=== PATIENT | male | born 1930 | race African-American/Black ===

== ENCOUNTER 2016-11-20 10:32 | Inpatient (IN) | payer MEDICARE ==
--- NOTE | 2016-11-20 11:10 | ED ---
General Adult HPI - General Chief complaint: Weakness Stated complaint: Unable to ambulate Time Seen by Provider: 11/20/16 11:00 Source: patient, EMS, RN notes reviewed Mode of arrival: EMS Limitations: physical limitation - History of Present Illness Initial comments: Patient is a pleasant 86-year-old male presenting to the emergency department complaining of general weakness. Onset was this morning. Patient felt fine when he went to bed. Patient denies any isolated area of weakness. Patient denies any confusion. Patient states he was too weak to get out of bed and did slide towards the ground. Patient denies any injury. No headache. No pain. - Related Data Home Medications Medication Instructions Recorded Confirmed No Known Home Medications [No 11/20/16 11/20/16 Known Home Medications] Allergies Allergy/AdvReac Type Severity Reaction Status Date / Time No Known Allergies Allergy Verified 11/20/16 10:33 Review of Systems ROS Statement: Those systems with pertinent positive or pertinent negative responses have been documented in the HPI. ROS Other: All systems not noted in ROS Statement are negative. Constitutional: Denies: fever Eyes: Denies: eye pain ENT: Denies: ear pain Respiratory: Denies: cough Cardiovascular: Denies: chest pain Endocrine: Denies: fatigue Gastrointestinal: Denies: abdominal pain Genitourinary: Denies: dysuria Musculoskeletal: Denies: back pain Skin: Denies: rash Neurological: Reports: weakness. Denies: headache, confusion Past Medical History Past Medical History: Asthma History of Any Multi-Drug Resistant Organisms: None Reported Past Surgical History: No Surgical Hx Reported Past Psychological History: No Psychological Hx Reported Smoking Status: Former smoker Past Alcohol Use History: None Reported Past Drug Use History: None Reported General Exam Limitations: physical limitation General appearance: alert, in no apparent distress Head exam: Present: atraumatic Eye exam: Present: normal appearance, PERRL ENT exam: Present: normal oropharynx Neck exam: Present: normal inspection Respiratory exam: Present: normal lung sounds bilaterally Cardiovascular Exam: Present: regular rate, normal rhythm GI/Abdominal exam: Present: soft. Absent: tenderness Extremities exam: Present: normal inspection Neurological exam: Present: alert, oriented X3, CN II-XII intact. Absent: motor sensory deficit Expanded Patient oriented to: Present: person, place, time Speech: Present: fluid speech Cranial nerves: EOM's Intact: Normal, Facial Sensation: Normal Sensory exam: Upper Extremity Light Touch: Normal, Lower Extremity Light Touch: Normal Motor strength exam: RUE: 5, LUE: 5, RLE: 5, LLE: 5 Eye Response: (4) open spontaneously Motor Response: (6) obeys commands Verbal Response: (5) oriented Psychiatric exam: Present: normal affect, normal mood Skin exam: Present: normal color Course Vital Signs 11/20/16 11/20/16 11/20/16 10:33 12:19 13:00 Temperature 96.9 F L Pulse Rate 95 74 80 Respiratory 18 18 20 Rate Blood Pressure 182/84 177/81 180/85 O2 Sat by Pulse 97 97 98 Oximetry EKG Findings - EKG Comments: EKG Findings:: Normal sinus rhythm 86. IA 184. QRS 74. QT 408. QTC 488. Normal axis. Septal Q waves. Nonspecific T waves. Medical Decision Making - Medical Decision Making Patient reevaluated and resting comfortably in bed. Blood sugar has improved to 60. Patient remains alert and appropriate. Patient updated on results and plan. Case was discussed in detail with Dr. Garcia, who will admit for Dr. Briones. Patient will be provided fluids for renal failure and acidosis. D5 added for hypoglycemia. - Lab Data Result diagrams: 11/20/16 11:57 11/20/16 11:57 Lab Results 11/20/16 11/20/16 11/20/16 Range/Units 11:57 11:57 11:57 WBC 7.3 (3.8-10.6) k/uL RBC 4.53 (4.30-5.90) m/uL Hgb 13.7 (13.0-17.5) gm/dL Hct 43.3 (39.0-53.0) % MCV 95.6 (80.0-100.0) fL MCH 30.4 (25.0-35.0) pg MCHC 31.8 (31.0-37.0) g/dL RDW 15.6 H (11.5-15.5) % Plt Count 135 L (150-450) k/uL Neutrophils % 87 % Lymphocytes % 7 % Monocytes % 4 % Eosinophils % 1 % Basophils % 0 % Neutrophils # 6.3 (1.3-7.7) k/uL Lymphocytes # 0.5 L (1.0-4.8) k/uL Monocytes # 0.3 (0-1.0) k/uL Eosinophils # 0.1 (0-0.7) k/uL Basophils # 0.0 (0-0.2) k/uL Hypochromasia Slight Sodium 141 (137-145) mmol/L Potassium 5.9 H (3.5-5.1) mmol/L Chloride 111 H (98-107) mmol/L Carbon Dioxide 13 L (22-30) mmol/L Anion Gap 17 mmol/L BUN 40 H (9-20) mg/dL Creatinine 2.20 H (0.66-1.25) mg/dL Est GFR (MDRD) Af Amer 35 (>60 ml/min/1.73 sqM) Est GFR (MDRD) Non-Af 29 (>60 ml/min/1.73 sqM) Glucose 22 L* (74-99) mg/dL POC Glucose (mg/dL) (75-99) mg/dL POC Glu Agronomy Advisor ID Calcium 9.1 (8.4-10.2) mg/dL Phosphorus 3.8 (2.5-4.5) mg/dL Magnesium 2.4 H (1.6-2.3) mg/dL Total Bilirubin 1.4 H (0.2-1.3) mg/dL AST 26 (17-59) U/L ALT 18 L (21-72) U/L Alkaline Phosphatase 37 L (38-126) U/L Total Creatine Kinase 533 H (55-170) U/L CK-MB (CK-2) 6.6 H* (0.0-2.4) ng/mL CK-MB (CK-2) Rel Index 1.2 Troponin I 0.034 (0.000-0.034) ng/mL Total Protein 6.1 L (6.3-8.2) g/dL Albumin 3.5 (3.5-5.0) g/dL TSH 1.550 (0.465-4.680) mIU/L Free T4 1.28 (0.78-2.19) ng/dL Free T3 pg/mL 1.9 L (2.8-5.3) pg/ml 11/20/16 Range/Units 13:16 WBC (3.8-10.6) k/uL RBC (4.30-5.90) m/uL Hgb (13.0-17.5) gm/dL Hct (39.0-53.0) % MCV (80.0-100.0) fL MCH (25.0-35.0) pg MCHC (31.0-37.0) g/dL RDW (11.5-15.5) % Plt Count (150-450) k/uL Neutrophils % % Lymphocytes % % Monocytes % % Eosinophils % % Basophils % % Neutrophils # (1.3-7.7) k/uL Lymphocytes # (1.0-4.8) k/uL Monocytes # (0-1.0) k/uL Eosinophils # (0-0.7) k/uL Basophils # (0-0.2) k/uL Hypochromasia Sodium (137-145) mmol/L Potassium (3.5-5.1) mmol/L Chloride (98-107) mmol/L Carbon Dioxide (22-30) mmol/L Anion Gap mmol/L BUN (9-20) mg/dL Creatinine (0.66-1.25) mg/dL Est GFR (MDRD) Af Amer (>60 ml/min/1.73 sqM) Est GFR (MDRD) Non-Af (>60 ml/min/1.73 sqM) Glucose (74-99) mg/dL POC Glucose (mg/dL) 20 L (75-99) mg/dL POC Glu Agronomy Advisor ID Bowling, Sheri Calcium (8.4-10.2) mg/dL Phosphorus (2.5-4.5) mg/dL Magnesium (1.6-2.3) mg/dL Total Bilirubin (0.2-1.3) mg/dL AST (17-59) U/L ALT (21-72) U/L Alkaline Phosphatase (38-126) U/L Total Creatine Kinase (55-170) U/L CK-MB (CK-2) (0.0-2.4) ng/mL CK-MB (CK-2) Rel Index Troponin I (0.000-0.034) ng/mL Total Protein (6.3-8.2) g/dL Albumin (3.5-5.0) g/dL TSH (0.465-4.680) mIU/L Free T4 (0.78-2.19) ng/dL Free T3 pg/mL (2.8-5.3) pg/ml - Radiology Data Radiology results: report reviewed (Computed tomography scan of the brain shows no acute process.), image reviewed (Chest x-ray shows no acute process.) Disposition Clinical Impression: Acute renal failure, Hypoglycemia Disposition: ADMITTED IP TO THIS [facility] Referrals: Jose Ramon Thorne DO [Primary Care Provider] - 1-2 days Decision Time: 14:19
[2016-11-20 12:13] LABS: Basophils % (A) 0 %; CH 30.4; Eosinophils # (A) 0.1 k/uL (0-0.7); Eosinophils % (A) 1 %; HCT 43.3 % (39.0-53.0); HDW 3.01; HGB 13.7 gm/dL (13.0-17.5); Hypochromasia Slight; Luc # (Auto) 0.08; Luc % (Auto) 1; Lymphocytes # (A) 0.5 k/uL (1.0-4.8); Lymphocytes % (A) 7 %; MCH 30.4 pg (25.0-35.0); MCHC 31.8 g/dL (31.0-37.0); MCV 95.6 fL (80.0-100.0); Mean Platelet Volume 8.4; Monocytes # (A) 0.3 k/uL (0-1.0); Monocytes % (A) 4 %; Neutrophils # (A) 6.3 k/uL (1.3-7.7); Neutrophils % (A) 87 %; RBC 4.53 m/uL (4.30-5.90); RDW 15.6 % (11.5-15.5); WBC 7.3 k/uL (3.8-10.6); WBC (Perox) 8.15
[2016-11-20 12:32] LABS: Calcium 9.1 mg/dL (8.4-10.2); Total Bilirubin 1.4 mg/dL (0.2-1.3)
[2016-11-20 13:01] LABS: Creatine Kinase MB 6.6 ng/mL (0.0-2.4); Troponin I 0.034 ng/mL (0.000-0.034)
[2016-11-20 13:04] LABS: Magnesium 2.4 mg/dL (1.6-2.3); Phosphorous 3.8 mg/dL (2.5-4.5); Potassium 5.9 mmol/L (3.5-5.1)
[2016-11-20 13:05] LABS: Total Protein 6.1 g/dL (6.3-8.2)
--- NOTE | 2016-11-20 13:13 | CT ---
EXAMINATION TYPE: CT brain wo con DATE OF EXAM: 11/20/2016 COMPARISON: NONE HISTORY: weakness and fall CT DLP: 1017.9 mGycm Automated exposure control for dose reduction was used. FINDINGS: Cortical atrophy is present. White matter demyelination changes are likely age-related. Cerebral vasc ular calcifications are present. There is no hemorrhage or hydrocephalus. Mild inflammatory change pr esent in the maxillary sinus, ethmoid air cells. Mastoids are well aerated. IMPRESSION: NO ACUTE ABNORMALITY. NO HEMORRHAGE OR HYDROCEPHALUS.
--- NOTE | 2016-11-20 13:14 | XR ---
EXAMINATION TYPE: XR chest 2V DATE OF EXAM: 11/20/2016 COMPARISON: Prior chest x-ray 07/05/2010 HISTORY: Weakness, fall TECHNIQUE: Frontal and lateral views of the chest are obtained. FINDINGS: There is no focal air space opacity, pleural effusion, or pneumothorax seen. The cardiac silhouette size is within normal limits. There are overlying cardiac leads. The osseous structures are intact. IMPRESSION: No acute cardiopulmonary process.
[2016-11-20 13:22] LABS: Glucose,Whole Blood 20 mg/dL (75-99)
[2016-11-20] MEDS ORDERED: DEXTROSE 50%-WATER 50 ML SYRINGE IVP STA ×3 (13:29→17:33)
[2016-11-20] MEDS ORDERED: SODIUM CHLORIDE 0.9% 500 ML IV STA (13:30)
[2016-11-20] MEDS ORDERED: SODIUM CHLORIDE 0.9% 1,000 ML IV STA (13:30)
[2016-11-20] MEDS ORDERED: DEXTROSE 5%-0.45% NACL 1,000 ML IV ONE (14:18)
[2016-11-20 14:19] LABS: Glucose,Whole Blood 60 mg/dL (75-99)
[2016-11-20] MEDS ORDERED: NALOXONE 0.4 MG/ML 1 ML VIAL IV PRN (14:20)
[2016-11-20 14:51] LABS: Glucose,Whole Blood 53 mg/dL (75-99)
[2016-11-20] MEDS ORDERED: GLUCAGON 1 MG/ML VIAL IVP STA (14:51)
[2016-11-20 15:42] LABS: Glucose,Whole Blood 50 mg/dL (75-99)
[2016-11-20 16:22] LABS: Glucose,Whole Blood 90 mg/dL (75-99)
[2016-11-20 17:05] LABS: Glucose,Whole Blood 74 mg/dL (75-99)
[2016-11-20] MEDS ORDERED: ALBUTEROL NEBULIZED 2.5 MG/3 ML INHALATION PRN (17:30)
[2016-11-20] MEDS ORDERED: SODIUM POLYSTYRENE SULFONATE 15 GM/60 ML BOTTLE PO STA (17:33)
[2016-11-20] MEDS: ONDANSETRON 4 MG/2 ML VIAL IVP PRN (17:44)
[2016-11-20] MEDS ORDERED: CALCIUM GLUCONATE 1,000 MG in SODIUM CHLORIDE 0.9% 100 ML IVPB ONE (18:00)
[2016-11-20 20:43] LABS: Glucose,Whole Blood 54 mg/dL (75-99)
[2016-11-20] MEDS ORDERED: DEXTROSE 10 % IN WATER 250 ML IV STA (20:43)
[2016-11-20] MEDS: ALBUTEROL NEBULIZED 2.5 MG/3 ML INHALATION SCH (20:51)
[2016-11-20 21:19] LABS: Glucose,Whole Blood 135 mg/dL (75-99)
[2016-11-20 22:05] LABS: Calcium 8.9 mg/dL (8.4-10.2); Potassium 4.4 mmol/L (3.5-5.1); Total Bilirubin 1.3 mg/dL (0.2-1.3); Total Protein 5.5 g/dL (6.3-8.2)
[2016-11-21 00:12] LABS: Glucose,Whole Blood 107 mg/dL (75-99)
[2016-11-21 00:42] LABS: Appearance,Urine Clear (Clear); Bilirubin,Urine Negative (Negative); Glucose,Urine (UA) Trace (Negative); Ketones,Urine 1+ (Negative); Leukocyte Esterase,Urine Negative (Negative); Nitrite,Urine Negative (Negative); Protein,Urine Negative (Negative); Specific Gravity,Urine 1.012 (1.001-1.035); UA Billing (MACRO vs. MICRO) CHEM
[2016-11-21 03:01] LABS: Glucose,Whole Blood 84 mg/dL (75-99)
[2016-11-21 06:05] LABS: Glucose,Whole Blood 80 mg/dL (75-99)
[2016-11-21 07:34] LABS: Glucose,Whole Blood 82 mg/dL (75-99)
[2016-11-21 07:57] LABS: Basophils % (A) 0 %; CH 30.5; CHCM 32.9; Eosinophils # (A) 0.1 k/uL (0-0.7); Eosinophils % (A) 2 %; HCT 38.7 % (39.0-53.0); HDW 3.01; HGB 13.1 gm/dL (13.0-17.5); Luc # (Auto) 0.08; Luc % (Auto) 2; Lymphocytes # (A) 0.6 k/uL (1.0-4.8); Lymphocytes % (A) 11 %; MCH 31.5 pg (25.0-35.0); MCHC 33.8 g/dL (31.0-37.0); MCV 93.1 fL (80.0-100.0); Mean Platelet Volume 9.3; Monocytes # (A) 0.2 k/uL (0-1.0); Monocytes % (A) 5 %; Neutrophils # (A) 4.1 k/uL (1.3-7.7); Neutrophils % (A) 81 %; RBC 4.15 m/uL (4.30-5.90); RDW 15.1 % (11.5-15.5); WBC 5.1 k/uL (3.8-10.6); WBC (Perox) 5.34
[2016-11-21 08:07] LABS: Manual Review Performed
[2016-11-21 08:15] LABS: Calcium 8.4 mg/dL (8.4-10.2); Total Bilirubin 1.4 mg/dL (0.2-1.3)
[2016-11-21 08:20] LABS: Potassium 4.8 mmol/L (3.5-5.1)
[2016-11-21 08:21] LABS: Total Protein 5.1 g/dL (6.3-8.2)
[2016-11-21] MEDS: ALBUTEROL NEBULIZED 2.5 MG/3 ML INHALATION SCH ×4 (08:29→20:44)
--- NOTE | 2016-11-21 10:18 | HP ---
DATE OF ADMISSION: 11/20/16 CHIEF COMPLAINT: Generalized weakness and renal failure. HISTORY OF PRESENT ILLNESS: This 86-year-old gentleman with past medical history of multiple medical problems including history of asthma, history of nicotine dependence, being followed by Dr. Thorne in the outpatient setting complaining of tiredness and weakness. The po intake appears to be poor at this time. The patient is dizzy. Generalized weakness. The patient came to [facility] and admitted. The patient having multiple abnormalities including hypoglycemia as well as hyperkalemia and renal failure also. There is no history of fever, rigors or chills. No history of headache, loss of consciousness or seizures. Past medical history of asthma. History of nicotine dependence. Medications prior to admission are: None. ALLERGIES: None. FAMILY HISTORY: History of heart disease and strokes in the family. SOCIAL HISTORY: Previous history of smoking. No history of current smoking or alcohol intake. REVIEW OF SYSTEMS: HEENT: No diminished vision. No diminished hearing. Cardiovascular system: No angina or palpitations. Respiratory: No cough, hemoptysis. GI: No nausea or vomiting. : No dysuria. Nervous system: No numbness. Generalized weakness. Allergy/Immunology: No asthma or hayfever. Musculoskeletal: As mentioned earlier. Hematology/oncology: No history of anemia. Endocrine. No history of diabetes or hypothyroidism. Constitutional: As mentioned earlier. Dermatology: Negative. Rheumatology: Negative. Psychiatry: As mentioned earlier. PHYSICAL EXAMINATION: The patient is alert and oriented times three. Pulse 76. Blood pressure 162/84. Respiratory rate 18, temperature 97.4 degrees. Pulse ox 94% on 2 L. HEENT: Conjunctivae normal. Oral mucosa dry. NECK: No JVD. No carotid bruit. No lymph node enlargement. Cardiovascular: S1, S2 muffled. Respiratory: Breath sounds diminished at the bases. A few scattered rhonchi and crackles. Abdomen is soft. No mass palpable. Legs : No edema. No swelling. Nervous system: No focal deficits. Lymphatics : No lymph nodes palpable in the neck, axillae or groin. SKIN: Hyperpigmentation present. LABS: WBC 7.7, hemoglobin 13.6. Sodium 140. Potassium 5.9. Creatinine 2.20. ASSESSMENT: 1. Acute renal failure, secondary to dehydration, prerenal factors. 2. Hypoglycemia. 3. Hyperkalemia from acute renal failure. 4. Increased creatinine kinase. 5. History of asthma. 6. Nonspecific ST-T changes. 7. FULL CODE. RECOMMENDATIONS AND DISCUSSION: In this 86 -year-old gentleman who presented with multiple complex medical issues, we will monitor the patient closely, continue the current medications, continue symptomatic treatment. We will initiate IV hydration. Otherwise, continue to monitor. Monitor creatinine closely. Recommend UA with micro. CT scan of the brain did not show any acute abnormality. Chest x-ray showed no acute cardiopulmonary illness and EKG is also done showed some nonspecific ST-T changes. We will continue to monitor. Guarded prognosis. Further recommendations o follow. Closely follow with Dr. Thorne in the outpatient setting. I would also obtain a 2D echo with Doppler to complete the workup. PAT
[2016-11-21 10:19] LABS: Glucose,Whole Blood 95 mg/dL (75-99)
--- NOTE | 2016-11-21 10:46 | CONS ---
REASON FOR CONSULT: Renal failure and acidosis. HISTORY OF PRESENT ILLNESS: The patient is an 86 -year-old male who was admitted to the hospital with complaints of weakness. He stated that he had not been feeling well for about one week and was not able to walk and get around. He denied any diarrhea, nausea or vomiting. The patients blood pressure was not noted to be low at the time of admission. He states the has currently been voiding. He had not been eating much prior to admission. Serum creatinine was 2.2 mgDL on initial admission. It is at 1.9 now. CO2 13. It is currently at 14. Again, the patient denied any diarrhea prior to admission. Previous creatinine is not available for comparison. However, the patient denied any prior history of kidney diseases. PAST MEDICAL HISTORY: Asthma. Home medications: None. ALLERGIES: None. SOCIAL HISTORY: The patient is an ex-smoker. No history of drug abuse or alcohol abuse. REVIEW OF SYSTEMS: As per HPI. Other systems negative. On examination, the patient is comfortable. Awake. He is not in any acute distress. Blood pressure is 118/58. Heart rate is 73 per minute. He is afebrile. Examination of the heart, S1, S2. Examination of the lungs, bilateral breath sounds are heard. Abdomen is soft, nontender. Examination of the lower extremities shows no evidence of edema. GROUP SUPERVISOR YARD : Grossly intact. The patient is moving all four extremities. Labs reveal sodium 139, potassium 4.8. Chloride 115. CO2 14. BUN 33, serum creatinine 1.92. Hemoglobin 13.1 gmDL. ASSESSMENT: 1. Acute kidney injury appears to be prerenal. We will resume IV hydration. 2. Non-anion gap metabolic acidosis secondary to renal failure. We will start with oral sodium bicarb and continue with IV fluids in the form of half normal saline. If the acidosis does not improve, the patient will need to be started on IV sodium bicarb/sodium acetate. 3. History of asthma. PLAN: Start IV fluids. Start oral sodium bicarb. Repeat labs in the a.m. Thank you for this consultation. We will continue to follow the patient with you during his hospitalization. PAT
[2016-11-21] MEDS: SODIUM BICARBONATE TAB 650 MG TAB PO SCH ×3 (10:57→20:39)
[2016-11-21] MEDS: SODIUM CHLORIDE 0.45% 1,000 ML IV SCH ×2 (10:57→20:43)
[2016-11-21 12:12] LABS: Glucose,Whole Blood 93 mg/dL (75-99)
[2016-11-21 17:04] LABS: Glucose,Whole Blood 90 mg/dL (75-99)
--- NOTE | 2016-11-21 20:17 | PN ---
DATE OF SERVICE: 11/21/16 This 86-year-old gentleman who was admitted with dehydration and prerenal factors and pneumonia, is being closely monitored. After IV Fluids, the patient is feeling much better. The creatinine is improved to 1.92. PHYSICAL EXAMINATION: The patient is alert and oriented times three. Pulse 76. Blood pressure 149/70. Respiratory rate 14. Temperature 98.2 degrees. Pulse ox 98% on 2 L. HEENT: Conjunctivae normal. NECK: No JVD. CARDIOVASCULAR: S1, S2 muffled. RESPIRATORY: Breath sounds diminished at the bases. A few scattered rhonchi and crackles. ABDOMEN: Soft, nontender. LEGS: No edema. No swelling. NERVOUS SYSTEM: No focal deficits. LABS: Creatinine 1.92. Other labs are noted. ASSESSMENT: 1. Acute renal failure, secondary to dehydration, prerenal factors and acute tubular necrosis. 2. Hypoglycemia. 3. Hyperkalemia from acute renal failure. 4. Increased creatinine kinase. 5. History of asthma. 6. History of nonspecific ST-T changes. 7. FULL CODE. RECOMMENDATIONS AND DISCUSSION: Continue current medications, continue with symptomatic treatment. Continue with IV fluids. Increase ambulation. Prognosis guarded because of multiple complex medical issues. Further recommendations to follow. MTDD
[2016-11-21 21:32] LABS: Glucose,Whole Blood 98 mg/dL (75-99)
[2016-11-22 02:24] LABS: Glucose,Whole Blood 82 mg/dL (75-99)
[2016-11-22 06:12] LABS: Glucose,Whole Blood 75 mg/dL (75-99)
[2016-11-22 07:07] LABS: Glucose,Whole Blood 63 mg/dL (75-99)
[2016-11-22 07:35] LABS: Glucose,Whole Blood 81 mg/dL (75-99)
[2016-11-22] MEDS: SODIUM BICARBONATE TAB 650 MG TAB PO SCH ×3 (07:53→20:35)
[2016-11-22] MEDS: SODIUM CHLORIDE 0.45% 1,000 ML IV SCH ×3 (07:56→20:36)
[2016-11-22] MEDS: ALBUTEROL NEBULIZED 2.5 MG/3 ML INHALATION SCH ×4 (08:03→19:18)
[2016-11-22] MEDS: ONDANSETRON 4 MG/2 ML VIAL IVP PRN (08:23)
--- NOTE | 2016-11-22 09:58 | P.PN ---
Subjective Patient is seen in follow-up for acute kidney injury. Unclear as to what his baseline renal function is. Creatinine was 2.2 on admission and was down to 1.9 as of yesterday. Patient is also noted to be acidotic with bicarb level of 14 as of yesterday. Denies chest pain or shortness of breath. He's been having vomiting this morning. Denies any diarrhea. Denies chest pain or shortness of breath. Admits to good urine output. Vital signs are stable. General: The patient appeared well nourished and normally developed. HEENT: Head exam is unremarkable. Neck is without jugular venous distension. LUNGS: Lungs are clear to auscultation and percussion. Breath sounds decreased. HEART: Rate and Rhythm are regular. First and second heart sounds normal. No murmurs, rubs or gallops. ABDOMEN: Abdominal exam reveals normal bowel sounds. Non-tender and non- distended. No evidence of peritonitis. EXTREMITITES: No clubbing, cyanosis, or edema. Objective - Vital Signs Vital signs: Vital Signs Temp 98.1 F 11/22/16 07:00 Pulse 73 11/22/16 07:00 Resp 22 11/22/16 07:00 BP 123/56 11/22/16 07:00 Pulse Ox 100 11/22/16 07:00 Intake & Output 11/21/16 11/22/16 11/22/16 18:59 06:59 18:59 Intake Total 200 Output Total 300 200 Balance -300 0 Intake: Oral 200 Output: Urine 300 200 Other: Voiding Method Urinal # Voids 0 # Bowel Movements 0 # Emeses 0 - Labs CBC & Chem 7: 11/21/16 07:40 11/21/16 07:40 Labs: Abnormal Lab Results - Last 24 Hours (Table) 11/22/16 Range/Units 07:05 POC Glucose (mg/dL) 63 L (75-99) mg/dL Assessment and Plan Plan: Assessment: #1. Nonoliguric acute kidney injury mostly prerenal. Gradually improving with IV hydration. Unclear as to what is presented function is. Urinalysis was noted to be benign. #2. Metabolic acidosis secondary to acute kidney injury. #3. Hyperkalemia secondary to acute kidney injury and metabolic acidosis on admission. Resolved. Plan: Continue half-normal saline at 100 mL an hour. Maintain oral sodium bicarbonate supplementation. Avoid nephrotoxic agents and hypotensive episodes. Check labs today.
--- NOTE | 2016-11-22 10:49 | ECHOF ---
Referral Reason:chf MEASUREMENTS -------- HEIGHT: 175.3 cm WEIGHT: 72.6 kg BP: 115/59 RVIDd: 2.5 cm (< 3.3) IVSd: 1.6 cm (0.6 - 1.1) LVIDd: 3.5 cm (3.9 - 5.3) LVPWd: 1.4 cm (0.6 - 1.1) IVSs: 1.9 cm LVIDs: 2.4 cm LVPWs: 1.8 cm LA Diam: 2.9 cm (2.7 - 3.8) LAESV Index (A-L): 27.27 ml/m Ao Diam: 3.8 cm (2.0 - 3.7) AV Cusp: 2.1 cm (1.5 - 2.6) MV EXCURSION: 16.659 mm (> 18.000) MV EF SLOPE: 21 mm/s (70 - 150) EPSS: 0.9 cm MV E [place]: 0.57 m/s MV DecT: 296 ms MV A [place]: 0.74 m/s MV E/A Ratio: 0.78 RAP: 5.00 mmHg RVSP: 43.88 mmHg FINDINGS -------- Sinus rhythm. This was a technically difficult study with suboptimal views. The left ventricular size is normal. There is moderate concentric left ventricular hypertrophy. Overall left ventricular systolic function is normal with, an EF between 60 - 65 %. The right ventricle is normal in size. Normal LA size by volume 22+/-6 ml/m2. The right atrium is normal in size. 1.5mg of Definity was utilized for enhancement of images The aortic valve is trileaflet and appears structurally normal. The mitral valve is normal. Mild tricuspid regurgitation present. There is mild pulmonary hypertension. The right ventricular systolic pressure, as measured by Doppler, is 43.88mmHg. There is no pulmonic regurgitation present. The aortic root is dilated measuring 3.8cm. Normal inferior vena cava with normal inspiratory collapse consistent with estimated right atrial pressure of 5 mmHg. There is no pericardial effusion. CONCLUSIONS -------- 1. Sinus rhythm. 2. The aortic valve is trileaflet and appears structurally normal. 3. The mitral valve is normal. 4. Mild tricuspid regurgitation present. 5. There is mild pulmonary hypertension. 6. The right ventricular systolic pressure, as measured by Doppler, is 43.88mmHg. 7. There is no pulmonic regurgitation present. 8. The aortic root is dilated measuring 3.8cm. 9. Normal inferior vena cava with normal inspiratory collapse consistent with estimated right atrial pressure of 5 mmHg. 10. There is no pericardial effusion. 11. This was a technically difficult study with suboptimal views. 12. The left ventricular size is normal. 13. There is moderate concentric left ventricular hypertrophy. 14. Overall left ventricular systolic function is normal with, an EF between 60 - 65 %. 15. The right ventricle is normal in size. 16. Normal LA size by volume 22+/-6 ml/m2. 17. The right atrium is normal in size. 18. 1.5mg of Definity was utilized for enhancement of images MARBLE CUTTER: Amelia Sorensen RDCS
[2016-11-22 11:15] LABS: Calcium 8.1 mg/dL (8.4-10.2); Potassium 3.7 mmol/L (3.5-5.1)
[2016-11-22 11:50] LABS: Glucose,Whole Blood 59 mg/dL (75-99)
[2016-11-22 12:10] LABS: Glucose,Whole Blood 80 mg/dL (75-99)
--- NOTE | 2016-11-22 13:21 | XR ---
EXAMINATION TYPE: XR chest 1V portable DATE OF EXAM: 11/22/2016 COMPARISON: Prior chest x-ray 11/20/2016 HISTORY: Cough TECHNIQUE: frontal view of the chest is obtained on 2 images. FINDINGS: There is no pleural effusion or pneumothorax seen. The cardiac silhouette size is stable accounting for differences in technique and rotation. Minimal patchy basilar density noted. There a re overlying cardiac leads. The osseous structures are intact. IMPRESSION: There may be some basilar atelectasis. Follow-up as indicated.
[2016-11-22] MEDS: ESOMEPRAZOLE 20 MG in SODIUM CHLORIDE 0.9% 50 ML IVPB SCH (13:34)
--- NOTE | 2016-11-22 15:17 | P.PN ---
Subjective Date of service 11/22/2016. Personal being dictated for Dr. Garcia. Interval history: This is an 86-year-old gentleman admitted with dehydration, acute renal failure, hypoglycemia multiple other medical issues. Maintained on IV fluid hydration with continue to improving creatinine 1.69. Complains of nausea, vomiting and cough with clear sputum. Acidotic. Denies chest pain, palpitations or increasing shortness of breath. Objective - Vital Signs Vital signs: Vital Signs Temp 98.1 F 11/22/16 07:00 Pulse 76 11/22/16 11:56 Resp 22 11/22/16 07:00 BP 123/56 11/22/16 07:00 Pulse Ox 100 11/22/16 07:00 Intake & Output 11/21/16 11/22/16 11/22/16 18:59 06:59 18:59 Intake Total 200 Output Total 300 200 150 Balance -300 0 -150 Weight 72.575 kg Intake: Oral 200 Output: Urine 300 200 150 Other: Voiding Method Urinal # Voids 0 # Bowel Movements 0 1 # Emeses 0 - Exam PHYSICAL EXAM: VITAL SIGNS: As above GENERAL: [Sitting up in bed, no acute distress] HEENT: [Pupils equal conjunctiva normal.] NECK: [Supple, no JVD] RESPIRATORY EFFORT:[ Normal] LUNGS: [Bilateral bases diminished] CARDIOVASCULAR[ regular S1 and S2, no murmurs rubs or gallops, no edema] GI: [Abdomen soft, nontender, positive bowel sounds.] PSYCH: [Alert and oriented -3, mood and affect normal.] NEURO: No focal deficits. - Labs CBC & Chem 7: 11/21/16 07:40 11/22/16 10:08 Labs: Abnormal Lab Results - Last 24 Hours (Table) 11/22/16 11/22/16 11/22/16 Range/Units 07:05 10:08 11:49 Chloride 113 H (98-107) mmol/L Carbon Dioxide 20 L (22-30) mmol/L BUN 24 H (9-20) mg/dL Creatinine 1.69 H (0.66-1.25) mg/dL POC Glucose (mg/dL) 63 L 59 L (75-99) mg/dL Calcium 8.1 L (8.4-10.2) mg/dL Assessment and Plan Plan: 1. Acute renal failure secondary to dehydration, prerenal factors and acute tubular necrosis. 2. [ Hypoglycemia]. 3. [ Hyperkalemia secondary to acute renal failure, resolved]. 4. [ Increased creatinine kinase]. Plan: Continue on current medication regime , sodium bicarb, monitoring and symptomatic treatment. Maintain IV fluid hydration. PPI added to med regime. Chest x-ray pending.Follow closely with nephrology. Discharge planning in progress for tomorrow. The impression and plan of care has been dictated as directed. : I performed a H&P examination of this patient and discussed the same with the dictator. I agree with the dictator's note. Any additional findings/opinions/ etc. will be noted.
[2016-11-22 17:14] LABS: Glucose,Whole Blood 86 mg/dL (75-99)
[2016-11-22 20:49] LABS: Glucose,Whole Blood 85 mg/dL (75-99)
[2016-11-23 02:25] LABS: Glucose,Whole Blood 76 mg/dL (75-99)
[2016-11-23 07:05] LABS: Glucose,Whole Blood 62 mg/dL (75-99)
[2016-11-23 07:24] LABS: Glucose,Whole Blood 63 mg/dL (75-99)
[2016-11-23] MEDS: ALBUTEROL NEBULIZED 2.5 MG/3 ML INHALATION SCH ×4 (07:35→20:23)
[2016-11-23 07:40] LABS: Glucose,Whole Blood 64 mg/dL (75-99)
[2016-11-23] MEDS ORDERED: DEXTROSE 10 % IN WATER 250 ML IV STA (07:41)
[2016-11-23] MEDS: SODIUM CHLORIDE 0.45% 1,000 ML IV SCH ×2 (08:28→21:10)
[2016-11-23] MEDS: ONDANSETRON 4 MG/2 ML VIAL IVP PRN (08:28)
[2016-11-23 08:29] LABS: Glucose,Whole Blood 73 mg/dL (75-99)
[2016-11-23 08:44] LABS: Potassium 3.4 mmol/L (3.5-5.1)
[2016-11-23] MEDS: SODIUM BICARBONATE TAB 650 MG TAB PO SCH ×3 (08:46→21:06)
[2016-11-23] MEDS ORDERED: POTASSIUM CHLORIDE ER 20 MEQ TAB.ER PO STA (08:59)
[2016-11-23] MEDS ORDERED: Potassium Replacement Protocol 1 EACH MISC MISCELLANE PRN (09:48)
--- NOTE | 2016-11-23 10:10 | PN ---
Patient is seen for follow up for acute kidney injury and metabolic acidosis. Currently he is maintained on IV fluids. Liver function has improved. Metabolic acidosis also improved. Patient is maintained on p.o. sodium bicarb. His creatinine is down to 1.5 from 2.2 on initial admission. Patient has been voiding in a urinal. On examination, he is currently comfortable, awake not in any acute distress. Blood pressure is 148/68, heart rate is 76 per minute. He is afebrile. Examination of the heart: S1, S2. Examination of lungs: Bilateral breath sounds are heard. Abdomen is soft, nontender. Examination of lower extremities shows no significant edema. CIVIL ENGINEERING TEACHER exam is grossly intact. Labs show sodium of 139, potassium 3.4, chloride 111, BUN 20, serum creatinine 1.56. Calcium 8.0. ASSESSMENT: 1. Acute kidney injury, prerenal currently improving. I will check an ultrasound of the kidneys as I do not see one on this admission or on previous admission. 2. Metabolic acidosis, currently improved. Patient is maintained on oral sodium bicarb. 3. Rule out chronic kidney disease. We do not have previous labs available for comparison. 4. Hypokalemia, will replace. 5. Hypoglycemia, currently resolved. PLAN: Continue IV fluids, check ultrasound of the kidneys. Repeat labs in the a.m. MTDD
[2016-11-23] MEDS: ESOMEPRAZOLE 20 MG in SODIUM CHLORIDE 0.9% 50 ML IVPB SCH (10:11)
[2016-11-23 11:54] LABS: Glucose,Whole Blood 70 mg/dL (75-99)
--- NOTE | 2016-11-23 15:09 | US ---
EXAMINATION TYPE: US kidneys/renal and bladder DATE OF EXAM: 11/23/2016 COMPARISON: NONE CLINICAL HISTORY: renal failure. EXAM MEASUREMENTS: Right Kidney: 8.3 x 3.3 x 4.1 cm Left Kidney: 8.1 x 5.2 x 3.9 cm Right Kidney: Cystic are seen mid/lower pole measuring 1.4 x 1.1 x 1.2 cm. Left Kidney: No hydronephrosis or masses seen Bladder: wnl Bilateral Jets seen: Yes IMPRESSION: 1. Mid to inferior pole right renal cyst
--- NOTE | 2016-11-23 15:56 | P.PN ---
Subjective Personal being dictated for Dr. Garcia. Interval history: This is an 86-year-old gentleman admitted with dehydration, acute renal failure, hypoglycemia multiple other medical issues. Maintained on IV fluid hydration with continue to improving creatinine 1.69. Complains of nausea, vomiting and cough with clear sputum. Acidotic. Denies chest pain, palpitations or increasing shortness of breath. 11/23/2016 maintained on gentle IV fluid hydration. persistent, ongoing nausea , vomiting, hypoglycemia. Currently receiving dextrose 10%. Unable to tolerate diet. Renal ultrasound reportedly mild inferior pole right renal cyst. Renal function mildly improving. Chest x-ray reporting bibasilar atelectasis. Echo reporting EF 60-65%. Denies chest pain, palpitations or increasing shortness of breath. Objective - Vital Signs Vital signs: Vital Signs Temp 98 F 11/23/16 07:00 Pulse 79 11/23/16 11:57 Resp 18 11/23/16 07:00 BP 148/68 11/23/16 07:00 Pulse Ox 97 11/23/16 07:00 Intake & Output 11/22/16 11/23/16 11/23/16 18:59 06:59 18:59 Intake Total 600 Output Total 250 700 100 Balance -250 -700 500 Weight 72.575 kg Intake: Intake, IV Titration 600 Amount Dextrose 10 % in Water 250 250 ml @ 999 mls/hr IV ONCE [facility] Rx#:[id number] Esomeprazole 20 mg In 50 Sodium Chloride 0.9% 50 ml @ 100 mls/hr IVPB DAILY [facility] Rx#:[id number] Sodium Chloride 0.45% 1, 300 000 ml @ 100 mls/hr IV . Q10H [facility] Rx#:[id number] Output: Urine 250 700 Emesis 100 Other: Voiding Method Urinal # Voids 0 2 # Bowel Movements 1 0 1 - Exam PHYSICAL EXAM: VITAL SIGNS: As above GENERAL: [Sitting up in bed, cachectic appearing, HEENT: [Pupils equal conjunctiva normal.] NECK: [Supple, no JVD] RESPIRATORY EFFORT:[ Normal] LUNGS: [Bilateral bases diminished] CARDIOVASCULAR[ regular S1 and S2, no murmurs rubs or gallops, no edema] GI: [Abdomen soft, nontender, positive bowel sounds.] PSYCH: [Alert and oriented -3, mood and affect normal.] NEURO: No focal deficits. - Labs CBC & Chem 7: 07/30/17 07:40 11/23/16 08:05 Labs: Abnormal Lab Results - Last 24 Hours (Table) 11/23/16 11/23/16 11/23/16 Range/Units 06:52 07:16 07:37 Potassium (3.5-5.1) mmol/L Chloride (98-107) mmol/L Carbon Dioxide (22-30) mmol/L Creatinine (0.66-1.25) mg/dL POC Glucose (mg/dL) 62 L 63 L 64 L (75-99) mg/dL Calcium (8.4-10.2) mg/dL 11/23/16 11/23/16 11/23/16 Range/Units 08:05 08:27 11:51 Potassium 3.4 L (3.5-5.1) mmol/L Chloride 111 H (98-107) mmol/L Carbon Dioxide 20 L (22-30) mmol/L Creatinine 1.56 H (0.66-1.25) mg/dL POC Glucose (mg/dL) 73 L 70 L (75-99) mg/dL Calcium 8.0 L (8.4-10.2) mg/dL Assessment and Plan Plan: 1. Acute renal failure secondary to dehydration, prerenal factors and acute tubular necrosis. 2. [ Hypoglycemia]. 3. Nausea vomiting, reported weight loss, workup in progress. 4. [ Increased creatinine kinase]. Plan: Continue on current medication regime , sodium bicarb, monitoring and symptomatic treatment. Ongoing nausea, vomiting, hypoglycemia with history of recent weight loss. GI consulted for EGD. PT OT. CT of chest abdomen and pelvis ordered. Fasting glucose, serum insulin level, C-peptide, ESR and CRP ordered Maintain IV fluid hydration. Potassium replacement as per protocol ordered .Prognosis guarded given multiple complex medical issues. Further recommendations to follow. The impression and plan of care has been dictated as directed. : I performed a H&P examination of this patient and discussed the same with the dictator. I agree with the dictator's note. Any additional findings/opinions/ etc. will be noted.
--- NOTE | 2016-11-23 15:57 | CT ---
EXAMINATION TYPE: CT ChestAbdPelvis wo con DATE OF EXAM: 11/23/2016 COMPARISON: NONE HISTORY: cough, nausea, vomiting, weight loss CT DLP: 651.3 mGycm. Automated Exposure Control for Dose Reduction was Utilized. TECHNIQUE: CT scan of the thorax, abdomen and pelvis is performed without oral or IV contrast. FINDINGS: LUNGS: Moderate underlying emphysematous change is present. There are small sized right greater than left pleural effusions. Some associated dependent atelectatic change in both bases is seen. Some reti cular interstitial changes favor mild interstitial edema bilaterally. There is 5 mm nodule right lowe r lobe on axial image 48 confirmed on coronal image 62. MEDIASTINUM: There are no greater than 1 cm hilar or mediastinal lymph nodes. No cardiomegaly is se en. Main pulmonary artery is enlarged at 4.0 cm on axial image 35, adjacent ascending aorta measures 3.[address] findings suggesting underlying pulmonary artery hypertension. There is small pericardial effusion anteriorly and inferiorly noted. Coronary artery calcification is present which is noted marker for coronary artery disease. There is dilated esophagus with air-fluid level and debr is along proximal to mid and distal segments. Some high dense material distal esophagus and dependent stomach could reflect contrast or material from recent food ingestion. OTHER: No additional significant abnormality is seen. LIVER/GB: Cholecystectomy clips are seen. Liver is overall small in size. PANCREAS: There is abrupt cut off of pancreas mid body on axial image 72, suspect proximal resection, clinical correlation advised. SPLEEN: No significant abnormality is seen. ADRENALS: There is slight nodular thickening of left adrenal gland favoring benign hyperplasia. KIDNEYS: There is some cortical thinning in both kidneys, presumed product of chronic medical renal d isease. There is 1.2 cm low dense lesion centrally right kidney on coronal image 61 too small to furt her characterize but favor simple cyst. Bladder is prominent or distended extending into the lower ab domen with local mass effect. BOWEL: No no suspicious small or large bowel dilatation is seen. Surgical changes from right-sided p artial colectomy are present. There is fecal prominence in the rectum. GENITAL ORGANS: Prostate gland is upper limits of normal in size, correlation for BPH is advised. A f ew scattered pelvic phleboliths are seen. LYMPH NODES: No greater than 1cm abdominal or pelvic lymph nodes are appreciated. OSSEOUS STRUCTURES: Osseous structures are demineralized. Spine is straightened on sagittal images. T here is moderate to advanced joint space loss in both hips with mild acetabular spurring. OTHER: Jpcuc-hz-dulssuxu sized fat-containing bilateral inguinal hernias are felt present. There is mild to moderate calcified atherosclerotic change of aorta extending into pelvic branch vess els. There is mild subcutaneous edema or soft tissue anasarca level of pelvis. IMPRESSION: 1. No bowel obstruction is seen. There is moderate to severe rectal fecal stasis noted. Evidence of partial proximal colectomy noted. 2. Moderate emphysematous change. Mild fluid overload state may be desired clinically with pelvic mil d soft tissue anasarca and small right greater than left pleural effusions noted. 3. Abnormal dilated esophagus along its entire course, suspect achalasia. Need to further investigate by esophagram or direct visualization should be based on clinical correlation.
[2016-11-23 16:59] LABS: C Reactive Protein 16.7 mg/L (<10.0)
[2016-11-23 17:18] LABS: Glucose,Whole Blood 70 mg/dL (75-99)
[2016-11-23 20:50] LABS: Glucose,Whole Blood 87 mg/dL (75-99)
[2016-11-23] MEDS ORDERED: 0.9% NACL WITH KCL 20 MEQ/L 1,000 ML IV SCH (22:00)
[2016-11-24 02:28] LABS: Glucose,Whole Blood 83 mg/dL (75-99)
[2016-11-24] MEDS: ALBUTEROL NEBULIZED 2.5 MG/3 ML INHALATION SCH ×5 (07:27→19:56)
[2016-11-24 07:31] LABS: Glucose,Whole Blood 79 mg/dL (75-99)
[2016-11-24] MEDS: ESOMEPRAZOLE 20 MG in SODIUM CHLORIDE 0.9% 50 ML IVPB SCH (08:50)
[2016-11-24] MEDS: SODIUM BICARBONATE TAB 650 MG TAB PO SCH ×3 (08:50→21:14)
--- NOTE | 2016-11-24 09:55 | P.CONS ---
History of Present Illness - Reason for Consult Consult date: 11/24/16 Achalasia dysphagia Requesting physician: Wendi Garcia - History of Present Illness 86-year-old gentleman presents with weakness for at least a week with nausea vomiting unable to maintain oral nutrition, 40 pound weight loss over the last year, electrolyte disturbances and renal failure. Patient requested for dysphagia. Patient has been experiencing progressive difficulty swallowing with unexpected large volume emesis of undigested food for more than 3 months. He's loss 40 pounds unintentionally over the last year. Denies abdominal pain, hematemesis hematochezia melena. No history of peptic ulcer disease or EGD. CT chest abdomen and pelvis reported dilated esophagus with air-fluid level and debris along the proximal to mid and distal segments. Some high density material distal esophagus and dependent stomach could reflect contrast or material from recent food ingestion. Patient had a meat loaf emesis yesterday. He is able to tolerate liquids but more difficulty with solids. Admission hemoglobin 13.7. Platelet 135. White count 7.3. BUN 40. Creatinine 2.2. Potassium 5.9. Sodium 141. Creatinine improving currently 1.5. Potassium 3.4. Past Medical History Past Medical History: Asthma Additional Past Medical History / Comment(s): no medical hx History of Any Multi-Drug Resistant Organisms: None Reported Past Surgical History: No Surgical Hx Reported Past Psychological History: No Psychological Hx Reported Smoking Status: Former smoker Past Alcohol Use History: None Reported Past Drug Use History: None Reported Medications and Allergies Allergies Allergy/AdvReac Type Severity Reaction Status Date / Time No Known Allergies Allergy Verified 11/20/16 10:33 Physical Exam Vitals: Vital Signs Temp Pulse Pulse Resp BP BP Pulse Ox 11/24/16 07:37 80 11/24/16 07:27 80 11/24/16 07:00 97.1 F L 83 16 156/84 97 11/23/16 23:00 98.5 F 87 16 144/73 96 11/23/16 20:35 79 11/23/16 20:25 78 11/23/16 16:22 83 93 L 11/23/16 15:00 98.6 F 82 16 151/71 94 L 11/23/16 11:57 79 11/23/16 11:47 80 Intake and Output 11/23/16 11/24/16 11/24/16 22:59 06:59 14:59 Output Total 600 Balance -600 Output: Urine 500 Emesis 100 Other: Voiding Method Urinal # Voids 1 1 # Bowel Movements 1 1 # Emeses 1 Weight 72.575 kg General appearance: The patient is alert, oriented, in no acute distress. HET: Head is normocephalic and atraumatic. Pupils are equal and reactive. Oropharynx is clear without lesions. Neck: Supple without lymphadenopathy. Trachea midline. Heart: S1 S2. Regular rate and rhythm. Lungs: No crackles or wheezes are heard. Abdomen: Soft, nontender, nondistended with bowel sounds. No peritoneal signs. No palpable organomegaly or masses. Extremities: Normal skin color and turgor. No cyanosis, rash, ulceration, clubbing, or edema. Radial and pedal pulses are 2/4 bilaterally. Neurological: No focal deficits. Strength and sensation are grossly intact. Results CBC & Chem 7: 11/21/16 07:40 11/24/16 11:37 Labs: Abnormal Lab Results - Last 24 Hours (Table) 11/23/16 11/23/16 11/23/16 Range/Units 11:51 16:22 17:16 POC Glucose (mg/dL) 70 L 70 L (75-99) mg/dL Insulin Level (3.0-25.0) mIU/mL C-Reactive Protein 16.7 H (<10.0) mg/L 11/23/16 Range/Units 17:28 POC Glucose (mg/dL) (75-99) mg/dL Insulin Level 2.8 L (3.0-25.0) mIU/mL C-Reactive Protein (<10.0) mg/L CT scan - abdomen: report reviewed (Dr. Guadalupe) CT scan - chest: report reviewed (Dr. Guadalupe) CT scan - pelvis: report reviewed (Dr. Guadalupe) Assessment and Plan (1) Dysphagia Narrative/Plan: Unintentional weight loss more than 40 pounds over last year with progressive dysphagia solids liquids intermittent emesis without bleeding unable to maintain nutritional needs. CT imaging reports dilated esophagus with food debris possible achalasia however underlying malignancy cannot be entirely excluded. Status: Acute Plan: 1. Continue with a liquid diet; no solid substances. Protein shakes acceptable. Will give another 24 hours for this liquid diet to help push any debris that could be residual within the distal esophagus before proceeding with EGD evaluation. EGD tentatively plan for Tuesday. Continue with GI prophylaxis. Will obtain CEA marker. Prealbumin to evaluate for protein calorie malnutrition. Will follow closely with you. The block piler has discussed the risks, benefits and alternative therapies for the above-mentioned procedure and for both sedation/analgesia as well as necessary blood product administration, if indicated, as they pertain to this patient. The patient has indicated understanding and acceptance of the risks and procedures discussed. Thank you for this kind referral and the opportunity to participate in the care of your patient. This consultation was discussed with Dr. Guadalupe. The impression and plan of care have been directed as dictated.
[2016-11-24 11:34] LABS: Glucose,Whole Blood 67 mg/dL (75-99)
[2016-11-24 12:03] LABS: Calcium 8.2 mg/dL (8.4-10.2); Potassium 4.5 mmol/L (3.5-5.1)
[2016-11-24 12:10] LABS: Glucose,Whole Blood 70 mg/dL (75-99)
[2016-11-24] MEDS ORDERED: DEXTROSE 5%-0.9% NACL 1,000 ML with POTASSIUM CHLORIDE 20 MEQ IV SCH ×2 (15:30)
[2016-11-24] MEDS: D5-0.9% NACL WITH KCL 20 MEQ/L 1,000 ML IV SCH (15:54)
[2016-11-24 17:15] LABS: Glucose,Whole Blood 104 mg/dL (75-99)
[2016-11-24 21:13] LABS: Glucose,Whole Blood 84 mg/dL (75-99)
[2016-11-25 02:04] LABS: Glucose,Whole Blood 91 mg/dL (75-99)
[2016-11-25 07:32] LABS: Glucose,Whole Blood 70 mg/dL (75-99)
--- NOTE | 2016-11-25 07:55 | PN ---
DATE OF SERVICE: 11/24/2016 This 86-year-old gentleman who was admitted with multiple medical problems including hypoglycemia and generalized weakness and renal failure, has been closely monitored. No chest pain, no palpitations. No fever. PAST MEDICAL HISTORY: Reviewed. REVIEW OF SYSTEMS: CARDIOVASCULAR: No angina. RESPIRATORY: As mentioned. GI: As mentioned. : No dysuria. NERVOUS SYSTEM: No numbness or weakness. Current medications are reviewed and include: 1. Ventolin. 2. Esomeprazole. 3. Zofran. 4. P.r.n. medications. On examination, is alert and oriented x3. Pulse is 90, blood pressure 155/83, respirations 18, temperature 97.4, pulse ox 100% on 2-L. HEENT: Conjunctivae normal. NECK: No jugular venous distention. CARDIOVASCULAR: S1, S2. RESPIRATORY: Breath sounds diminished at the bases. A few scattered rhonchi and crackles. ABDOMEN: Soft, nontender. No mass palpable. LEGS: No edema, no swelling. NERVOUS SYSTEM: Higher function as mentioned. Moves all four limbs. No focal deficits. LYMPHATICS: No lymphadenopathy in the neck, axillae or groin. SKIN: No rash, ulcer or bleeding. LABS: WBC 5, hemoglobin 13.1, sodium 140, potassium 4.5. Creatinine 1.65. ASSESSMENT: 1. Acute renal failure secondary to dehydration, prerenal factors and acute tubular necrosis. 2. Hypoglycemia. 3. Nausea, vomiting, report of weight loss. 4. Possible achalasia. 5. Increased creatine kinase. RECOMMENDATIONS AND DISCUSSION: I recommend to continue the current medications, continue symptomatic treatment. The CT scan of the abdomen and pelvis showed . We will also consulted Gastroenterology. EGD is being planned on Tuesday. The overall prognosis is guarded because of multiple complex medical issues. We will continue to monitor. Possibly ECF rehab is also being planned. Guarded prognosis. MTDD
[2016-11-25] MEDS: ALBUTEROL NEBULIZED 2.5 MG/3 ML INHALATION SCH ×4 (08:11→20:54)
[2016-11-25] MEDS: SODIUM BICARBONATE TAB 650 MG TAB PO SCH ×3 (08:15→21:04)
[2016-11-25] MEDS: ESOMEPRAZOLE 20 MG in SODIUM CHLORIDE 0.9% 50 ML IVPB SCH (08:16)
--- NOTE | 2016-11-25 09:15 | P.PN ---
Subjective Principal diagnosis: Dysphagia nausea vomiting weight loss 86-year-old gentleman reevaluated today in regards to dysphagia and nausea vomiting weight loss. CT imaging suggestive of achalasia. No emesis 24 hours. Tolerating liquid diet. EGD scheduled for tomorrow. CEA 2.4. Prealbumin 7. Objective - Vital Signs Vital signs: Vital Signs Temp 99.8 F H 11/25/16 07:00 Pulse 72 11/25/16 08:25 Resp 18 11/25/16 07:00 BP 170/83 11/25/16 07:00 Pulse Ox 99 11/25/16 07:00 Intake & Output 11/24/16 11/25/16 11/25/16 18:59 06:59 18:59 Intake Total 150 600 Output Total 500 Balance -350 600 Weight 72.575 kg Intake: IV 100 0.9% NaCl with KCl 20 Meq 100 /l 1,000 ml @ 50 mls/hr IV .Q20H [facility] Rx#: [id number] Intake, IV Titration 50 600 Amount D5-0.9% NaCl with KCl 20 600 Meq/l 1,000 ml @ 50 mls/ hr IV .Q20H [facility] Rx#: [id number] Esomeprazole 20 mg In 50 Sodium Chloride 0.9% 50 ml @ 100 mls/hr IVPB DAILY [facility] Rx#:[id number] Output: Urine 500 Other: Voiding Method Toilet Toilet Urinal Urinal # Voids 1 1 # Bowel Movements 1 - Exam General appearance: The patient is alert, oriented, in no acute distress. HET: Head is normocephalic and atraumatic. Pupils are equal and reactive. Oropharynx is clear without lesions. Neck: Supple without lymphadenopathy. Trachea midline. Heart: S1 S2. Regular rate and rhythm. Lungs: No crackles or wheezes are heard. Abdomen: Soft, nontender, nondistended with bowel sounds. No peritoneal signs. No palpable organomegaly or masses. Extremities: Normal skin color and turgor. No cyanosis, rash, ulceration, clubbing, or edema. Radial and pedal pulses are 2/4 bilaterally. Neurological: No focal deficits. Strength and sensation are grossly intact. - Labs CBC & Chem 7: 11/21/16 07:40 11/24/16 11:37 Labs: Abnormal Lab Results - Last 24 Hours (Table) 11/24/16 11/24/16 11/24/16 Range/Units 11:32 11:37 11:37 Chloride 114 H (98-107) mmol/L Carbon Dioxide 18 L (22-30) mmol/L Creatinine 1.65 H (0.66-1.25) mg/dL Glucose 68 L (74-99) mg/dL POC Glucose (mg/dL) 67 L (75-99) mg/dL Calcium 8.2 L (8.4-10.2) mg/dL Prealbumin 7 L (18-36) mg/dL 11/24/16 11/24/16 11/25/16 Range/Units 11:46 17:13 07:00 Chloride (98-107) mmol/L Carbon Dioxide (22-30) mmol/L Creatinine (0.66-1.25) mg/dL Glucose (74-99) mg/dL POC Glucose (mg/dL) 70 L 104 H 70 L (75-99) mg/dL Calcium (8.4-10.2) mg/dL Prealbumin (18-36) mg/dL Assessment and Plan (1) Dysphagia Narrative/Plan: Unintentional weight loss more than 40 pounds over last year with progressive dysphagia solids liquids intermittent emesis without bleeding unable to maintain nutritional needs. CT imaging reports dilated esophagus with food debris possible achalasia however underlying malignancy cannot be entirely excluded. Status: Acute (2) Protein-calorie malnutrition, moderate Narrative/Plan: prealbumin 7. Weight loss 40 pounds. Serum albumin 2.7. Status: Acute Plan: 1. Clear liquid diet for dinner nothing by mouth after midnight. 2. EGD tomorrow. 3. GI prophylaxis. Assessment and plan of care discussed with Dr. Guadalupe.
--- NOTE | 2016-11-25 11:01 | XR ---
EXAMINATION TYPE: XR chest 1V portable DATE OF EXAM: 11/25/2016 COMPARISON: 11/22/2016 INDICATION: Short of breath TECHNIQUE: Single frontal view of the chest is obtained. FINDINGS: The heart size is normal. The pulmonary vasculature is normal. Small right pleural effusion is present. Some adjacent infiltrate may be some atelectasis. Early pneu monia is not excluded. Follow-up can be performed. IMPRESSION: 1. Small right pleural effusion with adjacent infiltrate. Correlate for pneumonia and atelectasis.
--- NOTE | 2016-11-25 11:24 | PN ---
The patient is seen for follow-up for acute kidney injury. His renal function had improved with creatinine going down from around 2.2 to 1.65. IV fluids are now at 50 mL an hour. The patient denies any further vomiting. He was also hyperkalemic at the time of admission that has improved. He had severe metabolic acidosis which has improved as well. He is voiding in a urinal. There was no evidence of obstructive uropathy on an abdominal CT. On examination, blood pressure is 170/83. Heart rate 72 per minute. The patient is afebrile. Examination of the heart, S1, S2. Examination of the lungs bilateral breath sounds are heard. Abdomen is soft, nontender. Examination of the lower extremities shows no significant edema. CAN DOFFER exam is grossly intact. Labs show sodium 140. Potassium 4.5 from yesterday. Serum creatinine 1.65. ASSESSMENT: 1. Acute kidney injury, prerenal currently improved. However, renal function remains somewhat impaired. The patient likely has underlying chronic kidney disease. We do not have previous labs available for comparison. Continue the IV fluids for now. Continue to increase oral intake. The patient will need outpatient follow-up for possible underlying chronic kidney disease. 2. Metabolic acidosis, continue to maintain on oral sodium bicarb and improved. 3. Hyperkalemia, associated with acute kidney injury and metabolic acidosis, now improved. 4. Dysphagia, nausea and vomiting and weight loss with CT showing suggesting of achalasia. The patient is being followed by gastroenterology. There are plans for endoscopy which will be done tomorrow. PLAN: Continue IV fluids. Repeat labs in the a.m. Continue to avoid nephrotoxic agents. MTDD
[2016-11-25] MEDS: D5-0.9% NACL WITH KCL 20 MEQ/L 1,000 ML IV SCH (11:40)
[2016-11-25 12:06] LABS: Glucose,Whole Blood 65 mg/dL (75-99)
[2016-11-25 12:16] LABS: Glucose,Whole Blood 84 mg/dL (75-99)
[2016-11-25 17:30] LABS: Glucose,Whole Blood 82 mg/dL (75-99)
[2016-11-25 20:47] LABS: Glucose,Whole Blood 95 mg/dL (75-99)
[2016-11-25] MEDS: TAMSULOSIN 0.4 MG CAP.ER.24H PO SCH (21:05)
[2016-11-25] MEDS ORDERED: LIDOCAINE 1% 20 ML VIAL (10MG/ML) FOR IV START INTRADERMA PRN (21:59)
[2016-11-26 02:26] LABS: Glucose,Whole Blood 85 mg/dL (75-99)
[2016-11-26 07:14] LABS: Glucose,Whole Blood 67 mg/dL (75-99)
[2016-11-26] MEDS: ALBUTEROL NEBULIZED 2.5 MG/3 ML INHALATION SCH ×4 (07:54→21:28)
[2016-11-26] MEDS: SODIUM BICARBONATE TAB 650 MG TAB PO SCH ×3 (08:00→21:56)
[2016-11-26] MEDS: D5-0.9% NACL WITH KCL 20 MEQ/L 1,000 ML IV SCH (08:00)
[2016-11-26] MEDS: ESOMEPRAZOLE 20 MG in SODIUM CHLORIDE 0.9% 50 ML IVPB SCH (08:00)
[2016-11-26 08:05] LABS: Glucose,Whole Blood 97 mg/dL (75-99)
[2016-11-26] MEDS ORDERED: TAMSULOSIN 0.4 MG CAP.ER.24H PO STA (09:00)
--- NOTE | 2016-11-26 09:12 | PN ---
DATE OF SERVICE: 11/25/2016 This 86-year-old gentleman who was admitted with acute renal failure secondary to dehydration also had hypoglycemia. The patient also had nausea and vomiting and reported weight loss also. The p.o. intake appears to be poor and the patient also is scheduled for EGD tomorrow. Achalasia needs to be ruled out. PAST MEDICAL HISTORY: Reviewed. PHYSICAL EXAMINATION: Alert and oriented x3. Pulse 92, blood pressure 170/82, respirations 17, temperature 99.6, pulse ox 100% on 2 L. HEENT: Conjunctivae normal. NECK; No jugular venous distention. CARDIOVASCULAR: S1 and S2 muffled. RESPIRATORY: Breath sounds diminished at the bases. No rhonchi. No crackles. Abdomen is soft, nontender. No mass palpable. LEGS: No edema, no swelling. NERVOUS SYSTEM: No focal deficits. Labs are at this time shows glucose 70. ASSESSMENT: 1. Acute renal failure secondary to dehydration, prerenal factors and acute tubular necrosis. 2. Hypoglycemia. 3. Nausea and vomiting, report of weight loss. 4. Dysphagia for evaluation with possible achalasia. 5. Increased creatine kinase. RECOMMENDATIONS AND DISCUSSION: Recommend to continue current medications. Continue symptomatic treatment. EGD by Dr. Guadalupe. Guarded prognosis. Further recommendations to follow. MTDD
[2016-11-26 10:37] LABS: Potassium 5.3 mmol/L (3.5-5.1)
[2016-11-26] MEDS ORDERED: IV FLUID CONTINUATION 1,000 ML IV ONE (10:47)
[2016-11-26] MEDS ORDERED: PROPOFOL 10 MG/ML 20 ML VIAL IV ONE (10:49)
[2016-11-26] MEDS ORDERED: LIDOCAINE 1% INJ 10MG/ML (20 ML MDV) ONE (10:49)
--- NOTE | 2016-11-26 11:03 | P.PCN ---
Date of Procedure: 11/26/16 Preoperative Diagnosis: Postoperative Diagnosis: Procedure(s) Performed: BRIEF HISTORY: Patient is a 86-year-old, pleasant, -[place] male, scheduled for an upper endoscopy as a part of evaluation of progressive dysphagia to solids and liquids for the last 4 months duration. Last approximate 40 pounds. Recent CAT scan of the chest showed dilated esophagus with food debris. PROCEDURE PERFORMED: Esophagogastroduodenoscopy with biopsy. PREOPERATIVE DIAGNOSIS: Progressive dysphagia to solids of 4 months duration and weight loss of 40 pounds. IV sedation per anesthesia. PROCEDURE: After informed consent was obtained, the patient was brought into the endoscopy unit. IV sedation was administered by Anesthesia under continuous monitoring. Initially the Olympus GIF-140 video endoscope was inserted into the mouth. Esophagus intubated without any difficulty. It was gradually advanced into the distal esophagus and there was a ulcerated distal esophageal mass with esophageal stricture identified. The scope could not be advanced and hence the scope was removed and a pediatric upper endoscopy was introduced into the mouth and esophagus reintubated without any difficulty and with gentle pressure the scope was advanced into the stomach and duodenum and carefully examined. The bulb and the second part of the duodenum appeared normal. The scope at this time was withdrawn to the stomach, adequately insufflated with air, and upon careful examination, mucosa of the antrum, and mild diffuse gastritis. The body , cardia and the fundus appeared normal. The scope was then withdrawn into the esophagus. The GE junction was located at 45 cm from the incisors. It appeared regular. There was a distal esophageal ulcerated mass extending from 40-43 cm from the incisors with a distal esophageal stricture and multiple biopsies were done from this area. The rest of the esophagus appeared dilated with some retained fluid. Patient tolerated the procedure well. IMPRESSION: 1. 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 2. Mild antral gastritis. RECOMMENDATIONS: The findings of this examination were discussed with the patient . He'll be continued on a liquid diet. We'll obtain oncology consultation. Will await biopsy results. Implants: Indications for Procedure: Operative Findings: Description of Procedure:
[2016-11-26 12:27] LABS: Glucose,Whole Blood 73 mg/dL (75-99)
--- NOTE | 2016-11-26 13:17 | PN ---
The patient is seen for follow-up for acute kidney injury. His renal function has improved somewhat since admission with creatinine down from 2.2 to 1.6 and 1.7. Lately the patient has had issues with urine retention. He did have straight catheterization done last night. This morning he has not voided yet. The patient is maintained on IV fluids. He was admitted to the hospital with severe weakness, metabolic acidosis. His blood pressure had been on the lower side too. The patient has not been eating or drinking much as an outpatient and he has had significant weight loss. He is scheduled for an endoscopy today. On examination, blood pressure is 134/73. Heart rate is 72 per minute. The patient is afebrile. Examination of the heart, S1, S2. Examination of the lungs bilateral breath sounds are heard. Decreased breath sounds at the bases. Abdomen is soft, nontender. Examination of the lower extremities shows no evidence of edema. [employer] exam is grossly intact. Labs shows sodium 142, potassium 5.3, chloride 120. BUN 21, serum creatinine 1.78. ASSESSMENT: 1. Acute kidney injury, mainly prerenal on initial admission and improved with IV hydration. There may be underlying urine retention, post void scan will be done again. We do not have previous labs available for comparison. 2. Weight loss and decreased oral intake. Status post EGD this morning which showed evidence of a mass in the esophagus, biopsies have been taken. 3. Severe metabolic acidosis on admission. Currently improved. The patient is maintained on oral sodium bicarb. He has no underlying diarrhea. Acidosis was mainly secondary to renal failure. PLAN: Continue to check bladder scan for possible placement of Salinas catheter. Continue with IV fluids. Change IV fluids to D5 0.45 and discontinue potassium and IV fluids. Await pathology results on the mass in the esophagus. [facility]
[2016-11-26] MEDS: LACTATED RINGERS 1,000 ML IV SCH ×2 (13:26→21:56)
[2016-11-26] MEDS: DEXTROSE 5%-0.45% NACL 1,000 ML IV SCH (14:01)
[2016-11-26 17:40] LABS: Glucose,Whole Blood 68 mg/dL (75-99)
[2016-11-26 17:40] LABS: Glucose,Whole Blood 63 mg/dL (75-99)
[2016-11-26 17:45] LABS: Glucose,Whole Blood 84 mg/dL (75-99)
--- NOTE | 2016-11-26 17:45 | P.CONS ---
History of Present Illness - Reason for Consult Consult date: 11/26/16 esophageal mass Requesting physician: Tracey Guadalupe - Chief Complaint dysphagia - History of Present Illness Mr. Hui is a very pleasant 86-year-old -British male who states that overall unremarkable past medical history and feeling in his normal state of health up until about 2 years ago. This is about the time patient noticed his weight started to decline, his weight loss progressed rather rapidly over the last few months, patient states he weighed around 250 pounds 2 years ago. He had progressive difficulty swallowing, anything he swallows does not stay down very long and he regurgitates it, he is not complaining of significant pain. Denies fevers, sores in the mouth, sweats, lymph node swellings, shortness of breath or cough, abdominal pain, indigestion, acute changes in bowel or bladder habits. Patient is independent, he quit drinking and smoking over 60 years ago. Review of Systems All systems: negative Constitutional: Reports as per HPI Past Medical History Past Medical History: Asthma Additional Past Medical History / Comment(s): no medical hx History of Any Multi-Drug Resistant Organisms: None Reported Past Surgical History: No Surgical Hx Reported Past Psychological History: No Psychological Hx Reported Smoking Status: Former smoker Past Alcohol Use History: None Reported Past Drug Use History: None Reported Medications and Allergies Allergies Allergy/AdvReac Type Severity Reaction Status Date / Time No Known Allergies Allergy Verified 11/20/16 10:33 Physical Exam Vitals: Vital Signs Temp Pulse Pulse Resp BP BP Pulse Ox 11/26/16 15:37 84 11/26/16 15:29 84 97 11/26/16 15:00 98.4 F 91 16 129/69 100 11/26/16 12:29 84 11/26/16 12:14 88 11/26/16 08:05 76 11/26/16 07:54 72 11/26/16 07:00 98.0 F 79 16 134/73 100 11/25/16 23:00 98.3 F 81 14 114/55 100 11/25/16 21:05 76 11/25/16 20:54 76 Intake and Output 11/26/16 11/26/16 11/26/16 06:59 14:59 22:59 Intake Total 100 Output Total 350 Balance -250 Intake: IV 100 Output: Urine 350 Straight 350 Other: Voiding Method Urinal Incontinent # Voids 0 Weight 72.575 kg Patient Weight 11/27/16 06:59 Weight 72.575 kg - Constitutional General appearance: average body habitus, cooperative, no acute distress - EENT Eyes: anicteric sclerae, normal appearance ENT: normal oropharynx - Neck Neck: no lymphadenopathy - Respiratory Respiratory: bilateral: diminished - Cardiovascular Heart sounds: normal: S1, S2 leg Peripheral Edema: bilateral: None - Gastrointestinal General gastrointestinal: no absent bowel sounds, no decreased bowel sounds, no distended, no hepatomegaly, no hyperactive bowel sounds, normal bowel sounds, no organomegaly, no rigid, no scaphoid, soft, no splenomegaly, no tenderness, no umbilical hernia, no ventral hernia - Integumentary Integumentary: normal - Neurologic Neurologic: CNII-XII intact - Musculoskeletal Musculoskeletal: generalized weakness, strength equal bilaterally - Psychiatric Psychiatric: A&O x's 3, appropriate affect, intact judgment & insight Results CBC & Chem 7: 11/21/16 07:40 11/26/16 09:29 Labs: Abnormal Lab Results - Last 24 Hours (Table) 11/26/16 11/26/16 11/26/16 Range/Units 07:12 09:29 12:22 Potassium 5.3 H (3.5-5.1) mmol/L Chloride 120 H* (98-107) mmol/L Carbon Dioxide 18 L (22-30) mmol/L BUN 21 H (9-20) mg/dL Creatinine 1.78 H (0.66-1.25) mg/dL POC Glucose (mg/dL) 67 L 73 L (75-99) mg/dL Calcium 8.0 L (8.4-10.2) mg/dL Chest x-ray: report reviewed CT scan - abdomen: report reviewed CT scan - chest: report reviewed CT Scan - head: report reviewed CT scan - pelvis: report reviewed Assessment and Plan (1) Esophageal mass Narrative/Plan: GD with biopsy, pathology pending. Operative note reviewed. All of the imaging reports of been reviewed. Currently there is nothing to suggest metastatic disease but, patient will require a PET scan for malignancy staging in the outpatient setting, this will be scheduled for next Tuesday, appt time will be communicated when available. It was discussed with pt if malignancy is found and his disease is limited stage patient could possibly be a candidate for surgery. If locally advanced disease patient could be a candidate for chemoradiation and then possible surgery or if malignancy is found to be metastatic intention of treatment would be palliation of symptoms and cancer control with chemotherapy, immunotherapy or targeted agents as appropriate. The patient verbalized understanding. Status: Acute (2) Dysphagia Narrative/Plan: Dr. Marie did discuss with the patient he is concerned about malnutrition. In order for patient to be a candidate to receive any type of treatment for malignancy his nutritional status will need to be optimized. Case was discussed with Dr. Guadalupe. It is felt that the patient is a candidate for esophageal stenting. This will be planned and patient will be evaluated to see if this improves his ability to tolerate oral intake. We will await Dr. Guadalupe's evaluation and recommendations. Status: Acute
[2016-11-26 21:00] LABS: Glucose,Whole Blood 71 mg/dL (75-99)
[2016-11-26] MEDS: TAMSULOSIN 0.4 MG CAP.ER.24H PO SCH (21:56)
[2016-11-27 02:15] LABS: Glucose,Whole Blood 78 mg/dL (75-99)
[2016-11-27] MEDS: D5-0.9% NACL WITH KCL 20 MEQ/L 1,000 ML IV SCH (06:17)
[2016-11-27 07:21] LABS: Glucose,Whole Blood 80 mg/dL (75-99)
[2016-11-27 07:21] LABS: Glucose,Whole Blood 60 mg/dL (75-99)
[2016-11-27] MEDS: ALBUTEROL NEBULIZED 2.5 MG/3 ML INHALATION SCH ×4 (07:28→20:05)
[2016-11-27 08:03] LABS: Basophils % (A) 1 %; CH 29.8; CHCM 29.6; Eosinophils # (A) 0.1 k/uL (0-0.7); Eosinophils % (A) 2 %; HCT 37.9 % (39.0-53.0); HDW 2.79; HGB 11.6 gm/dL (13.0-17.5); Hypochromasia Marked; Luc # (Auto) 0.07; Luc % (Auto) 2; Lymphocytes # (A) 0.4 k/uL (1.0-4.8); Lymphocytes % (A) 12 %; MCH 30.9 pg (25.0-35.0); MCHC 30.6 g/dL (31.0-37.0); Macrocytosis Slight; Mean Platelet Volume 7.7; Monocytes # (A) 0.3 k/uL (0-1.0); Monocytes % (A) 9 %; Neutrophils # (A) 2.7 k/uL (1.3-7.7); Neutrophils % (A) 75 %; RBC 3.75 m/uL (4.30-5.90); RDW 14.7 % (11.5-15.5); WBC 3.6 k/uL (3.8-10.6); WBC (Perox) 3.74
[2016-11-27] MEDS: SODIUM BICARBONATE TAB 650 MG TAB PO SCH ×3 (08:05→21:39)
[2016-11-27] MEDS: DEXTROSE 5%-0.45% NACL 1,000 ML IV SCH (08:10)
[2016-11-27] MEDS: ESOMEPRAZOLE 20 MG in SODIUM CHLORIDE 0.9% 50 ML IVPB SCH (08:27)
[2016-11-27 08:31] LABS: Calcium 8.1 mg/dL (8.4-10.2); Potassium 4.8 mmol/L (3.5-5.1)
[2016-11-27 08:58] LABS: Manual Review Performed
[2016-11-27 11:36] LABS: Glucose,Whole Blood 63 mg/dL (75-99)
[2016-11-27 12:02] LABS: Glucose,Whole Blood 76 mg/dL (75-99)
--- NOTE | 2016-11-27 12:07 | PN ---
DATE OF SERVICE: 11/26/2016 This is an 86-year-old gentleman who was admitted with significant difficulty with dehydration, renal failure, was noted to have difficulty in swallowing and EGD done by Dr. 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 The patient is being closely monitored. On exam, alert and oriented x3. Pulse is 91, blood pressure 129/69, respiration 16, temperature is 98.4, pulse ox 100% on 2 L. HEENT: Conjunctivae normal. NECK: No jugular venous distension, RESPIRATORY: Breath sounds diminished at the bases. A few scattered rhonchi, no crackles. ABDOMEN: Soft, nontender. LEGS: No edema, no swelling. NERVOUS SYSTEM: Higher functions as mentioned, moves all 4 limbs, no focal deficits. LYMPHATICS: No lymph node enlargement in the neck, axillae or groin. SKIN: No ulceration, rash, bleeding. LABS: WBC not elevated. Sodium 142, potassium 5.3, chloride is 20. ASSESSMENT: 1. Acute renal failure secondary to dehydration with prerenal factors and as well as acute tubular necrosis. 2. 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 3. Hypoglycemia. 4. Nausea, vomiting and weight loss. 5. Increased creatinine kinas. RECOMMENDATION: In this 86-year-old gentleman who presented with multiple complex medical issues, will monitor the patient closely. Continue with the current medication and symptomatic treatment. Repeat labs. Otherwise, I would also recommend closely follow with Nephrology and Gastroenterology. Dr. Marie has been consulted. Guarded prognosis because of multiple complex medical issues. Further recommendations to follow. Repeat labs will be ordered. The patient has had with multiple keratosis on the back. See orders for further details. MTDD
--- NOTE | 2016-11-27 12:18 | P.PN ---
Subjective Principal diagnosis: This is an 86-year-old male seen in consultation because of acute kidney injury from possibly for fluid depletion because of decreased intake. He was found to have esophageal mass and has been biopsied and is deemed to have cancer. He also had fair amount of acidosis from acute kidney injury which is slowly resolving. He continues to have dysphagia and is unable to eat or drink much. He throws it up. He is on IV fluids currently at 50 mL of normal saline. He denies any fever chills chest pain cough or shortness of breath no dizziness. Urine output is thousand cc for the last 24 hours. Objective - Vital Signs Vital signs: Vital Signs Temp 97.1 F L 11/27/16 07:00 Pulse 88 11/27/16 11:26 Resp 18 11/27/16 07:00 BP 150/72 11/27/16 07:00 Pulse Ox 98 11/27/16 07:30 Intake & Output 11/26/16 11/27/16 11/27/16 18:59 06:59 18:59 Intake Total 100 Output Total 350 500 Balance -250 -500 Weight 72.575 kg Intake: IV 100 Output: Urine 350 500 Straight 350 Other: # Voids 0 0 # Bowel Movements 0 1 Examination is awake alert oriented comfortable. HEENT exam no JVP neck is supple no facial asymmetry Lungs are clear to auscultation percussion good air entry bilaterally. Heart sounds are unremarkable for any murmur rub gallop. Abdomen soft nontender no masses felt Extremity exam was no edema Neuro logically awake alert oriented No focal motor deficit - Labs CBC & Chem 7: 11/27/16 07:56 11/27/16 07:56 Labs: Abnormal Lab Results - Last 24 Hours (Table) 11/26/16 11/26/16 11/26/16 Range/Units 12:22 17:21 17:23 WBC (3.8-10.6) k/uL RBC (4.30-5.90) m/uL Hgb (13.0-17.5) gm/dL Hct (39.0-53.0) % MCV (80.0-100.0) fL MCHC (31.0-37.0) g/dL Plt Count (150-450) k/uL Lymphocytes # (1.0-4.8) k/uL Chloride (98-107) mmol/L Carbon Dioxide (22-30) mmol/L Creatinine (0.66-1.25) mg/dL POC Glucose (mg/dL) 73 L 68 L 63 L (75-99) mg/dL Calcium (8.4-10.2) mg/dL 11/26/16 11/27/16 11/27/16 Range/Units 20:52 07:01 07:56 WBC 3.6 L (3.8-10.6) k/uL RBC 3.75 L (4.30-5.90) m/uL Hgb 11.6 L (13.0-17.5) gm/dL Hct 37.9 L (39.0-53.0) % MCV 101.0 H D (80.0-100.0) fL MCHC 30.6 L (31.0-37.0) g/dL Plt Count 90 L (150-450) k/uL Lymphocytes # 0.4 L (1.0-4.8) k/uL Chloride (98-107) mmol/L Carbon Dioxide (22-30) mmol/L Creatinine (0.66-1.25) mg/dL POC Glucose (mg/dL) 71 L 60 L (75-99) mg/dL Calcium (8.4-10.2) mg/dL 11/27/16 11/27/16 Range/Units 07:56 11:33 WBC (3.8-10.6) k/uL RBC (4.30-5.90) m/uL Hgb (13.0-17.5) gm/dL Hct (39.0-53.0) % MCV (80.0-100.0) fL MCHC (31.0-37.0) g/dL Plt Count (150-450) k/uL Lymphocytes # (1.0-4.8) k/uL Chloride 117 H (98-107) mmol/L Carbon Dioxide 18 L (22-30) mmol/L Creatinine 1.60 H (0.66-1.25) mg/dL POC Glucose (mg/dL) 63 L (75-99) mg/dL Calcium 8.1 L (8.4-10.2) mg/dL Assessment and Plan Plan: Impression. 1. 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 Creatinine improved from 2.2-1.60 this morning 2. Non-gap Metabolic acidosis stable with bicarb 18 on oral bicarb etiology is acute kidney injury. 3. Anemia of chronic illness with hemoglobin of 11.6. 4. Mild hypocalcemia with, albumin is 2.7 therefore corrected calcium October normal. Recommendation. Continue IV fluids as needed if oral intake cannot be maintained, continue bicarb
[2016-11-27] MEDS: LACTATED RINGERS 1,000 ML IV SCH (12:42)
--- NOTE | 2016-11-27 16:47 | PN ---
DATE OF SERVICE: 11/27/2016 Patient is an 86-year-old -[place] male admitted to the hospital with dysphagia, progressive weight loss and had an upper endoscopy done yesterday that showed an ulcerated mass in the distal esophagus with esophageal stricture. Biopsies are still pending at the time of this dictation. He was evaluated by Dr. Marie and we are requested to proceed with an upper endoscopy with an esophageal stent placement to maintain his nutrition. In the meantime, the patient states that he has been on a liquid diet, tolerating well. He denies any abdominal pain. No nausea, vomiting or passive regurgitation. On physical examination, appears comfortable, no apparent distress. Vital signs are stable. Blood pressure is 157/70, pulse rate 86, temperature 98.1. HEENT: Unremarkable. Conjunctivae pink. Sclerae anicteric. Oral cavity, no lesions. NECK: No JVD or lymph node enlargement. CHEST: Clear to auscultation. HEART: Regular rate and rhythm. ABDOMEN: Soft. Bowel sounds positive. No organomegaly. EXTREMITIES: No pedal edema. SKIN: No rashes. NEURO: Alert and oriented x3. No focal deficits. IMPRESSION: Distal esophageal ulcerated mass with esophageal stricture status post biopsies which are still pending at the time of this dictation. RECOMMENDATIONS: 1. Continue with the clear liquid diet/soft diet. 2. Will proceed with an upper endoscopy with an esophageal stent placement early next week and the plan was discussed with the patient and he is agreeable to it. Thank you for this consultation. PAT
[2016-11-27 17:09] LABS: Glucose,Whole Blood 85 mg/dL (75-99)
[2016-11-27 21:30] LABS: Glucose,Whole Blood 73 mg/dL (75-99)
[2016-11-27] MEDS: TAMSULOSIN 0.4 MG CAP.ER.24H PO SCH (21:39)
[2016-11-27 23:43] LABS: Glucose,Whole Blood 74 mg/dL (75-99)
[2016-11-28 02:24] LABS: Glucose,Whole Blood 78 mg/dL (75-99)
[2016-11-28] MEDS: ALBUTEROL NEBULIZED 2.5 MG/3 ML INHALATION SCH ×4 (07:30→20:14)
[2016-11-28 07:35] LABS: Glucose,Whole Blood 60 mg/dL (75-99)
[2016-11-28 07:48] LABS: Glucose,Whole Blood 65 mg/dL (75-99)
[2016-11-28 07:48] LABS: Glucose,Whole Blood 82 mg/dL (75-99)
[2016-11-28] MEDS: PANTOPRAZOLE 40 MG TABLET PO SCH (08:35)
[2016-11-28] MEDS: LACTATED RINGERS 1,000 ML IV SCH (08:35)
[2016-11-28] MEDS: SODIUM BICARBONATE TAB 650 MG TAB PO SCH ×3 (08:35→20:40)
[2016-11-28 09:51] LABS: Basophils % (A) 1 %; CH 30.3; CHCM 30.9; Eosinophils # (A) 0.1 k/uL (0-0.7); Eosinophils % (A) 2 %; HCT 35.6 % (39.0-53.0); HDW 2.76; HGB 10.8 gm/dL (13.0-17.5); Hypochromasia Moderate; Luc # (Auto) 0.07; Luc % (Auto) 2; Lymphocytes # (A) 0.4 k/uL (1.0-4.8); Lymphocytes % (A) 14 %; MCHC 30.3 g/dL (31.0-37.0); MCV 98.9 fL (80.0-100.0); Mean Platelet Volume 8.4; Monocytes # (A) 0.3 k/uL (0-1.0); Monocytes % (A) 9 %; Neutrophils # (A) 2.1 k/uL (1.3-7.7); Neutrophils % (A) 71 %; WBC (Perox) 3.09
[2016-11-28 10:14] LABS: Calcium 8.2 mg/dL (8.4-10.2); Potassium 4.7 mmol/L (3.5-5.1)
--- NOTE | 2016-11-28 11:05 | P.PN ---
Subjective Principal diagnosis: This is an 86-year-old male seen in consultation because of acute kidney injury from possibly for fluid depletion because of decreased intake. He was found to have esophageal mass and has been biopsied and is deemed to have cancer. He also had fair amount of acidosis from acute kidney injury which is slowly resolving. He continues to have dysphagia, but this is improved this morning compared to yesterday and he was able to eat and drink more than the last few days. No vomiting. No diarrhea. No shortness of breath or dizziness he was able to walk. He is on IV fluids currently at 50 mL of normal saline. Objective - Vital Signs Vital signs: Vital Signs Temp 97.2 F L 11/28/16 07:00 Pulse 86 11/28/16 07:40 Resp 18 11/28/16 07:00 BP 140/67 11/28/16 07:00 Pulse Ox 92 L 11/28/16 07:00 Intake & Output 11/27/16 11/28/16 11/28/16 18:59 06:59 18:59 Intake Total 400 Output Total 400 400 400 Balance 0 -400 -400 Intake: Intake, IV Titration 400 Amount Dextrose 5%-0.45% NaCl 1, 400 000 ml @ 50 mls/hr IV . Q20H DARLEEN Rx#:[id number] Output: Urine 400 400 400 Straight 400 Other: # Voids 0 # Bowel Movements 1 Grams he is awake alert oriented HEENT exam no JVP neck is supple no facial asymmetry Lungs are clear to auscultation percussion good air entry bilaterally. Heart sounds are unremarkable no murmur rub gallop Abdomen is soft nontender no masses felt Extremity exam was no edema Neurologically awake alert oriented no focal motor deficit but generalized weakness - Labs CBC & Chem 7: 11/28/16 09:31 11/28/16 09:31 Labs: Abnormal Lab Results - Last 24 Hours (Table) 11/27/16 11/27/16 11/27/16 Range/Units 11:33 21:12 23:32 WBC (3.8-10.6) k/uL RBC (4.30-5.90) m/uL Hgb (13.0-17.5) gm/dL Hct (39.0-53.0) % MCHC (31.0-37.0) g/dL Plt Count (150-450) k/uL Lymphocytes # (1.0-4.8) k/uL Chloride (98-107) mmol/L Carbon Dioxide (22-30) mmol/L Creatinine (0.66-1.25) mg/dL POC Glucose (mg/dL) 63 L 73 L 74 L (75-99) mg/dL Calcium (8.4-10.2) mg/dL 11/28/16 11/28/16 11/28/16 Range/Units 07:24 07:45 09:31 WBC 3.0 L (3.8-10.6) k/uL RBC 3.60 L (4.30-5.90) m/uL Hgb 10.8 L (13.0-17.5) gm/dL Hct 35.6 L (39.0-53.0) % MCHC 30.3 L (31.0-37.0) g/dL Plt Count 93 L (150-450) k/uL Lymphocytes # 0.4 L (1.0-4.8) k/uL Chloride (98-107) mmol/L Carbon Dioxide (22-30) mmol/L Creatinine (0.66-1.25) mg/dL POC Glucose (mg/dL) 60 L 65 L (75-99) mg/dL Calcium (8.4-10.2) mg/dL 11/28/16 Range/Units 09:31 WBC (3.8-10.6) k/uL RBC (4.30-5.90) m/uL Hgb (13.0-17.5) gm/dL Hct (39.0-53.0) % MCHC (31.0-37.0) g/dL Plt Count (150-450) k/uL Lymphocytes # (1.0-4.8) k/uL Chloride 114 H (98-107) mmol/L Carbon Dioxide 21 L (22-30) mmol/L Creatinine 1.46 H (0.66-1.25) mg/dL POC Glucose (mg/dL) (75-99) mg/dL Calcium 8.2 L (8.4-10.2) mg/dL Assessment and Plan Plan: Impression. 1. 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 Creatinine improved from 2.2-1.60 this morning 2. Non-gap Metabolic acidosis stable with bicarb 18 on oral bicarb etiology is acute kidney injury. 3. Anemia of chronic illness with hemoglobin of 11.6. 4. Mild hypocalcemia with, albumin is 2.7 therefore corrected calcium normal. Recommendation. Continue IV fluids as needed if oral intake cannot be maintained, continue bicarb
[2016-11-28 12:13] LABS: Glucose,Whole Blood 77 mg/dL (75-99)
--- NOTE | 2016-11-28 13:43 | PN ---
DATE OF SERVICE: 11/27/2016 This 86-year-old gentleman was admitted with acute renal failure secondary to dehydration, prerenal factors also. Distal esophageal ulcerative mass also. The final biopsy report is pending at this time. Gastroenterology is following the patient and planning tentative stent procedure. On exam, pulse is 94, blood pressure 147/66, respirations 18, temperature 98.4, pulse ox 100% on 2 liters. HEENT: Conjunctivae normal. NECK: No JVD. CARDIAC: S1/S2. RESPIRATORY: Diminished breath sounds especially at the bases. A few rhonchi, no crackles. ABDOMEN: Soft, nontender. LEGS: No edema. NERVOUS SYSTEMS: No focal deficits. LABS: WBC 3.7, hemoglobin 11.6. ASSESSMENT: 1. Acute renal failure secondary to dehydration, prerenal factors as well as acute tubular necrosis. 2. 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 3. Hypoglycemia. 4. Nausea and vomiting, weight loss. 5. Increased creatinine kinase. RECOMMENDATIONS AND DISCUSSION: Recommend to continue current medication, continue to monitor, continue symptomatic treatment. Repeat labs. Guarded prognosis because of multiple complex medical issues. MTDD
[2016-11-28 16:48] LABS: Glucose,Whole Blood 87 mg/dL (75-99)
[2016-11-28] MEDS: TAMSULOSIN 0.4 MG CAP.ER.24H PO SCH (20:40)
[2016-11-28 21:07] LABS: Glucose,Whole Blood 71 mg/dL (75-99)
[2016-11-29 02:07] LABS: Glucose,Whole Blood 70 mg/dL (75-99)
[2016-11-29] MEDS: LACTATED RINGERS 1,000 ML IV SCH ×2 (04:14→23:57)
[2016-11-29 07:27] LABS: Glucose,Whole Blood 62 mg/dL (75-99)
[2016-11-29 07:27] LABS: Glucose,Whole Blood 74 mg/dL (75-99)
[2016-11-29] MEDS: PANTOPRAZOLE 40 MG TABLET PO SCH (07:40)
[2016-11-29] MEDS: SODIUM BICARBONATE TAB 650 MG TAB PO SCH ×3 (07:40→22:02)
[2016-11-29] MEDS: ALBUTEROL NEBULIZED 2.5 MG/3 ML INHALATION SCH ×4 (08:40→20:43)
[2016-11-29 08:53] LABS: Basophils % (A) 1 %; CH 29.8; CHCM 30.2; Eosinophils # (A) 0.1 k/uL (0-0.7); Eosinophils % (A) 2 %; HDW 2.72; HGB 12.1 gm/dL (13.0-17.5); Hypochromasia Marked; Luc # (Auto) 0.08; Luc % (Auto) 2; Lymphocytes # (A) 0.6 k/uL (1.0-4.8); Lymphocytes % (A) 16 %; MCH 30.6 pg (25.0-35.0); MCHC 30.9 g/dL (31.0-37.0); MCV 99.1 fL (80.0-100.0); Mean Platelet Volume 8.1; Monocytes # (A) 0.4 k/uL (0-1.0); Monocytes % (A) 9 %; Neutrophils # (A) 2.8 k/uL (1.3-7.7); Neutrophils % (A) 71 %; RBC 3.93 m/uL (4.30-5.90); RDW 14.3 % (11.5-15.5); WBC (Perox) 4.04
[2016-11-29 08:59] LABS: Anion Gap 7 mmol/L; Blood Urea Nitrogen 17 mg/dL (9-20); Calcium 8.4 mg/dL (8.4-10.2); Carbon Dioxide 19 mmol/L (22-30); Chloride 113 mmol/L (98-107); Glucose 76 mg/dL (74-99); Non-African American GFR(MDRD) 51 (>60 ml/min/1.73 sqM); Sodium 139 mmol/L (137-145)
[2016-11-29 09:06] LABS: Potassium 5.4 mmol/L (3.5-5.1)
[2016-11-29 11:54] LABS: Glucose,Whole Blood 79 mg/dL (75-99)
--- NOTE | 2016-11-29 13:20 | PN ---
DATE OF SERVICE: 11/28/2016 This 86-year-old gentleman was admitted with renal failure, also had possibility of malignancy. Dr. Guadalupe is planning stent placement. No fever, no cough. On exam, alert and oriented x3. Pulse is 86, blood pressure is 146/70, respirations 18 and temperature is 97.2. Pulse ox 90% on 2 liters. HEENT: Conjunctivae normal. Oral mucosa moist. NECK: No JVD. CARDIOVASCULAR: S1/S2. RESPIRATORY: Diminished breath sounds at the bases. A few scattered rhonchi. No crackles. ABDOMEN: Soft, nontender. LEGS: No edema. NERVOUS SYSTEM: No focal deficits. LABS: WBC 3, hemoglobin 10.8. ASSESSMENT: 1. Acute on chronic renal failure secondary to dehydration with prerenal factors as well as acute tubular necrosis. 2. Distal esophageal ulcerative mass with stricture, possible malignancy. 3. Hypoglycemia. 4. Nausea, vomiting, weight loss. 5. Increased creatinine kinase. RECOMMENDATIONS AND DISCUSSION: Recommend to continue current medication, continue to monitor, continue symptomatic treatment. Continue with IV fluids. Monitor creatinine closely. Otherwise, closely follow with gastroenterology. Possible stent placement Hematology/oncology consultation. Guarded prognosis. Further recommendations to follow. MTDD
--- NOTE | 2016-11-29 17:11 | P.PN ---
Subjective 86-year-old gentleman who comes in to the hospital with the acute kidney injury. Patient was noted to have multiple episodes of hypoglycemia. Patient was noted to have a distal esophageal mass underwent biopsy biopsy results are pending Patient's oral intake has been significantly low in the recent times In regards to hypoglycemia patient was noted to have a subnormal insulin level C -peptide was within the normal limits At this time patient states that the he is not had any exposure to sulfonylurea medications cough nonproductive in nature Objective - Vital Signs Vital signs: Vital Signs Temp 96.9 F L 11/29/16 15:00 Pulse 80 11/29/16 16:07 Resp 19 11/29/16 15:00 BP 152/71 11/29/16 15:00 Pulse Ox 95 11/29/16 15:00 Intake & Output 11/28/16 11/29/16 11/29/16 18:59 06:59 18:59 Output Total 700 600 Balance -700 -600 Weight 72.575 kg Output: Urine 700 600 Straight 400 300 Post Void Residual 0 Other: # Voids 0 0 - Exam Physical exam Gen. appearance oriented 3 in no distress Neck is supple no JVD Lungs breath sounds no rhonchi or wheezing or crackles Heart S1-S2 heard regular rate and rhythm no murmurs appreciated Abdomen is soft nontender no organomegaly bowel sounds are intact Neurologically cranial nerves II-12 grossly intact no focal motor or sensory deficits noted Skin no abnormalities appreciated - Labs CBC & Chem 7: 11/29/16 08:19 11/29/16 08:19 Labs: Abnormal Lab Results - Last 24 Hours (Table) 11/28/16 11/29/16 11/29/16 Range/Units 21:05 02:03 07:08 RBC (4.30-5.90) m/uL Hgb (13.0-17.5) gm/dL MCHC (31.0-37.0) g/dL Plt Count (150-450) k/uL Lymphocytes # (1.0-4.8) k/uL Potassium (3.5-5.1) mmol/L Chloride (98-107) mmol/L Carbon Dioxide (22-30) mmol/L Creatinine (0.66-1.25) mg/dL POC Glucose (mg/dL) 71 L 70 L 62 L (75-99) mg/dL 11/29/16 11/29/16 11/29/16 Range/Units 07:24 08:19 08:19 RBC 3.93 L (4.30-5.90) m/uL Hgb 12.1 L (13.0-17.5) gm/dL MCHC 30.9 L (31.0-37.0) g/dL Plt Count 104 L (150-450) k/uL Lymphocytes # 0.6 L (1.0-4.8) k/uL Potassium 5.4 H (3.5-5.1) mmol/L Chloride 113 H (98-107) mmol/L Carbon Dioxide 19 L (22-30) mmol/L Creatinine 1.34 H (0.66-1.25) mg/dL POC Glucose (mg/dL) 74 L (75-99) mg/dL Assessment and Plan Plan: #1 acute on chronic kidney disease due to prerenal etiology from dehydration #2 distal esophageal mass pending biopsy #3 multiple episodes of hypoglycemia #4 history of tobacco use Plan Patient is scheduled for a distal esophageal stent After that patient will be evaluated with the increased oral intake patient will likely benefit from a rehab stay in order for ADL support and glucose monitoring during the hospitalization Continue IV fluids with D5W at 50 mL per hour
[2016-11-29 17:44] LABS: Glucose,Whole Blood 96 mg/dL (75-99)
[2016-11-29 21:03] LABS: Glucose,Whole Blood 100 mg/dL (75-99)
[2016-11-29] MEDS: TAMSULOSIN 0.4 MG CAP.ER.24H PO SCH (22:02)
[2016-11-30 02:04] LABS: Glucose,Whole Blood 78 mg/dL (75-99)
[2016-11-30] MEDS: LACTATED RINGERS 1,000 ML IV SCH ×2 (07:19→21:14)
[2016-11-30] MEDS: PANTOPRAZOLE 40 MG TABLET PO SCH (07:20)
[2016-11-30] MEDS: SODIUM BICARBONATE TAB 650 MG TAB PO SCH ×3 (07:20→22:01)
[2016-11-30 07:21] LABS: Glucose,Whole Blood 67 mg/dL (75-99)
[2016-11-30] MEDS: ALBUTEROL NEBULIZED 2.5 MG/3 ML INHALATION SCH ×4 (07:21→21:04)
[2016-11-30 07:48] LABS: Glucose,Whole Blood 92 mg/dL (75-99)
[2016-11-30 08:36] LABS: Basophils % (A) 1 %; CH 29.8; CHCM 30.3; Eosinophils # (A) 0.1 k/uL (0-0.7); Eosinophils % (A) 2 %; HCT 33.9 % (39.0-53.0); HDW 2.68; HGB 10.5 gm/dL (13.0-17.5); Hypochromasia Marked; Luc # (Auto) 0.08; Luc % (Auto) 2; Lymphocytes # (A) 0.4 k/uL (1.0-4.8); Lymphocytes % (A) 11 %; MCH 30.6 pg (25.0-35.0); MCHC 30.8 g/dL (31.0-37.0); MCV 99.1 fL (80.0-100.0); Monocytes # (A) 0.3 k/uL (0-1.0); Monocytes % (A) 10 %; Neutrophils # (A) 2.6 k/uL (1.3-7.7); Neutrophils % (A) 75 %; RBC 3.42 m/uL (4.30-5.90); RDW 14.3 % (11.5-15.5); WBC 3.5 k/uL (3.8-10.6); WBC (Perox) 3.49
[2016-11-30 09:08] LABS: Anion Gap 4 mmol/L; Blood Urea Nitrogen 18 mg/dL (9-20); Carbon Dioxide 22 mmol/L (22-30); Chloride 110 mmol/L (98-107); Glucose 84 mg/dL (74-99); Non-African American GFR(MDRD) 54 (>60 ml/min/1.73 sqM); Potassium 5.1 mmol/L (3.5-5.1); Sodium 136 mmol/L (137-145)
--- NOTE | 2016-11-30 11:01 | PN ---
The patient is seen for follow up for acute kidney injury. His renal function has improved. The patient also had some urine retention, currently has an indwelling Salinas catheter. He was found to have an esophageal mass on endoscopy. The biopsies are pending. On examination today, blood pressure is 127/59, heart rate 80 per minute, he is afebrile. Examination shows patient is euvolemic with no evidence of edema in lower extremities. ABDOMEN: Soft, nontender. LABS: Sodium 136, potassium 5.1. Hemoglobin 10.5 gm/dl. ASSESSMENT: 1. Acute kidney injury, prerenal as well as an element of urine retention, currently with indwelling Salinas catheter and status post IV fluids with improved renal function. 2. Decreased oral intake and weight loss. Patient was found to have a distal esophageal mass on endoscopy. 3. Anemia. No active bleeding noted. 4. Hyperkalemia associated with acute kidney injury and urine retention, currently resolved. PLAN: The patient can be discharged from nephrology standpoint, follow up as outpatient. Continue with indwelling Salinas catheter. He will need to follow up with urology as well if we are not able to discontinue the Salinas catheter as outpatient. PAT
[2016-11-30 12:13] LABS: Glucose,Whole Blood 76 mg/dL (75-99)
--- NOTE | 2016-11-30 14:48 | P.PN ---
Subjective 86-year-old gentleman who comes in to the hospital with the acute kidney injury. Patient was noted to have multiple episodes of hypoglycemia. Patient was noted to have a distal esophageal mass underwent biopsy biopsy results are pending Patient's oral intake has been significantly low in the recent times In regards to hypoglycemia patient was noted to have a subnormal insulin level C -peptide was within the normal limits At this time patient states that the he is not had any exposure to sulfonylurea medications cough nonproductive in nature 11/30/2016 Patient continues to have isolated episodes of hypoglycemia however patient is not symptomatic No new overnight events. Objective - Vital Signs Vital signs: Vital Signs Temp 97.4 F L 11/30/16 07:00 Pulse 80 11/30/16 11:32 Resp 14 11/30/16 07:22 BP 127/59 11/30/16 07:00 Pulse Ox 97 11/30/16 07:00 Intake & Output 11/29/16 11/30/16 11/30/16 18:59 06:59 18:59 Intake Total 0 Output Total 750 Balance -750 Weight 72.575 kg 74 kg Intake: Oral 0 Output: Urine 750 Other: Voiding Method Indwelling Catheter Indwelling Catheter # Voids 0 - Exam Physical exam Gen. appearance oriented 3 in no distress Neck is supple no JVD Lungs breath sounds no rhonchi or wheezing or crackles Heart S1-S2 heard regular rate and rhythm no murmurs appreciated Abdomen is soft nontender no organomegaly bowel sounds are intact Neurologically cranial nerves II-12 grossly intact no focal motor or sensory deficits noted Skin no abnormalities appreciated - Labs CBC & Chem 7: 11/30/16 08:12 11/30/16 08:12 Labs: Abnormal Lab Results - Last 24 Hours (Table) 11/29/16 11/30/16 11/30/16 Range/Units 20:59 07:18 08:12 WBC 3.5 L (3.8-10.6) k/uL RBC 3.42 L (4.30-5.90) m/uL Hgb 10.5 L (13.0-17.5) gm/dL Hct 33.9 L (39.0-53.0) % MCHC 30.8 L (31.0-37.0) g/dL Plt Count 91 L (150-450) k/uL Lymphocytes # 0.4 L (1.0-4.8) k/uL Sodium (137-145) mmol/L Chloride (98-107) mmol/L Creatinine (0.66-1.25) mg/dL POC Glucose (mg/dL) 100 H 67 L (75-99) mg/dL Calcium (8.4-10.2) mg/dL 11/30/16 Range/Units 08:12 WBC (3.8-10.6) k/uL RBC (4.30-5.90) m/uL Hgb (13.0-17.5) gm/dL Hct (39.0-53.0) % MCHC (31.0-37.0) g/dL Plt Count (150-450) k/uL Lymphocytes # (1.0-4.8) k/uL Sodium 136 L (137-145) mmol/L Chloride 110 H (98-107) mmol/L Creatinine 1.27 H (0.66-1.25) mg/dL POC Glucose (mg/dL) (75-99) mg/dL Calcium 8.0 L (8.4-10.2) mg/dL Assessment and Plan Plan: #1 acute on chronic kidney disease due to prerenal etiology from dehydration #2 distal esophageal mass pending biopsy #3 multiple episodes of hypoglycemia #4 history of tobacco use Plan Patient is scheduled for a distal esophageal stent We'll encourage oral intake thereafter depending on the recommendations by the GI physician We'll need to obtain a serum glucoses while a [id number] glucoses done as patient does not appear to be symptomatic with low glucose levels After that patient will be evaluated with the increased oral intake patient will likely benefit from a rehab stay in order for ADL support and glucose monitoring during the hospitalization Continue IV fluids with D5W at 50 mL per hour
[2016-11-30 17:12] LABS: Glucose,Whole Blood 119 mg/dL (75-99)
[2016-11-30 20:55] LABS: Glucose,Whole Blood 92 mg/dL (75-99)
[2016-11-30] MEDS: TAMSULOSIN 0.4 MG CAP.ER.24H PO SCH (22:01)
[2016-12-01 02:11] LABS: Glucose,Whole Blood 84 mg/dL (75-99)
[2016-12-01] MEDS: LACTATED RINGERS 1,000 ML IV SCH ×2 (06:45→17:26)
[2016-12-01 07:52] LABS: Glucose,Whole Blood 82 mg/dL (75-99)
[2016-12-01] MEDS: ALBUTEROL NEBULIZED 2.5 MG/3 ML INHALATION SCH ×4 (07:56→19:55)
[2016-12-01] MEDS: SODIUM BICARBONATE TAB 650 MG TAB PO SCH ×3 (08:43→21:45)
[2016-12-01] MEDS: PANTOPRAZOLE 40 MG TABLET PO SCH (08:43)
[2016-12-01 10:08] LABS: Anion Gap 3 mmol/L; Blood Urea Nitrogen 18 mg/dL (9-20); Calcium 7.9 mg/dL (8.4-10.2); Carbon Dioxide 24 mmol/L (22-30); Chloride 108 mmol/L (98-107); Glucose 74 mg/dL (74-99); Non-African American GFR(MDRD) 54 (>60 ml/min/1.73 sqM); Potassium 5.4 mmol/L (3.5-5.1); Sodium 135 mmol/L (137-145)
[2016-12-01 10:59] LABS: Basophils % (A) 0 %; CH 30.8; CHCM 31.9; Eosinophils # (A) 0.1 k/uL (0-0.7); Eosinophils % (A) 2 %; HCT 33.8 % (39.0-53.0); HDW 2.63; HGB 10.7 gm/dL (13.0-17.5); Luc # (Auto) 0.06; Luc % (Auto) 2; Lymphocytes # (A) 0.4 k/uL (1.0-4.8); Lymphocytes % (A) 10 %; MCH 30.6 pg (25.0-35.0); MCHC 31.5 g/dL (31.0-37.0); MCV 96.8 fL (80.0-100.0); Mean Platelet Volume 9.7; Monocytes # (A) 0.3 k/uL (0-1.0); Monocytes % (A) 9 %; Neutrophils # (A) 2.9 k/uL (1.3-7.7); Neutrophils % (A) 78 %; RBC 3.49 m/uL (4.30-5.90); RDW 14.7 % (11.5-15.5); WBC 3.8 k/uL (3.8-10.6); WBC (Perox) 3.77
[2016-12-01] MEDS ORDERED: fentaNYL (PF) 50 MCG/ML 2 ML AMP ONE (11:51)
[2016-12-01] MEDS ORDERED: MIDAZOLAM 2 MG/2 ML VIAL ONE (11:51)
[2016-12-01] MEDS ORDERED: LIDOCAINE 1% INJ 10MG/ML (20 ML MDV) ONE (11:51)
[2016-12-01] MEDS ORDERED: GLYCOPYRROLATE 0.2 MG/ML 2 ML VIAL ONE (11:51)
[2016-12-01] MEDS ORDERED: KETAMINE 10 MG/ML 20 ML VIAL ONE (11:51)
[2016-12-01] MEDS ORDERED: ETOMIDATE 2 MG/ML 10 ML VIAL ONE (11:51)
[2016-12-01] MEDS ORDERED: IV FLUID CONTINUATION 1,000 ML IV ONE (12:00)
--- NOTE | 2016-12-01 12:22 | P.PCN ---
Date of Procedure: 12/01/16 Preoperative Diagnosis: Postoperative Diagnosis: Procedure(s) Performed: BRIEF HISTORY: Patient is a 86-year-old, pleasant, -[place] male, admitted to the hospital with dysphagia and weight loss. He had an upper endoscopy done last Tuesday and was noted to have distal esophageal ulcerated mass with stricture. Patient is able to eat some liquids but no solids. The biopsies revealed squamous cell carcinoma. He scheduled for an esophageal wall stent placement today. PROCEDURE PERFORMED: Esophagogastroduodenoscopy esophageal wall stent placement. 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 IV sedation per anesthesia. PROCEDURE: After informed consent was obtained, the patient was brought into the endoscopy unit. IV sedation was administered by Anesthesia under continuous monitoring. Initially the Olympus GIF-140 video endoscope was inserted into the mouth. Esophagus intubated without any difficulty. It was gradually advanced into the distal esophagus with esophageal ulcerated mass was identified. The scope was gradually advanced into the stomach and duodenum and carefully examined. The bulb and the second part of the duodenum appeared normal. The scope at this time was withdrawn to the stomach, adequately insufflated with air , and upon careful examination, mucosa of the antrum, body, cardia and the fundus appeared normal. The scope was then withdrawn into the esophagus. A guidewire was passed through the scope into the stomach. Markers were placed on the anterior abdominal wall in the proximal and distal end of the stricture. At this time the scope was removed. The esophageal Wallstent 10 cm 18 mm fully covered stent with the introducer was passed over the guidewire and advanced into the stomach. Under fluoroscopy guidance the stent was positioned just below the GE junction and was gradually deployed without any difficulty. Patient tolerated procedure well. Repeat EGD was performed and the proximal end of the stent was positioned about 3 cm above the ulcerated mass. Patient tolerated the procedure well. IMPRESSION: 1. Distal esophageal ulcerated mass with esophageal stricture status post 10 cm 18 mm fully covered esophageal Wallstent placement as described above RECOMMENDATIONS: The findings of this examination were discussed with the patient . He will be started on a clear liquid diet today and advance to soft diet tomorrow. Implants: Indications for Procedure: Operative Findings: Description of Procedure:
--- NOTE | 2016-12-01 13:15 | FL ---
Fluoroscopy HISTORY: Esophageal stricture 36 seconds fluoroscopy time supplied to the referring clinician. 1 intraoperative C-arm images docum ent the procedure. See dictated report from gastroenterology.
--- NOTE | 2016-12-01 14:07 | P.PN ---
Subjective 86-year-old gentleman who comes in to the hospital with the acute kidney injury. Patient was noted to have multiple episodes of hypoglycemia. Patient was noted to have a distal esophageal mass underwent biopsy biopsy results are pending Patient's oral intake has been significantly low in the recent times In regards to hypoglycemia patient was noted to have a subnormal insulin level C -peptide was within the normal limits At this time patient states that the he is not had any exposure to sulfonylurea medications cough nonproductive in nature 11/30/2016 Patient continues to have isolated episodes of hypoglycemia however patient is not symptomatic No new overnight events. 12/01/2016 Patient is seen after having esophageal stent placed Denies having any headache change in vision nausea vomiting diarrhea Objective - Vital Signs Vital signs: Vital Signs Temp 98 F 12/01/16 12:38 Pulse 108 H 12/01/16 13:11 Resp 24 12/01/16 13:11 BP 136/74 12/01/16 13:11 Pulse Ox 100 12/01/16 13:11 Intake & Output 11/30/16 12/01/16 12/01/16 18:59 06:59 18:59 Intake Total 600 0 150 Output Total 300 2250 450 Balance 300 -2250 -300 Intake: IV 150 Oral 600 0 Output: Urine 300 2250 450 Uretheral ([place]) 700 Other: Voiding Method Indwelling Catheter Indwelling Catheter Indwelling Catheter - Exam Physical exam Gen. appearance oriented 3 in no distress Neck is supple no JVD Lungs breath sounds no rhonchi or wheezing or crackles Heart S1-S2 heard regular rate and rhythm no murmurs appreciated Abdomen is soft nontender no organomegaly bowel sounds are intact Neurologically cranial nerves II-12 grossly intact no focal motor or sensory deficits noted Skin no abnormalities appreciated - Labs CBC & Chem 7: 12/01/16 09:19 12/01/16 09:19 Labs: Abnormal Lab Results - Last 24 Hours (Table) 11/30/16 12/01/16 12/01/16 Range/Units 17:00 09:19 09:19 RBC 3.49 L (4.30-5.90) m/uL Hgb 10.7 L (13.0-17.5) gm/dL Hct 33.8 L (39.0-53.0) % Plt Count 91 L (150-450) k/uL Lymphocytes # 0.4 L (1.0-4.8) k/uL Sodium 135 L (137-145) mmol/L Potassium 5.4 H (3.5-5.1) mmol/L Chloride 108 H (98-107) mmol/L Creatinine 1.26 H (0.66-1.25) mg/dL POC Glucose (mg/dL) 119 H (75-99) mg/dL Calcium 7.9 L (8.4-10.2) mg/dL Assessment and Plan Plan: #1 acute on chronic kidney disease due to prerenal etiology from dehydration patient is improved #2 distal esophageal mass appears to be invasive squamous cell carcinoma. Staging needs to be done after a PET scan #3 multiple episodes of hypoglycemia #4 history of tobacco use Plan We'll encourage oral intake thereafter depending on the recommendations by the GI physician We'll need to obtain a serum glucoses while a [id number] glucoses done as patient does not appear to be symptomatic with low glucose levels Patient will likely be discharged to a subacute [facility] in the next 24 hours Continue IV fluids with D5W at 50 mL per hour
[2016-12-01 14:21] LABS: Glucose,Whole Blood 72 mg/dL (75-99)
[2016-12-01 17:02] LABS: Glucose,Whole Blood 74 mg/dL (75-99)
[2016-12-01 21:14] LABS: Glucose,Whole Blood 81 mg/dL (75-99)
[2016-12-01] MEDS: TAMSULOSIN 0.4 MG CAP.ER.24H PO SCH (21:45)
--- NOTE | 2016-12-01 23:51 | PN ---
Patient is seen for followup for acute kidney injury which is mainly prerenal. Renal function has improved with IV fluids. Patient is scheduled for esophageal wall stent placement. He was found to have esophageal cancer on an endoscopy done last week. On examination, patient is comfortable. He is not in any acute distress. Blood pressure is 136/74, heart rate 108 per minute. He is afebrile. EXAMINATION OF THE HEART: S1, S2. EXAMINATION OF LUNGS: Decreased breath sounds at the bases. Abdomen is soft, non-tender. Examination of lower extremities shows no significant edema. [employer] exam is grossly intact. Labs show sodium of 135, potassium 5.4, BUN 18, serum creatinine 1.26. Hemoglobin 10.7 grams per dL. ASSESSMENT: 1. Acute kidney injury, prerenal, currently significantly improved. Serum creatinine is down to 1.2 from 2.2 on initial admission. 2. Mild hyperkalemia noted. Patient tends to run slightly on the higher side. He is not on any medications to predispose to hyperkalemia. He may be constipated. Patient is maintained on sodium bicarb, which I will continue. I will hold off on Kayexalate until labs tomorrow morning. 3. New diagnosis of esophageal mass, from which the biopsies revealed it to be squamous cell cancer, status post esophageal stent this morning by Dr. Guadalupe. 4. Urine retention, currently with indwelling [place] catheter. PLAN: Encourage increased oral intake. Follow up regarding further plans for the new diagnosis of esophageal cancer. Repeat labs in a.m. Regarding the potassium, hold off on Kayexalate for now until labs tomorrow morning. [facility]
[2016-12-02] MEDS: ONDANSETRON 4 MG/2 ML VIAL IVP PRN ×3 (00:54→23:33)
[2016-12-02 01:05] LABS: Glucose,Whole Blood 92 mg/dL (75-99)
[2016-12-02] MEDS: LACTATED RINGERS 1,000 ML IV SCH ×2 (06:08→12:45)
[2016-12-02] MEDS: ALBUTEROL NEBULIZED 2.5 MG/3 ML INHALATION SCH ×4 (07:22→20:02)
[2016-12-02 07:28] LABS: Glucose,Whole Blood 76 mg/dL (75-99)
[2016-12-02] MEDS: PANTOPRAZOLE 40 MG TABLET PO SCH (08:03)
[2016-12-02] MEDS: SODIUM BICARBONATE TAB 650 MG TAB PO SCH ×3 (08:03→20:55)
[2016-12-02 11:41] LABS: Anion Gap 6 mmol/L; Blood Urea Nitrogen 20 mg/dL (9-20); Calcium 8.4 mg/dL (8.4-10.2); Carbon Dioxide 21 mmol/L (22-30); Chloride 107 mmol/L (98-107); Glucose 89 mg/dL (74-99); Non-African American GFR(MDRD) 52 (>60 ml/min/1.73 sqM); Sodium 134 mmol/L (137-145)
[2016-12-02 12:05] LABS: Glucose,Whole Blood 84 mg/dL (75-99)
--- NOTE | 2016-12-02 13:35 | P.PN ---
Subjective Principal diagnosis: Dysphagia Pt seen today in follow up. He is still not able to tolerate adequate amounts of oral intake without regurgitating, mild odynophagia, denies other pain or change in bowel habits. Objective - Vital Signs Vital signs: Vital Signs Temp 98.2 F 12/02/16 07:00 Pulse 97 12/02/16 07:32 Resp 16 12/02/16 07:32 BP 149/73 12/02/16 07:00 Pulse Ox 92 L 12/02/16 07:22 Intake & Output 12/01/16 12/02/16 12/02/16 18:59 06:59 18:59 Intake Total 150 Output Total 900 750 Balance -750 -750 Intake: IV 150 Output: Urine 900 450 Emesis 300 Other: Voiding Method Indwelling Catheter Indwelling Catheter Indwelling Catheter # Bowel Movements 0 - Constitutional General appearance: Present: average body habitus, cooperative, no acute distress - EENT Eyes: Present: anicteric sclerae - Gastrointestinal General gastrointestinal: Present: normal bowel sounds, soft. Absent: absent bowel sounds, decreased bowel sounds, distended, hepatomegaly, hyperactive bowel sounds, organomegaly, rigid, scaphoid, splenomegaly, tenderness, umbilical hernia, ventral hernia - Musculoskeletal Musculoskeletal: Present: generalized weakness - Psychiatric Psychiatric: Present: A&O x's 3, appropriate affect, intact judgment & insight - Labs CBC & Chem 7: 12/01/16 09:19 12/02/16 10:51 Labs: Abnormal Lab Results - Last 24 Hours (Table) 12/01/16 12/01/16 12/01/16 Range/Units 09:19 09:19 14:19 RBC 3.49 L (4.30-5.90) m/uL Hgb 10.7 L (13.0-17.5) gm/dL Hct 33.8 L (39.0-53.0) % Plt Count 91 L (150-450) k/uL Lymphocytes # 0.4 L (1.0-4.8) k/uL Sodium 135 L (137-145) mmol/L Potassium 5.4 H (3.5-5.1) mmol/L Chloride 108 H (98-107) mmol/L Creatinine 1.26 H (0.66-1.25) mg/dL POC Glucose (mg/dL) 72 L (75-99) mg/dL Calcium 7.9 L (8.4-10.2) mg/dL 12/01/16 Range/Units 17:00 RBC (4.30-5.90) m/uL Hgb (13.0-17.5) gm/dL Hct (39.0-53.0) % Plt Count (150-450) k/uL Lymphocytes # (1.0-4.8) k/uL Sodium (137-145) mmol/L Potassium (3.5-5.1) mmol/L Chloride (98-107) mmol/L Creatinine (0.66-1.25) mg/dL POC Glucose (mg/dL) 74 L (75-99) mg/dL Calcium (8.4-10.2) mg/dL Assessment and Plan (1) Squamous cell carcinoma of esophagus Narrative/Plan: Discussed with pt positive pathology, squamous cell adenocarcinoma, 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 On CT pt does not appear to have metastatic disease but, staging PET scan is needed. Staging PET scan was scheduled but has been cancelled because pt is being sent to rehab. Pt will rehab and hopefully be able to improve oral intake/nutritional status. He has had a stent placed to help pt tolerate oral intake, he is being followed by GI. He is still having difficulty with regurgitation but he thinks it might be getting better, he will be monitored. I will keep in contact with [facility] and as soon as pt is planned for discharge PET will be scheduled. Pt aware of plan. From a Hem/Onc standpoint he can be discharged once cleared by IM and other consults. Status: Acute (2) Esophageal mass Status: Acute (3) Dysphagia Status: Acute
[2016-12-02] MEDS ORDERED: SODIUM POLYSTYRENE SULFONATE 30 GM/120 ML BOTTLE RECTAL STA (15:35)
[2016-12-02] MEDS ORDERED: DEXTROSE 10 % IN WATER 250 ML IV STA ×2 (15:35→17:35)
--- NOTE | 2016-12-02 15:42 | P.PN ---
Subjective Patient is seen in follow-up for acute kidney injury. Renal function is stable with creatinine 1.3 today. However his potassium is elevated at 6 this morning. Patient was noted to have an esophageal mass and had an esophageal wall stent placed on December 01. 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 Patient's been having vomiting this morning. Oral intake remains poor. Denies chest pain or shortness of breath. Vital signs are stable. General: The patient appeared well nourished and normally developed. HEENT: Head exam is unremarkable. Neck is without jugular venous distension. LUNGS: Lungs are clear to auscultation and percussion. Breath sounds decreased. HEART: Rate and Rhythm are regular. First and second heart sounds normal. No murmurs, rubs or gallops. ABDOMEN: Abdominal exam reveals normal bowel sounds. Non-tender and non- distended. No evidence of peritonitis. EXTREMITITES: No clubbing, cyanosis, or edema. Objective - Vital Signs Vital signs: Vital Signs Temp 99.3 F 12/02/16 15:00 Pulse 101 H 12/02/16 15:00 Resp 16 12/02/16 15:00 BP 153/76 12/02/16 15:00 Pulse Ox 92 L 12/02/16 15:00 Intake & Output 12/01/16 12/02/16 12/02/16 18:59 06:59 18:59 Intake Total 150 Output Total 900 750 Balance -750 -750 Weight 74 kg Intake: IV 150 Output: Urine 900 450 Emesis 300 Other: Voiding Method Indwelling Catheter Indwelling Catheter Indwelling Catheter # Bowel Movements 0 - Labs CBC & Chem 7: 12/01/16 09:19 12/02/16 10:51 Labs: Abnormal Lab Results - Last 24 Hours (Table) 12/01/16 12/02/16 Range/Units 17:00 10:51 Sodium 134 L (137-145) mmol/L Potassium 6.0 H (3.5-5.1) mmol/L Carbon Dioxide 21 L (22-30) mmol/L Creatinine 1.30 H (0.66-1.25) mg/dL POC Glucose (mg/dL) 74 L (75-99) mg/dL Assessment and Plan Plan: Assessment: #1. Nonoliguric acute kidney injury mostly prerenal. Renal function stable with creatinine at 1.3. Unclear as to what his baseline renal function is. Urinalysis is noted to be benign. #2. Hyperkalemia. It appears that the specimen is slightly hemolyzed. Patient is not severely acidotic and blood sugars are not high. He's not on any meds that will predispose to hyperkalemia. #3. 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 #4. Urinary retention status post [place] catheter placement. #5. Mild hyponatremia which is due to D5W infusion. Plan: I will give him 10 units of IV regular insulin with amp of D50. 30 g of Kayexalate once. Repeat potassium level at 8 PM today. Avoid nephrotoxic agents and hypotensive episodes. Maintain oral sodium bicarbonate as long as able to tolerate PO intake. Discontinue D5W and may be amps of D50 if needed for hypoglycemia.
[2016-12-02] MEDS ORDERED: INSULIN REGULAR 100 UNIT/ML VIAL IV ONE (16:00)
[2016-12-02] MEDS ORDERED: FUROSEMIDE 10 MG/ML 4 ML VIAL IV STA (16:38)
[2016-12-02] MEDS: DEXTROSE 10% IN WATER 500 ML in EMPTY BAG 1 BAG IV SCH (17:03)
--- NOTE | 2016-12-02 17:21 | P.PN ---
Subjective 86-year-old gentleman who comes in to the hospital with the acute kidney injury. Patient was noted to have multiple episodes of hypoglycemia. Patient was noted to have a distal esophageal mass underwent biopsy biopsy results are pending Patient's oral intake has been significantly low in the recent times In regards to hypoglycemia patient was noted to have a subnormal insulin level C -peptide was within the normal limits At this time patient states that the he is not had any exposure to sulfonylurea medications cough nonproductive in nature 11/30/2016 Patient continues to have isolated episodes of hypoglycemia however patient is not symptomatic No new overnight events. 12/01/2016 Patient is seen after having esophageal stent placed Denies having any headache change in vision nausea vomiting diarrhea 2016 Patient has not been able to swallow today has been vomiting No fevers chills abdominal pain diarrhea urinary urgency or frequency. Objective - Vital Signs Vital signs: Vital Signs Temp 99.3 F 12/02/16 15:00 Pulse 90 12/02/16 16:14 Resp 16 12/02/16 15:00 BP 153/76 12/02/16 15:00 Pulse Ox 94 L 12/02/16 16:05 Intake & Output 12/01/16 12/02/16 12/02/16 18:59 06:59 18:59 Intake Total 150 Output Total 900 750 Balance -750 -750 Weight 74 kg Intake: IV 150 Output: Urine 900 450 Emesis 300 Other: Voiding Method Indwelling Catheter Indwelling Catheter Indwelling Catheter # Bowel Movements 0 - Exam Physical exam Gen. appearance oriented 3 in no distress Neck is supple no JVD Lungs breath sounds no rhonchi or wheezing or crackles Heart S1-S2 heard regular rate and rhythm no murmurs appreciated Abdomen is soft nontender no organomegaly bowel sounds are intact Neurologically cranial nerves II-12 grossly intact no focal motor or sensory deficits noted Skin no abnormalities appreciated - Labs CBC & Chem 7: 12/01/16 09:19 12/02/16 10:51 Labs: Abnormal Lab Results - Last 24 Hours (Table) 12/02/16 Range/Units 10:51 Sodium 134 L (137-145) mmol/L Potassium 6.0 H (3.5-5.1) mmol/L Carbon Dioxide 21 L (22-30) mmol/L Creatinine 1.30 H (0.66-1.25) mg/dL Assessment and Plan Plan: #1 acute on chronic kidney disease due to prerenal etiology from dehydration patient is improved #2 distal esophageal mass appears to be invasive squamous cell carcinoma. Staging needs to be done after a PET scan #3 multiple episodes of hypoglycemia #4 history of tobacco use #5 hyperkalemia Plan hyperkalemia Change solution to D10 at 20 mL/h We'll give 1 dose of IV Lasix as patient is refusing taxine We'll defer to GI in regards to treatment of the esophageal stricture Did discuss patient may benefit from receiving a PEG J tube
[2016-12-02 17:40] LABS: Glucose,Whole Blood 33 mg/dL (75-99)
[2016-12-02 18:02] LABS: Glucose,Whole Blood 91 mg/dL (75-99)
[2016-12-02] MEDS: TAMSULOSIN 0.4 MG CAP.ER.24H PO SCH (20:55)
[2016-12-02 21:12] LABS: Calcium 8.2 mg/dL (8.4-10.2); Potassium 4.7 mmol/L (3.5-5.1); Total Bilirubin 1.1 mg/dL (0.2-1.3); Total Protein 4.6 g/dL (6.3-8.2)
[2016-12-02 21:31] LABS: Glucose,Whole Blood 80 mg/dL (75-99)
[2016-12-02 23:23] LABS: Glucose,Whole Blood 99 mg/dL (75-99)
[2016-12-03 02:16] LABS: Glucose,Whole Blood 110 mg/dL (75-99)
[2016-12-03] MEDS: ONDANSETRON 4 MG/2 ML VIAL IVP PRN (05:42)
[2016-12-03 07:16] LABS: Glucose,Whole Blood 90 mg/dL (75-99)
[2016-12-03] MEDS: ALBUTEROL NEBULIZED 2.5 MG/3 ML INHALATION SCH ×4 (07:30→20:45)
[2016-12-03] MEDS: SODIUM BICARBONATE TAB 650 MG TAB PO SCH ×3 (09:07→21:20)
[2016-12-03] MEDS: PANTOPRAZOLE 40 MG TABLET PO SCH (09:07)
[2016-12-03 11:11] LABS: Calcium 8.4 mg/dL (8.4-10.2); Potassium 4.6 mmol/L (3.5-5.1)
[2016-12-03 11:49] LABS: Glucose,Whole Blood 91 mg/dL (75-99)
[2016-12-03] MEDS: DEXTROSE 10% IN WATER 500 ML in EMPTY BAG 1 BAG IV SCH (16:25)
[2016-12-03 17:04] LABS: Glucose,Whole Blood 141 mg/dL (75-99)
[2016-12-03] MEDS: TAMSULOSIN 0.4 MG CAP.ER.24H PO SCH (20:00)
[2016-12-03 20:52] LABS: Glucose,Whole Blood 107 mg/dL (75-99)
[2016-12-04 02:14] LABS: Glucose,Whole Blood 81 mg/dL (75-99)
[2016-12-04] MEDS: SODIUM BICARBONATE TAB 650 MG TAB PO SCH ×3 (07:36→20:58)
[2016-12-04] MEDS: PANTOPRAZOLE 40 MG TABLET PO SCH (07:36)
[2016-12-04 07:38] LABS: Glucose,Whole Blood 86 mg/dL (75-99)
[2016-12-04 08:13] LABS: Basophils % (A) 0 %; CH 30.9; CHCM 31.7; Eosinophils # (A) 0.1 k/uL (0-0.7); Eosinophils % (A) 1 %; HCT 32.8 % (39.0-53.0); HDW 2.45; HGB 10.2 gm/dL (13.0-17.5); Luc # (Auto) 0.09; Luc % (Auto) 1; Lymphocytes # (A) 0.3 k/uL (1.0-4.8); Lymphocytes % (A) 5 %; MCH 30.7 pg (25.0-35.0); MCHC 31.2 g/dL (31.0-37.0); MCV 98.2 fL (80.0-100.0); Monocytes # (A) 0.4 k/uL (0-1.0); Monocytes % (A) 7 %; Neutrophils # (A) 5.2 k/uL (1.3-7.7); Neutrophils % (A) 85 %; RBC 3.34 m/uL (4.30-5.90); RDW 14.2 % (11.5-15.5); WBC 6.1 k/uL (3.8-10.6); WBC (Perox) 6.31
[2016-12-04] MEDS: ALBUTEROL NEBULIZED 2.5 MG/3 ML INHALATION SCH ×4 (08:31→22:38)
[2016-12-04 08:35] LABS: Calcium 7.9 mg/dL (8.4-10.2); Potassium 4.3 mmol/L (3.5-5.1)
--- NOTE | 2016-12-04 10:37 | P.PN ---
Subjective Patient is seen in follow-up for acute kidney injury. Renal function is gradually worsening with creatinine at 1.64 today. Patient was noted to have an esophageal mass and had an esophageal wall stent placed on December 01. 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 Patient's been having intermittent vomiting and is not much tolerating oral intake. Denies chest pain or shortness of breath. Vital signs are stable. General: The patient appeared well nourished and normally developed. HEENT: Head exam is unremarkable. Neck is without jugular venous distension. LUNGS: Lungs are clear to auscultation and percussion. Breath sounds decreased. HEART: Rate and Rhythm are regular. First and second heart sounds normal. No murmurs, rubs or gallops. ABDOMEN: Abdominal exam reveals normal bowel sounds. Non-tender and non- distended. No evidence of peritonitis. EXTREMITITES: No clubbing, cyanosis, or edema. Objective - Vital Signs Vital signs: Vital Signs Temp 99.1 F 12/04/16 07:00 Pulse 96 12/04/16 08:42 Resp 16 12/04/16 07:00 BP 124/70 12/04/16 07:00 Pulse Ox 100 12/04/16 08:32 Intake & Output 12/03/16 12/04/16 12/04/16 18:59 06:59 18:59 Intake Total 350 Output Total 1800 400 Balance -1800 -50 Weight 74 kg 70 kg Intake: Oral 350 Output: Urine 1800 400 Uretheral ([place]) 400 Other: Voiding Method Indwelling Catheter Indwelling Catheter # Voids 0 1 # Bowel Movements 1 # Emeses 1 - Labs CBC & Chem 7: 12/04/16 07:50 12/04/16 07:50 Labs: Abnormal Lab Results - Last 24 Hours (Table) 12/03/16 12/03/16 12/03/16 Range/Units 10:34 17:04 20:46 RBC (4.30-5.90) m/uL Hgb (13.0-17.5) gm/dL Hct (39.0-53.0) % Plt Count (150-450) k/uL Lymphocytes # (1.0-4.8) k/uL Sodium 132 L (137-145) mmol/L BUN 25 H (9-20) mg/dL Creatinine 1.53 H (0.66-1.25) mg/dL POC Glucose (mg/dL) 141 H 107 H (75-99) mg/dL Calcium (8.4-10.2) mg/dL 12/04/16 12/04/16 Range/Units 07:50 07:50 RBC 3.34 L (4.30-5.90) m/uL Hgb 10.2 L (13.0-17.5) gm/dL Hct 32.8 L (39.0-53.0) % Plt Count 115 L (150-450) k/uL Lymphocytes # 0.3 L (1.0-4.8) k/uL Sodium 131 L (137-145) mmol/L BUN 26 H (9-20) mg/dL Creatinine 1.64 H (0.66-1.25) mg/dL POC Glucose (mg/dL) (75-99) mg/dL Calcium 7.9 L (8.4-10.2) mg/dL Assessment and Plan Plan: Assessment: #1. Nonoliguric acute kidney injury mostly prerenal. Renal function a little worse with creatinine at 1.64. Unclear as to what his baseline renal function is. Urinalysis is noted to be benign. #2. Hyperkalemia. It appears that the specimen is slightly hemolyzed. Patient is not acidotic and blood sugars are not high. He's not on any meds that will predispose to hyperkalemia. Resolved. #3. 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 #4. Urinary retention status post [place] catheter placement. #5. Hyponatremia, appears hypovolemic. Patient's been vomiting and is not tolerating much oral intake. Plan: Start normal saline at 50 mL an hour. Check urine sodium and urine osmolality. Avoid nephrotoxic agents and hypotensive episodes. Maintain oral sodium bicarbonate as long as able to tolerate PO intake. Encouraged oral intake.
[2016-12-04] MEDS: SODIUM CHLORIDE 0.9% 1,000 ML IV SCH (11:56)
[2016-12-04 12:11] LABS: Glucose,Whole Blood 85 mg/dL (75-99)
--- NOTE | 2016-12-04 14:21 | PN ---
DATE OF SERVICE: 12/03/2016 This 86-year-old gentleman admitted with dysphagia, had esophageal malignancy. 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 The patient is unable to keep anything down and eat and because of that reason Dr. Guadalupe seen the patient and recommended a PEG tube placement. At this time multiple consultants are following the patient closely. The patient will require outpatient evaluation and follow up to further delineate the prognosis. PAST MEDICAL HISTORY: Reviewed. REVIEW OF SYSTEMS: CARDIOVASCULAR: No angina or palpitation. RESPIRATORY: As mentioned earlier. GI: As mentioned earlier. : No dysuria. NERVOUS SYSTEM: No numbness or weakness. CURRENT MEDICATIONS: Reviewed and include: 1. Ventolin q.i.d. and p.r.n. 2. Dextrose solution. 3. Xylocaine. 4. Narcan 0.2 q2 p.r.n. 5. Zofran. 6. Protonix. 7. Flomax. PHYSICAL EXAMINATION: Alert and oriented x3. Pulse of 109, blood pressure 110/ 86, respirations 16, temperature 97.8, pulse ox 90% on 3 liters. HEENT: Conjunctivae normal. Oral mucosa moist. NECK: No jugular venous distention. No thyroid enlargement, no lymph node enlargement. CARDIOVASCULAR: S1/.S2. RESPIRATIONS: Diminished breath sounds, especially at the bases. Bilateral scattered rhonchi and crackles. Expiratory wheezing also heard. ABDOMEN: Soft, nontender. No mass palpable. LEGS: No edema, no swelling. NERVOUS SYSTEM: Higher function as mentioned. Moves all four limbs. No focal weakness. LYMPHATICS. No lymph node palpable in neck or axillae. SKIN: No rash. LABS: Sodium 132. Creatinine 1.53. ASSESSMENT: 1. Acute on chronic renal failure secondary to dehydration, prerenal factors as well as tubular necrosis. 2. 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 3. Hypoglycemia. 4. Nausea, vomiting, weight loss. 5. Increased creatinine kinase. RECOMMENDATIONS AND DISCUSSION: In this 86-year-old gentleman who presented with multiple complex medical issues, we will monitor the patient closely, continue the current medication, continue symptomatic treatment, PEG placement, repeat labs. Otherwise, continue with the current medications. The overall prognosis is extremely guarded because of multiple complex medical issues. Will also get PT and OT evaluation, social media strategist to obtain possible guardianship. Otherwise, continue to monitor. Overall prognosis guarded because of multiple complex medical issues. Discussed with the patient who understands. Further recommendations to follow. MTDD
[2016-12-04 17:32] LABS: Glucose,Whole Blood 87 mg/dL (75-99)
[2016-12-04] MEDS: DEXTROSE 10% IN WATER 500 ML in EMPTY BAG 1 BAG IV SCH (18:40)
[2016-12-04 20:58] LABS: Glucose,Whole Blood 82 mg/dL (75-99)
[2016-12-04] MEDS: TAMSULOSIN 0.4 MG CAP.ER.24H PO SCH (20:58)
[2016-12-05 02:11] LABS: Glucose,Whole Blood 84 mg/dL (75-99)
[2016-12-05] MEDS: ALBUTEROL NEBULIZED 2.5 MG/3 ML INHALATION SCH ×4 (07:43→19:26)
[2016-12-05] MEDS: PANTOPRAZOLE 40 MG TABLET PO SCH (07:45)
[2016-12-05] MEDS: SODIUM BICARBONATE TAB 650 MG TAB PO SCH ×3 (07:45→21:47)
[2016-12-05 07:55] LABS: Glucose,Whole Blood 84 mg/dL (75-99)
[2016-12-05] MEDS: SODIUM CHLORIDE 0.9% 1,000 ML IV SCH ×2 (08:25→12:53)
[2016-12-05 08:46] LABS: Basophils % (A) 0 %; CH 30.4; CHCM 32.1; Eosinophils # (A) 0.1 k/uL (0-0.7); Eosinophils % (A) 2 %; HGB 10.3 gm/dL (13.0-17.5); Luc % (Auto) 1; Lymphocytes # (A) 0.4 k/uL (1.0-4.8); Lymphocytes % (A) 6 %; MCH 30.6 pg (25.0-35.0); MCHC 32.2 g/dL (31.0-37.0); MCV 95.1 fL (80.0-100.0); Mean Platelet Volume 8.1; Monocytes # (A) 0.4 k/uL (0-1.0); Monocytes % (A) 6 %; Neutrophils # (A) 5.9 k/uL (1.3-7.7); Neutrophils % (A) 85 %; RBC 3.37 m/uL (4.30-5.90); RDW 13.7 % (11.5-15.5); WBC (Perox) 7.25
[2016-12-05 09:01] LABS: Calcium 7.7 mg/dL (8.4-10.2); Potassium 4.6 mmol/L (3.5-5.1)
--- NOTE | 2016-12-05 11:43 | P.PN ---
Subjective Patient is seen in follow-up for acute kidney injury. Renal function is stable with cr at 1.62 today. Patient was noted to have an esophageal mass and had an esophageal wall stent placed on December 01. 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 Patient's been having intermittent vomiting and is not much tolerating oral intake. Denies chest pain or shortness of breath. Hemodynamically stable. Vital signs are stable. General: The patient appeared well nourished and normally developed. HEENT: Head exam is unremarkable. Neck is without jugular venous distension. LUNGS: Lungs are clear to auscultation and percussion. Breath sounds decreased. HEART: Rate and Rhythm are regular. First and second heart sounds normal. No murmurs, rubs or gallops. ABDOMEN: Abdominal exam reveals normal bowel sounds. Non-tender and non- distended. No evidence of peritonitis. EXTREMITITES: No clubbing, cyanosis, or edema. Objective - Vital Signs Vital signs: Vital Signs Temp 98.6 F 12/05/16 07:00 Pulse 96 12/05/16 11:33 Resp 20 12/05/16 07:00 BP 114/52 12/05/16 07:00 Pulse Ox 98 12/05/16 07:00 Intake & Output 12/04/16 12/05/16 12/05/16 18:59 06:59 18:59 Intake Total 250 Output Total 200 Balance 50 Weight 70.5 kg Intake: Oral 250 Output: Urine 200 Uretheral ([place]) 200 Other: Voiding Method Indwelling Catheter Indwelling Catheter Indwelling Catheter # Voids 200 0 # Bowel Movements 0 - Labs CBC & Chem 7: 12/05/16 08:26 12/05/16 08:26 Labs: Abnormal Lab Results - Last 24 Hours (Table) 12/05/16 12/05/16 Range/Units 08:26 08:26 RBC 3.37 L (4.30-5.90) m/uL Hgb 10.3 L (13.0-17.5) gm/dL Hct 32.0 L (39.0-53.0) % Plt Count 112 L (150-450) k/uL Lymphocytes # 0.4 L (1.0-4.8) k/uL Sodium 131 L (137-145) mmol/L BUN 26 H (9-20) mg/dL Creatinine 1.62 H (0.66-1.25) mg/dL Calcium 7.7 L (8.4-10.2) mg/dL Assessment and Plan Plan: Assessment: #1. Nonoliguric acute kidney injury mostly prerenal. Renal function stable today. Unclear as to what his baseline renal function is. Urinalysis is noted to be benign. #2. Hyperkalemia. It appears that the specimen is slightly hemolyzed. Patient is not acidotic and blood sugars are not high. He's not on any meds that will predispose to hyperkalemia. Resolved. #3. 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 #4. Urinary retention status post [place] catheter placement. #5. Hyponatremia, appears hypovolemic. Patient's been vomiting and is not tolerating much oral intake. Plan: Continue normal saline at 50 mL an hour. Avoid nephrotoxic agents and hypotensive episodes. Maintain oral sodium bicarbonate as long as able to tolerate PO intake. Encouraged oral intake - potential PEG tube tomorrow. Expect improvement in sodium once feeding initiated.
[2016-12-05 12:16] LABS: Glucose,Whole Blood 93 mg/dL (75-99)
--- NOTE | 2016-12-05 14:50 | P.PN ---
Progress Note - Text Patient is an 86-year-old male who was admitted to the hospital with dysphagia and weight loss. He had an upper endoscopy 11/26/2016 which revealed distal esophageal ulcerated mass with stricture. The biopsies revealed squamous cell carcinoma. He had an esophageal wall stent placed 12/01. The patient has continued to feed poorly, both solids and full fluids. We are asked to consider feeding tube placement. Will review his care. Surgical approach will be considered for the possibility that the stent might be displaced while putting a feeding tube endoscopically.
--- NOTE | 2016-12-05 17:06 | PN ---
DATE OF SERVICE: 12/04/2016 This 86-year-old gentleman was admitted with significant weight loss and acute renal failure, was found to have esophageal malignancy which is poorly differentiated squamous cell carcinoma. Gastroenterology evaluated the patient for possible PEG tube placement. Esophageal stent was also placed. The patient also had significant weight loss. Patient also a poor accordingly to the family also. PAST MEDICAL HISTORY: Reviewed. REVIEW OF SYSTEMS: CARDIOVASCULAR: No angina or palpitation. RESPIRATORY: As mentioned earlier. GI: As mentioned earlier. NERVOUS SYSTEM: No numbness or weakness. CURRENT MEDICATIONS: Reviewed and include: 1. Ventolin 2.5 q.i.d. and p.r.n. 2. Potassium protocol. 3. Narcan 0.2 IV q2 p.r.n. 4. Zofran. 5. Protonix 40 mg daily. 6. Flomax 0.4 q.h.s. PHYSICAL EXAMINATION: Alert and oriented x3. Pulse 97, blood pressure 130/61, respirations 16, temperature 99, pulse ox 97% on 3 liters. HEENT: Conjunctivae normal. NECK: No jugular venous distention. CARDIOVASCULAR: S1/.S2. RESPIRATIONS: Diminished breath sounds, especially in the bases. A few scattered rhonchi and crackles. ABDOMEN: Soft, nontender. No mass palpable. LEGS: No edema, no swelling. NERVOUS SYSTEM: Higher function as mentioned. Moves all four limbs. No focal weakness. LYMPHATICS. No lymph node palpable in neck or axillae. SKIN: No rash. LABS: At this time show WBC 6.1, hemoglobin 10.2. Sodium 131. Creatinine 1.64. ASSESSMENT: 1. Acute on chronic renal failure secondary to dehydration, prerenal factors such as tubular necrosis, acute, present on admission. 2. Esophageal malignancy with invasive squamous cell carcinoma status post biopsy and stent placement. 3. Hypoglycemia secondary to diminished p.o. intake. 4. Nausea, vomiting and weight loss. 5. Gait dysfunction. 6. Increased creatinine kinase. RECOMMENDATIONS AND DISCUSSION: This 85-year-old gentleman presented with multiple complex medical issues. Will monitor the patient closely, continue the current medication, continue symptomatic treatment. Otherwise, I had discussion with the family including the son who came from [place] and I would also recommend evaluation by social work case management for possible ECF rehab. Otherwise, gastroenterology to continue to follow for possible PEG tube placement, CAT scan as outpatient and further evaluation and treatment. Currently the patient is a full code. Prognosis guarded. Further recommendations to follow. MTDD
[2016-12-05 17:09] LABS: Glucose,Whole Blood 97 mg/dL (75-99)
[2016-12-05] MEDS: DEXTROSE 10% IN WATER 500 ML in EMPTY BAG 1 BAG IV SCH (18:17)
[2016-12-05 20:58] LABS: Glucose,Whole Blood 82 mg/dL (75-99)
[2016-12-05] MEDS: TAMSULOSIN 0.4 MG CAP.ER.24H PO SCH (21:47)
[2016-12-06 02:40] LABS: Glucose,Whole Blood 83 mg/dL (75-99)
[2016-12-06] MEDS: ALBUTEROL NEBULIZED 2.5 MG/3 ML INHALATION SCH ×4 (07:33→19:57)
[2016-12-06] MEDS: PANTOPRAZOLE 40 MG TABLET PO SCH (07:35)
[2016-12-06] MEDS: SODIUM BICARBONATE TAB 650 MG TAB PO SCH (07:35)
[2016-12-06] MEDS: SODIUM CHLORIDE 0.9% 1,000 ML IV SCH (07:36)
[2016-12-06 07:46] LABS: Glucose,Whole Blood 78 mg/dL (75-99)
[2016-12-06 08:49] LABS: Basophils % (A) 0 %; CHCM 31.5; Eosinophils # (A) 0.1 k/uL (0-0.7); Eosinophils % (A) 1 %; HCT 29.5 % (39.0-53.0); HDW 2.45; Luc # (Auto) 0.07; Luc % (Auto) 1; Lymphocytes # (A) 0.4 k/uL (1.0-4.8); Lymphocytes % (A) 7 %; MCH 30.1 pg (25.0-35.0); MCHC 30.5 g/dL (31.0-37.0); MCV 98.6 fL (80.0-100.0); Mean Platelet Volume 8.4; Monocytes # (A) 0.3 k/uL (0-1.0); Monocytes % (A) 6 %; Neutrophils # (A) 4.8 k/uL (1.3-7.7); Neutrophils % (A) 85 %; RDW 14.3 % (11.5-15.5); WBC 5.7 k/uL (3.8-10.6); WBC (Perox) 5.64
[2016-12-06 09:10] LABS: Calcium 7.4 mg/dL (8.4-10.2); Potassium 4.2 mmol/L (3.5-5.1)
[2016-12-06 09:40] LABS: Glucose,Whole Blood 87 mg/dL (75-99)
--- NOTE | 2016-12-06 10:40 | P.PN ---
Subjective Patient is seen in follow-up for acute kidney injury. Renal function is stable with cr at 1.59 today. Patient was noted to have an esophageal mass and had an esophageal wall stent placed on December 01. 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 Patient's been having intermittent vomiting and is not much tolerating oral intake. Denies chest pain or shortness of breath. Hemodynamically stable. Does admit to drinking quite a bit of water. Vital signs are stable. General: The patient appeared well nourished and normally developed. HEENT: Head exam is unremarkable. Neck is without jugular venous distension. LUNGS: Lungs are clear to auscultation and percussion. Breath sounds decreased. HEART: Rate and Rhythm are regular. First and second heart sounds normal. No murmurs, rubs or gallops. ABDOMEN: Abdominal exam reveals normal bowel sounds. Non-tender and non- distended. No evidence of peritonitis. EXTREMITITES: No clubbing, cyanosis, or edema. Objective - Vital Signs Vital signs: Vital Signs Temp 98.4 F 12/06/16 07:00 Pulse 94 12/06/16 07:45 Resp 16 12/06/16 07:00 BP 128/62 12/06/16 07:00 Pulse Ox 98 12/06/16 07:35 Intake & Output 12/05/16 12/06/16 12/06/16 18:59 06:59 18:59 Output Total 300 175 Balance -300 -175 Output: Urine 300 175 Other: Voiding Method Indwelling Catheter Indwelling Catheter Indwelling Catheter # Bowel Movements 0 - Labs CBC & Chem 7: 12/06/16 08:16 12/06/16 08:16 Labs: Abnormal Lab Results - Last 24 Hours (Table) 12/06/16 12/06/16 Range/Units 08:16 08:16 RBC 3.00 L (4.30-5.90) m/uL Hgb 9.0 L (13.0-17.5) gm/dL Hct 29.5 L (39.0-53.0) % MCHC 30.5 L (31.0-37.0) g/dL Plt Count 115 L (150-450) k/uL Lymphocytes # 0.4 L (1.0-4.8) k/uL Sodium 130 L (137-145) mmol/L BUN 25 H (9-20) mg/dL Creatinine 1.59 H (0.66-1.25) mg/dL Calcium 7.4 L (8.4-10.2) mg/dL Assessment and Plan Plan: Assessment: #1. Nonoliguric acute kidney injury mostly prerenal. Renal function stable. Unclear as to what his baseline renal function is. Urinalysis is noted to be benign. #2. Hyperkalemia. It appears that the specimen is slightly hemolyzed. Patient is not acidotic and blood sugars are not high. He's not on any meds that will predispose to hyperkalemia. Resolved. #3. 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 #4. Urinary retention status post [place] catheter placement. #5. Hyponatremia, appears hypovolemic with component of excess fluid intake in setting of low solute intake. Plan: I will change IVFs to D5-0.9% saline at 50 cc/hr. Avoid nephrotoxic agents and hypotensive episodes. D/c sodium bicarbonate. Encouraged oral intake - potential PEG tube today. Expect improvement in sodium once feeding initiated.
[2016-12-06] MEDS: DEXTROSE 5%-0.9% NACL 1,000 ML IV SCH (11:04)
[2016-12-06 11:05] LABS: Glucose,Whole Blood 88 mg/dL (75-99)
--- NOTE | 2016-12-06 12:55 | P.GSCN ---
History of Present Illness Consult date: 12/06/16 Reason for Consult: Possible J-tube insertion for tube feeds History of present illness: 86-year-old male being seen at the request of the attending for surgical eval in a gentleman who has dysphagia with weight loss. Patient did have an upper endoscopic the on November 26 as part of a workup which did show a distal esophageal ulcerated mass with stricture. The biopsy were positive for Squamous cell carcinoma patient has been seen by gastroenterology service and did have esophageal wall stent placed on December 11. Patient continues to feed poorly both with solids and full liquids. Surgical eval has been requested for a surgical approach to be considered for the possibility that the esophageal stent might be replaced all putting a feeding tube endoscopically. Surgical services evaluating the patient for the above-mentioned symptoms Review of Systems Essentially unremarkable except as mentioned in the present illness Past Medical History Past Medical History: Asthma Additional Past Medical History / Comment(s): no medical hx History of Any Multi-Drug Resistant Organisms: None Reported Past Surgical History: No Surgical Hx Reported Past Psychological History: No Psychological Hx Reported Smoking Status: Former smoker Past Alcohol Use History: None Reported Past Drug Use History: None Reported Medications and Allergies Allergies Allergy/AdvReac Type Severity Reaction Status Date / Time No Known Allergies Allergy Verified 11/20/16 10:33 Surgical - Exam Vital Signs Temp Pulse Resp BP Pulse Ox 96.9 F L 95 18 182/84 97 11/20/16 10:33 11/20/16 10:33 11/20/16 10:33 11/20/16 10:33 11/20/16 10:33 GENERAL APPEARANCE: 86-year-old thin patient is alert, oriented, in no acute distress. Pleasant cooperative VITAL SIGNS: Reviewed HEENT: Head is normocephalic and atraumatic. Pupils are equal and reactive. The nares are patent. Oropharynx is clear without lesions. NECK: Supple without lymphadenopathy. Traches midline. HEART: S1, S2. Regular rate and rhythm. No murmur noted LUNGS: No crackles or wheezes are heard. On room air with no cough no shortness of breath ABDOMEN: Soft, nontender, nondistended with good bowel sounds. No peritoneal signs. No palpable organomegaly or masses. EXTREMITIES: Normal skin color and turgor. No cyanosis, rash, ulceration, clubbing or edema. Radial pedal pulses are 2/4 bilaterally. NEUROLOGICAL: No focal deficits. Strength and sensation are grossly intact. Results - Labs 12/06/16 08:16 12/06/16 08:16 Abnormal Lab Results - Last 24 Hours (Table) 12/06/16 12/06/16 Range/Units 08:16 08:16 RBC 3.00 L (4.30-5.90) m/uL Hgb 9.0 L (13.0-17.5) gm/dL Hct 29.5 L (39.0-53.0) % MCHC 30.5 L (31.0-37.0) g/dL Plt Count 115 L (150-450) k/uL Lymphocytes # 0.4 L (1.0-4.8) k/uL Sodium 130 L (137-145) mmol/L BUN 25 H (9-20) mg/dL Creatinine 1.59 H (0.66-1.25) mg/dL Calcium 7.4 L (8.4-10.2) mg/dL Diabetes panel 12/06/16 Range/Units 08:16 Sodium 130 L (137-145) mmol/L Potassium 4.2 (3.5-5.1) mmol/L Chloride 98 (98-107) mmol/L Carbon Dioxide 29 (22-30) mmol/L BUN 25 H (9-20) mg/dL Creatinine 1.59 H (0.66-1.25) mg/dL Glucose 77 (74-99) mg/dL Calcium 7.4 L (8.4-10.2) mg/dL Calcium panel 12/06/16 Range/Units 08:16 Calcium 7.4 L (8.4-10.2) mg/dL Pituitary panel 12/06/16 Range/Units 08:16 Sodium 130 L (137-145) mmol/L Potassium 4.2 (3.5-5.1) mmol/L Chloride 98 (98-107) mmol/L Carbon Dioxide 29 (22-30) mmol/L BUN 25 H (9-20) mg/dL Creatinine 1.59 H (0.66-1.25) mg/dL Glucose 77 (74-99) mg/dL Calcium 7.4 L (8.4-10.2) mg/dL Adrenal panel 12/06/16 Range/Units 08:16 Sodium 130 L (137-145) mmol/L Potassium 4.2 (3.5-5.1) mmol/L Chloride 98 (98-107) mmol/L Carbon Dioxide 29 (22-30) mmol/L BUN 25 H (9-20) mg/dL Creatinine 1.59 H (0.66-1.25) mg/dL Glucose 77 (74-99) mg/dL Calcium 7.4 L (8.4-10.2) mg/dL Assessment and Plan Plan: Impression Present on admission dysphagia with unintentional weight loss status post EGD on November 26 showed distal esophageal ulcerated mass with stricture biopsies positive for squamous cell cancer Status post esophageal wall stent placed on December 01 Squamous cell carcinoma of the esophagus Esophageal mass Acute dysphagia acute on chronic kidney disease Multiple episodes of hypoglycemia Plan Patient is to be scheduled for a insertion of a jejunostomy tube this Tuesday for nutritional support Aspiration precautions DVT and GI prophylaxis Further surgical recommendations pending The above impression and plan of care have been discussed and directed by signing physician. Rebeca Elizalde nurse practitioner acting as scribe for signing physician.
[2016-12-06 17:04] LABS: Glucose,Whole Blood 110 mg/dL (75-99)
--- NOTE | 2016-12-06 17:23 | PN ---
DATE OF SERVICE: 12/05/2016 This is an 86-year-old gentleman who was admitted with significant weight loss and renal failure. Also, had acute on chronic renal failure. The patient also had esophageal malignancy with invasive squamous cell carcinoma. The patient had stent placement. Dr. Alvarado is following the patient closely. On exam, alert and oriented x3. Pulse is 100, blood pressure 196/90, respirations 20, temperature 97.3, pulse ox 90% on room air. HEENT: Conjunctivae normal. NECK: No JVD. CARDIOVASCULAR: Diminished breath sounds, especially in the bases. A few scattered rhonchi. ABDOMEN: Soft, nontender. LEGS: No edema. NERVOUS SYSTEM: No focal deficits. LABS: WBC 7, hemoglobin 10.3. Creatinine 1.62. ASSESSMENT: 1. Esophageal malignancy with invasive squamous cell carcinoma status post biopsy and stent placement. 2. Acute on chronic renal failure secondary to dehydration, prerenal factors, acute tubular necrosis present on admission. 3. Hypoglycemia secondary to diminished p.o. take. 4. Nausea, vomiting, weight loss. 5. Gait dysfunction. 6. Increase creatinine kinase. RECOMMENDATIONS AND DISCUSSION: Continue current medication, continue to monitor, continue symptomatic treatment. Otherwise, we will continue to monitor. Gastroenterology input appreciated. Because of multiple complex medical issues, Dr. Alvarado is recommending a J-tube insertion. Otherwise, prognosis guarded. Further recommendations to follow. Discussed with the family at length. PAT
[2016-12-06] MEDS: TAMSULOSIN 0.4 MG CAP.ER.24H PO SCH (19:43)
[2016-12-06 20:23] LABS: Glucose,Whole Blood 124 mg/dL (75-99)
[2016-12-07 01:49] LABS: Glucose,Whole Blood 97 mg/dL (75-99)
[2016-12-07] MEDS: DEXTROSE 5%-0.9% NACL 1,000 ML IV SCH (05:29)
[2016-12-07] MEDS: ALBUTEROL NEBULIZED 2.5 MG/3 ML INHALATION SCH ×4 (07:16→19:58)
[2016-12-07 07:34] LABS: Glucose,Whole Blood 105 mg/dL (75-99)
[2016-12-07] MEDS: PANTOPRAZOLE 40 MG TABLET PO SCH (07:42)
--- NOTE | 2016-12-07 08:08 | PN ---
DATE OF SERVICE: 12/06/2016 This is an 86-year-old gentleman who was admitted esophageal malignancy and significant difficulties in swallowing also. The patient is being closely monitored and the possibility of a J-tube was estimated by GI. Surgery was consulted and patient will be scheduled for surgery on Tuesday. PAST MEDICAL HISTORY: Reviewed. REVIEW OF SYSTEMS: CARDIOVASCULAR SYSTEM: No chest pain, palpitations. GI: As mentioned earlier. : No nausea, vomiting. Current medications are reviewed include Ventolin q.i.d. and p.r.n., Narcan, Zofran, Protonix, Flomax. PHYSICAL EXAM: Patient is alert and oriented x2. Pulse 102, blood pressure 142/63, respirations 18, temperature is 98.4, pulse ox 92% on 3 L. HEENT: Conjunctivae normal. NECK: No jugular venous distension. CARDIOVASCULAR SYSTEM: S1, S2, muffled. RESPIRATORY: Breath sounds diminished at the bases, a few scattered rhonchi, no crackles. ABDOMEN: Soft, nontender, no mass palpable. NERVOUS SYSTEM: No focal deficits. Labs are at this time WBC is 5.7, hemoglobin is 9, creatinine is 1.59, sodium 130. ASSESSMENT: 1. 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 2. Acute on chronic renal failure secondary to dehydration, prerenal factors, acute tubular necrosis present on admission. 3. Hypoglycemia secondary to diminished p.o. intake. 4. Nausea, vomiting, weight loss. 5. Hyponatremia. 6. Gait dysfunction. 7. Increased creatinine kinase. RECOMMENDATION: In this 86-year-old gentleman who presented with multiple complex medical issues, will monitor the patient closely. The patient is probably not a candidate for PEG tube and I would recommend a J-tube at this time. Patient also requires outpatient evaluation including PET scans; otherwise, once the J-tube is functioning, the patient is a candidate for rehab. Continue rehab and improve the nutrition status for any possible chemotherapy or any other modality of treatment in the future. Overall prognosis guarded. Detail discussed with the family the other day who apparently lives in [place]. Closely follow with the case management assistant and further recommendations to follow. [facility]
[2016-12-07 09:06] LABS: Basophils % (A) 0 %; CHCM 31.2; Eosinophils # (A) 0.1 k/uL (0-0.7); Eosinophils % (A) 1 %; HCT 29.8 % (39.0-53.0); HGB 9.3 gm/dL (13.0-17.5); Hypochromasia Slight; Luc # (Auto) 0.08; Luc % (Auto) 1; Lymphocytes # (A) 0.3 k/uL (1.0-4.8); Lymphocytes % (A) 4 %; MCH 30.1 pg (25.0-35.0); MCHC 31.1 g/dL (31.0-37.0); MCV 96.6 fL (80.0-100.0); Mean Platelet Volume 7.9; Monocytes # (A) 0.4 k/uL (0-1.0); Monocytes % (A) 6 %; Neutrophils # (A) 5.8 k/uL (1.3-7.7); Neutrophils % (A) 87 %; RBC 3.08 m/uL (4.30-5.90); RDW 13.6 % (11.5-15.5); WBC 6.6 k/uL (3.8-10.6); WBC (Perox) 6.69
[2016-12-07 09:20] LABS: Calcium 7.3 mg/dL (8.4-10.2); Potassium 4.1 mmol/L (3.5-5.1)
[2016-12-07 11:45] LABS: Glucose,Whole Blood 110 mg/dL (75-99)
[2016-12-07 17:10] LABS: Glucose,Whole Blood 130 mg/dL (75-99)
[2016-12-07 18:17] LABS: Glucose,Whole Blood 129 mg/dL (75-99)
--- NOTE | 2016-12-07 18:48 | CT ---
EXAMINATION TYPE: CT brain wo con for TPA DATE OF EXAM: 12/07/2016 COMPARISON: 11/20/2016 HISTORY: Decreased Level of consciousness. CT DLP: 1505.6 mGycm Automated exposure control for dose reduction was used. FINDINGS: There is diffuse cerebral cortical atrophy. There is no mass effect nor midline shift. There is no si gn of intracranial hemorrhage. Calvarium is intact. There is patchy hypodensity in the periventricula r white matter. IMPRESSION: CEREBRAL ATROPHY AND CHRONIC SMALL VESSEL ISCHEMIA. NO ACUTE INTRACRANIAL ABNORMALITY.
[2016-12-07] MEDS ORDERED: SODIUM CHLORIDE 0.9% 1,000 ML IV SCH (19:15)
[2016-12-07 20:39] LABS: Basophils % (A) 0 %; CH 29.4; CHCM 29.6; Eosinophils % (A) 1 %; HCT 31.7 % (39.0-53.0); HDW 2.56; HGB 9.9 gm/dL (13.0-17.5); Hypochromasia Marked; Luc % (Auto) 1; Lymphocytes # (A) 0.2 k/uL (1.0-4.8); Lymphocytes % (A) 2 %; MCH 31.1 pg (25.0-35.0); MCHC 31.1 g/dL (31.0-37.0); MCV 99.9 fL (80.0-100.0); Mean Platelet Volume 8.4; Monocytes # (A) 0.5 k/uL (0-1.0); Monocytes % (A) 6 %; Neutrophils # (A) 7.8 k/uL (1.3-7.7); Neutrophils % (A) 90 %; RBC 3.18 m/uL (4.30-5.90); RDW 13.6 % (11.5-15.5); WBC 8.6 k/uL (3.8-10.6)
[2016-12-07 21:05] LABS: Glucose,Whole Blood 160 mg/dL (75-99)
[2016-12-07] MEDS: TAMSULOSIN 0.4 MG CAP.ER.24H PO SCH (21:09)
[2016-12-08 02:12] LABS: Glucose,Whole Blood 87 mg/dL (75-99)
[2016-12-08] MEDS: DEXTROSE 5%-0.9% NACL 1,000 ML IV SCH (05:35)
[2016-12-08 06:08] LABS: Calcium 7.5 mg/dL (8.4-10.2)
[2016-12-08 06:37] LABS: Basophils # (A) 0.1 k/uL (0-0.2); Basophils % (A) 1 %; CH 30.8; CHCM 31.5; Eosinophils # (A) 0.1 k/uL (0-0.7); Eosinophils % (A) 1 %; HCT 28.8 % (39.0-53.0); HDW 2.54; Luc # (Auto) 0.09; Luc % (Auto) 2; Lymphocytes # (A) 0.3 k/uL (1.0-4.8); Lymphocytes % (A) 5 %; MCH 30.7 pg (25.0-35.0); MCHC 31.3 g/dL (31.0-37.0); MCV 98.2 fL (80.0-100.0); Mean Platelet Volume 8.2; Monocytes # (A) 0.4 k/uL (0-1.0); Monocytes % (A) 7 %; Neutrophils # (A) 4.9 k/uL (1.3-7.7); Neutrophils % (A) 84 %; RBC 2.93 m/uL (4.30-5.90); WBC 5.9 k/uL (3.8-10.6); WBC (Perox) 6.11
[2016-12-08 06:55] LABS: Glucose,Whole Blood 87 mg/dL (75-99)
[2016-12-08] MEDS: PANTOPRAZOLE 40 MG TABLET PO SCH (08:26)
[2016-12-08] MEDS: ALBUTEROL NEBULIZED 2.5 MG/3 ML INHALATION SCH ×4 (11:25→20:05)
--- NOTE | 2016-12-08 11:54 | P.PN ---
Subjective Patient is seen in follow-up for acute kidney injury. Renal function is stable with cr at 1.42 today. Patient was noted to have an esophageal mass and had an esophageal wall stent placed on December 01. 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 Patient's been having intermittent vomiting and is not much tolerating oral intake. Denies chest pain or shortness of breath. Hemodynamically stable. Does admit to drinking quite a bit of water. Scheduled for J-tube placement today. Vital signs are stable. General: The patient appeared well nourished and normally developed. HEENT: Head exam is unremarkable. Neck is without jugular venous distension. LUNGS: Lungs are clear to auscultation and percussion. Breath sounds decreased. HEART: Rate and Rhythm are regular. First and second heart sounds normal. No murmurs, rubs or gallops. ABDOMEN: Abdominal exam reveals normal bowel sounds. Non-tender and non- distended. No evidence of peritonitis. EXTREMITITES: No clubbing, cyanosis, or edema. Objective - Vital Signs Vital signs: Vital Signs Temp 97.7 F 12/08/16 07:38 Pulse 92 12/08/16 11:39 Resp 16 12/08/16 07:38 BP 142/68 12/08/16 07:38 Pulse Ox 100 12/08/16 07:38 Intake & Output 12/07/16 12/08/16 12/08/16 18:59 06:59 18:59 Intake Total 350 Output Total 200 350 Balance 150 -350 Intake: Intake, IV Titration 350 Amount Dextrose 5%-0.9% NaCl 1, 350 000 ml @ 50 mls/hr IV . Q20H [facility] Rx#:[id number] Output: Urine 200 350 Uretheral ([place]) 350 Other: Voiding Method Indwelling Catheter Indwelling Catheter Indwelling Catheter - Labs CBC & Chem 7: 12/08/16 06:19 12/08/16 05:30 Labs: Abnormal Lab Results - Last 24 Hours (Table) 12/07/16 12/07/16 12/07/16 Range/Units 17:06 18:15 20:20 RBC 3.18 L (4.30-5.90) m/uL Hgb 9.9 L (13.0-17.5) gm/dL Hct 31.7 L (39.0-53.0) % Plt Count 72 L (150-450) k/uL Neutrophils # 7.8 H (1.3-7.7) k/uL Lymphocytes # 0.2 L (1.0-4.8) k/uL Sodium (137-145) mmol/L BUN (9-20) mg/dL Creatinine (0.66-1.25) mg/dL Glucose (74-99) mg/dL POC Glucose (mg/dL) 130 H 129 H (75-99) mg/dL Calcium (8.4-10.2) mg/dL Troponin I (0.000-0.034) ng/mL 12/07/16 12/07/16 12/08/16 Range/Units 20:20 21:03 05:30 RBC (4.30-5.90) m/uL Hgb (13.0-17.5) gm/dL Hct (39.0-53.0) % Plt Count (150-450) k/uL Neutrophils # (1.3-7.7) k/uL Lymphocytes # (1.0-4.8) k/uL Sodium 135 L (137-145) mmol/L BUN 26 H (9-20) mg/dL Creatinine 1.42 H (0.66-1.25) mg/dL Glucose 130 H (74-99) mg/dL POC Glucose (mg/dL) 160 H (75-99) mg/dL Calcium 7.5 L (8.4-10.2) mg/dL Troponin I 1.020 H* (0.000-0.034) ng/mL 12/08/16 12/08/16 Range/Units 05:30 06:19 RBC 2.93 L (4.30-5.90) m/uL Hgb 9.0 L (13.0-17.5) gm/dL Hct 28.8 L (39.0-53.0) % Plt Count 118 L D (150-450) k/uL Neutrophils # (1.3-7.7) k/uL Lymphocytes # 0.3 L (1.0-4.8) k/uL Sodium (137-145) mmol/L BUN (9-20) mg/dL Creatinine (0.66-1.25) mg/dL Glucose (74-99) mg/dL POC Glucose (mg/dL) (75-99) mg/dL Calcium (8.4-10.2) mg/dL Troponin I 1.290 H* (0.000-0.034) ng/mL Assessment and Plan Plan: Assessment: #1. Nonoliguric acute kidney injury mostly prerenal. Renal function stable. Unclear as to what his baseline renal function is. Urinalysis is noted to be benign. #2. Hyperkalemia. It appears that the specimen is slightly hemolyzed. Patient is not acidotic and blood sugars are not high. He's not on any meds that will predispose to hyperkalemia. Resolved. #3. 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 #4. Urinary retention status post [place] catheter placement. #5. Hyponatremia, appears hypovolemic with component of excess fluid intake in setting of low solute intake. Improved. Plan: Continue D5-0.9% saline at 50 cc/hr. Avoid nephrotoxic agents and hypotensive episodes. D/c sodium bicarbonate. Encouraged oral intake - potential J-tube today.
[2016-12-08 12:01] LABS: % Iron Saturation 11.7 % (20-50)
[2016-12-08 12:06] LABS: Glucose,Whole Blood 86 mg/dL (75-99)
--- NOTE | 2016-12-08 12:09 | PN ---
DATE OF SERVICE: 12/07/16 This 86-year-old gentleman who was admitted with esophageal malignancy also had a syncopal episode today. No chest pain. No palpitations. No fever. CODE stroke was called but CT scan of the brain did not show any acute abnormality. Troponins are elevated. Past medical history reviewed. REVIEW OF SYSTEMS: Cardiovascular: No angina or palpitations. GI: As mentioned earlier. : No dysuria. Nervous system: diffusely weak. Current medications are reviewed and include: Ventolin q.i.d. and prn, Narcan, Zofran, Protonix, Flomax. On exam, the patient is alert and oriented times three. Pulse 115. Blood pressure 150/55. Respiratory rate 24. Temperature 97.9 degrees. Pulse ox % on 5 L. HEENT: Conjunctivae normal. Oral mucosa moist. Neck: No JVD. No carotid bruit. No lymph node enlargement. CARDIOVASCULAR: S1, S2 muffled. Respiratory: Breath sounds diminished at the bases. A few scattered rhonchi. Abdomen soft, nontender. No mass palpable. LEGS: No edema. No swelling. MEDICAL ASSISTANT FLOAT : No focal deficits. LABS: Creatinine 1.41, creatinine 1.02. ASSESSMENT: 1. 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 2. Acute on chronic renal failure secondary to dehydration, prerenal factors , acute tubular necrosis, present on admission. 3. Syncope, possibly vasovagal. 4. Troponin 1.020 of undetermined significance. 5. Hypoglycemia, secondary to diminished po intake. 6. Nausea and vomiting, weight loss. 7. Hyponatremia. 8. Gait dysfunction. 9. Increased creatinine kinase. RECOMMENDATIONS AND DISCUSSION: Recommend to continue the current medications, continue symptomatic treatment, otherwise at this time we will monitor the patient closely. Other than that, I would recommend continue current medications. Cardiology evaluation. Remote telemetry. Surgical also planning a J-tube insertion. Overall prognosis guarded. Further recommendations to follow. MTDD
[2016-12-08] MEDS: METOPROLOL TARTRATE 12.5 MG TAB PO SCH ×2 (13:56→20:34)
[2016-12-08] MEDS: NITROGLYCERIN OINT 1 INCH/GM PACKET TOPICAL SCH ×2 (13:57→20:34)
--- NOTE | 2016-12-08 14:56 | P.CRDCN ---
History of Present Illness Consult date: 12/08/16 Reason for Consult (text): Elevated troponin History of present illness: This is a 86-year-old -[place] male. 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 The patient is planned to go for insertion of a jejunostomy tube for nutritional support later today. We have been consulted for elevated troponin. He initially presented to the hospital on November 22 with dysphasia and weight loss. Subsequently underwent an endoscopy which showed the mass. The patient denies any cardiac related complaints at this time. He has no chest pain, shortness of breath, palpitations, nausea or dizziness. EKG done shows normal sinus mechanism with no T-wave abnormality. When compared with old EKG this appears consistent. Hemoglobin 9.0, platelets 118, potassium 4.0, sodium 135, P1 26 creatinine 1.42. First set of CPK and troponin were normal x 1 on November 22 troponins were subsequently repeated on December 07 and show level of 1.020, 1.290. ProBNP 11, 100. Blood pressure 142/68 with a heart rate of 92. Chest x-ray from 11/25 showed small right pleural effusion with adjacent infiltrate. Most recent echo dated November 22 indicates mild tricuspid regurgitation, mild pulmonary hypertension with a RSVP of 43.8 mmHg, mildly dilated aortic root, moderate concentric left ventricular hypertrophy, preserved left ventricular systolic function with an ejection fraction of 60-65%. Review of Systems REVIEW OF SYSTEMS: Patient denies any chest discomfort. No shortness of breath. No diaphoresis. Denies headache, dizziness, blurred vision, double vision. No dyspnea on exertion. Patient denies any stomach discomfort. No nausea, vomiting. No hematochezia. No hematemesis. Denies any black stools or blood in his stools. No syncope. No palpitations. No cough. No recent fever or chills. Complains of generalized muscle weakness. Denies numbness or tingling. Past Medical History Past Medical History: Asthma Additional Past Medical History / Comment(s): Esophageal mass positive squamous cell carcinoma - 11/2016 History of Any Multi-Drug Resistant Organisms: None Reported Past Surgical History: No Surgical Hx Reported Past Psychological History: No Psychological Hx Reported Smoking Status: Former smoker Past Alcohol Use History: None Reported Past Drug Use History: None Reported Medications and Allergies Allergies Allergy/AdvReac Type Severity Reaction Status Date / Time No Known Allergies Allergy Verified 11/20/16 10:33 Physical Exam Vitals: Vital Signs Temp Pulse Pulse Resp BP Pulse Ox 12/08/16 13:36 97.7 F 92 16 142/68 100 12/08/16 11:39 92 12/08/16 11:25 92 12/08/16 07:38 97.7 F 92 16 142/68 100 12/08/16 00:00 20 12/07/16 22:00 97.9 F 115 H 24 115/58 89 L 12/07/16 20:12 96 12/07/16 20:02 94 L 12/07/16 19:59 98 12/07/16 19:45 97.9 F 103 H 24 148/70 98 12/07/16 18:30 103 H 155/74 96 12/07/16 16:04 92 12/07/16 16:00 95 16 12/07/16 15:52 90 96 12/07/16 14:26 98.1 F 95 16 143/65 93 L Intake and Output 12/07/16 12/08/16 12/08/16 22:59 06:59 14:59 Intake Total 400 Output Total 350 Balance -350 400 Intake: Intake, IV Titration 400 Amount Sodium Chloride 0.9% 1, 400 000 ml @ 50 mls/hr IV . Q20H [facility] Rx#:[id number] Output: Urine 350 Uretheral ([place]) 350 Other: Voiding Method Indwelling Catheter Indwelling Catheter Indwelling Catheter GENERAL: This is a 86-year-old male in no apparent distress at the time of my examination. Cachectic. HEENT: Head is atraumatic, normocephalic. Pupils are equal, round. Sclerae anicteric. Conjunctivae are clear. Mucous membranes of the mouth are moist. Neck is supple. There is no jugular venous distention. No carotid bruit is heard. LUNGS: Clear to auscultation no wheezes, rales or rhonchi. No chest wall tenderness is noted on palpation or with deep breathing. Decreased air entry bilaterally. HEART: Regular rate and rhythm without murmurs, rubs or gallops. S1 and S2 heard. ABDOMEN: Soft, nontender. Bowel sounds are heard. No organomegaly noted. EXTREMITIES: 2+ peripheral pulses with no evidence of peripheral edema and no calf tenderness noted. NEUROLOGIC: Patient is awake, alert and oriented x3. Results 12/08/16 06:19 12/08/16 05:30 Cardiac Enzymes 12/07/16 12/08/16 Range/Units 20:20 05:30 Troponin I 1.020 H* 1.290 H* (0.000-0.034) ng/mL CBC 12/07/16 12/08/16 Range/Units 20:20 06:19 WBC 8.6 5.9 (3.8-10.6) k/uL RBC 3.18 L 2.93 L (4.30-5.90) m/uL Hgb 9.9 L 9.0 L (13.0-17.5) gm/dL Hct 31.7 L 28.8 L (39.0-53.0) % Plt Count 72 L 118 L D (150-450) k/uL Comprehensive Metabolic Panel 12/08/16 Range/Units 05:30 Sodium 135 L (137-145) mmol/L Potassium 4.0 (3.5-5.1) mmol/L Chloride 103 (98-107) mmol/L Carbon Dioxide 27 (22-30) mmol/L BUN 26 H (9-20) mg/dL Creatinine 1.42 H (0.66-1.25) mg/dL Glucose 130 H (74-99) mg/dL Calcium 7.5 L (8.4-10.2) mg/dL Current Medications Generic Name Dose Route Start Last Admin Trade Name Freq PRN Reason Stop Dose Admin Albuterol Sulfate 2.5 mg 11/20/16 20:00 12/08/16 11:37 Ventolin Nebulized INHALATION Not Given RT-QID [facility] Albuterol Sulfate 2.5 mg 11/20/16 17:30 Ventolin Nebulized INHALATION RT-Q2H PRN Shortness Of Breath Or Wheezing Dextrose/Sodium Chloride 1,000 mls @ 50 mls/hr 12/06/16 10:45 12/08/16 05:35 Dextrose 5%-Ns Iv Soln IV 50 mls/hr .Q20H [facility] Administration Lidocaine HCl 0.1 ml 11/25/16 21:59 .Xylocaine 1% Inj (10mg/Ml) For Iv Start INTRADERMA PER PROTOCOL PRN IV Start Metoprolol Tartrate 12.5 mg 12/08/16 12:30 12/08/16 13:56 Lopressor PO 12.5 mg BID [facility] Administration Miscellaneous Information 1 each 11/23/16 09:48 Potassium Per Protocol MISCELLANE DAILY PRN Per Protocol Protocol Naloxone HCl 0.2 mg 11/20/16 14:20 Narcan IV Q2M PRN Opioid Reversal Nitroglycerin 1 inch 12/08/16 12:30 12/08/16 13:57 Nitro-Bid Oint TOPICAL 1 inch Q6HR [facility] Administration Ondansetron HCl 4 mg 11/20/16 17:27 12/03/16 05:42 Zofran IVP 4 mg Q6HR PRN Administration Nausea And Vomiting Pantoprazole Sodium 40 mg 11/28/16 07:30 12/08/16 08:26 Protonix PO Not Given AC-BRKFST [facility] Tamsulosin HCl 0.4 mg 11/25/16 21:00 12/07/16 21:09 Flomax PO 0.4 mg HS [facility] Administration Intake and Output 12/07/16 12/08/16 12/08/16 22:59 06:59 14:59 Intake Total 400 Output Total 350 Balance -350 400 Intake: Intake, IV Titration 400 Amount Sodium Chloride 0.9% 1, 400 000 ml @ 50 mls/hr IV . Q20H [facility] Rx#:[id number] Output: Urine 350 Uretheral ([place]) 350 Other: Voiding Method Indwelling Catheter Indwelling Catheter Indwelling Catheter 12/08/16 06:19 12/08/16 05:30 - EKG Interpretation EKG: sinus rhythm, normal axis, normal QRS, normal ST/T Assessment and Plan Plan: ASSESSMENT 1. N-STEMI 2. Chronic tobacco abuse 3. Squamous cell carcinoma of esophagus PLAN With elevated troponins we cannot exclude a non-STEMI at this time. Under the circumstances we will medically manage this patient by adding nitroglycerin patch and 12.5 mg metoprolol twice a day. He remains high risk for any type of surgical intervention but in light of his circumstances he is appropriate to go forward with jejunostomy tube placement at this time. We will continue to follow closely with this patient. Further recommendations will depend on the clinical course. Thank you for this consultation. Nurse Practitioner note has been reviewed, I agree with a documented findings and plan of care. Patient was seen and examined.
[2016-12-08] MEDS ORDERED: IV FLUID CONTINUATION 1,000 ML IV ONE (15:42)
[2016-12-08] MEDS: ONDANSETRON 4 MG/2 ML VIAL IVP PRN (15:43)
[2016-12-08] MEDS ORDERED: LACTATED RINGERS 1,000 ML IV ONE ×4 (16:35→20:30)
[2016-12-08] MEDS ORDERED: fentaNYL (PF) 50 MCG/ML 2 ML AMP ONE (16:36)
[2016-12-08] MEDS ORDERED: SODIUM CHLORIDE 0.9% 50 ML with ceFAZolin 2,000 MG IV ONE ×2 (16:36)
[2016-12-08] MEDS ORDERED: ETOMIDATE 2 MG/ML 10 ML VIAL ONE (16:36)
[2016-12-08] MEDS ORDERED: PHENYLEPHRINE-0.9% NACL SYG 1 MG/10 ML SYRINGE ONE (16:36)
[2016-12-08] MEDS ORDERED: SUCCINYLCHOLINE CHLORIDE 100 MG/5 ML SYR IV ONE (16:36)
[2016-12-08] MEDS ORDERED: LIDOCAINE 1% INJ 10MG/ML (20 ML MDV) ONE (16:36)
--- NOTE | 2016-12-08 17:23 | P.OP ---
Date of Procedure: 12/08/16 Preoperative Diagnosis: Malnutrition Esophageal cancer Postoperative Diagnosis: Malnutrition Esophageal cancer Procedure(s) Performed: Placement of gastrojejunal feeding tube Implants: Anesthesia: ABEBAA Surgeon: Ron Sanchez Estimated Blood Loss (ml): 5 Pathology: none sent Condition: stable Disposition: PACU Indications for Procedure: Operative Findings: Description of Procedure: The patient's placed in the operative table in the supine position. He received general anesthesia. His abdomen was prepped and draped in usual sterile fashion. An upper lid midline incision was made and then the pericardial cavity was entered. Upon internal cavity the stomach was grasped. [place] clamps. 3-0 GI silk sutures were used as pursestring sutures and then enterotomy is made in the stomach. The gastroduodenal tube was then brought through the abdominal wall and then into the stomach. The tubing was positioned into the duodenum and then the jejunum. The pursestrings suture was secured. The gastric balloon was then insufflated with 10 mL of water. The balloon was snugged up to the gastric wall. Next using 3-0 GI silk the stomach was attached to the peritoneum in 4 quadrants. The suture sutures were secured. The abdomen was irrigated. There is no bleeding seen. The fascia was closed with looped #1 PDS suture. Skin was closed damaris. The tube bolster was secured at the 3-1/2 cm lazara. Patient top procedure well and was sent to recovery in stable condition.
[2016-12-08] MEDS ORDERED: HYDROmorphone 1 MG/ML 1 ML SYRINGE IVP PRN (17:44)
[2016-12-08] MEDS ORDERED: PHENYLEPHRINE 40 MG in SODIUM CHLORIDE 0.9% 250 ML IV SCH (18:15)
--- NOTE | 2016-12-08 18:54 | PN ---
DATE OF SERVICE: 12/08/16 This 86 -year-old gentleman who was admitted with esophageal malignancy with invasive squamous cell carcinoma also had an episode of syncope with elevated troponin of undetermined significance. Cardiology has seen the patient and the patient is slated to have an NG tube inserted today. On exam, the patient is alert and oriented times two. Pulse 86. Blood pressure 140/77. Respiratory rate 16. Temperature 98.2 degrees. Pulse ox 100 % on 6 L. HEENT: Conjunctivae normal. Neck: No JVD. CARDIOVASCULAR: S1, S2. Respiratory: Breath sounds diminished at the bases. A few scattered rhonchi and crackles. Abdomen soft, nontender. LEGS: No edema. No swelling. INCLUSION SPECIALIST: No focal deficits. LABS: At this time, shows WBC 5.1, hemoglobin 9, iron is 19. TIBC 163. ASSESSMENT: 1. Esophageal malignancy with invasive squamous cell carcinoma status post biopsy, stent placement. 2. Acute on chronic renal failure secondary to rehydration, prerenal factors, acute tubular necrosis present on admission. 3. Syncope, possibly vasovagal. 4. Troponin 1.020 undetermined etiology. 5. Hypoglycemia, secondary to diminished po intake. RECOMMENDATIONS AND DISCUSSION: Recommend to continue the current medications, continue with monitoring and symptomatic treatment. Otherwise, at this time, I recommend follow closely with cardiology. NG tube insertion once cleared by cardiology. Further recommendations to follow. MTDD
[2016-12-08] MEDS ORDERED: PROPOFOL 1,000 MG/100 ML VIAL IV ONE (18:56)
[2016-12-08 19:14] LABS: Glucose,Whole Blood 98 mg/dL (75-99)
[2016-12-08 19:49] LABS: ABG Base Excess -0.6 mmol/L; ABG HCO3 23 mmol/L (21-25); ABG PCO2 35 mmHg (35-45); ABG PH 7.44 (7.35-7.45); ABG PO2 322 mmHg (83-108); ABG TCO2 24 mmol/L (19-24)
--- NOTE | 2016-12-08 20:03 | XR ---
EXAMINATION TYPE: XR chest 1V portable DATE OF EXAM: 12/08/2016 COMPARISON: 11/25/2016 HISTORY: Tube placement TECHNIQUE: Single frontal view of the chest is obtained. FINDINGS: Endotracheal tube appears in good position. There is right jugular catheter with the tip i n the right atrium. I see no pneumothorax. Trachea is midline. There is blunting of right costophreni c angle. There is no heart failure. IMPRESSION: Endotracheal tube is in good position. There is right pleural effusion with probably no change compared to 11/25/2016.
[2016-12-08] MEDS: TAMSULOSIN 0.4 MG CAP.ER.24H PO SCH (20:34)
[2016-12-08] MEDS: LACTATED RINGERS 1,000 ML IV SCH (20:44)
[2016-12-08] MEDS: CHLORHEXIDINE GLUCONATE 15 ML CUP MUCOUS MEM SCH (21:26)
[2016-12-08] MEDS: PIPERACILLIN-TAZOBACTAM 3.375 GM in DEXTROSE/WATER 1 50ML.BAG IVPB SCH (21:26)
[2016-12-08] MEDS ORDERED: NOREPINEPHRIN 16 MG-0.9%NS PMX 16 MG/250 ML ML IV SCH (21:30)
[2016-12-08] MEDS: NOREPINEPHRIN 4 MG-0.9% NS PMX 4 MG/250 ML ML IV ONE (21:36)
[2016-12-08 21:50] LABS: Glucose,Whole Blood 84 mg/dL (75-99)
[2016-12-08 22:10] LABS: ABG PCO2 35 mmHg (35-45); ABG PH 7.45 (7.35-7.45); ABG PO2 107 mmHg (83-108)
[2016-12-08 22:11] LABS: ABG HCO3 24 mmol/L (21-25); ABG TCO2 25 mmol/L (19-24)
[2016-12-09] MEDS: PROPOFOL 1,000 MG/100 ML VIAL IV SCH ×4 (00:28→16:04)
[2016-12-09] MEDS: NOREPINEPHRIN 4 MG-0.9% NS PMX 4 MG/250 ML ML IV ONE (00:29)
[2016-12-09 02:14] LABS: Glucose,Whole Blood 87 mg/dL (75-99)
[2016-12-09] MEDS: NITROGLYCERIN OINT 1 INCH/GM PACKET TOPICAL SCH ×4 (02:22→17:09)
[2016-12-09] MEDS: DEXTROSE 5%-0.9% NACL 1,000 ML IV SCH (02:25)
[2016-12-09] MEDS ORDERED: FUROSEMIDE 10 MG/ML 4 ML VIAL IV STA ×2 (02:26→09:49)
[2016-12-09 06:00] LABS: Glucose,Whole Blood 79 mg/dL (75-99)
[2016-12-09 06:53] LABS: Basophils % (A) 0 %; CH 30.9; CHCM 31.9; Eosinophils # (A) 0.2 k/uL (0-0.7); Eosinophils % (A) 2 %; HCT 27.9 % (39.0-53.0); HDW 2.67; Luc # (Auto) 0.12; Luc % (Auto) 1; Lymphocytes # (A) 0.5 k/uL (1.0-4.8); Lymphocytes % (A) 6 %; MCH 31.3 pg (25.0-35.0); MCHC 32.1 g/dL (31.0-37.0); MCV 97.6 fL (80.0-100.0); Mean Platelet Volume 8.8; Monocytes # (A) 0.7 k/uL (0-1.0); Monocytes % (A) 7 %; Neutrophils # (A) 7.8 k/uL (1.3-7.7); Neutrophils % (A) 83 %; RBC 2.86 m/uL (4.30-5.90); RDW 14.2 % (11.5-15.5); WBC 9.3 k/uL (3.8-10.6); WBC (Perox) 9.07
[2016-12-09 07:05] LABS: Calcium 7.4 mg/dL (8.4-10.2); Magnesium 1.5 mg/dL (1.6-2.3); Phosphorous 2.4 mg/dL (2.5-4.5); Potassium 3.9 mmol/L (3.5-5.1)
[2016-12-09] MEDS ORDERED: POTASSIUM CHLORIDE 20 MEQ in WATER FOR INJECTION 1 100ML.BAG IVPB STA (07:15)
--- NOTE | 2016-12-09 07:16 | XR ---
EXAMINATION TYPE: XR chest 1V DATE OF EXAM: 12/09/2016 COMPARISON: 10/10/2016 HISTORY: 86-year-old male intubation TECHNIQUE: Single frontal view of the chest is obtained. FINDINGS: ET tube is satisfactory. Right IJ CVC tip at the cavoatrial junction. Right heart margin obscured by adjacent pleural parenchymal disease, continued moderate right and mild left pleural effusions with a djacent atelectasis and/or consolidation. The left pleural effusion has increased in the interval. Mu ltiple skinfolds project over the peripheral hemithoraces. IMPRESSION: Continued moderate right and small left pleural effusions with adjacent atelectasis and or consolidat ion, increasing effusion on the left.
[2016-12-09] MEDS: MAGNESIUM SULFATE-D5W PMX 1 GM in DEXTROSE/WATER 1 100ML.BAG IVPB SCH ×2 (07:59→09:23)
[2016-12-09] MEDS: PIPERACILLIN-TAZOBACTAM 3.375 GM in DEXTROSE/WATER 1 50ML.BAG IVPB SCH ×2 (08:09→15:16)
[2016-12-09] MEDS: METOPROLOL TARTRATE 12.5 MG TAB PO SCH ×2 (08:20→20:46)
[2016-12-09] MEDS: PANTOPRAZOLE 40 MG/10 ML VIAL IVP SCH (08:27)
[2016-12-09 08:35] LABS: ABG HCO3 24 mmol/L (21-25); ABG PCO2 32 mmHg (35-45); ABG PH 7.49 (7.35-7.45); ABG PO2 83 mmHg (83-108); ABG TCO2 25 mmol/L (19-24)
[2016-12-09 08:36] LABS: ABG Base Excess 0.9 mmol/L
[2016-12-09] MEDS: ALBUTEROL NEBULIZED 2.5 MG/3 ML INHALATION SCH ×4 (08:39→19:22)
[2016-12-09] MEDS: PANTOPRAZOLE 40 MG TABLET PO SCH (08:52)
--- NOTE | 2016-12-09 09:24 | P.PN ---
Subjective Principal diagnosis: acute non-ST This is a 86-year-old -[place] male. 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 The patient underwent an insertion of a jejunostomy tube for nutritional support later today. We have been consulted for elevated troponin. He initially presented to the hospital on November 22 with dysphasia and weight loss. Subsequently underwent an endoscopy which showed the mass. The patient denies any cardiac related complaints at this time. He has no chest pain, shortness of breath, palpitations, nausea or dizziness. The EKG done shows normal sinus mechanism with no T-wave abnormality. When compared with old EKG this appears consistent. The patient continues to be intubated and on ventilator. Hemodynamically he still requires small dose of Levophed. Objective - Vital Signs Vital signs: Vital Signs Temp 97.1 F L 12/09/16 08:00 Pulse 73 12/09/16 09:05 Resp 16 12/09/16 09:00 BP 87/44 12/09/16 09:00 Pulse Ox 96 12/09/16 09:00 Intake & Output 12/08/16 12/09/16 12/09/16 18:59 06:59 18:59 Intake Total 1999 1428.595 493.329 Output Total 305 25 212 Balance 1695 1403.595 281.329 Weight 77 kg Intake: IV 1600 410 Lactated Ringers 1,000 ml 160 @ 80 mls/hr IV .[id number] [facility] Rx#:[id number] Magnesium Sulfate-D5w Pmx 100 1 gm In Dextrose/Water 1 100ml.bag @ 100 mls/hr IVPB Q1H [facility] Rx#: [id number] Piperacillin-Tazobactam 3 50 .375 gm In Dextrose/Water 1 50ml.bag @ 12.5 mls/hr IVPB Q8HR [facility] Rx#: [id number] Potassium Chloride 20 meq 100 In Water For Injection 1 100ml.bag @ 50 mls/hr IVPB ONCE [facility] Rx#: [id number] Intake, IV Titration 400 1428.595 83.329 Amount Lactated Ringers 1,000 ml 720 80 @ 80 mls/hr IV .[id number] [facility] Rx#:[id number] Lactated Ringers 1,000 ml 500 @ 999 mls/hr IV .Q1H1M [facility] Rx#:[id number] Norepinephrin 16 mg-0.9% 3.329 Ns Pmx 16 mg In 250 ml @ Titrate IV .Q0M [facility] Rx#: [id number] Phenylephrine 40 mg In 157.467 Sodium Chloride 0.9% 250 ml @ Titrate IV .Q0M [facility] Rx#:[id number] Piperacillin-Tazobactam 3 50 .375 gm In Dextrose/Water 1 50ml.bag @ 12.5 mls/hr IVPB Q8HR [facility] Rx#: [id number] Propofol 1,000 mg In 100 1.128 ml @ Titrate IV .Q0M [facility] Rx#:[id number] Sodium Chloride 0.9% 1, 400 000 ml @ 50 mls/hr IV . Q20H [facility] Rx#:[id number] Output: Urine 300 25 212 Estimated Blood Loss 5 Other: Voiding Method Indwelling Catheter Indwelling Catheter # Bowel Movements 0 ABP, PAP, CO, CI - Last Documented Arterial Blood Pressure 102/81 - Constitutional General appearance: Present: no acute distress - Respiratory Respiratory: bilateral: rales - Cardiovascular Rhythm: regular Heart sounds: normal: S1, S2 - Labs CBC & Chem 7: 12/09/16 06:30 12/09/16 06:30 Labs: Abnormal Lab Results - Last 24 Hours (Table) 12/08/16 12/08/16 12/08/16 Range/Units 06:19 19:38 21:55 RBC (4.30-5.90) m/uL Hgb (13.0-17.5) gm/dL Hct (39.0-53.0) % Neutrophils # (1.3-7.7) k/uL Lymphocytes # (1.0-4.8) k/uL ABG pH (7.35-7.45) ABG pCO2 (35-45) mmHg ABG pO2 322 H (83-108) mmHg ABG Total CO2 25 H (19-24) mmol/L ABG O2 Saturation 100.0 H 98.0 H (94-97) % Sodium (137-145) mmol/L BUN (9-20) mg/dL Creatinine (0.66-1.25) mg/dL Calcium (8.4-10.2) mg/dL Phosphorus (2.5-4.5) mg/dL Magnesium (1.6-2.3) mg/dL Iron 19 L (49-181) ug/dL TIBC 163 L (261-462) ug/dL % Saturation 11.7 L (20-50) % Ferritin 740 H (18-464) ng/mL 12/09/16 12/09/16 12/09/16 Range/Units 06:30 06:30 07:50 RBC 2.86 L (4.30-5.90) m/uL Hgb 9.0 L (13.0-17.5) gm/dL Hct 27.9 L (39.0-53.0) % Neutrophils # 7.8 H (1.3-7.7) k/uL Lymphocytes # 0.5 L (1.0-4.8) k/uL ABG pH 7.49 H (7.35-7.45) ABG pCO2 32 L (35-45) mmHg ABG pO2 (83-108) mmHg ABG Total CO2 25 H (19-24) mmol/L ABG O2 Saturation (94-97) % Sodium 134 L (137-145) mmol/L BUN 25 H (9-20) mg/dL Creatinine 1.47 H (0.66-1.25) mg/dL Calcium 7.4 L (8.4-10.2) mg/dL Phosphorus 2.4 L (2.5-4.5) mg/dL Magnesium 1.5 L (1.6-2.3) mg/dL Iron (49-181) ug/dL TIBC (261-462) ug/dL % Saturation (20-50) % Ferritin (18-464) ng/mL Microbiology - Last 24 Hours (Table) 12/08/16 20:11 Gram Stain - Preliminary Sputum Sputum Culture - Preliminary Assessment and Plan Plan: The patient continues to be in normal sinus mechanism. Hemodynamically history of recurrent small dose of Levophed. We will continue the conservative medical approach and I am going to add aspirin to the current medical treatment and follow-up with the patient.
[2016-12-09] MEDS: SODIUM CHLORIDE 0.9% 1,000 ML IV SCH (10:00)
[2016-12-09] MEDS: LACTATED RINGERS 1,000 ML IV SCH (10:04)
[2016-12-09] MEDS: CHLORHEXIDINE GLUCONATE 15 ML CUP MUCOUS MEM SCH ×2 (10:04→20:46)
--- NOTE | 2016-12-09 11:10 | US ---
EXAMINATION TYPE: US chest DATE OF EXAM: 12/09/2016 COMPARISON: Chest x-ray same date CLINICAL HISTORY: bilat pleural effusions. Performed portable in the ICU EXAM MEASUREMENTS: Right Pleural Effusion fluid pocket: 9.6 cm Right skin to fluid thickness: 3.2 cm Left Pleural Effusion fluid pocket: 7.3 cm Left skin to fluid thickness: 2.5 cm Right side marked for possible thoracentesis outside the dept. Left side marked for possible thoracentesis outside the dept. Pulmonologists are able to review the images in the patient?s EMR. IMPRESSIONS: Bilateral pleural effusions
--- NOTE | 2016-12-09 11:30 | P.PN ---
Subjective Patient is seen in follow-up for acute kidney injury. Renal function is stable with cr at 1.47 today. Patient was noted to have an esophageal mass and had an esophageal wall stent placed on December 01. 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 Patient's been having intermittent vomiting and is not much tolerating oral intake. He went for a G-tube placement yesterday but seems able to became combative and there was a question of syncopal episode as well. He was reintubated and transferred to the intensive care unit. He was noted to be hypotensive and was requiring 8 mics of levo fed. Currently on 1 Lav[place] levo fed. His urine output has also diminished. He has received 2 doses of Lasix 40 mg IV with no significant response in urine output. Vital signs are stable. General: The patient appeared well nourished and normally developed. HEENT: Head exam is unremarkable. Neck is without jugular venous distension. LUNGS: Scattered rhonchi. Breath sounds decreased. HEART: Rate and Rhythm are regular. First and second heart sounds normal. No murmurs, rubs or gallops. ABDOMEN: Abdominal exam reveals normal bowel sounds. Non-tender and non- distended. No evidence of peritonitis. EXTREMITITES: No clubbing, cyanosis, or edema. Objective - Vital Signs Vital signs: Vital Signs Temp 97.1 F L 12/09/16 08:00 Pulse 81 12/09/16 11:00 Resp 14 12/09/16 11:00 BP 95/52 12/09/16 11:00 Pulse Ox 100 12/09/16 11:00 Intake & Output 12/08/16 12/09/16 12/09/16 18:59 06:59 18:59 Intake Total 1999 1428.595 859.026 Output Total 305 25 260 Balance 1695 1403.595 599.026 Weight 77 kg 77 kg Intake: IV 1600 660 Lactated Ringers 1,000 ml 160 @ 80 mls/hr IV .[id number] [facility] Rx#:[id number] Magnesium Sulfate-D5w Pmx 200 1 gm In Dextrose/Water 1 100ml.bag @ 100 mls/hr IVPB Q1H [facility] Rx#: [id number] Piperacillin-Tazobactam 3 50 .375 gm In Dextrose/Water 1 50ml.bag @ 12.5 mls/hr IVPB Q8HR [facility] Rx#: [id number] Potassium Chloride 20 meq 100 In Water For Injection 1 100ml.bag @ 50 mls/hr IVPB ONCE [facility] Rx#: [id number] Sodium Chloride 0.9% 1, 150 000 ml @ 75 mls/hr IV . [id number] [facility] Rx#:[id number] Intake, IV Titration 400 1428.595 199.026 Amount Lactated Ringers 1,000 ml 720 80 @ 80 mls/hr IV .[id number] [facility] Rx#:[id number] Lactated Ringers 1,000 ml 500 @ 999 mls/hr IV .Q1H1M [facility] Rx#:[id number] Norepinephrin 16 mg-0.9% 17.016 Ns Pmx 16 mg In 250 ml @ Titrate IV .Q0M [facility] Rx#: [id number] Phenylephrine 40 mg In 157.467 Sodium Chloride 0.9% 250 ml @ Titrate IV .Q0M [facility] Rx#:[id number] Piperacillin-Tazobactam 3 50 .375 gm In Dextrose/Water 1 50ml.bag @ 12.5 mls/hr IVPB Q8HR [facility] Rx#: [id number] Propofol 1,000 mg In 100 1.128 102.010 ml @ Titrate IV .Q0M [facility] Rx#:[id number] Sodium Chloride 0.9% 1, 400 000 ml @ 50 mls/hr IV . Q20H [facility] Rx#:[id number] Output: Urine 300 25 260 Estimated Blood Loss 5 Other: Voiding Method Indwelling Catheter Indwelling Catheter Indwelling Catheter # Bowel Movements 0 ABP, PAP, CO, CI - Last Documented Arterial Blood Pressure 112/35 - Labs CBC & Chem 7: 12/09/16 06:30 12/09/16 06:30 Labs: Abnormal Lab Results - Last 24 Hours (Table) 12/08/16 12/08/16 12/08/16 Range/Units 06:19 19:38 21:55 RBC (4.30-5.90) m/uL Hgb (13.0-17.5) gm/dL Hct (39.0-53.0) % Neutrophils # (1.3-7.7) k/uL Lymphocytes # (1.0-4.8) k/uL ABG pH (7.35-7.45) ABG pCO2 (35-45) mmHg ABG pO2 322 H (83-108) mmHg ABG Total CO2 25 H (19-24) mmol/L ABG O2 Saturation 100.0 H 98.0 H (94-97) % Sodium (137-145) mmol/L BUN (9-20) mg/dL Creatinine (0.66-1.25) mg/dL Calcium (8.4-10.2) mg/dL Phosphorus (2.5-4.5) mg/dL Magnesium (1.6-2.3) mg/dL Iron 19 L (49-181) ug/dL TIBC 163 L (261-462) ug/dL % Saturation 11.7 L (20-50) % Ferritin 740 H (18-464) ng/mL 12/09/16 12/09/16 12/09/16 Range/Units 06:30 06:30 07:50 RBC 2.86 L (4.30-5.90) m/uL Hgb 9.0 L (13.0-17.5) gm/dL Hct 27.9 L (39.0-53.0) % Neutrophils # 7.8 H (1.3-7.7) k/uL Lymphocytes # 0.5 L (1.0-4.8) k/uL ABG pH 7.49 H (7.35-7.45) ABG pCO2 32 L (35-45) mmHg ABG pO2 (83-108) mmHg ABG Total CO2 25 H (19-24) mmol/L ABG O2 Saturation (94-97) % Sodium 134 L (137-145) mmol/L BUN 25 H (9-20) mg/dL Creatinine 1.47 H (0.66-1.25) mg/dL Calcium 7.4 L (8.4-10.2) mg/dL Phosphorus 2.4 L (2.5-4.5) mg/dL Magnesium 1.5 L (1.6-2.3) mg/dL Iron (49-181) ug/dL TIBC (261-462) ug/dL % Saturation (20-50) % Ferritin (18-464) ng/mL Microbiology - Last 24 Hours (Table) 12/08/16 20:11 Gram Stain - Preliminary Sputum Sputum Culture - Preliminary Assessment and Plan Plan: Assessment: #1. Acute kidney injury secondary to ischemic ATN secondary to hypotension. Creatinine stable at 1.47 however urine output diminished. Unclear as to what his baseline renal function is. Urinalysis is noted to be benign. #2. Hyperkalemia. It appears that the specimen is slightly hemolyzed. Patient is not acidotic and blood sugars are not high. He's not on any meds that will predispose to hyperkalemia. Resolved. #3. 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 #4. Urinary retention status post [place] catheter placement. #5. Hyponatremia, now hypervolemic with pleural effusion noted. 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 Possible thoracentesis today. #6. Anemia. Iron deficiency noted. Plan: Continue normal saline to be run at 75 mL an hour. Continue to monitor renal function and urine output. Lasix 80 mg IV once this evening if remains oliguric. Avoid nephrotoxic agents and hypotensive episodes. Wean vasopressors. Ferrlicit 125 mg IV daily for 3 days. First dose today.
[2016-12-09 12:10] LABS: Glucose,Whole Blood 75 mg/dL (75-99)
--- NOTE | 2016-12-09 12:28 | P.CNPUL ---
History of Present Illness Consult date: 12/09/16 Requesting physician: Wendi Garcia Reason for consult: hypoxemia, other (Acute hypoxic respiratory failure requiring intubation and mechanical ventilation.) Chief complaint: Generalized weakness and weight loss History of present illness: This is an 86-year-old white male who was admitted back on 11/20/2016, patient presented initially with mostly symptoms of generalized weakness and weight loss. Since admission, the patient has been seen by many consultants, evaluation of progressive dysphagia to solids and liquids for the last 4 months plus approximately 40 pounds weight loss led to EGD with biopsy. This was done on 11/2016, and the patient was diagnosed as having squamous cell carcinoma of the esophagus. Esophageal stent was placed by Dr. 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 The esophageal stent was placed on 12/01/2016, since admission, patient continues to have poor oral intake, and was not meeting his caloric requirements. Hence it was felt that the patient will need a jejunostomy tube. On 12/08/2016 patient was taken to the or, and a gastro-jejunostomy tube was placed. Patient was extubated in the recovery room postoperatively, but he did not tolerate the extubation, became agitated, restless, and hypoxic. Patient was reintubated and transferred to the ICU. Hence I was asked to see him on consultation. I reviewed the chest x-ray and there is evidence of bilateral pleural effusions left more so than right. Before arrival to the ICU, patient was noted to be hypotensive, and I recommended fluid boluses I also recommended norepinephrine drip which was started yesterday. He is presently on 8 mics of norepinephrine, on mechanical ventilation, vent settings were all reviewed, patient is on assist control rate of 16 tidal volume of 500, FiO2 of 50% and PEEP of 5. ABG on those settings showed a pO2 of 83 pCO2 of 32 pH of 7.49. His urine output was marginal overnight, and apparently developed worsening renal profile with creatinine of 1.47 today, since the patient was given fluid boluses and seems to be developing bilateral pleural effusions, Lasix was given earlier today again. Ultrasound of the chest showed large bilateral pleural effusions, and I plan to perform a left-sided thoracentesis hoping that will expedite weaning and extubation from mechanical ventilation. During my evaluation, patient was on propofol, I recommended stopping propofol, and we'll address mental status and potentially give the patient at least a weaning trial. Review of Systems ROS unobtainable: due to endotracheal tube Past Medical History Past Medical History: Asthma Additional Past Medical History / Comment(s): Esophageal mass positive squamous cell carcinoma - 11/2016 History of Any Multi-Drug Resistant Organisms: None Reported Past Surgical History: No Surgical Hx Reported Past Psychological History: No Psychological Hx Reported Smoking Status: Former smoker Past Alcohol Use History: None Reported Past Drug Use History: None Reported Medications and Allergies Allergies Allergy/AdvReac Type Severity Reaction Status Date / Time No Known Allergies Allergy Verified 11/20/16 10:33 Physical Exam Vitals: Vital Signs Temp Pulse Pulse Pulse Resp BP BP 12/09/16 12:00 97.8 F 79 14 103/48 12/09/16 11:46 79 12/09/16 11:28 79 12/09/16 11:00 81 14 95/52 12/09/16 10:00 74 14 101/48 12/09/16 09:05 73 12/09/16 09:00 73 16 87/44 12/09/16 08:43 74 12/09/16 08:00 97.1 F L 76 14 98/49 12/09/16 07:00 73 16 102/54 12/09/16 06:50 73 16 102/54 12/09/16 06:40 73 16 87/45 12/09/16 06:30 72 16 87/45 12/09/16 06:20 71 16 87/45 12/09/16 06:10 77 16 87/45 12/09/16 06:00 77 16 87/45 12/09/16 05:50 79 16 87/45 12/09/16 05:40 76 16 101/53 12/09/16 05:30 76 16 101/53 12/09/16 05:20 74 16 101/53 12/09/16 05:10 75 16 101/53 12/09/16 05:00 75 16 101/53 12/09/16 04:50 76 16 101/53 12/09/16 04:40 77 16 102/53 12/09/16 04:30 76 16 102/53 12/09/16 04:20 72 102/53 12/09/16 04:10 76 16 102/53 12/09/16 04:00 76 16 102/53 12/09/16 03:50 77 16 102/53 12/09/16 03:40 76 16 101/55 12/09/16 03:30 77 16 101/55 12/09/16 03:20 78 16 101/55 12/09/16 03:10 76 101/55 12/09/16 03:00 77 16 101/55 12/09/16 02:50 80 16 101/55 12/09/16 02:40 79 16 110/54 12/09/16 02:30 80 16 110/54 12/09/16 02:20 78 16 110/54 12/09/16 02:10 80 16 110/54 12/09/16 02:00 80 16 110/54 12/09/16 01:50 79 110/54 12/09/16 01:40 80 16 95/50 12/09/16 01:30 80 16 95/50 12/09/16 01:20 80 16 95/50 12/09/16 01:10 79 16 95/50 12/09/16 01:00 80 16 95/50 12/09/16 00:50 79 16 95/50 12/09/16 00:40 80 96/50 12/09/16 00:30 79 96/50 12/09/16 00:20 81 96/50 12/09/16 00:10 80 96/50 12/09/16 00:00 97.2 F L 80 96/50 12/08/16 23:50 80 16 96/50 12/08/16 23:40 79 16 86/51 12/08/16 23:30 80 16 86/51 12/08/16 23:20 80 16 86/51 12/08/16 23:10 81 16 86/51 12/08/16 23:01 83 16 86/51 12/08/16 23:00 86 86/51 12/08/16 22:50 83 86/51 12/08/16 22:40 82 138/68 12/08/16 22:30 82 138/68 16 22:20 82 138/68 12/08/16 22:10 79 16 138/68 12/08/16 22:00 80 16 138/68 12/08/16 21:50 83 16 138/68 12/08/16 21:40 81 16 85/47 12/08/16 21:30 80 16 85/47 12/08/16 21:20 79 16 85/47 12/08/16 21:10 79 16 12/08/16 21:00 80 16 12/08/16 20:50 79 16 91/51 17 20:40 79 16 91/51 12/08/16 20:30 80 16 91/51 12/08/16 20:20 83 16 91/51 12/08/16 20:19 86 12/08/16 20:10 84 16 91/51 12/08/16 20:09 86 12/08/16 20:00 97.2 F L 85 16 91/51 12/08/16 19:50 82 16 91/51 12/08/16 19:40 83 91/51 12/08/16 19:30 83 91/51 12/08/16 19:20 83 91/51 12/08/16 19:10 87 91/51 12/08/16 19:00 92 91/51 12/08/16 18:59 91 12/08/16 18:45 81 20 130/74 12/08/16 18:30 86 20 72/48 12/08/16 18:15 88 20 94/64 12/08/16 18:00 87 12 91/55 12/08/16 17:45 86 14 12/08/16 17:25 75 16 12/08/16 15:30 98.9 F 89 18 12/08/16 15:00 98.2 F 86 16 12/08/16 13:36 97.7 F 92 16 BP Pulse Ox 12/09/16 12:00 98 12/09/16 11:46 12/09/16 11:28 12/09/16 11:00 100 12/09/16 10:00 97 12/09/16 09:05 12/09/16 09:00 96 12/09/16 08:43 12/09/16 08:00 12/09/16 07:00 95 12/09/16 06:50 95 12/09/16 06:40 95 12/09/16 06:30 95 12/09/16 06:20 95 12/09/16 06:10 95 12/09/16 06:00 95 12/09/16 05:50 95 12/09/16 05:40 95 12/09/16 05:30 95 17 05:20 95 12/09/16 05:10 95 12/09/16 05:00 12/09/16 04:50 12/09/16 04:40 17 04:30 12/09/16 04:20 12/09/16 04:10 95 17 04:00 95 12/09/16 03:50 95 17 03:40 95 12/09/16 03:30 95 17 03:20 95 12/09/16 03:10 12/09/16 03:00 95 12/09/16 02:50 95 12/09/16 02:40 95 12/09/16 02:30 95 12/09/16 02:20 95 12/09/16 02:10 95 12/09/16 02:00 95 12/09/16 01:50 17 01:40 95 12/09/16 01:30 95 12/09/16 01:20 95 12/09/16 01:10 95 17 01:00 95 12/09/16 00:50 95 12/09/16 00:40 12/09/16 00:30 12/09/16 00:20 12/09/16 00:10 12/09/16 00:00 95 12/08/16 23:50 95 12/08/16 23:40 95 12/08/16 23:30 95 12/08/16 23:20 95 12/08/16 23:10 94 L 12/08/16 23:01 94 L 12/08/16 23:00 12/08/16 22:50 12/08/16 22:40 12/08/16 22:30 12/08/16 22:20 17 22:10 95 12/08/16 22:00 94 L 12/08/16 21:50 95 12/08/16 21:40 93 L 12/08/16 21:30 90 L 12/08/16 21:20 91 L 12/08/16 21:10 94 L 12/08/16 21:00 95 12/08/16 20:50 96 12/08/16 20:40 95 12/08/16 20:30 97 12/08/16 20:20 99 12/08/16 20:19 12/08/16 20:10 99 12/08/16 20:09 12/08/16 20:00 98 12/08/16 19:50 67 L 12/08/16 19:40 12/08/16 19:30 12/08/16 19:20 100 12/08/16 19:10 87 L 12/08/16 19:00 12/08/16 18:59 12/08/16 18:45 100 12/08/16 18:30 12/08/16 18:15 90 L 12/08/16 18:00 88 L 12/08/16 17:45 107/59 94 L 12/08/16 17:25 85/52 93 L 12/08/16 15:30 135/71 95 12/08/16 15:00 148/70 100 12/08/16 13:36 142/68 100 Intake and Output 12/08/16 12/09/16 12/09/16 22:59 06:59 14:59 Intake Total 2222.800 805.795 859.026 Output Total 310 20 260 Balance 1912.800 785.795 599.026 Intake: IV 1600 660 Lactated Ringers 1,000 ml 160 @ 80 mls/hr IV .[id number] [facility] Rx#:[id number] Magnesium Sulfate-D5w Pmx 200 1 gm In Dextrose/Water 1 100ml.bag @ 100 mls/hr IVPB Q1H [facility] Rx#: [id number] Piperacillin-Tazobactam 3 50 .375 gm In Dextrose/Water 1 50ml.bag @ 12.5 mls/hr IVPB Q8HR [facility] Rx#: [id number] Potassium Chloride 20 meq 100 In Water For Injection 1 100ml.bag @ 50 mls/hr IVPB [facility]CE [facility] Rx#: [id number] Sodium Chloride 0.9% 1, 150 000 ml @ 75 mls/hr IV . [id number] [facility] Rx#:[id number] Intake, IV Titration 622.800 805.795 199.026 Amount Lactated Ringers 1,000 ml 80 640 80 @ 80 mls/hr IV .[id number] [facility] Rx#:[id number] Lactated Ringers 1,000 ml 500 @ 999 mls/hr IV .Q1H1M [facility] Rx#:[id number] Norepinephrin 16 mg-0.9% 17.016 Ns Pmx 16 mg In 250 ml @ Titrate IV .Q0M [facility] Rx#: [id number] Phenylephrine 40 mg In 42.800 114.667 Sodium Chloride 0.9% 250 ml @ Titrate IV .Q0M [facility] Rx#:[id number] Piperacillin-Tazobactam 3 50 .375 gm In Dextrose/Water 1 50ml.bag @ 12.5 mls/hr IVPB Q8HR [facility] Rx#: [id number] Propofol 1,000 mg In 100 1.128 102.010 ml @ Titrate IV .Q0M [facility] Rx#:[id number] Output: Urine 305 20 260 Estimated Blood Loss 5 Other: Voiding Method Indwelling Catheter Indwelling Catheter Indwelling Catheter # Bowel Movements 0 0 Weight 70.5 kg 77 kg 77 kg Patient Weight 12/10/16 06:59 Weight 77 kg ABP, PAP, CO, CI - Last 8 Hours Arterial Blood Pressure 119/34 Arterial Blood Pressure 112/35 Arterial Blood Pressure 154/42 Arterial Blood Pressure 102/81 Arterial Blood Pressure 117/42 Arterial Blood Pressure 140/43 Arterial Blood Pressure 139/42 Arterial Blood Pressure 149/45 Arterial Blood Pressure 146/45 Arterial Blood Pressure 119/41 Arterial Blood Pressure 97/33 Arterial Blood Pressure 137/40 Arterial Blood Pressure 109/34 Arterial Blood Pressure 132/39 Arterial Blood Pressure 137/39 Arterial Blood Pressure 166/44 Arterial Blood Pressure 154/43 Arterial Blood Pressure 147/41 Arterial Blood Pressure 149/41 Arterial Blood Pressure 147/41 Arterial Blood Pressure 150/43 Arterial Blood Pressure 146/42 Arterial Blood Pressure 151/43 GENERAL: This is a 86-year-old male on mechanical ventilation, sedated, on propofol, endotracheal tube and nasogastric tube seemed to be intact. HEENT: Head is atraumatic, normocephalic. Pupils are equal, round. Sclerae anicteric. Conjunctivae are clear. Mucous membranes of the mouth are moist. Neck is supple. There is no jugular venous distention. No carotid bruit is heard. LUNGS: Diminished breath some bilaterally, no crackles or rhonchi or wheezes. HEART: Regular rate and rhythm without murmurs, rubs or gallops. S1 and S2 heard. ABDOMEN: Soft, nontender. Bowel sounds are diminished No organomegaly noted. Gastro Jejunostomy tube was noted. EXTREMITIES: 2+ peripheral pulses with no evidence of peripheral edema and no calf tenderness noted. NEUROLOGIC: Cannot be assessed, patient is sedated on propofol and on mechanical ventilation. Results - Laboratory Findings CBC and BMP: 12/09/16 06:30 12/09/16 06:30 ABG ABG pH 7.49 (7.35-7.45) H 12/09/16 07:50 ABG pCO2 32 mmHg (35-45) L 12/09/16 07:50 ABG pO2 83 mmHg (83-108) 12/09/16 07:50 ABG O2 Saturation 97.0 % (94-97) 12/09/16 07:50 Abnormal lab findings: Abnormal Labs 11/20/16 11/20/16 11/20/16 11:57 11:57 11:57 WBC RBC Hgb Hct MCV MCHC RDW 15.6 H Plt Count 135 L Neutrophils # Lymphocytes # 0.5 L ABG pH ABG pCO2 ABG pO2 ABG Total CO2 ABG O2 Saturation Sodium Potassium 5.9 H Chloride 111 H Carbon Dioxide 13 L BUN 40 H Creatinine 2.20 H Glucose 22 L* POC Glucose (mg/dL) Insulin Level Calcium Phosphorus Magnesium 2.4 H Iron TIBC % Saturation Ferritin Total Bilirubin 1.4 H ALT 18 L Alkaline Phosphatase 37 L Total Creatine Kinase 533 H CK-MB (CK-2) 6.6 H* Troponin I C-Reactive Protein Total Protein 6.1 L Albumin Prealbumin Free T3 pg/mL 1.9 L Urine Glucose (UA) Urine Ketones 11/20/16 11/20/16 11/20/16 13:16 14:16 14:50 WBC RBC Hgb Hct MCV MCHC RDW Plt Count Neutrophils # Lymphocytes # ABG pH ABG pCO2 ABG pO2 ABG Total CO2 ABG O2 Saturation Sodium Potassium Chloride Carbon Dioxide BUN Creatinine Glucose POC Glucose (mg/dL) 20 L 60 L 53 L Insulin Level Calcium Phosphorus Magnesium Iron TIBC % Saturation Ferritin Total Bilirubin ALT Alkaline Phosphatase Total Creatine Kinase CK-MB (CK-2) Troponin I C-Reactive Protein Total Protein Albumin Prealbumin Free T3 pg/mL Urine Glucose (UA) Urine Ketones 11/20/16 11/20/16 11/20/16 15:40 17:01 20:29 WBC RBC Hgb Hct MCV MCHC RDW Plt Count Neutrophils # Lymphocytes # ABG pH ABG pCO2 ABG pO2 ABG Total CO2 ABG O2 Saturation Sodium Potassium Chloride Carbon Dioxide BUN Creatinine Glucose POC Glucose (mg/dL) 50 L 74 L 54 L Insulin Level Calcium Phosphorus Magnesium Iron TIBC % Saturation Ferritin Total Bilirubin ALT Alkaline Phosphatase Total Creatine Kinase CK-MB (CK-2) Troponin I C-Reactive Protein Total Protein Albumin Prealbumin Free T3 pg/mL Urine Glucose (UA) Urine Ketones 11/20/16 11/20/16 11/21/16 21:16 21:44 00:10 WBC RBC Hgb Hct MCV MCHC RDW Plt Count Neutrophils # Lymphocytes # ABG pH ABG pCO2 ABG pO2 ABG Total CO2 ABG O2 Saturation Sodium Potassium Chloride 113 H Carbon Dioxide 13 L BUN 36 H Creatinine 2.00 H Glucose 103 H POC Glucose (mg/dL) 135 H 107 H Insulin Level Calcium Phosphorus Magnesium Iron TIBC % Saturation Ferritin Total Bilirubin ALT Alkaline Phosphatase Total Creatine Kinase CK-MB (CK-2) Troponin I C-Reactive Protein Total Protein 5.5 L Albumin 3.1 L Prealbumin Free T3 pg/mL Urine Glucose (UA) Urine Ketones 11/21/16 11/21/16 11/21/16 00:20 07:40 07:40 WBC RBC 4.15 L Hgb Hct 38.7 L MCV MCHC RDW Plt Count Neutrophils # Lymphocytes # 0.6 L ABG pH ABG pCO2 ABG pO2 ABG Total CO2 ABG O2 Saturation Sodium Potassium Chloride 115 H Carbon Dioxide 14 L BUN 33 H Creatinine 1.92 H Glucose POC Glucose (mg/dL) Insulin Level Calcium Phosphorus Magnesium Iron TIBC % Saturation Ferritin Total Bilirubin 1.4 H ALT 17 L Alkaline Phosphatase 30 L Total Creatine Kinase CK-MB (CK-2) Troponin I C-Reactive Protein Total Protein 5.1 L Albumin 2.7 L Prealbumin Free T3 pg/mL Urine Glucose (UA) Trace H Urine Ketones 1+ H 11/22/16 11/22/16 11/22/16 07:05 10:08 11:49 WBC RBC Hgb Hct MCV MCHC RDW Plt Count Neutrophils # Lymphocytes # ABG pH ABG pCO2 ABG pO2 ABG Total CO2 ABG O2 Saturation Sodium Potassium Chloride 113 H Carbon Dioxide 20 L BUN 24 H Creatinine 1.69 H Glucose POC Glucose (mg/dL) 63 L 59 L Insulin Level Calcium 8.1 L Phosphorus Magnesium Iron TIBC % Saturation Ferritin Total Bilirubin ALT Alkaline Phosphatase Total Creatine Kinase CK-MB (CK-2) Troponin I C-Reactive Protein Total Protein Albumin Prealbumin Free T3 pg/mL Urine Glucose (UA) Urine Ketones 11/23/16 11/23/16 11/23/16 06:52 07:16 07:37 WBC RBC Hgb Hct MCV MCHC RDW Plt Count Neutrophils # Lymphocytes # ABG pH ABG pCO2 ABG pO2 ABG Total CO2 ABG O2 Saturation Sodium Potassium Chloride Carbon Dioxide BUN Creatinine Glucose POC Glucose (mg/dL) 62 L 63 L 64 L Insulin Level Calcium Phosphorus Magnesium Iron TIBC % Saturation Ferritin Total Bilirubin ALT Alkaline Phosphatase Total Creatine Kinase CK-MB (CK-2) Troponin I C-Reactive Protein Total Protein Albumin Prealbumin Free T3 pg/mL Urine Glucose (UA) Urine Ketones 11/23/16 11/23/16 11/23/16 08:05 08:27 11:51 WBC RBC Hgb Hct MCV MCHC RDW Plt Count Neutrophils # Lymphocytes # ABG pH ABG pCO2 ABG pO2 ABG Total CO2 ABG O2 Saturation Sodium Potassium 3.4 L Chloride 111 H Carbon Dioxide 20 L BUN Creatinine 1.56 H Glucose POC Glucose (mg/dL) 73 L 70 L Insulin Level Calcium 8.0 L Phosphorus Magnesium Iron TIBC % Saturation Ferritin Total Bilirubin ALT Alkaline Phosphatase Total Creatine Kinase CK-MB (CK-2) Troponin I C-Reactive Protein Total Protein Albumin Prealbumin Free T3 pg/mL Urine Glucose (UA) Urine Ketones 11/23/16 11/23/16 11/23/16 16:22 17:16 17:28 WBC RBC Hgb Hct MCV MCHC RDW Plt Count Neutrophils # Lymphocytes # ABG pH ABG pCO2 ABG pO2 ABG Total CO2 ABG O2 Saturation Sodium Potassium Chloride Carbon Dioxide BUN Creatinine Glucose POC Glucose (mg/dL) 70 L Insulin Level 2.8 L Calcium Phosphorus Magnesium Iron TIBC % Saturation Ferritin Total Bilirubin ALT Alkaline Phosphatase Total Creatine Kinase CK-MB (CK-2) Troponin I C-Reactive Protein 16.7 H Total Protein Albumin Prealbumin Free T3 pg/mL Urine Glucose (UA) Urine Ketones 11/24/16 11/24/16 11/24/16 11:32 11:37 11:37 WBC RBC Hgb Hct MCV MCHC RDW Plt Count Neutrophils # Lymphocytes # ABG pH ABG pCO2 ABG pO2 ABG Total CO2 ABG O2 Saturation Sodium Potassium Chloride 114 H Carbon Dioxide 18 L BUN Creatinine 1.65 H Glucose 68 L POC Glucose (mg/dL) 67 L Insulin Level Calcium 8.2 L Phosphorus Magnesium Iron TIBC % Saturation Ferritin Total Bilirubin ALT Alkaline Phosphatase Total Creatine Kinase CK-MB (CK-2) Troponin I C-Reactive Protein Total Protein Albumin Prealbumin 7 L Free T3 pg/mL Urine Glucose (UA) Urine Ketones 11/24/16 11/24/16 11/25/16 11:46 17:13 07:00 WBC RBC Hgb Hct MCV MCHC RDW Plt Count Neutrophils # Lymphocytes # ABG pH ABG pCO2 ABG pO2 ABG Total CO2 ABG O2 Saturation Sodium Potassium Chloride Carbon Dioxide BUN Creatinine Glucose POC Glucose (mg/dL) 70 L 104 H 70 L Insulin Level Calcium Phosphorus Magnesium Iron TIBC % Saturation Ferritin Total Bilirubin ALT Alkaline Phosphatase Total Creatine Kinase CK-MB (CK-2) Troponin I C-Reactive Protein Total Protein Albumin Prealbumin Free T3 pg/mL Urine Glucose (UA) Urine Ketones 11/25/16 11/26/16 11/26/16 12:01 07:12 09:29 WBC RBC Hgb Hct MCV MCHC RDW Plt Count Neutrophils # Lymphocytes # ABG pH ABG pCO2 ABG pO2 ABG Total CO2 ABG O2 Saturation Sodium Potassium 5.3 H Chloride 120 H* Carbon Dioxide 18 L BUN 21 H Creatinine 1.78 H Glucose POC Glucose (mg/dL) 65 L 67 L Insulin Level Calcium 8.0 L Phosphorus Magnesium Iron TIBC % Saturation Ferritin Total Bilirubin ALT Alkaline Phosphatase Total Creatine Kinase CK-MB (CK-2) Troponin I C-Reactive Protein Total Protein Albumin Prealbumin Free T3 pg/mL Urine Glucose (UA) Urine Ketones 11/26/16 11/26/16 11/26/16 12:22 17:21 17:23 WBC RBC Hgb Hct MCV MCHC RDW Plt Count Neutrophils # Lymphocytes # ABG pH ABG pCO2 ABG pO2 ABG Total CO2 ABG O2 Saturation Sodium Potassium Chloride Carbon Dioxide BUN Creatinine Glucose POC Glucose (mg/dL) 73 L 68 L 63 L Insulin Level Calcium Phosphorus Magnesium Iron TIBC % Saturation Ferritin Total Bilirubin ALT Alkaline Phosphatase Total Creatine Kinase CK-MB (CK-2) Troponin I C-Reactive Protein Total Protein Albumin Prealbumin Free T3 pg/mL Urine Glucose (UA) Urine Ketones 11/26/16 11/27/16 11/27/16 20:52 07:01 07:56 WBC 3.6 L RBC 3.75 L Hgb 11.6 L Hct 37.9 L MCV 101.0 H D MCHC 30.6 L RDW Plt Count 90 L Neutrophils # Lymphocytes # 0.4 L ABG pH ABG pCO2 ABG pO2 ABG Total CO2 ABG O2 Saturation Sodium Potassium Chloride Carbon Dioxide BUN Creatinine Glucose POC Glucose (mg/dL) 71 L 60 L Insulin Level Calcium Phosphorus Magnesium Iron TIBC % Saturation Ferritin Total Bilirubin ALT Alkaline Phosphatase Total Creatine Kinase CK-MB (CK-2) Troponin I C-Reactive Protein Total Protein Albumin Prealbumin Free T3 pg/mL Urine Glucose (UA) Urine Ketones 11/27/16 11/27/16 11/27/16 07:56 11:33 21:12 WBC RBC Hgb Hct MCV MCHC RDW Plt Count Neutrophils # Lymphocytes # ABG pH ABG pCO2 ABG pO2 ABG Total CO2 ABG O2 Saturation Sodium Potassium Chloride 117 H Carbon Dioxide 18 L BUN Creatinine 1.60 H Glucose POC Glucose (mg/dL) 63 L 73 L Insulin Level Calcium 8.1 L Phosphorus Magnesium Iron TIBC % Saturation Ferritin Total Bilirubin ALT Alkaline Phosphatase Total Creatine Kinase CK-MB (CK-2) Troponin I C-Reactive Protein Total Protein Albumin Prealbumin Free T3 pg/mL Urine Glucose (UA) Urine Ketones 11/27/16 11/28/16 11/28/16 23:32 07:24 07:45 WBC RBC Hgb Hct MCV MCHC RDW Plt Count Neutrophils # Lymphocytes # ABG pH ABG pCO2 ABG pO2 ABG Total CO2 ABG O2 Saturation Sodium Potassium Chloride Carbon Dioxide BUN Creatinine Glucose POC Glucose (mg/dL) 74 L 60 L 65 L Insulin Level Calcium Phosphorus Magnesium Iron TIBC % Saturation Ferritin Total Bilirubin ALT Alkaline Phosphatase Total Creatine Kinase CK-MB (CK-2) Troponin I C-Reactive Protein Total Protein Albumin Prealbumin Free T3 pg/mL Urine Glucose (UA) Urine Ketones 11/28/16 11/28/16 11/28/16 09:31 09:31 21:05 WBC 3.0 L RBC 3.60 L Hgb 10.8 L Hct 35.6 L MCV MCHC 30.3 L RDW Plt Count 93 L Neutrophils # Lymphocytes # 0.4 L ABG pH ABG pCO2 ABG pO2 ABG Total CO2 ABG O2 Saturation Sodium Potassium Chloride 114 H Carbon Dioxide 21 L BUN Creatinine 1.46 H Glucose POC Glucose (mg/dL) 71 L Insulin Level Calcium 8.2 L Phosphorus Magnesium Iron TIBC % Saturation Ferritin Total Bilirubin ALT Alkaline Phosphatase Total Creatine Kinase CK-MB (CK-2) Troponin I C-Reactive Protein Total Protein Albumin Prealbumin Free T3 pg/mL Urine Glucose (UA) Urine Ketones 11/29/16 11/29/16 11/29/16 02:03 07:08 07:24 WBC RBC Hgb Hct MCV MCHC RDW Plt Count Neutrophils # Lymphocytes # ABG pH ABG pCO2 ABG pO2 ABG Total CO2 ABG O2 Saturation Sodium Potassium Chloride Carbon Dioxide BUN Creatinine Glucose POC Glucose (mg/dL) 70 L 62 L 74 L Insulin Level Calcium Phosphorus Magnesium Iron TIBC % Saturation Ferritin Total Bilirubin ALT Alkaline Phosphatase Total Creatine Kinase CK-MB (CK-2) Troponin I C-Reactive Protein Total Protein Albumin Prealbumin Free T3 pg/mL Urine Glucose (UA) Urine Ketones 11/29/16 11/29/16 11/29/16 08:19 08:19 20:59 WBC RBC 3.93 L Hgb 12.1 L Hct MCV MCHC 30.9 L RDW Plt Count 104 L Neutrophils # Lymphocytes # 0.6 L ABG pH ABG pCO2 ABG pO2 ABG Total CO2 ABG O2 Saturation Sodium Potassium 5.4 H Chloride 113 H Carbon Dioxide 19 L BUN Creatinine 1.34 H Glucose POC Glucose (mg/dL) 100 H Insulin Level Calcium Phosphorus Magnesium Iron TIBC % Saturation Ferritin Total Bilirubin ALT Alkaline Phosphatase Total Creatine Kinase CK-MB (CK-2) Troponin I C-Reactive Protein Total Protein Albumin Prealbumin Free T3 pg/mL Urine Glucose (UA) Urine Ketones 11/30/16 11/30/16 11/30/16 07:18 08:12 08:12 WBC 3.5 L RBC 3.42 L Hgb 10.5 L Hct 33.9 L MCV MCHC 30.8 L RDW Plt Count 91 L Neutrophils # Lymphocytes # 0.4 L ABG pH ABG pCO2 ABG pO2 ABG Total CO2 ABG O2 Saturation Sodium 136 L Potassium Chloride 110 H Carbon Dioxide BUN Creatinine 1.27 H Glucose POC Glucose (mg/dL) 67 L Insulin Level Calcium 8.0 L Phosphorus Magnesium Iron TIBC % Saturation Ferritin Total Bilirubin ALT Alkaline Phosphatase Total Creatine Kinase CK-MB (CK-2) Troponin I C-Reactive Protein Total Protein Albumin Prealbumin Free T3 pg/mL Urine Glucose (UA) Urine Ketones 11/30/16 12/01/16 12/01/16 17:00 09:19 09:19 WBC RBC 3.49 L Hgb 10.7 L Hct 33.8 L MCV MCHC RDW Plt Count 91 L Neutrophils # Lymphocytes # 0.4 L ABG pH ABG pCO2 ABG pO2 ABG Total CO2 ABG O2 Saturation Sodium 135 L Potassium 5.4 H Chloride 108 H Carbon Dioxide BUN Creatinine 1.26 H Glucose POC Glucose (mg/dL) 119 H Insulin Level Calcium 7.9 L Phosphorus Magnesium Iron TIBC % Saturation Ferritin Total Bilirubin ALT Alkaline Phosphatase Total Creatine Kinase CK-MB (CK-2) Troponin I C-Reactive Protein Total Protein Albumin Prealbumin Free T3 pg/mL Urine Glucose (UA) Urine Ketones 12/01/16 12/01/16 12/02/16 14:19 17:00 10:51 WBC RBC Hgb Hct MCV MCHC RDW Plt Count Neutrophils # Lymphocytes # ABG pH ABG pCO2 ABG pO2 ABG Total CO2 ABG O2 Saturation Sodium 134 L Potassium 6.0 H Chloride Carbon Dioxide 21 L BUN Creatinine 1.30 H Glucose POC Glucose (mg/dL) 72 L 74 L Insulin Level Calcium Phosphorus Magnesium Iron TIBC % Saturation Ferritin Total Bilirubin ALT Alkaline Phosphatase Total Creatine Kinase CK-MB (CK-2) Troponin I C-Reactive Protein Total Protein Albumin Prealbumin Free T3 pg/mL Urine Glucose (UA) Urine Ketones 12/02/16 12/02/16 12/03/16 17:28 20:50 02:14 WBC RBC Hgb Hct MCV MCHC RDW Plt Count Neutrophils # Lymphocytes # ABG pH ABG pCO2 ABG pO2 ABG Total CO2 ABG O2 Saturation Sodium 130 L Potassium Chloride Carbon Dioxide BUN Creatinine 1.40 H Glucose 72 L POC Glucose (mg/dL) 33 L 110 H Insulin Level Calcium 8.2 L Phosphorus Magnesium Iron TIBC % Saturation Ferritin Total Bilirubin ALT Alkaline Phosphatase Total Creatine Kinase CK-MB (CK-2) Troponin I C-Reactive Protein Total Protein 4.6 L Albumin 2.3 L Prealbumin Free T3 pg/mL Urine Glucose (UA) Urine Ketones 12/03/16 12/03/16 12/03/16 10:34 17:04 20:46 WBC RBC Hgb Hct MCV MCHC RDW Plt Count Neutrophils # Lymphocytes # ABG pH ABG pCO2 ABG pO2 ABG Total CO2 ABG O2 Saturation Sodium 132 L Potassium Chloride Carbon Dioxide BUN 25 H Creatinine 1.53 H Glucose POC Glucose (mg/dL) 141 H 107 H Insulin Level Calcium Phosphorus Magnesium Iron TIBC % Saturation Ferritin Total Bilirubin ALT Alkaline Phosphatase Total Creatine Kinase CK-MB (CK-2) Troponin I C-Reactive Protein Total Protein Albumin Prealbumin Free T3 pg/mL Urine Glucose (UA) Urine Ketones 12/04/16 12/04/16 12/05/16 07:50 07:50 08:26 WBC RBC 3.34 L 3.37 L Hgb 10.2 L 10.3 L Hct 32.8 L 32.0 L MCV MCHC RDW Plt Count 115 L 112 L Neutrophils # Lymphocytes # 0.3 L 0.4 L ABG pH ABG pCO2 ABG pO2 ABG Total CO2 ABG O2 Saturation Sodium 131 L Potassium Chloride Carbon Dioxide BUN 26 H Creatinine 1.64 H Glucose POC Glucose (mg/dL) Insulin Level Calcium 7.9 L Phosphorus Magnesium Iron TIBC % Saturation Ferritin Total Bilirubin ALT Alkaline Phosphatase Total Creatine Kinase CK-MB (CK-2) Troponin I C-Reactive Protein Total Protein Albumin Prealbumin Free T3 pg/mL Urine Glucose (UA) Urine Ketones 12/05/16 12/06/16 12/06/16 08:26 08:16 08:16 WBC RBC 3.00 L Hgb 9.0 L Hct 29.5 L MCV MCHC 30.5 L RDW Plt Count 115 L Neutrophils # Lymphocytes # 0.4 L ABG pH ABG pCO2 ABG pO2 ABG Total CO2 ABG O2 Saturation Sodium 131 L 130 L Potassium Chloride Carbon Dioxide BUN 26 H 25 H Creatinine 1.62 H 1.59 H Glucose POC Glucose (mg/dL) Insulin Level Calcium 7.7 L 7.4 L Phosphorus Magnesium Iron TIBC % Saturation Ferritin Total Bilirubin ALT Alkaline Phosphatase Total Creatine Kinase CK-MB (CK-2) Troponin I C-Reactive Protein Total Protein Albumin Prealbumin Free T3 pg/mL Urine Glucose (UA) Urine Ketones 12/06/16 12/06/16 12/07/16 16:58 20:19 07:26 WBC RBC Hgb Hct MCV MCHC RDW Plt Count Neutrophils # Lymphocytes # ABG pH ABG pCO2 ABG pO2 ABG Total CO2 ABG O2 Saturation Sodium Potassium Chloride Carbon Dioxide BUN Creatinine Glucose POC Glucose (mg/dL) 110 H 124 H 105 H Insulin Level Calcium Phosphorus Magnesium Iron TIBC % Saturation Ferritin Total Bilirubin ALT Alkaline Phosphatase Total Creatine Kinase CK-MB (CK-2) Troponin I C-Reactive Protein Total Protein Albumin Prealbumin Free T3 pg/mL Urine Glucose (UA) Urine Ketones 12/07/16 12/07/16 12/07/16 08:32 08:32 11:39 WBC RBC 3.08 L Hgb 9.3 L Hct 29.8 L MCV MCHC RDW Plt Count 125 L Neutrophils # Lymphocytes # 0.3 L ABG pH ABG pCO2 ABG pO2 ABG Total CO2 ABG O2 Saturation Sodium 132 L Potassium Chloride Carbon Dioxide BUN 26 H Creatinine 1.41 H Glucose 100 H POC Glucose (mg/dL) 110 H Insulin Level Calcium 7.3 L Phosphorus Magnesium Iron TIBC % Saturation Ferritin Total Bilirubin ALT Alkaline Phosphatase Total Creatine Kinase CK-MB (CK-2) Troponin I C-Reactive Protein Total Protein Albumin Prealbumin Free T3 pg/mL Urine Glucose (UA) Urine Ketones 12/07/16 12/07/16 12/07/16 17:06 18:15 20:20 WBC RBC 3.18 L Hgb 9.9 L Hct 31.7 L MCV MCHC RDW Plt Count 72 L Neutrophils # 7.8 H Lymphocytes # 0.2 L ABG pH ABG pCO2 ABG pO2 ABG Total CO2 ABG O2 Saturation Sodium Potassium Chloride Carbon Dioxide BUN Creatinine Glucose POC Glucose (mg/dL) 130 H 129 H Insulin Level Calcium Phosphorus Magnesium Iron TIBC % Saturation Ferritin Total Bilirubin ALT Alkaline Phosphatase Total Creatine Kinase CK-MB (CK-2) Troponin I C-Reactive Protein Total Protein Albumin Prealbumin Free T3 pg/mL Urine Glucose (UA) Urine Ketones 12/07/16 12/07/16 12/08/16 20:20 21:03 05:30 WBC RBC Hgb Hct MCV MCHC RDW Plt Count Neutrophils # Lymphocytes # ABG pH ABG pCO2 ABG pO2 ABG Total CO2 ABG O2 Saturation Sodium 135 L Potassium Chloride Carbon Dioxide BUN 26 H Creatinine 1.42 H Glucose 130 H POC Glucose (mg/dL) 160 H Insulin Level Calcium 7.5 L Phosphorus Magnesium Iron TIBC % Saturation Ferritin Total Bilirubin ALT Alkaline Phosphatase Total Creatine Kinase CK-MB (CK-2) Troponin I 1.020 H* C-Reactive Protein Total Protein Albumin Prealbumin Free T3 pg/mL Urine Glucose (UA) Urine Ketones 12/08/16 12/08/16 12/08/16 05:30 06:19 06:19 WBC RBC 2.93 L Hgb 9.0 L Hct 28.8 L MCV MCHC RDW Plt Count 118 L D Neutrophils # Lymphocytes # 0.3 L ABG pH ABG pCO2 ABG pO2 ABG Total CO2 ABG O2 Saturation Sodium Potassium Chloride Carbon Dioxide BUN Creatinine Glucose POC Glucose (mg/dL) Insulin Level Calcium Phosphorus Magnesium Iron 19 L TIBC 163 L % Saturation 11.7 L Ferritin 740 H Total Bilirubin ALT Alkaline Phosphatase Total Creatine Kinase CK-MB (CK-2) Troponin I 1.290 H* C-Reactive Protein Total Protein Albumin Prealbumin Free T3 pg/mL Urine Glucose (UA) Urine Ketones 12/08/16 12/08/16 12/09/16 19:38 21:55 06:30 WBC RBC 2.86 L Hgb 9.0 L Hct 27.9 L MCV MCHC RDW Plt Count Neutrophils # 7.8 H Lymphocytes # 0.5 L ABG pH ABG pCO2 ABG pO2 322 H ABG Total CO2 25 H ABG O2 Saturation 100.0 H 98.0 H Sodium Potassium Chloride Carbon Dioxide BUN Creatinine Glucose POC Glucose (mg/dL) Insulin Level Calcium Phosphorus Magnesium Iron TIBC % Saturation Ferritin Total Bilirubin ALT Alkaline Phosphatase Total Creatine Kinase CK-MB (CK-2) Troponin I C-Reactive Protein Total Protein Albumin Prealbumin Free T3 pg/mL Urine Glucose (UA) Urine Ketones 12/09/16 12/09/16 06:30 07:50 WBC RBC Hgb Hct MCV MCHC RDW Plt Count Neutrophils # Lymphocytes # ABG pH 7.49 H ABG pCO2 32 L ABG pO2 ABG Total CO2 25 H ABG O2 Saturation Sodium 134 L Potassium Chloride Carbon Dioxide BUN 25 H Creatinine 1.47 H Glucose POC Glucose (mg/dL) Insulin Level Calcium 7.4 L Phosphorus 2.4 L Magnesium 1.5 L Iron TIBC % Saturation Ferritin Total Bilirubin ALT Alkaline Phosphatase Total Creatine Kinase CK-MB (CK-2) Troponin I C-Reactive Protein Total Protein Albumin Prealbumin Free T3 pg/mL Urine Glucose (UA) Urine Ketones - Diagnostic Findings Chest x-ray: image reviewed (Large bilateral pleural effusions were noted) Assessment and Plan Plan: Impression: 1 acute hypoxic respiratory failure, unexpected, post jejunostomy tube placement , multifactorial, mostly secondary to fluid overload and bilateral pleural effusions, suspect underlying COPD, and secondary to underlying medical debility , possible diastolic congestive heart failure. 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 3 possible non-ST elevation myocardial infarction with positive troponin since admission. 4 chronic medical debility and weight loss secondary to underlying esophageal cancer and poor oral intake. 5 history of severe COPD 6 chronic iron deficiency anemia 7 acute kidney injury secondary to acute tubular necrosis, secondary to hypotension 8 status post placement of a gastrojejunostomy tube on 12/08/2016. Recommendation: Continue present supportive care measures, continue on mechanical ventilation, ultrasound was reviewed, and I plan to perform a left sided thoracentesis for diagnostic and therapeutic purposes. That will likely expedite weaning and extubation from mechanical ventilation. I may even consider in the next 24 hours right sided thoracentesis also. Otherwise I agree with the treatment plan as per many different consultants. Time with Patient: Greater than 30
--- NOTE | 2016-12-09 13:39 | P.PCN ---
Date of Procedure: 12/09/16 Preoperative Diagnosis: Left-sided pleural effusion Postoperative Diagnosis: Left-sided pleural effusion Procedure(s) Performed: Left sided thoracentesis Implants: Anesthesia: local (2 mL of 2% lidocaine) Surgeon: Serg Steen De Icer #1: Kirsty Sims Estimated Blood Loss (ml): 0 Pathology: other (Fluid was sent for cytology, LDH, protein, and glucose as well as routine Gram stain and cultures.) Condition: stable Disposition: other (Procedure was done in the ICU while the patient was on mechanical ventilation, and the patient will remain on mechanical ventilation for the time being.) Indications for Procedure: Large bilateral pleural effusions, hypoxic respiratory failure, failure to wean Operative Findings: 1100 mL of slightly anatoliy colored fluid was removed from the left pleural space. Description of Procedure: Patient was placed in the sitting upright position, the area below the left scapula was prepared in a sterile fashion and that is applied. Fluid was localized earlier by ultrasound guidance, and the area was felt to be at the level of the eighth intercostal space in the posterior scapula. Area was locally anesthetized with 2 mL of 2% lidocaine, then scalpel was used to and the skin was incised via scalpel. A standard thoracentesis catheter and needle were used, the catheter and needle were inserted at the same site advanced into the pleural space until the fluid was obtained, then the catheter over the needle was advanced, and the needle was removed. Freely flowing fluid was removed, roughly 1100 mL of slightly anatoliy colored fluid was removed from the pleural space. Procedure was well-tolerated, and no evidence of any immediate complications. Fluid was sent for different diagnostic studies.
--- NOTE | 2016-12-09 13:50 | XR ---
EXAMINATION TYPE: XR chest 1V portable DATE OF EXAM: 12/09/2016 COMPARISON: NONE HISTORY: Status post left thoracentesis TECHNIQUE: Single frontal view of the chest is obtained. FINDINGS: The previously seen left pleural effusion has nearly resolved in the interim status post l eft thoracentesis. The patient's chin obscures the lung apices limiting evaluation for small apical p neumothorax. No large pneumothorax is appreciated. A moderate layering right pleural effusion and associated right basilar atelectasis is present. Endot braydon tube and right internal jugular central venous catheter are stable in position, properly plac ed. Cardiomediastinal silhouette is partially visualized and stable. IMPRESSION: 1. Resolved left pleural effusion status post thoracentesis and although the patient's chin obscures the lung apex limiting evaluation for small apical pneumothorax there is no gross evidence of moderat e or large left pneumothorax. 2. Moderate right pleural effusion and associated right basilar compressive subsegmental atelectasis.
[2016-12-09 14:12] LABS: Total Protein 3.6 g/dL (6.3-8.2)
[2016-12-09 14:36] LABS: ABG Base Excess -0.5 mmol/L; ABG HCO3 23 mmol/L (21-25); ABG PCO2 33 mmHg (35-45); ABG PH 7.46 (7.35-7.45); ABG PO2 82 mmHg (83-108); ABG TCO2 24 mmol/L (19-24)
[2016-12-09 14:50] LABS: RBC, Body Fluid 155 /uL
[2016-12-09 15:03] LABS: Body Fluid Comment Few Mesothelial
[2016-12-09] MEDS: ENOXAPARIN 40 MG/0.4 ML SYRINGE SQ SCH (15:03)
--- NOTE | 2016-12-09 16:02 | P.PN ---
Subjective 86-year-old being seen in the intensive care unit currently is orally intubated for acute hypoxic respiratory failure requiring intubation and mechanical ventilation. Patient on December 08 was taken to the operating room and a gastrojejunostomy tube was placed for nutritional support. Patient was extubated in the recovery room postoperatively. Patient does not tolerate the extubation became hypoxic needed to be reintubated stabilized and transferred to the intensive care unit. Patients being followed by pulmonary and medical office administrator for ICU management and vent support patient currently is sedated patient is being seen by surgical service and a follow-up visit after patient underwent placement of the gastrojejunostomy tube for nutritional support done on December 08 Objective - Vital Signs Vital signs: Vital Signs Temp 97.8 F 12/09/16 12:00 Pulse 89 12/09/16 15:34 Resp 20 12/09/16 14:00 BP 101/48 12/09/16 13:00 Pulse Ox 100 12/09/16 14:00 Intake & Output 12/08/16 12/09/16 12/09/16 18:59 06:59 18:59 Intake Total 1999 2824.012 4460.026 Output Total 719 17 0138 Balance 1695 1403.595 -212.974 Weight 77 kg 77 kg Intake: IV 1600 985 Lactated Ringers 1,000 ml 160 @ 80 mls/hr IV .[id number] [facility] Rx#:[id number] Magnesium Sulfate-D5w Pmx 200 1 gm In Dextrose/Water 1 100ml.bag @ 100 mls/hr IVPB Q1H [facility] Rx#: [id number] Piperacillin-Tazobactam 3 50 .375 gm In Dextrose/Water 1 50ml.bag @ 12.5 mls/hr IVPB Q8HR [facility] Rx#: [id number] Potassium Chloride 20 meq 100 In Water For Injection 1 100ml.bag @ 50 mls/hr IVPB [facility] Rx#: [id number] Sodium Chloride 0.9% 1, 475 000 ml @ 75 mls/hr IV . [id number] [facility] Rx#:[id number] Intake, IV Titration 400 1428.595 199.026 Amount Lactated Ringers 1,000 ml 720 80 @ 80 mls/hr IV .[id number] [facility] Rx#:[id number] Lactated Ringers 1,000 ml 500 @ 999 mls/hr IV .[id number] [facility] Rx#:[id number] Norepinephrin 16 mg-0.9% 17.016 Ns Pmx 16 mg In 250 ml @ Titrate IV .Q0M [facility] Rx#: [id number] Phenylephrine 40 mg In 157.467 Sodium Chloride 0.9% 250 ml @ Titrate IV .Q0M [facility] Rx#:[id number] Piperacillin-Tazobactam 3 50 .375 gm In Dextrose/Water 1 50ml.bag @ 12.5 mls/hr IVPB Q8HR [facility] Rx#: [id number] Propofol 1,000 mg In 100 1.128 102.010 ml @ Titrate IV .Q0M [facility] Rx#:[id number] Sodium Chloride 0.9% 1, 400 000 ml @ 50 mls/hr IV . Q20H [facility] Rx#:[id number] Output: Urine 300 25 297 Estimated Blood Loss 5 Other 1100 Other: Voiding Method Indwelling Catheter Indwelling Catheter Indwelling Catheter # Voids 1 # Bowel Movements 0 0 ABP, PAP, CO, CI - Last Documented Arterial Blood Pressure 100/32 - Exam Physical exam 86-year-old gentleman orally intubated sedated on mechanical support Lungs bilaterally diminished at the bases no rhonchi noted no wheezing Heart S1-S2 audible regular abdomen J-tube in place. Flat not distended. Hypoactive bowel tones Extremities no edema noted - Labs CBC & Chem 7: 12/09/16 06:30 12/09/16 06:30 Labs: Abnormal Lab Results - Last 24 Hours (Table) 12/08/16 12/08/16 12/09/16 Range/Units 19:38 21:55 06:30 RBC 2.86 L (4.30-5.90) m/uL Hgb 9.0 L (13.0-17.5) gm/dL Hct 27.9 L (39.0-53.0) % Neutrophils # 7.8 H (1.3-7.7) k/uL Lymphocytes # 0.5 L (1.0-4.8) k/uL ABG pH (7.35-7.45) ABG pCO2 (35-45) mmHg ABG pO2 322 H (83-108) mmHg ABG Total CO2 25 H (19-24) mmol/L ABG O2 Saturation 100.0 H 98.0 H (94-97) % Sodium (137-145) mmol/L BUN (9-20) mg/dL Creatinine (0.66-1.25) mg/dL Calcium (8.4-10.2) mg/dL Phosphorus (2.5-4.5) mg/dL Magnesium (1.6-2.3) mg/dL Lactate Dehydrogenase (313-618) U/L Total Protein (6.3-8.2) g/dL 12/09/16 12/09/16 12/09/16 Range/Units 06:30 06:30 07:50 RBC (4.30-5.90) m/uL Hgb (13.0-17.5) gm/dL Hct (39.0-53.0) % Neutrophils # (1.3-7.7) k/uL Lymphocytes # (1.0-4.8) k/uL ABG pH 7.49 H (7.35-7.45) ABG pCO2 32 L (35-45) mmHg ABG pO2 (83-108) mmHg ABG Total CO2 25 H (19-24) mmol/L ABG O2 Saturation (94-97) % Sodium 134 L (137-145) mmol/L BUN 25 H (9-20) mg/dL Creatinine 1.47 H (0.66-1.25) mg/dL Calcium 7.4 L (8.4-10.2) mg/dL Phosphorus 2.4 L (2.5-4.5) mg/dL Magnesium 1.5 L (1.6-2.3) mg/dL Lactate Dehydrogenase 302 L (313-618) U/L Total Protein 3.6 L (6.3-8.2) g/dL 12/09/16 Range/Units 14:27 RBC (4.30-5.90) m/uL Hgb (13.0-17.5) gm/dL Hct (39.0-53.0) % Neutrophils # (1.3-7.7) k/uL Lymphocytes # (1.0-4.8) k/uL ABG pH 7.46 H (7.35-7.45) ABG pCO2 33 L (35-45) mmHg ABG pO2 82 L (83-108) mmHg ABG Total CO2 (19-24) mmol/L ABG O2 Saturation (94-97) % Sodium (137-145) mmol/L BUN (9-20) mg/dL Creatinine (0.66-1.25) mg/dL Calcium (8.4-10.2) mg/dL Phosphorus (2.5-4.5) mg/dL Magnesium (1.6-2.3) mg/dL Lactate Dehydrogenase (313-618) U/L Total Protein (6.3-8.2) g/dL Microbiology - Last 24 Hours (Table) 12/08/16 20:11 Gram Stain - Preliminary Sputum Sputum Culture - Preliminary Assessment and Plan Plan: Impression Present on admission dysphagia with unintentional weight loss status post EGD on November 26 showed distal esophageal ulcerated mass with stricture biopsies positive for squamous cell cancer Status post esophageal wall stent placed on December 01 Squamous cell carcinoma of the esophagus Esophageal mass Acute dysphagia acute on chronic kidney disease Multiple episodes of hypoglycemia Status post December 08 insertion gastrojejunostomy tube for nutritional support Acute hypoxic respiratory failure unexpected post jejunostomy tube placement multifactorial suspect fluid overload bilateral pleural effusion underlying COPD secondary to underlying medical debility Plan Nutritional support will be initiated when appropriate Aspiration precautions DVT and GI prophylaxis Further surgical recommendations pending Continue ICU management The above impression and plan of care have been discussed and directed by signing physician. Rebeca Elizalde nurse practitioner acting as scribe for signing physician.
[2016-12-09] MEDS ORDERED: FUROSEMIDE 10 MG/ML 10 ML VIAL IV ONE (17:15)
[2016-12-09 18:54] LABS: Glucose,Whole Blood 98 mg/dL (75-99)
--- NOTE | 2016-12-09 19:41 | P.PN ---
Subjective Progress note being dictated for Dr. Garcia. 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 12/09/2016 Gastrojejunostomy tube placed yesterday, reintubated postop related to hypoxic respiratory failure and transferred to ICU. Continues on mechanical ventilation, FiO2 50%/+5 PEEP. ABGs noted. Maintained on Levophed and diprovan. Mildly worsened renal function. Ultrasound reports Large Bilateral pleural effusions. Under going left-sided thoracentesis at bedside currently with pulmonary. Review of systems unable to obtain as patient currently undergoing thoracentesis at bedside, on mechanical ventilation. Active Medications Albuterol Sulfate (Ventolin Nebulized) 2.5 mg INHALATION RT-QID [facility] Last Admin: 12/09/16 19:22 Dose: 2.5 mg Albuterol Sulfate (Ventolin Nebulized) 2.5 mg INHALATION RT-Q2H PRN PRN Reason: Shortness Of Breath Or Wheezing Aspirin (Aspirin) 325 mg PO DAILY [facility] Chlorhexidine Gluconate (Peridex) 15 ml MUCOUS MEM BID [facility] Last Admin: 12/09/16 10:04 Dose: 15 ml Enoxaparin Sodium (Lovenox) 40 mg SQ DAILY [facility] Last Admin: 12/09/16 15:03 Dose: 40 mg Hydromorphone HCl (Dilaudid) 1 mg IVP Q3HR PRN PRN Reason: Pain Phenylephrine HCl 40 mg/ (Sodium Chloride) 254 mls @ 0 mls/hr IV .Q0M [facility]; Titrate PRN Reason: Protocol Last Titration: 12/08/16 23:03 Dose: 0 mls/hr Piperacillin/Tazobactam/ (Dextrose 3.375 gm/ IV Solution) 50 mls @ 12.5 mls/hr IVPB Q8HR [facility] Last Admin: 12/09/16 15:16 Dose: 12.5 mls/hr Norepinephrine Bitartrate (Levophed-0.9% Nacl 16 Mg/250ml Pmx) 16 mg in 250 mls @ 0 mls/hr IV .Q0M [facility]; Titrate PRN Reason: Protocol Last Titration: 12/09/16 14:00 Dose: 0 mcg/min, 0 mls/hr Propofol (Diprivan) 1,000 mg in 100 mls @ 0 mls/hr IV .Q0M [facility]; Titrate PRN Reason: Protocol Last Titration: 12/09/16 19:22 Dose: 15 mcg/kg/min, 6.345 mls/hr Sodium Chloride (Saline 0.9%) 1,000 mls @ 75 mls/hr IV .[id number] [facility] Last Admin: 12/09/16 10:00 Dose: 75 mls/hr Ferric Sodium Gluconate 125 mg (/ Sodium Chloride) 110 mls @ 100 mls/hr IVPB DAILY [facility] Stop: 12/13/16 09:01 Lidocaine HCl (.Xylocaine 1% Inj (10mg/Ml) For Iv Start) 0.1 ml INTRADERMA PER PROTOCOL PRN PRN Reason: IV Start Metoprolol Tartrate (Lopressor) 12.5 mg PO BID [facility] Last Admin: 12/09/16 08:20 Dose: Not Given Miscellaneous Information (Potassium Per Protocol) 1 each MISCELLANE DAILY PRN ; Protocol PRN Reason: Per Protocol Naloxone HCl (Narcan) 0.2 mg IV Q2M PRN PRN Reason: Opioid Reversal Nitroglycerin (Nitro-Bid Oint) 1 inch TOPICAL Q6HR [facility] Last Admin: 12/09/16 17:09 Dose: Not Given Ondansetron HCl (Zofran) 4 mg IVP Q6HR PRN PRN Reason: Nausea And Vomiting Last Admin: 12/08/16 15:43 Dose: 4 mg Pantoprazole Sodium (Protonix) 40 mg IVP DAILY [facility] Last Admin: 12/09/16 08:27 Dose: 40 mg Tamsulosin HCl (Flomax) 0.4 mg PO HS [facility] Last Admin: 12/08/16 20:34 Dose: Not Given Objective - Vital Signs Vital signs: Vital Signs Temp 98.1 F 12/09/16 16:00 Pulse 86 12/09/16 19:00 Resp 14 12/09/16 19:00 BP 95/50 12/09/16 19:00 Pulse Ox 100 12/09/16 19:00 Intake & Output 12/09/16 12/09/16 12/10/16 06:59 18:59 06:59 Intake Total 5081.008 8711.450 85 Output Total 25 1412 45 Balance 1403.595 74.450 40 Weight 77 kg 77 kg Intake: IV 1260.0 75 Lactated Ringers 1,000 ml 160 @ 80 mls/hr IV .[id number] [facility] Rx#:[id number] Magnesium Sulfate-D5w Pmx 200 1 gm In Dextrose/Water 1 100ml.bag @ 100 mls/hr IVPB Q1H [facility] Rx#: [id number] Piperacillin-Tazobactam 3 100.0 .375 gm In Dextrose/Water 1 50ml.bag @ 12.5 mls/hr IVPB Q8HR [facility] Rx#: [id number] Potassium Chloride 20 meq 100 In Water For Injection 1 100ml.bag @ 50 mls/hr IVPB ONCE [facility] Rx#: [id number] Sodium Chloride 0.9% 1, 700 75 000 ml @ 75 mls/hr IV . [id number] [facility] Rx#:[id number] Intake, IV Titration 1428.595 226.450 Amount Lactated Ringers 1,000 ml 720 80 @ 80 mls/hr IV .[id number] [facility] Rx#:[id number] Lactated Ringers 1,000 ml 500 @ 999 mls/hr IV .Q1H1M [facility] Rx#:[id number] Norepinephrin 16 mg-0.9% 17.016 Ns Pmx 16 mg In 250 ml @ Titrate IV .Q0M [facility] Rx#: [id number] Phenylephrine 40 mg In 157.467 Sodium Chloride 0.9% 250 ml @ Titrate IV .Q0M [facility] Rx#:[id number] Piperacillin-Tazobactam 3 50 .375 gm In Dextrose/Water 1 50ml.bag @ 12.5 mls/hr IVPB Q8HR [facility] Rx#: [id number] Propofol 1,000 mg In 100 1.128 129.434 ml @ Titrate IV .Q0M [facility] Rx#:[id number] Tube Feeding 10 Output: Urine 25 312 45 Other 1100 Other: Voiding Method Indwelling Catheter Indwelling Catheter # Voids 1 # Bowel Movements 0 0 ABP, PAP, CO, CI - Last Documented Arterial Blood Pressure 120/38 - Exam PHYSICAL EXAM: VITAL SIGNS: As above GENERAL: [Sitting up at side of bed, cachectic appearing, HEENT: [Pupils equal conjunctiva normal. Intubated.] NECK: [Supple, no JVD,] RESPIRATORY EFFORT:[increased] LUNGS: [Bilateral bases diminished, no rhonchi, no crackles, no wheezing] CARDIOVASCULAR[ regular S1 and S2, no murmurs rubs or gallops, no edema] GI: [Abdomen soft, nontender, hypoactive bowel sounds. J-tube present] PSYCH: [Alert and oriented -3, mood and affect normal.] NEURO: No focal deficits. - Labs CBC & Chem 7: 12/09/16 06:30 12/09/16 06:30 Labs: Abnormal Lab Results - Last 24 Hours (Table) 12/08/16 12/08/16 12/09/16 Range/Units 19:38 21:55 06:30 RBC 2.86 L (4.30-5.90) m/uL Hgb 9.0 L (13.0-17.5) gm/dL Hct 27.9 L (39.0-53.0) % Neutrophils # 7.8 H (1.3-7.7) k/uL Lymphocytes # 0.5 L (1.0-4.8) k/uL ABG pH (7.35-7.45) ABG pCO2 (35-45) mmHg ABG pO2 322 H (83-108) mmHg ABG Total CO2 25 H (19-24) mmol/L ABG O2 Saturation 100.0 H 98.0 H (94-97) % Sodium (137-145) mmol/L BUN (9-20) mg/dL Creatinine (0.66-1.25) mg/dL Calcium (8.4-10.2) mg/dL Phosphorus (2.5-4.5) mg/dL Magnesium (1.6-2.3) mg/dL Lactate Dehydrogenase (313-618) U/L Total Protein (6.3-8.2) g/dL 12/09/16 12/09/16 12/09/16 Range/Units 06:30 06:30 07:50 RBC (4.30-5.90) m/uL Hgb (13.0-17.5) gm/dL Hct (39.0-53.0) % Neutrophils # (1.3-7.7) k/uL Lymphocytes # (1.0-4.8) k/uL ABG pH 7.49 H (7.35-7.45) ABG pCO2 32 L (35-45) mmHg ABG pO2 (83-108) mmHg ABG Total CO2 25 H (19-24) mmol/L ABG O2 Saturation (94-97) % Sodium 134 L (137-145) mmol/L BUN 25 H (9-20) mg/dL Creatinine 1.47 H (0.66-1.25) mg/dL Calcium 7.4 L (8.4-10.2) mg/dL Phosphorus 2.4 L (2.5-4.5) mg/dL Magnesium 1.5 L (1.6-2.3) mg/dL Lactate Dehydrogenase 302 L (313-618) U/L Total Protein 3.6 L (6.3-8.2) g/dL 12/09/16 Range/Units 14:27 RBC (4.30-5.90) m/uL Hgb (13.0-17.5) gm/dL Hct (39.0-53.0) % Neutrophils # (1.3-7.7) k/uL Lymphocytes # (1.0-4.8) k/uL ABG pH 7.46 H (7.35-7.45) ABG pCO2 33 L (35-45) mmHg ABG pO2 82 L (83-108) mmHg ABG Total CO2 (19-24) mmol/L ABG O2 Saturation (94-97) % Sodium (137-145) mmol/L BUN (9-20) mg/dL Creatinine (0.66-1.25) mg/dL Calcium (8.4-10.2) mg/dL Phosphorus (2.5-4.5) mg/dL Magnesium (1.6-2.3) mg/dL Lactate Dehydrogenase (313-618) U/L Total Protein (6.3-8.2) g/dL Microbiology - Last 24 Hours (Table) 12/09/16 13:15 Body Fluid Culture - Preliminary Pleural Fluid 12/08/16 20:11 Gram Stain - Preliminary Sputum Sputum Culture - Preliminary Assessment and Plan Plan: 1. 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 Acute hypoxic respiratory failure, postop, mechanical ventilator-dependent. 3.Acute on chronic renal failure secondary to dehydration, prerenal factors and acute tubular necrosis. 4. [ Hypoglycemia secondary to decreased oral intake]. 5. Syncope, possibly vasovagal 6. Troponin 1.020 undetermined etiology 7. Status post gastrojejunostomy tube placement 8. Bilateral pleural effusions, status post left thoracentesis. Plan: Continue on current medication regime , monitoring and symptomatic treatment. Currently undergoing left-sided thoracentesis, await culture results. Follow closely with pulmonary. Further recommendations to follow. Prognosis guarded. The impression and plan of care has been dictated as directed. : I performed a H&P examination of this patient and discussed the same with the dictator. I agree with the dictator's note. Any additional findings/opinions/ etc. will be noted.
[2016-12-09 20:29] LABS: Glucose, BF Source Pleural Fluid; LDH, Body Fluid Source Pleural Fluid; T. Protein, Body Fluid Source Pleural Fluid; Total Protein, Body Fluid 751 mg/dL
[2016-12-09] MEDS: TAMSULOSIN 0.4 MG CAP.ER.24H PO SCH (20:46)
[2016-12-10 00:11] LABS: Glucose,Whole Blood 79 mg/dL (75-99)
[2016-12-10] MEDS: PROPOFOL 1,000 MG/100 ML VIAL IV SCH (01:36)
[2016-12-10] MEDS: SODIUM CHLORIDE 0.9% 1,000 ML IV SCH ×2 (01:36→14:48)
[2016-12-10] MEDS: PIPERACILLIN-TAZOBACTAM 3.375 GM in DEXTROSE/WATER 1 50ML.BAG IVPB SCH ×3 (03:05→08:58)
[2016-12-10 04:44] LABS: Basophils % (A) 0 %; CH 30.9; CHCM 31.5; Eosinophils # (A) 0.1 k/uL (0-0.7); Eosinophils % (A) 1 %; HCT 25.5 % (39.0-53.0); HDW 2.64; HGB 7.9 gm/dL (13.0-17.5); Luc # (Auto) 0.07; Luc % (Auto) 1; Lymphocytes # (A) 0.3 k/uL (1.0-4.8); Lymphocytes % (A) 6 %; MCH 30.8 pg (25.0-35.0); MCHC 31.2 g/dL (31.0-37.0); MCV 98.6 fL (80.0-100.0); Mean Platelet Volume 8.6; Monocytes # (A) 0.3 k/uL (0-1.0); Monocytes % (A) 6 %; Neutrophils # (A) 4.6 k/uL (1.3-7.7); Neutrophils % (A) 85 %; RBC 2.58 m/uL (4.30-5.90); RDW 14.5 % (11.5-15.5); WBC 5.4 k/uL (3.8-10.6); WBC (Perox) 5.54
[2016-12-10] MEDS: NITROGLYCERIN OINT 1 INCH/GM PACKET TOPICAL SCH ×4 (04:46→18:34)
[2016-12-10 05:00] LABS: Calcium 7.2 mg/dL (8.4-10.2); Magnesium 1.8 mg/dL (1.6-2.3); Potassium 4.1 mmol/L (3.5-5.1)
[2016-12-10 06:06] LABS: Glucose,Whole Blood 119 mg/dL (75-99)
[2016-12-10] MEDS: ALBUTEROL NEBULIZED 2.5 MG/3 ML INHALATION SCH ×4 (08:21→19:05)
[2016-12-10 08:30] LABS: ABG Base Excess -0.2 mmol/L; ABG HCO3 23 mmol/L (21-25); ABG PCO2 31 mmHg (35-45); ABG PH 7.48 (7.35-7.45); ABG PO2 94 mmHg (83-108); ABG TCO2 24 mmol/L (19-24)
[2016-12-10] MEDS ORDERED: Magnesium Replacement Protocol 1 EACH MISC MISCELLANE PRN (08:31)
--- NOTE | 2016-12-10 08:45 | P.PN ---
Subjective Principal diagnosis: acute non-ST This is a 86-year-old -[place] male. 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 The patient underwent an insertion of a jejunostomy tube for nutritional support later today. We have been consulted for elevated troponin. He initially presented to the hospital on November 22 with dysphasia and weight loss. Subsequently underwent an endoscopy which showed the mass. The EKG done shows normal sinus mechanism with no T-wave abnormality. When compared with old EKG this appears consistent. The patient continues to be intubated and on ventilator. Hemodynamically he was requiring small dose of vasopressors but he is off vasopressor today. Objective - Vital Signs Vital signs: Vital Signs Temp 98.3 F 12/10/16 08:00 Pulse 83 12/10/16 08:32 Resp 15 12/10/16 08:00 BP 107/49 12/10/16 08:00 Pulse Ox 100 12/10/16 08:00 Intake & Output 12/09/16 12/10/16 12/10/16 18:59 06:59 18:59 Intake Total 8343.319 6642.509 Output Total 1412 240 Balance 108.075 896.509 Weight 77 kg 79.2 kg Intake: IV 1260.0 975 Lactated Ringers 1,000 ml 160 @ 80 mls/hr IV .[id number] [facility] Rx#:[id number] Magnesium Sulfate-D5w Pmx 200 1 gm In Dextrose/Water 1 100ml.bag @ 100 mls/hr IVPB Q1H [facility] Rx#: [id number] Piperacillin-Tazobactam 3 100.0 .375 gm In Dextrose/Water 1 50ml.bag @ 12.5 mls/hr IVPB Q8HR [facility] Rx#: [id number] Potassium Chloride 20 meq 100 In Water For Injection 1 100ml.bag @ 50 mls/hr IVPB ONCE [facility] Rx#: [id number] Sodium Chloride 0.9% 1, 700 975 000 ml @ 75 mls/hr IV . [id number] [facility] Rx#:[id number] Intake, IV Titration 260.075 53.509 Amount Lactated Ringers 1,000 ml 80 @ 80 mls/hr IV .[id number] [facility] Rx#:[id number] Norepinephrin 16 mg-0.9% 50.641 Ns Pmx 16 mg In 250 ml @ Titrate IV .Q0M [facility] Rx#: [id number] Propofol 1,000 mg In 100 129.434 53.509 ml @ Titrate IV .Q0M [facility] Rx#:[id number] Tube Feeding 108 Output: Urine 312 240 Other 1100 Other: Voiding Method Indwelling Catheter Indwelling Catheter # Voids 1 # Bowel Movements 0 0 ABP, PAP, CO, CI - Last Documented Arterial Blood Pressure 119/43 - Constitutional General appearance: Present: no acute distress - Respiratory Respiratory: bilateral: diminished - Cardiovascular Rhythm: regular Heart sounds: normal: S1, S2 - Labs CBC & Chem 7: 12/10/16 04:30 12/10/16 04:30 Labs: Abnormal Lab Results - Last 24 Hours (Table) 12/09/16 12/09/16 12/10/16 Range/Units 06:30 14:27 04:30 RBC 2.58 L (4.30-5.90) m/uL Hgb 7.9 L (13.0-17.5) gm/dL Hct 25.5 L (39.0-53.0) % Plt Count 102 L (150-450) k/uL Lymphocytes # 0.3 L (1.0-4.8) k/uL ABG pH 7.46 H (7.35-7.45) ABG pCO2 33 L (35-45) mmHg ABG pO2 82 L (83-108) mmHg ABG O2 Saturation (94-97) % Sodium (137-145) mmol/L BUN (9-20) mg/dL Creatinine (0.66-1.25) mg/dL Glucose (74-99) mg/dL POC Glucose (mg/dL) (75-99) mg/dL Calcium (8.4-10.2) mg/dL Lactate Dehydrogenase 302 L (313-618) U/L Total Protein 3.6 L (6.3-8.2) g/dL 12/10/16 12/10/16 12/10/16 Range/Units 04:30 06:02 08:06 RBC (4.30-5.90) m/uL Hgb (13.0-17.5) gm/dL Hct (39.0-53.0) % Plt Count (150-450) k/uL Lymphocytes # (1.0-4.8) k/uL ABG pH 7.48 H (7.35-7.45) ABG pCO2 31 L (35-45) mmHg ABG pO2 (83-108) mmHg ABG O2 Saturation 98.0 H (94-97) % Sodium 134 L (137-145) mmol/L BUN 29 H (9-20) mg/dL Creatinine 1.80 H (0.66-1.25) mg/dL Glucose 117 H (74-99) mg/dL POC Glucose (mg/dL) 119 H (75-99) mg/dL Calcium 7.2 L (8.4-10.2) mg/dL Lactate Dehydrogenase (313-618) U/L Total Protein (6.3-8.2) g/dL Microbiology - Last 24 Hours (Table) 12/08/16 20:11 Gram Stain - Final Sputum Sputum Culture - Preliminary 12/09/16 13:15 Gram Stain - Preliminary Pleural Fluid Body Fluid Culture - Preliminary Assessment and Plan Plan: The patient continues to be in normal sinus mechanism. Hemodynamically he is stable. Unfortunately he is not making urine. We will continue the conservative medical approach and I am going to add aspirin to the current medical treatment and follow-up with the patient.
--- NOTE | 2016-12-10 08:58 | XR ---
EXAMINATION TYPE: XR chest 1V DATE OF EXAM: 12/10/2016 COMPARISON: NONE HISTORY: Status post left thoracentesis, shortness of breath. TECHNIQUE: Single frontal view of the chest is obtained. FINDINGS: There is a moderate right layering pleural effusion and right basilar atelectasis. Endotra cheal tube and right PICC are unchanged. Hazy opacity overlies the left hemidiaphragm, likely relatin g to a trace tracheal relating pleural effusion. No evidence of pneumothorax although the patient's c hin obscures the lung apices. Cardia mediastinal silhouette is within normal limits. IMPRESSION: 1. Moderate right layering pleural effusion and associated right subsegmental atelectasis. 2. Reaccumulating trace left pleural effusion. No gross evidence of pneumothorax.
[2016-12-10] MEDS: ASPIRIN 325 MG TAB PO SCH (08:59)
[2016-12-10] MEDS: CHLORHEXIDINE GLUCONATE 15 ML CUP MUCOUS MEM SCH (08:59)
[2016-12-10] MEDS: MAGNESIUM SULFATE-D5W PMX 1 GM in DEXTROSE/WATER 1 100ML.BAG IVPB SCH ×2 (08:59→10:53)
[2016-12-10] MEDS: PANTOPRAZOLE 40 MG/10 ML VIAL IVP SCH (09:00)
[2016-12-10] MEDS: METOPROLOL TARTRATE 12.5 MG TAB PO SCH ×2 (09:00→19:41)
[2016-12-10] MEDS: SODIUM FERRIC GLUCONAT-SUCROSE 125 MG in SODIUM CHLORIDE 0.9% 100 ML IVPB SCH (09:21)
[2016-12-10] MEDS ORDERED: SODIUM CHLORIDE 0.9% 500 ML IV ONE (09:42)
[2016-12-10 10:20] LABS: ABG Base Excess -0.9 mmol/L; ABG HCO3 23 mmol/L (21-25); ABG PCO2 36 mmHg (35-45); ABG PH 7.42 (7.35-7.45); ABG PO2 88 mmHg (83-108); ABG TCO2 24 mmol/L (19-24)
--- NOTE | 2016-12-10 11:45 | P.PN ---
Subjective Principal diagnosis: Acute hypoxic respiratory failure, multifactorial. Requiring intubation and mechanical ventilation. This is an 86-year-old white male who was admitted back on 11/20/2016, patient presented initially with mostly symptoms of generalized weakness and weight loss. Since admission, the patient has been seen by many consultants, evaluation of progressive dysphagia to solids and liquids for the last 4 months plus approximately 40 pounds weight loss led to EGD with biopsy. This was done on 11/2016, and the patient was diagnosed as having squamous cell carcinoma of the esophagus. Esophageal stent was placed by Dr. 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 The esophageal stent was placed on 12/01/2016, since admission, patient continues to have poor oral intake, and was not meeting his caloric requirements. Hence it was felt that the patient will need a jejunostomy tube. On 12/08/2016 patient was taken to the or, and a gastro-jejunostomy tube was placed. Patient was extubated in the recovery room postoperatively, but he did not tolerate the extubation, became agitated, restless, and hypoxic. Patient was reintubated and transferred to the ICU. Hence I was asked to see him on consultation. I reviewed the chest x-ray and there is evidence of bilateral pleural effusions left more so than right. Before arrival to the ICU, patient was noted to be hypotensive, and I recommended fluid boluses I also recommended norepinephrine drip which was started yesterday. He is presently on 8 mics of norepinephrine, on mechanical ventilation, vent settings were all reviewed, patient is on assist control rate of 16 tidal volume of 500, FiO2 of 50% and PEEP of 5. ABG on those settings showed a pO2 of 83 pCO2 of 32 pH of 7.49. His urine output was marginal overnight, and apparently developed worsening renal profile with creatinine of 1.47 today, since the patient was given fluid boluses and seems to be developing bilateral pleural effusions, Lasix was given earlier today again. Ultrasound of the chest showed large bilateral pleural effusions, and I plan to perform a left-sided thoracentesis hoping that will expedite weaning and extubation from mechanical ventilation. During my evaluation, patient was on propofol, I recommended stopping propofol, and we'll address mental status and potentially give the patient at least a weaning trial. Patient was reevaluated today on 12/10/2016, seems to be a bit more arousable, generally weak, chest x-ray was reviewed were and there is complete resolution of the left pleural effusion but continues to have a small to moderate right- sided pleural effusion. Patient was on propofol earlier this morning, I placed a VAC on hold, and I kept monitoring the patient while I was rounding in the ICU , patient became a bit more awake, and he was given a one hour trial of pressure support of 8 and CPAP. This was tolerated, ABG was acceptable, hence I proceeded to extubating the patient, and I would likely plan to do a right- sided thoracentesis on the patient today. Urine output seems to be marginal, patient will be given fluid boluses, continue diuretics, and we'll continue to monitor his renal status closely. His creatinine is up to 1.80, hence I believe the patient sustained acute kidney injury from ATN/hypotension. Objective - Vital Signs Vital signs: Vital Signs Temp 98.3 F 12/10/16 08:00 Pulse 86 12/10/16 11:31 Resp 23 12/10/16 11:00 BP 114/49 12/10/16 11:00 Pulse Ox 100 12/10/16 11:21 Intake & Output 12/09/16 12/10/16 12/10/16 18:59 06:59 18:59 Intake Total 5846.636 0163.509 1264.601 Output Total 1412 240 100 Balance 108.075 386.442 6876.601 Weight 77 kg 79.2 kg 79.2 kg Intake: IV 1260.0 975 1150.0 0.9 500ml bolus 500 Lactated Ringers 1,000 ml 160 @ 80 mls/hr IV .[id number] [facility] Rx#:[id number] Magnesium Sulfate-D5w Pmx 200 200 1 gm In Dextrose/Water 1 100ml.bag @ 100 mls/hr IVPB Q1H [facility] Rx#: [id number] Piperacillin-Tazobactam 3 100.0 50.0 .375 gm In Dextrose/Water 1 50ml.bag @ 12.5 mls/hr IVPB Q8HR [facility] Rx#: [id number] Potassium Chloride 20 meq 100 In Water For Injection 1 100ml.bag @ 50 mls/hr IVPB ONCE [facility] Rx#: [id number] Sodium Chloride 0.9% 1, 700 975 300 000 ml @ 75 mls/hr IV . [id number] [facility] Rx#:[id number] Sodium Ferric Gluconat- 100 Sucrose 125 mg In Sodium Chloride 0.9% 100 ml @ 100 mls/hr IVPB DAILY [facility] Rx#:[id number] Intake, IV Titration 260.075 53.509 46.601 Amount Lactated Ringers 1,000 ml 80 @ 80 mls/hr IV .[id number] [facility] Rx#:[id number] Norepinephrin 16 mg-0.9% 50.641 Ns Pmx 16 mg In 250 ml @ Titrate IV .Q0M [facility] Rx#: [id number] Propofol 1,000 mg In 100 129.434 53.509 46.601 ml @ Titrate IV .Q0M [facility] Rx#:[id number] Tube Feeding 108 68 Output: Urine 312 240 100 Other 1100 Other: Voiding Method Indwelling Catheter Indwelling Catheter Indwelling Catheter # Voids 1 # Bowel Movements 0 0 0 ABP, PAP, CO, CI - Last Documented Arterial Blood Pressure 118/40 - Exam GENERAL: This is a 86-year-old male on mechanical ventilation, sedated, on propofol, endotracheal tube and nasogastric tube seemed to be intact. HEENT: Head is atraumatic, normocephalic. Pupils are equal, round. Sclerae anicteric. Conjunctivae are clear. Mucous membranes of the mouth are moist. Neck is supple. There is no jugular venous distention. No carotid bruit is heard. LUNGS: Diminished breath some bilaterally, no crackles or rhonchi or wheezes. HEART: Regular rate and rhythm without murmurs, rubs or gallops. S1 and S2 heard. ABDOMEN: Soft, nontender. Bowel sounds are diminished No organomegaly noted. Gastro Jejunostomy tube was noted. EXTREMITIES: 2+ peripheral pulses with no evidence of peripheral edema and no calf tenderness noted. NEUROLOGIC: Arousable, follows simple instructions, generally weak, but no focal neurologic deficit. - Labs CBC & Chem 7: 12/10/16 04:30 12/10/16 04:30 Labs: Abnormal Lab Results - Last 24 Hours (Table) 12/09/16 12/09/16 12/10/16 Range/Units 06:30 14:27 04:30 RBC 2.58 L (4.30-5.90) m/uL Hgb 7.9 L (13.0-17.5) gm/dL Hct 25.5 L (39.0-53.0) % Plt Count 102 L (150-450) k/uL Lymphocytes # 0.3 L (1.0-4.8) k/uL ABG pH 7.46 H (7.35-7.45) ABG pCO2 33 L (35-45) mmHg ABG pO2 82 L (83-108) mmHg ABG O2 Saturation (94-97) % Sodium (137-145) mmol/L BUN (9-20) mg/dL Creatinine (0.66-1.25) mg/dL Glucose (74-99) mg/dL POC Glucose (mg/dL) (75-99) mg/dL Calcium (8.4-10.2) mg/dL Lactate Dehydrogenase 302 L (313-618) U/L Total Protein 3.6 L (6.3-8.2) g/dL 12/10/16 12/10/16 12/10/16 Range/Units 04:30 06:02 08:06 RBC (4.30-5.90) m/uL Hgb (13.0-17.5) gm/dL Hct (39.0-53.0) % Plt Count (150-450) k/uL Lymphocytes # (1.0-4.8) k/uL ABG pH 7.48 H (7.35-7.45) ABG pCO2 31 L (35-45) mmHg ABG pO2 (83-108) mmHg ABG O2 Saturation 98.0 H (94-97) % Sodium 134 L (137-145) mmol/L BUN 29 H (9-20) mg/dL Creatinine 1.80 H (0.66-1.25) mg/dL Glucose 117 H (74-99) mg/dL POC Glucose (mg/dL) 119 H (75-99) mg/dL Calcium 7.2 L (8.4-10.2) mg/dL Lactate Dehydrogenase (313-618) U/L Total Protein (6.3-8.2) g/dL Microbiology - Last 24 Hours (Table) 12/09/16 13:15 Gram Stain - Preliminary Pleural Fluid Body Fluid Culture - Preliminary 12/08/16 20:11 Gram Stain - Final Sputum Sputum Culture - Preliminary Assessment and Plan Plan: Impression: 1 acute hypoxic respiratory failure, unexpected, post jejunostomy tube placement , multifactorial, mostly secondary to fluid overload and bilateral pleural effusions, suspect underlying COPD, and secondary to underlying medical debility , possible diastolic congestive heart failure. 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 3 possible non-ST elevation myocardial infarction with positive troponin since admission. 4 chronic medical debility and weight loss secondary to underlying esophageal cancer and poor oral intake. 5 history of severe COPD 6 chronic iron deficiency anemia 7 acute kidney injury secondary to acute tubular necrosis, secondary to hypotension 8 status post placement of a gastrojejunostomy tube on 12/08/2016. Recommendation: Continue present supportive care measures, will extubate patient today, and we will likely arrange for a right-sided thoracentesis at bedside. In the meantime continue present supportive care measures, bronchodilators, incentive spirometry, continue to monitor the renal profile closely, patient is being followed by nephrology. Prognosis remains guarded and poor considering his underlying illness, patient will remain in the ICU today, critical care time is 35 minutes excluding time for procedures. Time with Patient: Greater than 30
--- NOTE | 2016-12-10 11:58 | P.PN ---
Subjective Patient is seen in follow-up for acute kidney injury. Renal function is worse with creatinine at 1.8 today. Patient was noted to have an esophageal mass and had an esophageal wall stent placed on December 01. 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 Patient's been having intermittent vomiting and is not much tolerating oral intake. He went for a G-tube placement on December 09 but became combative and there was a question of syncopal episode as well. He was reintubated and transferred to the intensive care unit. He was extubated this morning. He was noted to be hypotensive and was requiring 8 mics of levofed., Which has been discontinued. His urine output has also diminished. He did receive 80 mg of IV Lasix yesterday with no significant response in urine output. He received a fluid bolus this morning in the urine output did worm picker somewhat the last 2 hours. He's also noted to have bilateral pleural effusions. He underwent left-sided thoracentesis yesterday with 1.1 L drained. Vital signs are stable. General: The patient appeared well nourished and normally developed. HEENT: Head exam is unremarkable. Neck is without jugular venous distension. LUNGS: Scattered rhonchi. Breath sounds decreased. HEART: Rate and Rhythm are regular. First and second heart sounds normal. No murmurs, rubs or gallops. ABDOMEN: Abdominal exam reveals normal bowel sounds. Non-tender and non- distended. No evidence of peritonitis. EXTREMITITES: No clubbing, cyanosis, or edema. Objective - Vital Signs Vital signs: Vital Signs Temp 98.3 F 12/10/16 08:00 Pulse 89 12/10/16 11:44 Resp 23 12/10/16 11:00 BP 114/49 12/10/16 11:00 Pulse Ox 100 12/10/16 11:21 Intake & Output 12/09/16 12/10/16 12/10/16 18:59 06:59 18:59 Intake Total 2946.207 7233.509 1264.601 Output Total 1412 240 100 Balance 108.075 466.715 3147.601 Weight 77 kg 79.2 kg 79.2 kg Intake: IV 1260.0 975 1150.0 0.9 500ml bolus 500 Lactated Ringers 1,000 ml 160 @ 80 mls/hr IV .[id number] [facility] Rx#:[id number] Magnesium Sulfate-D5w Pmx 200 200 1 gm In Dextrose/Water 1 100ml.bag @ 100 mls/hr IVPB Q1H [facility] Rx#: [id number] Piperacillin-Tazobactam 3 100.0 50.0 .375 gm In Dextrose/Water 1 50ml.bag @ 12.5 mls/hr IVPB Q8HR [facility] Rx#: [id number] Potassium Chloride 20 meq 100 In Water For Injection 1 100ml.bag @ 50 mls/hr IVPB [facility] Rx#: [id number] Sodium Chloride 0.9% 1, 700 975 300 000 ml @ 75 mls/hr IV . [id number] [facility] Rx#:[id number] Sodium Ferric Gluconat- 100 Sucrose 125 mg In Sodium Chloride 0.9% 100 ml @ 100 mls/hr IVPB DAILY [facility] Rx#:[id number] Intake, IV Titration 260.075 53.509 46.601 Amount Lactated Ringers 1,000 ml 80 @ 80 mls/hr IV .[id number] [facility] Rx#:[id number] Norepinephrin 16 mg-0.9% 50.641 Ns Pmx 16 mg In 250 ml @ Titrate IV .Q0M [facility] Rx#: [id number] Propofol 1,000 mg In 100 129.434 53.509 46.601 ml @ Titrate IV .Q0M [facility] Rx#:[id number] Tube Feeding 108 68 Output: Urine 312 240 100 Other 1100 Other: Voiding Method Indwelling Catheter Indwelling Catheter Indwelling Catheter # Voids 1 # Bowel Movements 0 0 0 ABP, PAP, CO, CI - Last Documented Arterial Blood Pressure 118/40 - Labs CBC & Chem 7: 12/10/16 04:30 12/10/16 04:30 Labs: Abnormal Lab Results - Last 24 Hours (Table) 12/09/16 12/09/16 12/10/16 Range/Units 06:30 14:27 04:30 RBC 2.58 L (4.30-5.90) m/uL Hgb 7.9 L (13.0-17.5) gm/dL Hct 25.5 L (39.0-53.0) % Plt Count 102 L (150-450) k/uL Lymphocytes # 0.3 L (1.0-4.8) k/uL ABG pH 7.46 H (7.35-7.45) ABG pCO2 33 L (35-45) mmHg ABG pO2 82 L (83-108) mmHg ABG O2 Saturation (94-97) % Sodium (137-145) mmol/L BUN (9-20) mg/dL Creatinine (0.66-1.25) mg/dL Glucose (74-99) mg/dL POC Glucose (mg/dL) (75-99) mg/dL Calcium (8.4-10.2) mg/dL Lactate Dehydrogenase 302 L (313-618) U/L Total Protein 3.6 L (6.3-8.2) g/dL 12/10/16 12/10/16 12/10/16 Range/Units 04:30 06:02 08:06 RBC (4.30-5.90) m/uL Hgb (13.0-17.5) gm/dL Hct (39.0-53.0) % Plt Count (150-450) k/uL Lymphocytes # (1.0-4.8) k/uL ABG pH 7.48 H (7.35-7.45) ABG pCO2 31 L (35-45) mmHg ABG pO2 (83-108) mmHg ABG O2 Saturation 98.0 H (94-97) % Sodium 134 L (137-145) mmol/L BUN 29 H (9-20) mg/dL Creatinine 1.80 H (0.66-1.25) mg/dL Glucose 117 H (74-99) mg/dL POC Glucose (mg/dL) 119 H (75-99) mg/dL Calcium 7.2 L (8.4-10.2) mg/dL Lactate Dehydrogenase (313-618) U/L Total Protein (6.3-8.2) g/dL Microbiology - Last 24 Hours (Table) 12/09/16 13:15 Gram Stain - Preliminary Pleural Fluid Body Fluid Culture - Preliminary 12/08/16 20:11 Gram Stain - Final Sputum Sputum Culture - Preliminary Assessment and Plan Plan: Assessment: #1. Acute kidney injury secondary to ischemic ATN secondary to hypotension. Creatinine elevated at 1.8 with diminished urine output. Unclear as to what his baseline renal function is. Urinalysis is noted to be benign. #2. Hyperkalemia. It appears that the specimen is slightly hemolyzed. Patient is not acidotic and blood sugars are not high. He's not on any meds that will predispose to hyperkalemia. Resolved. #3. 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 #4. Urinary retention status post [place] catheter placement. #5. Hyponatremia, now hypervolemic with pleural effusion noted. 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 Status post left-sided thoracentesis on December 09 to 1.1 L drained. #6. Anemia. Iron deficiency noted. Plan: Continue normal saline to be run at 75 mL an hour. Continue to monitor renal function and urine output. May repeat another bolus of 500 mL if urine output drops. Avoid nephrotoxic agents and hypotensive episodes. Possible right-sided thoracentesis today. Ferrlicit 125 mg IV daily for 3 days. Second dose today. Maintain tube feeds.
[2016-12-10 12:04] LABS: Glucose,Whole Blood 122 mg/dL (75-99)
--- NOTE | 2016-12-10 13:49 | XR ---
EXAMINATION TYPE: XR chest 1V portable DATE OF EXAM: 12/10/2016 COMPARISON: 12/09/2016 and priors. HISTORY: Right-sided pleural effusion. Status post pneumothorax. TECHNIQUE: Single frontal view of the chest is obtained. FINDINGS: There is redemonstration of a right-sided pleural effusion, moderate in degree with associ ated atelectasis. No evidence of pneumothorax is appreciated. Trace left pleural effusion blunts the left costophrenic angle. Right internal jugular central venous catheter is seen, kinked at the skin e ntry site terminating in the mid right atrium. An endotracheal tube has been removed in the interim. Cardiomediastinal silhouette is mildly enlarged but unchanged from the prior examinations. IMPRESSION: 1. No evidence of postprocedural pneumothorax. 2. Moderate right layering pleural effusion with associated atelectasis and trace left pleural effusi on.
[2016-12-10] MEDS: ENOXAPARIN 40 MG/0.4 ML SYRINGE SQ SCH (14:47)
--- NOTE | 2016-12-10 14:53 | CDI ---
In responding to this query, please exercise your independent professional judgment. The [facility] Coding Staff and Clinical Documentation Specialists appreciate your assistance in clarifying documentation, maintaining compliance with coding guidelines, accurately documenting patients condition and capturing severity of illness. The fact that a question is asked does not imply that any particular answer is desired or expected. Communication forms are a method of clarifying documentation and are not made part of the Legal Health Record. Thank you in advance for your clarification. Last Revision, June 2015 James Meehan [address] [facility] [place] [address] Documentation Clarification Form Date: 12/10/2016 2:40:00 PM From: Alysia Albrecht RN, CCDS Admit Date: 11/22/2016 8:33:00 PM Patient Name: Martin Hui Visit Number: [id number] Dr. Wendi Garcia/ Rena Barber CNP Hypotension is documented in the Nephrology consult and progress notes. History/Risk Factors: Newly diagnosed distal esophageal ca w esophageal stent, s/p GJ tube, Acute hypoxic respiratory failure, Possible AMI this admission, CARLOS with ATN Clinical Indicators: 12/08 1725 Patients B/P: 85/52, RR 16, Spo2 93% on 15L simple mask Labs: elevated BUN and Creatinine, Troponin 1.02/1.29, BNP 76957 Treatment: Levophed titrate for B/P 1L D10 IVF Bolus 1L LR IVF Bolus 500 CC 0.9%NS IVF Bolus followed by 75 cc/hr In your professional opinion, can you please specify the etiology of the hypotension if known? Iatrogenic Hypotension Idiopathic Hypotension Drug Induced Hypotension Postoperative Hypotension Septic Shock o Suspected or known causative organism o Any associated organ failure Cardiogenic Shock o Cause Hypovolemic Shock o Cause Other Condition, please specify Unable to determine Please document in your progress notes and discharge summary in order to capture severity of illness and risk of mortality. Include clinical findings that support your diagnosis. FYI: Press F11 to launch patient chart Place X here if this finding has no clinical significance, is not applicable or if you are not able to provide any additional documentation. MTDD
[2016-12-10 17:55] LABS: Glucose,Whole Blood 125 mg/dL (75-99)
[2016-12-10] MEDS ORDERED: FUROSEMIDE 10 MG/ML 10 ML VIAL IV STA (18:22)
--- NOTE | 2016-12-10 18:28 | PCN ---
OPERATIVE REPORT: Right sided thoracentesis. PREOPERATIVE DIAGNOSIS: Right pleural effusion. POSTOPERATIVE DIAGNOSIS: Right pleural effusion. ANESTHESIA USED: 2 mL of 1% Lidocaine. PROCEDURE: The patient was placed in a sitting upright position, the area below the right scapula was prepared in a sterile fashion and drapes were applied. The area of the fluid was earlier localized with ultrasound guidance and it correlated to the level of the 9th intercostal space and tip of the scapula. At any rate, the area was locally anesthetized, and a 26 gauge needle was inserted at that level and advanced into the pleural space. However, as we entered the pleural space, there was a mixture of air bubbles and a tiny amount of clear fluid removed. Considering the patient had air bubbles in the aspirating needle, no further attempts were made, and I felt that the fluid was not large enough to be drained. Chest x-ray showed no evidence of complications and no evidence of pneumothorax. No further attempts were made. PAT
--- NOTE | 2016-12-10 19:36 | P.PN ---
Subjective Progress note being dictated for Dr. Garcia. 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 12/09/2016 Gastrojejunostomy tube placed yesterday, reintubated postop related to hypoxic respiratory failure and transferred to ICU. Continues on mechanical ventilation, FiO2 50%/+5 PEEP. ABGs noted. Maintained on Levophed and diprovan. Mildly worsened renal function. Ultrasound reports Large Bilateral pleural effusions. Under going left-sided thoracentesis at bedside currently with pulmonary. 12/10/2016 remains vent dependent with FiO2 at 50%/+5 of PEEP. Recently on CPAP. Chest x-ray reporting moderate right pleural effusion, trace left pleural effusion. Scheduled for right thoracentesis today. Levophed has remained off since yesterday afternoon. Renal function worsening. Review of systems unable to obtain as patient on mechanical ventilation. Active Medications Generic Name Dose Route Start Last Admin Trade Name Freq PRN Reason Stop Dose Admin Albuterol Sulfate 2.5 mg 11/20/16 20:00 12/10/16 19:05 Ventolin Nebulized INHALATION 2.5 mg RT-QID [facility] Administration Albuterol Sulfate 2.5 mg 11/20/16 17:30 Ventolin Nebulized INHALATION RT-Q2H PRN Shortness Of Breath Or Wheezing Aspirin 325 mg 12/10/16 09:00 12/10/16 08:59 Aspirin PO Not Given DAILY [facility] Enoxaparin Sodium 40 mg 12/09/16 15:00 12/10/16 14:47 Lovenox SQ 40 mg DAILY [facility] Administration Phenylephrine HCl 40 mg/ 254 mls @ 0 mls/hr 12/08/16 18:15 12/08/16 23:03 Sodium Chloride IV 0 mls/hr .Q0M [facility] Titration Protocol Titrate Piperacillin/Tazobactam/ 50 mls @ 12.5 mls/hr 12/08/16 22:00 12/10/16 08:58 Dextrose 3.375 gm/ IV Solution IVPB 12.5 mls/hr Q8HR [facility] Administration Norepinephrine Bitartrate 16 mg in 250 mls @ 0 mls/hr 12/08/16 21:30 14:00 Levophed-0.9% Nacl 16 Mg/250ml Pmx IV 0 mcg/min .Q0M [facility] 0 mls/hr Protocol Titration Titrate Sodium Chloride 1,000 mls @ 75 mls/hr 12/09/16 10:00 12/10/16 14:48 Saline 0.9% IV 75 mls/hr .[id number] [facility] Administration Ferric Sodium Gluconate 125 mg 110 mls @ 100 mls/hr 12/10/16 09:00 12/10/16 09:21 / Sodium Chloride IVPB 12/13/16 09:01 100 mls/hr DAILY [facility] Administration Lidocaine HCl 0.1 ml 11/25/16 21:59 .Xylocaine 1% Inj (10mg/Ml) For Iv Start INTRADERMA PER PROTOCOL PRN IV Start Metoprolol Tartrate 12.5 mg 12/08/16 12:30 12/10/16 09:00 Lopressor PO Not Given BID [facility] Miscellaneous Information 1 each 11/23/16 09:48 Potassium Per Protocol MISCELLANE DAILY PRN Per Protocol Protocol Miscellaneous Information 1 each 12/10/16 08:31 Magnesium Per Protocol MISCELLANE DAILY PRN Per Protocol Protocol Naloxone HCl 0.2 mg 11/20/16 14:20 Narcan IV Q2M PRN Opioid Reversal Nitroglycerin 1 inch 12/08/16 12:30 12/10/16 18:34 Nitro-Bid Oint TOPICAL Not Given Q6HR [facility] Ondansetron HCl 4 mg 11/20/16 17:27 12/08/16 15:43 Zofran IVP 4 mg Q6HR PRN Administration Nausea And Vomiting Pantoprazole Sodium 40 mg 12/09/16 09:00 12/10/16 09:00 Protonix IVP 40 mg DAILY [facility] Administration Tamsulosin HCl 0.4 mg 11/25/16 21:00 12/09/16 20:46 Flomax PO Not Given HS [facility] Objective - Vital Signs Vital signs: Vital Signs Temp 98.1 F 12/10/16 16:00 Pulse 100 12/10/16 19:12 Resp 36 H 12/10/16 19:00 BP 112/46 12/10/16 15:00 Pulse Ox 93 L 12/10/16 19:00 Intake & Output 12/10/16 12/10/16 12/11/16 06:59 18:59 06:59 Intake Total 3066.097 2547.101 135.5 Output Total 240 315 10 Balance 733.171 7678.101 125.5 Weight 79.2 kg 79.2 kg Intake: IV 975 1712.5 87.5 0.9 500ml bolus 500 Magnesium Sulfate-D5w Pmx 200 1 gm In Dextrose/Water 1 100ml.bag @ 100 mls/hr IVPB Q1H [facility] Rx#: [id number] Piperacillin-Tazobactam 3 87.5 12.5 .375 gm In Dextrose/Water 1 50ml.bag @ 12.5 mls/hr IVPB Q8HR [facility] Rx#: [id number] Sodium Chloride 0.9% 1, 975 825 75 000 ml @ 75 mls/hr IV . [id number] [facility] Rx#:[id number] Sodium Ferric Gluconat- 100 Sucrose 125 mg In Sodium Chloride 0.9% 100 ml @ 100 mls/hr IVPB DAILY [facility] Rx#:[id number] Intake, IV Titration 53.509 46.601 Amount Propofol 1,000 mg In 100 53.509 46.601 ml @ Titrate IV .Q0M [facility] Rx#:[id number] Tube Feeding 108 348 48 Other 10 Output: Urine 240 315 10 Other: Voiding Method Indwelling Catheter Indwelling Catheter # Bowel Movements 0 0 ABP, PAP, CO, CI - Last Documented Arterial Blood Pressure 116/35 - Exam PHYSICAL EXAM: VITAL SIGNS: As above GENERAL: [Sitting up at side of bed, cachectic appearing, HEENT: [Pupils equal conjunctiva normal. Intubated.] NECK: [Supple, no JVD,] RESPIRATORY EFFORT:[increased] LUNGS: [Bilateral bases diminished, no rhonchi, no crackles, no wheezing] CARDIOVASCULAR[ regular S1 and S2, no murmurs rubs or gallops, no edema] GI: [Abdomen soft, nontender, hypoactive bowel sounds. J-tube present] PSYCH: Alert, nodding head appropriately to questions, follows simple commands, mood and affect normal.] NEURO: No focal deficits. - Labs CBC & Chem 7: 12/10/16 04:30 12/10/16 04:30 Labs: Abnormal Lab Results - Last 24 Hours (Table) 12/10/16 12/10/16 12/10/16 Range/Units 04:30 04:30 06:02 RBC 2.58 L (4.30-5.90) m/uL Hgb 7.9 L (13.0-17.5) gm/dL Hct 25.5 L (39.0-53.0) % Plt Count 102 L (150-450) k/uL Lymphocytes # 0.3 L (1.0-4.8) k/uL ABG pH (7.35-7.45) ABG pCO2 (35-45) mmHg ABG O2 Saturation (94-97) % Sodium 134 L (137-145) mmol/L BUN 29 H (9-20) mg/dL Creatinine 1.80 H (0.66-1.25) mg/dL Glucose 117 H (74-99) mg/dL POC Glucose (mg/dL) 119 H (75-99) mg/dL Calcium 7.2 L (8.4-10.2) mg/dL 12/10/16 12/10/16 12/10/16 Range/Units 08:06 12:01 17:53 RBC (4.30-5.90) m/uL Hgb (13.0-17.5) gm/dL Hct (39.0-53.0) % Plt Count (150-450) k/uL Lymphocytes # (1.0-4.8) k/uL ABG pH 7.48 H (7.35-7.45) ABG pCO2 31 L (35-45) mmHg ABG O2 Saturation 98.0 H (94-97) % Sodium (137-145) mmol/L BUN (9-20) mg/dL Creatinine (0.66-1.25) mg/dL Glucose (74-99) mg/dL POC Glucose (mg/dL) 122 H 125 H (75-99) mg/dL Calcium (8.4-10.2) mg/dL Microbiology - Last 24 Hours (Table) 12/09/16 13:15 Gram Stain - Preliminary Pleural Fluid Body Fluid Culture - Preliminary 12/08/16 20:11 Gram Stain - Final Sputum Sputum Culture - Preliminary Assessment and Plan Plan: 1. 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 Acute hypoxic respiratory failure, postop, mechanical ventilator-dependent. 3.Acute on chronic renal failure secondary to dehydration, prerenal factors and acute tubular necrosis. 4. [ Hypoglycemia secondary to decreased oral intake]. 5. Syncope, possibly vasovagal 6. Troponin 1.020 undetermined etiology 7. Status post gastrojejunostomy tube placement 8. Bilateral pleural effusions, status post left thoracentesis. Plan: Continue on current medication regime , monitoring and symptomatic treatment. Pending Right sided thoracentesis. Pulmonary discussing extubation for today. Further recommendations to follow. Prognosis guarded. The impression and plan of care has been dictated as directed. : I performed a H&P examination of this patient and discussed the same with the dictator. I agree with the dictator's note. Any additional findings/opinions/ etc. will be noted.
[2016-12-10 21:13] LABS: ABG Base Excess -2.7 mmol/L; ABG HCO3 21 mmol/L (21-25); ABG PCO2 32 mmHg (35-45); ABG PH 7.44 (7.35-7.45); ABG PO2 77 mmHg (83-108); ABG TCO2 22 mmol/L (19-24)
[2016-12-10] MEDS: SCOPOLAMINE 1.5MG/72HR PATCH TRANSDERM SCH (21:20)
[2016-12-10] MEDS: TAMSULOSIN 0.4 MG CAP.ER.24H PO SCH (21:21)
[2016-12-10] MEDS: METOPROLOL TARTRATE 5 MG/5 ML VIAL IVP SCH (21:21)
--- NOTE | 2016-12-10 23:05 | XR ---
INDICATION: Shortness of breath with copious secretions. COMPARISON: Frontal view of the chest performed earlier the same day. FINDINGS: Single frontal view of the chest was submitted. Moderate/severe right-sided pleural effusion is again noted with associated atelectasis, slight interval worsening since the prior study. Trace left pleural effusion is again seen, also slight interval worsening since prior study is suggested. No change in right-sided IJ central venous line. No change in the cardiomediastinal silhouette. Impression: Bilateral pleural effusions, moderate/severe on the right and trace on the left with associated atelectatic changes, interval worsening since the prior study.
[2016-12-11] MEDS: NITROGLYCERIN OINT 1 INCH/GM PACKET TOPICAL SCH ×4 (00:02→18:34)
[2016-12-11] MEDS: METOPROLOL TARTRATE 5 MG/5 ML VIAL IVP SCH ×4 (00:03→18:34)
[2016-12-11] MEDS: PIPERACILLIN-TAZOBACTAM 3.375 GM in DEXTROSE/WATER 1 50ML.BAG IVPB SCH ×3 (00:08→18:32)
[2016-12-11 00:39] LABS: Glucose,Whole Blood 138 mg/dL (75-99)
[2016-12-11 01:06] LABS: Magnesium 1.9 mg/dL (1.6-2.3); Potassium 3.8 mmol/L (3.5-5.1)
[2016-12-11] MEDS ORDERED: Magnesium Replacement Protocol 1 EACH MISC MISCELLANE PRN (01:25)
[2016-12-11] MEDS: MAGNESIUM SULFATE-D5W PMX 1 GM in DEXTROSE/WATER 1 100ML.BAG IVPB SCH ×2 (04:05→05:11)
[2016-12-11] MEDS: POTASSIUM CHLORIDE 10 MEQ in WATER FOR INJECTION 1 100ML.BAG IVPB SCH ×2 (04:05→05:11)
[2016-12-11] MEDS: SODIUM CHLORIDE 0.9% 1,000 ML IV SCH ×4 (04:08→18:33)
[2016-12-11 05:21] LABS: Glucose,Whole Blood 158 mg/dL (75-99)
[2016-12-11 06:27] LABS: Basophils % (A) 0 %; CH 30.7; CHCM 30.8; Eosinophils # (A) 0.1 k/uL (0-0.7); Eosinophils % (A) 1 %; HDW 2.58; HGB 7.7 gm/dL (13.0-17.5); Hypochromasia Slight; Luc % (Auto) 1; Lymphocytes # (A) 0.3 k/uL (1.0-4.8); Lymphocytes % (A) 3 %; Macrocytosis Slight; Mean Platelet Volume 8.9; Monocytes # (A) 0.4 k/uL (0-1.0); Monocytes % (A) 5 %; Neutrophils # (A) 7.5 k/uL (1.3-7.7); Neutrophils % (A) 89 %; RDW 14.5 % (11.5-15.5); WBC 8.4 k/uL (3.8-10.6); WBC (Perox) 8.08
[2016-12-11 06:47] LABS: Calcium 7.1 mg/dL (8.4-10.2); Magnesium 2.6 mg/dL (1.6-2.3); Phosphorous 2.6 mg/dL (2.5-4.5); Potassium 4.1 mmol/L (3.5-5.1)
--- NOTE | 2016-12-11 07:10 | XR ---
EXAMINATION TYPE: XR chest 1V DATE OF EXAM: 12/11/2016 COMPARISON: Yesterday HISTORY: Short of breath TECHNIQUE: Single frontal view of the chest is obtained. FINDINGS: There is blunting of costophrenic angles are more on the right side. There is mild pulmona ry vascular congestion. Heart is enlarged. There is right jugular catheter with the tip over the supe rior vena cava. Thoracic aorta is atheromatous. IMPRESSION: Mild congestive heart failure. Bilateral pleural effusions and larger on the right side. No change compared to yesterday.
--- NOTE | 2016-12-11 08:03 | P.PN ---
Subjective Principal diagnosis: This is an 86-year-old male seen in consultation because of acute kidney injury from possibly for fluid depletion because of decreased intake. He was found to have esophageal mass and has been biopsied and is deemed to have cancer. He also had fair amount of acidosis from acute kidney injury which is slowly resolving. After initially improving with creatinine coming down to 1.3 on 12/02/2016 creatinine started to go up.Patient had an esophageal wall stent placed on December 01. 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 Subsequently Patient's been having intermittent vomiting and is not much tolerating oral intake. He went for a G-tube placement on December 09 but became combative and there was a question of syncopal episode as well. He was reintubated and transferred to the intensive care unit. He was extubated as of yesterday 2016. He was noted to be hypotensive and was requiring 8 mics of levofed., Which has been discontinued. His urine output has also diminished. He's also noted to have bilateral pleural effusions. He underwent left-sided thoracentesis day before yesterday with 1.1 L drained. Objective - Vital Signs Vital signs: Vital Signs Temp 98.7 F 12/11/16 05:00 Pulse 94 12/11/16 07:00 Resp 17 12/11/16 07:00 BP 112/45 12/10/16 22:00 Pulse Ox 100 12/11/16 07:00 Intake & Output 12/10/16 12/11/16 12/11/16 18:59 06:59 18:59 Intake Total 2117.101 2061.5 Output Total 315 467 Balance 3791.110 2027.5 Weight 79.2 kg 81 kg Intake: IV 1712.5 1437.5 0.9 500ml bolus 500 Magnesium Sulfate-D5w Pmx 200 1 gm In Dextrose/Water 1 100ml.bag @ 100 mls/hr IVPB Q1H [facility] Rx#: [id number] Magnesium Sulfate-D5w Pmx 200 1 gm In Dextrose/Water 1 100ml.bag @ 100 mls/hr IVPB Q1H [facility] Rx#: [id number] Piperacillin-Tazobactam 3 87.5 62.5 .375 gm In Dextrose/Water 1 50ml.bag @ 12.5 mls/hr IVPB Q8HR [facility] Rx#: [id number] Potassium Chloride 10 meq 200 In Water For Injection 1 100ml.bag @ 100 mls/hr IVPB Q1H [facility] Rx#: [id number] Sodium Chloride 0.9% 1, 825 975 000 ml @ 75 mls/hr IV . [id number] [facility] Rx#:[id number] Sodium Ferric Gluconat- 100 Sucrose 125 mg In Sodium Chloride 0.9% 100 ml @ 100 mls/hr IVPB DAILY [facility] Rx#:[id number] Intake, IV Titration 46.601 Amount Propofol 1,000 mg In 100 46.601 ml @ Titrate IV .Q0M [facility] Rx#:[id number] Tube Feeding 348 624 Other 10 Output: Urine 315 467 Other: Voiding Method Indwelling Catheter Indwelling Catheter # Bowel Movements 0 ABP, PAP, CO, CI - Last Documented Arterial Blood Pressure 133/41 On examination is awake alert and seems to be oriented. He looks weak and tired. HEENT exam difficult to see any JVD because of central line. Neck is supple no facial asymmetry Lungs are significant for diminished breath sounds on the right more than the left No crackles are heard. This seems to be some dullness on the right. Heart sounds are unremarkable with normal sinus rhythm no murmur rub gallop Abdomen is slightly distended. Nontender Extremity exam reveals mild edema Neurologically awake alert seems to be oriented follows commands but generalized weakness. - Labs CBC & Chem 7: 12/11/16 06:20 12/11/16 06:20 Labs: Abnormal Lab Results - Last 24 Hours (Table) 12/10/16 12/10/16 12/10/16 Range/Units 08:06 12:01 17:53 RBC (4.30-5.90) m/uL Hgb (13.0-17.5) gm/dL Hct (39.0-53.0) % Plt Count (150-450) k/uL Lymphocytes # (1.0-4.8) k/uL ABG pH 7.48 H (7.35-7.45) ABG pCO2 31 L (35-45) mmHg ABG pO2 (83-108) mmHg ABG O2 Saturation 98.0 H (94-97) % Sodium (137-145) mmol/L BUN (9-20) mg/dL Creatinine (0.66-1.25) mg/dL Glucose (74-99) mg/dL POC Glucose (mg/dL) 122 H 125 H (75-99) mg/dL Calcium (8.4-10.2) mg/dL Magnesium (1.6-2.3) mg/dL 12/10/16 12/11/16 12/11/16 Range/Units 20:17 00:36 05:18 RBC (4.30-5.90) m/uL Hgb (13.0-17.5) gm/dL Hct (39.0-53.0) % Plt Count (150-450) k/uL Lymphocytes # (1.0-4.8) k/uL ABG pH (7.35-7.45) ABG pCO2 32 L (35-45) mmHg ABG pO2 77 L (83-108) mmHg ABG O2 Saturation (94-97) % Sodium (137-145) mmol/L BUN (9-20) mg/dL Creatinine (0.66-1.25) mg/dL Glucose (74-99) mg/dL POC Glucose (mg/dL) 138 H 158 H (75-99) mg/dL Calcium (8.4-10.2) mg/dL Magnesium (1.6-2.3) mg/dL 12/11/16 12/11/16 Range/Units 06:20 06:20 RBC 2.50 L (4.30-5.90) m/uL Hgb 7.7 L (13.0-17.5) gm/dL Hct 25.0 L (39.0-53.0) % Plt Count 131 L (150-450) k/uL Lymphocytes # 0.3 L (1.0-4.8) k/uL ABG pH (7.35-7.45) ABG pCO2 (35-45) mmHg ABG pO2 (83-108) mmHg ABG O2 Saturation (94-97) % Sodium 135 L (137-145) mmol/L BUN 36 H (9-20) mg/dL Creatinine 2.07 H (0.66-1.25) mg/dL Glucose 154 H (74-99) mg/dL POC Glucose (mg/dL) (75-99) mg/dL Calcium 7.1 L (8.4-10.2) mg/dL Magnesium 2.6 H (1.6-2.3) mg/dL Microbiology - Last 24 Hours (Table) 12/09/16 13:15 Gram Stain - Preliminary Pleural Fluid Body Fluid Culture - Preliminary 12/08/16 20:11 Gram Stain - Final Sputum Sputum Culture - Preliminary Assessment and Plan Plan: Impression. 1. Acute kidney injury secondary to volume depletion from decreased intake and the dysphagia from esophageal cancer, creatinine continues to worsen but urine output seems to have picked up therefore an element of acute tubular necrosis may starting to improve. Creatinine up to 2.07 with normal electrolytes 2. carcinoma of the esophagus with the stent and the feeding gastrostomy 3. Anemia of chronic illness with hemoglobin of 7.7, trending down 4. Iron deficiency on IV iron 4. Mild hypocalcemia with, likely secondary to hypoalbuminemia. 5. Minimal edema secondary to low albumin and 6. Bilateral effusions, minimal on the left and slightly more on the right. No CHF Recommendation. 1. Continue IV fluids at 75 mL normal saline. 2. Watch labs including BUN/creatinine electrolytes calcium albumin. 3. High-protein diet
[2016-12-11] MEDS: ALBUTEROL NEBULIZED 2.5 MG/3 ML INHALATION SCH ×4 (08:08→20:03)
[2016-12-11] MEDS: ENOXAPARIN 40 MG/0.4 ML SYRINGE SQ SCH (08:29)
[2016-12-11] MEDS: PANTOPRAZOLE 40 MG/10 ML VIAL IVP SCH (08:29)
[2016-12-11] MEDS: ASPIRIN 325 MG TAB PO SCH (08:29)
[2016-12-11] MEDS: SODIUM FERRIC GLUCONAT-SUCROSE 125 MG in SODIUM CHLORIDE 0.9% 100 ML IVPB SCH (09:07)
--- NOTE | 2016-12-11 10:37 | P.PN ---
Progress Note - Text The patient is being seen for Dr. Sanchez on rounds today. He placed the gastrojejunostomy feeding tube the. Patient is tolerating his tube feeds well. No significant residual. His abdomen is soft. No significant tenderness. Exit site of the feeding tube per looks clean. Recommendation. Continued medical management and tube feeding per protocol.
--- NOTE | 2016-12-11 12:17 | P.PN ---
Subjective Principal diagnosis: Acute hypoxic respiratory failure, multifactorial. Requiring intubation and mechanical ventilation. This is an 86-year-old white male who was admitted back on 11/20/2016, patient presented initially with mostly symptoms of generalized weakness and weight loss. Since admission, the patient has been seen by many consultants, evaluation of progressive dysphagia to solids and liquids for the last 4 months plus approximately 40 pounds weight loss led to EGD with biopsy. This was done on 11/2016, and the patient was diagnosed as having squamous cell carcinoma of the esophagus. Esophageal stent was placed by Dr. 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 The esophageal stent was placed on 12/01/2016, since admission, patient continues to have poor oral intake, and was not meeting his caloric requirements. Hence it was felt that the patient will need a jejunostomy tube. On 12/08/2016 patient was taken to the or, and a gastro-jejunostomy tube was placed. Patient was extubated in the recovery room postoperatively, but he did not tolerate the extubation, became agitated, restless, and hypoxic. Patient was reintubated and transferred to the ICU. Hence I was asked to see him on consultation. I reviewed the chest x-ray and there is evidence of bilateral pleural effusions left more so than right. Before arrival to the ICU, patient was noted to be hypotensive, and I recommended fluid boluses I also recommended norepinephrine drip which was started yesterday. He is presently on 8 mics of norepinephrine, on mechanical ventilation, vent settings were all reviewed, patient is on assist control rate of 16 tidal volume of 500, FiO2 of 50% and PEEP of 5. ABG on those settings showed a pO2 of 83 pCO2 of 32 pH of 7.49. His urine output was marginal overnight, and apparently developed worsening renal profile with creatinine of 1.47 today, since the patient was given fluid boluses and seems to be developing bilateral pleural effusions, Lasix was given earlier today again. Ultrasound of the chest showed large bilateral pleural effusions, and I plan to perform a left-sided thoracentesis hoping that will expedite weaning and extubation from mechanical ventilation. During my evaluation, patient was on propofol, I recommended stopping propofol, and we'll address mental status and potentially give the patient at least a weaning trial. Patient was reevaluated today on 12/10/2016, seems to be a bit more arousable, generally weak, chest x-ray was reviewed were and there is complete resolution of the left pleural effusion but continues to have a small to moderate right- sided pleural effusion. Patient was on propofol earlier this morning, I placed a VAC on hold, and I kept monitoring the patient while I was rounding in the ICU , patient became a bit more awake, and he was given a one hour trial of pressure support of 8 and CPAP. This was tolerated, ABG was acceptable, hence I proceeded to extubating the patient, and I would likely plan to do a right- sided thoracentesis on the patient today. Urine output seems to be marginal, patient will be given fluid boluses, continue diuretics, and we'll continue to monitor his renal status closely. His creatinine is up to 1.80, hence I believe the patient sustained acute kidney injury from ATN/hypotension. Patient was reevaluated today on 12/11/2016, continues to do relatively well, extubated yesterday, right-sided thoracentesis was done, however no fluid was obtained, and no further trials were done. Patient is more awake today, on nasal cannula, in no form of respiratory distress, seems to be appropriate, but seems to be generally weak. He has a weak cough, and he is doing poorly with incentive spirometry. Urine output seems to be a bit more improved, and renal profile is slightly worse with creatinine up to 2.07 today. Objective - Vital Signs Vital signs: Vital Signs Temp 97.9 F 12/11/16 08:00 Pulse 99 12/11/16 11:48 Resp 23 12/11/16 10:00 BP 112/45 12/10/16 22:00 Pulse Ox 98 12/11/16 10:00 Intake & Output 12/10/16 12/11/16 12/11/16 18:59 06:59 18:59 Intake Total 2117.101 2061.5 769.0 Output Total 315 467 175 Balance 0367.236 2239.5 594.0 Weight 79.2 kg 81 kg Intake: IV 1712.5 1437.5 325.0 0.9 500ml bolus 500 Magnesium Sulfate-D5w Pmx 200 1 gm In Dextrose/Water 1 100ml.bag @ 100 mls/hr IVPB Q1H [facility] Rx#: [id number] Magnesium Sulfate-D5w Pmx 200 1 gm In Dextrose/Water 1 100ml.bag @ 100 mls/hr IVPB Q1H [facility] Rx#: [id number] Piperacillin-Tazobactam 3 87.5 62.5 50.0 .375 gm In Dextrose/Water 1 50ml.bag @ 12.5 mls/hr IVPB Q8HR [facility] Rx#: [id number] Potassium Chloride 10 meq 200 In Water For Injection 1 100ml.bag @ 100 mls/hr IVPB Q1H [facility] Rx#: [id number] Sodium Chloride 0.9% 1, 825 975 275 000 ml @ 75 mls/hr IV . [id number] [facility] Rx#:[id number] Sodium Ferric Gluconat- 100 Sucrose 125 mg In Sodium Chloride 0.9% 100 ml @ 100 mls/hr IVPB DAILY [facility] Rx#:[id number] Intake, IV Titration 46.601 Amount Propofol 1,000 mg In 100 46.601 ml @ Titrate IV .Q0M [facility] Rx#:[id number] Tube Feeding 348 624 384 Other 10 60 Output: Urine 315 467 175 Other: Voiding Method Indwelling Catheter Indwelling Catheter Indwelling Catheter # Bowel Movements 0 ABP, PAP, CO, CI - Last Documented Arterial Blood Pressure 129/51 - Exam GENERAL: This is a 86-year-old male on nasal cannula, in no distress. HEENT: Head is atraumatic, normocephalic. Pupils are equal, round. Sclerae anicteric. Conjunctivae are clear. Mucous membranes of the mouth are moist. Neck is supple. There is no jugular venous distention. No carotid bruit is heard. LUNGS: Diminished breath some bilaterally, no crackles or rhonchi or wheezes. HEART: Regular rate and rhythm without murmurs, rubs or gallops. S1 and S2 heard. ABDOMEN: Soft, nontender. Bowel sounds are diminished No organomegaly noted. Gastro Jejunostomy tube was noted. EXTREMITIES: 1+ peripheral pulses with no evidence of peripheral edema and no calf tenderness noted. NEUROLOGIC: Arousable, follows simple instructions, generally weak, but no focal neurologic deficit. - Labs CBC & Chem 7: 12/11/16 06:20 12/11/16 06:20 Labs: Abnormal Lab Results - Last 24 Hours (Table) 12/10/16 12/10/16 12/11/16 Range/Units 17:53 20:17 00:36 RBC (4.30-5.90) m/uL Hgb (13.0-17.5) gm/dL Hct (39.0-53.0) % Plt Count (150-450) k/uL Lymphocytes # (1.0-4.8) k/uL ABG pCO2 32 L (35-45) mmHg ABG pO2 77 L (83-108) mmHg Sodium (137-145) mmol/L BUN (9-20) mg/dL Creatinine (0.66-1.25) mg/dL Glucose (74-99) mg/dL POC Glucose (mg/dL) 125 H 138 H (75-99) mg/dL Calcium (8.4-10.2) mg/dL Magnesium (1.6-2.3) mg/dL 12/11/16 12/11/16 12/11/16 Range/Units 05:18 06:20 06:20 RBC 2.50 L (4.30-5.90) m/uL Hgb 7.7 L (13.0-17.5) gm/dL Hct 25.0 L (39.0-53.0) % Plt Count 131 L (150-450) k/uL Lymphocytes # 0.3 L (1.0-4.8) k/uL ABG pCO2 (35-45) mmHg ABG pO2 (83-108) mmHg Sodium 135 L (137-145) mmol/L BUN 36 H (9-20) mg/dL Creatinine 2.07 H (0.66-1.25) mg/dL Glucose 154 H (74-99) mg/dL POC Glucose (mg/dL) 158 H (75-99) mg/dL Calcium 7.1 L (8.4-10.2) mg/dL Magnesium 2.6 H (1.6-2.3) mg/dL Microbiology - Last 24 Hours (Table) 12/08/16 20:11 Gram Stain - Final Sputum Sputum Culture - Final 12/09/16 13:15 Gram Stain - Preliminary Pleural Fluid Body Fluid Culture - Preliminary Assessment and Plan Plan: Impression: 1 acute hypoxic respiratory failure, unexpected, post jejunostomy tube placement , multifactorial, mostly secondary to fluid overload and bilateral pleural effusions, suspect underlying COPD, and secondary to underlying medical debility , possible diastolic congestive heart failure. 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 3 possible non-ST elevation myocardial infarction with positive troponin since admission. 4 chronic medical debility and weight loss secondary to underlying esophageal cancer and poor oral intake. 5 history of severe COPD 6 chronic iron deficiency anemia 7 acute kidney injury secondary to acute tubular necrosis, secondary to hypotension. Renal profile is slightly worse, but urine output seems to be adequate. Patient has a nonoliguric renal failure. 8 status post placement of a gastrojejunostomy tube on 12/08/2016. 9 status post left-sided thoracentesis, 1100 mL of transudative fluid was obtained, status post right-sided thoracentesis, no fluid was obtained. Recommendation: Continue present supportive care measures, patient was extubated on 12/10/2016, however the patient has a long way to go, continue incentive spirometry, updrafts, consider rehab facility early next week, continue tube feeding via J-tube. We'll continue to follow. Time with Patient: Less than 30
[2016-12-11 12:21] LABS: Glucose,Whole Blood 154 mg/dL (75-99)
--- NOTE | 2016-12-11 14:30 | P.PN ---
Subjective Progress note being dictated for Dr. Garcia. 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 12/09/2016 Gastrojejunostomy tube placed yesterday, reintubated postop related to hypoxic respiratory failure and transferred to ICU. Continues on mechanical ventilation, FiO2 50%/+5 PEEP. ABGs noted. Maintained on Levophed and diprovan. Mildly worsened renal function. Ultrasound reports Large Bilateral pleural effusions. Under going left-sided thoracentesis at bedside currently with pulmonary. 12/10/2016 remains vent dependent with FiO2 at 50%/+5 of PEEP. Recently on CPAP. Chest x-ray reporting moderate right pleural effusion, trace left pleural effusion. Scheduled for right thoracentesis today. Levophed has remained off since yesterday afternoon. Renal function worsening. 12/11/2016 extubated yesterday, maintaining O2 sats of 96-98% on 6 L nasal cannula. Underwent right-sided thoracentesis yesterday with no fluid drained. Tolerating tube feeds via gastrojejunostomy tube. Extremely weak. Renal function worsening. Hemoglobin decreased to 7.7. Review of systems: HEENT: Denies headache or focal deficits. Denies any dizziness or lightheadedness. Complains of generalized weakness. Respiratory: Denies any increased shortness of breath. Weak cough. Cardiac: Denies any chest pain, palpitations. GI: Denies any nausea, vomiting, or diarrhea. Denies any abdominal tenderness. : Denies any dysuria. Psychiatry: Denies any anxiety or depression. Active Medications Albuterol Sulfate (Ventolin Nebulized) 2.5 mg INHALATION RT-QID [facility] Last Admin: 12/11/16 11:37 Dose: 2.5 mg Albuterol Sulfate (Ventolin Nebulized) 2.5 mg INHALATION RT-Q2H PRN PRN Reason: Shortness Of Breath Or Wheezing Aspirin (Aspirin) 325 mg PO DAILY [facility] Last Admin: 12/11/16 08:29 Dose: Not Given Enoxaparin Sodium (Lovenox) 40 mg SQ DAILY [facility] Last Admin: 12/11/16 08:29 Dose: 40 mg Phenylephrine HCl 40 mg/ (Sodium Chloride) 254 mls @ 0 mls/hr IV .Q0M [facility]; Titrate PRN Reason: Protocol Last Titration: 12/08/16 23:03 Dose: 0 mls/hr Piperacillin/Tazobactam/ (Dextrose 3.375 gm/ IV Solution) 50 mls @ 12.5 mls/hr IVPB Q8HR [facility] Last Admin: 12/11/16 08:29 Dose: 12.5 mls/hr Norepinephrine Bitartrate (Levophed-0.9% Nacl 16 Mg/250ml Pmx) 16 mg in 250 mls @ 0 mls/hr IV .Q0M [facility]; Titrate PRN Reason: Protocol Last Titration: 12/09/16 14:00 Dose: 0 mcg/min, 0 mls/hr Sodium Chloride (Saline 0.9%) 1,000 mls @ 75 mls/hr IV .[id number] [facility] Last Admin: 12/11/16 04:08 Dose: 75 mls/hr Ferric Sodium Gluconate 125 mg (/ Sodium Chloride) 110 mls @ 100 mls/hr IVPB DAILY [facility] Stop: 12/13/16 09:01 Last Admin: 12/11/16 09:07 Dose: 100 mls/hr Insulin Human Lispro (Humalog) 0 unit SQ Q6HR [facility] PRN Reason: Protocol Lidocaine HCl (.Xylocaine 1% Inj (10mg/Ml) For Iv Start) 0.1 ml INTRADERMA PER PROTOCOL PRN PRN Reason: IV Start Metoprolol Tartrate (Lopressor) 2.5 mg IVP Q6HR [facility] Last Admin: 12/11/16 05:11 Dose: 2.5 mg Miscellaneous Information (Potassium Per Protocol) 1 each MISCELLANE DAILY PRN ; Protocol PRN Reason: Per Protocol Miscellaneous Information (Magnesium Per Protocol) 1 each MISCELLANE DAILY PRN ; Protocol PRN Reason: Per Protocol Miscellaneous Information (Magnesium Per Protocol) 1 each MISCELLANE DAILY PRN ; Protocol PRN Reason: Per Protocol Naloxone HCl (Narcan) 0.2 mg IV Q2M PRN PRN Reason: Opioid Reversal Nitroglycerin (Nitro-Bid Oint) 1 inch TOPICAL Q6HR [facility] Last Admin: 12/11/16 05:11 Dose: Not Given Ondansetron HCl (Zofran) 4 mg IVP Q6HR PRN PRN Reason: Nausea And Vomiting Last Admin: 12/08/16 15:43 Dose: 4 mg Pantoprazole Sodium (Protonix) 40 mg IVP DAILY [facility] Last Admin: 12/11/16 08:29 Dose: 40 mg Scopolamine (Transderm-Scop 1.5mg/72hr Patch) 1 patch TRANSDERM Q72H [facility] Last Admin: 12/10/16 21:20 Dose: 1 patch Tamsulosin HCl (Flomax) 0.4 mg PO HS [facility] Last Admin: 12/10/16 21:21 Dose: Not Given Objective - Vital Signs Vital signs: Vital Signs Temp 98.3 F 12/11/16 12:00 Pulse 94 12/11/16 13:00 Resp 17 12/11/16 13:00 BP 112/45 12/10/16 22:00 Pulse Ox 98 12/11/16 13:00 Intake & Output 12/10/16 12/11/16 12/11/16 18:59 06:59 18:59 Intake Total 2117.101 2061.5 769.0 Output Total 315 467 175 Balance 0648.236 3887.5 594.0 Weight 79.2 kg 81 kg Intake: IV 1712.5 1437.5 325.0 0.9 500ml bolus 500 Magnesium Sulfate-D5w Pmx 200 1 gm In Dextrose/Water 1 100ml.bag @ 100 mls/hr IVPB Q1H [facility] Rx#: [id number] Magnesium Sulfate-D5w Pmx 200 1 gm In Dextrose/Water 1 100ml.bag @ 100 mls/hr IVPB Q1H [facility] Rx#: [id number] Piperacillin-Tazobactam 3 87.5 62.5 50.0 .375 gm In Dextrose/Water 1 50ml.bag @ 12.5 mls/hr IVPB Q8HR [facility] Rx#: [id number] Potassium Chloride 10 meq 200 In Water For Injection 1 100ml.bag @ 100 mls/hr IVPB Q1H [facility] Rx#: [id number] Sodium Chloride 0.9% 1, 825 975 275 000 ml @ 75 mls/hr IV . [id number] [facility] Rx#:[id number] Sodium Ferric Gluconat- 100 Sucrose 125 mg In Sodium Chloride 0.9% 100 ml @ 100 mls/hr IVPB DAILY [facility] Rx#:[id number] Intake, IV Titration 46.601 Amount Propofol 1,000 mg In 100 46.601 ml @ Titrate IV .Q0M [facility] Rx#:[id number] Tube Feeding 348 624 384 Other 10 60 Output: Urine 315 467 175 Other: Voiding Method Indwelling Catheter Indwelling Catheter Indwelling Catheter # Bowel Movements 0 ABP, PAP, CO, CI - Last Documented Arterial Blood Pressure 132/53 - Exam PHYSICAL EXAM: VITAL SIGNS: As above GENERAL: [Sitting up at in bed, tired appearing HEENT: [Pupils equal conjunctiva normal. Oral mucosa moist NECK: [Supple, no JVD,] RESPIRATORY EFFORT:[ Mildly increased] LUNGS: [Bilateral bases diminished, no rhonchi, no crackles, no wheezing] CARDIOVASCULAR[ regular S1 and S2, no murmurs rubs or gallops, no edema] GI: [Abdomen soft, nontender, hypoactive bowel sounds. J-tube present] PSYCH: Alert, answering simple questions,, follows simple commands, mood and affect normal.] NEURO: No focal deficits. - Labs CBC & Chem 7: 12/11/16 06:20 12/11/16 06:20 Labs: Abnormal Lab Results - Last 24 Hours (Table) 12/10/16 12/10/16 12/11/16 Range/Units 17:53 20:17 00:36 RBC (4.30-5.90) m/uL Hgb (13.0-17.5) gm/dL Hct (39.0-53.0) % Plt Count (150-450) k/uL Lymphocytes # (1.0-4.8) k/uL ABG pCO2 32 L (35-45) mmHg ABG pO2 77 L (83-108) mmHg Sodium (137-145) mmol/L BUN (9-20) mg/dL Creatinine (0.66-1.25) mg/dL Glucose (74-99) mg/dL POC Glucose (mg/dL) 125 H 138 H (75-99) mg/dL Calcium (8.4-10.2) mg/dL Magnesium (1.6-2.3) mg/dL 12/11/16 12/11/16 12/11/16 Range/Units 05:18 06:20 06:20 RBC 2.50 L (4.30-5.90) m/uL Hgb 7.7 L (13.0-17.5) gm/dL Hct 25.0 L (39.0-53.0) % Plt Count 131 L (150-450) k/uL Lymphocytes # 0.3 L (1.0-4.8) k/uL ABG pCO2 (35-45) mmHg ABG pO2 (83-108) mmHg Sodium 135 L (137-145) mmol/L BUN 36 H (9-20) mg/dL Creatinine 2.07 H (0.66-1.25) mg/dL Glucose 154 H (74-99) mg/dL POC Glucose (mg/dL) 158 H (75-99) mg/dL Calcium 7.1 L (8.4-10.2) mg/dL Magnesium 2.6 H (1.6-2.3) mg/dL 12/11/16 Range/Units 12:19 RBC (4.30-5.90) m/uL Hgb (13.0-17.5) gm/dL Hct (39.0-53.0) % Plt Count (150-450) k/uL Lymphocytes # (1.0-4.8) k/uL ABG pCO2 (35-45) mmHg ABG pO2 (83-108) mmHg Sodium (137-145) mmol/L BUN (9-20) mg/dL Creatinine (0.66-1.25) mg/dL Glucose (74-99) mg/dL POC Glucose (mg/dL) 154 H (75-99) mg/dL Calcium (8.4-10.2) mg/dL Magnesium (1.6-2.3) mg/dL Microbiology - Last 24 Hours (Table) 12/09/16 13:15 Gram Stain - Preliminary Pleural Fluid Body Fluid Culture - Preliminary 12/08/16 20:11 Gram Stain - Final Sputum Sputum Culture - Final Assessment and Plan Plan: 1. 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 Acute hypoxic respiratory failure, postop, status post mechanical ventilator -dependent. 3.Acute on chronic renal failure secondary to dehydration, prerenal factors and acute tubular necrosis. 4. [ Hypoglycemia secondary to decreased oral intake]. 5. Syncope, possibly vasovagal 6. Troponin 1.020 undetermined etiology 7. Status post gastrojejunostomy tube placement 8. Bilateral pleural effusions, status post left thoracentesis, cultures pending. Status post right thoracentesis, no fluid drained. Plan: Continue on current medication regime ,iron, monitoring and symptomatic treatment. Maintain IV fluid hydration. Aggressive pulmonary toileting.extremely weak, will need subacute rehab at discharge .PT/OT. Pleural fluid cultures pending. Further recommendations to follow. Prognosis guarded. The impression and plan of care has been dictated as directed. : I performed a H&P examination of this patient and discussed the same with the dictator. I agree with the dictator's note. Any additional findings/opinions/ etc. will be noted.
[2016-12-11] MEDS: INSULIN LISPRO (humaLOG) 300 UNIT/3 ML VIAL SQ SCH ×3 (14:42→23:58)
[2016-12-11 18:32] LABS: Glucose,Whole Blood 144 mg/dL (75-99)
[2016-12-11] MEDS ORDERED: FUROSEMIDE 10 MG/ML 10 ML VIAL IV STA (20:14)
[2016-12-11] MEDS: TAMSULOSIN 0.4 MG CAP.ER.24H PO SCH (20:25)
[2016-12-11 23:53] LABS: Glucose,Whole Blood 135 mg/dL (75-99)
[2016-12-12] MEDS: PIPERACILLIN-TAZOBACTAM 3.375 GM in DEXTROSE/WATER 1 50ML.BAG IVPB SCH ×4 (00:28→23:55)
[2016-12-12] MEDS: METOPROLOL TARTRATE 5 MG/5 ML VIAL IVP SCH ×4 (00:30→18:00)
[2016-12-12] MEDS: NITROGLYCERIN OINT 1 INCH/GM PACKET TOPICAL SCH ×5 (00:30→23:55)
[2016-12-12 04:50] LABS: Basophils % (A) 0 %; CH 30.5; CHCM 30.5; Eosinophils % (A) 1 %; HCT 24.5 % (39.0-53.0); HDW 2.58; HGB 7.4 gm/dL (13.0-17.5); Hypochromasia Moderate; Luc # (Auto) 0.13; Luc % (Auto) 2; Lymphocytes # (A) 0.4 k/uL (1.0-4.8); Lymphocytes % (A) 5 %; MCH 30.3 pg (25.0-35.0); MCHC 30.1 g/dL (31.0-37.0); MCV 100.7 fL (80.0-100.0); Macrocytosis Slight; Mean Platelet Volume 10.4; Monocytes # (A) 0.4 k/uL (0-1.0); Monocytes % (A) 6 %; Neutrophils # (A) 5.7 k/uL (1.3-7.7); Neutrophils % (A) 86 %; RBC 2.43 m/uL (4.30-5.90); RDW 14.9 % (11.5-15.5); WBC 6.6 k/uL (3.8-10.6); WBC (Perox) 6.59
[2016-12-12 05:02] LABS: Magnesium 2.2 mg/dL (1.6-2.3); Phosphorous 2.5 mg/dL (2.5-4.5); Potassium 3.8 mmol/L (3.5-5.1)
[2016-12-12] MEDS ORDERED: POTASSIUM CHLORIDE ORAL LIQUID 40 MEQ/30 ML CUP NG-TUBE SCH (06:00)
[2016-12-12] MEDS: SODIUM CHLORIDE 0.9% 1,000 ML IV SCH ×2 (06:07→13:34)
[2016-12-12 06:15] LABS: Glucose,Whole Blood 112 mg/dL (75-99)
[2016-12-12] MEDS: INSULIN LISPRO (humaLOG) 300 UNIT/3 ML VIAL SQ SCH ×3 (06:15→17:59)
[2016-12-12] MEDS: ALBUTEROL NEBULIZED 2.5 MG/3 ML INHALATION SCH ×4 (07:38→19:04)
--- NOTE | 2016-12-12 08:01 | XR ---
EXAMINATION TYPE: XR chest 1V DATE OF EXAM: 12/12/2016 COMPARISON: 12/11/2016 INDICATION: Productive cough TECHNIQUE: Single frontal view of the chest is obtained. FINDINGS: The heart size is normal. The pulmonary vasculature is normal. Right basilar infiltrate and/or pleural effusion is present. Catheter enters on the right with the ti p in the proximal right atrium, stable. EKG overlie the chest A small left pleural effusion is likely partially visualized. The left diaphragm is incompletely eval uated. IMPRESSION: 1. Right basilar infiltrate and small right and minimal left pleural effusion.
--- NOTE | 2016-12-12 08:04 | P.PN ---
Subjective Principal diagnosis: This is an 86-year-old male seen in consultation because of acute kidney injury from fluid depletion because of decreased intake. He was found to have esophageal mass and has been biopsied and is deemed to have cancer. He also had fair amount of acidosis from acute kidney injury which is slowly resolving. After initially improving with creatinine coming down to 1.3 on 12/02/2016 creatinine started to go up.Patient had an esophageal wall stent placed on December 01. 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 Subsequently Patient's been having intermittent vomiting and is not much tolerating oral intake. He went for a G-tube placement on December 09 but became combative and there was a question of syncopal episode as well. He was reintubated and transferred to the intensive care unit. He was extubated as of 12/10/2016. He was noted to be hypotensive and was requiring 8 mics of levofed., Which has been discontinued. His urine output has also diminished. He's also noted to have bilateral pleural effusions. He underwent left-sided thoracentesis with 1.1 L drained. Today on exam he is weak and tired, is on oxygen. Yesterday his IV fluids were increased 125 mL an hour and subsequently Lasix was given. He has stable vital signs. His not on any inotropes. He does have bouts of cough. Denies any abdominal pain, he has a feeding gastrostomy and is being given supplements through it. No fever chills. His urine output remains low and his creatinine is slowly creeping up again. This suggests ATN and might take a few days to recover., Objective - Vital Signs Vital signs: Vital Signs Temp 97.8 F 12/12/16 04:00 Pulse 83 12/12/16 07:52 Resp 12/12/16 07:00 BP 105/48 12/12/16 07:00 Pulse Ox 94 L 12/12/16 07:40 Intake & Output 12/11/16 12/12/16 12/12/16 18:59 06:59 18:59 Intake Total 1665.5 2301.5 173 Output Total 307 525 25 Balance 1358.5 1776.5 148 Weight 81.1 kg Intake: IV 837.5 1587.5 125 Piperacillin-Tazobactam 3 62.5 87.5 .375 gm In Dextrose/Water 1 50ml.bag @ 12.5 mls/hr IVPB Q8HR [facility] Rx#: [id number] Sodium Chloride 0.9% 1, 775 1500 125 000 ml @ 125 mls/hr IV . Q8H [facility] Rx#:[id number] Tube Feeding 768 624 48 Other 60 90 Output: Urine 307 525 25 Other: Voiding Method Indwelling Catheter Indwelling Catheter # Bowel Movements 1 ABP, PAP, CO, CI - Last Documented Arterial Blood Pressure 125/44 On examination he is weak tired, awake alert. He is in normal sinus rhythm and currently is on a nonrebreather mask. No JVP is noted he has a jugular line there. Neck is supple no facial asymmetry Lungs are clear to auscultation fair air entry. A chest x-ray shows perhaps worsening off moderate right pleural effusion. Heart sounds unremarkable for any murmur rub gallop Abdomen is somewhat distended and nontender. Extremity exam was 2+ edema Neurologically awake oriented but weak and tired and sleepy. He is able to move all his extremities - Labs CBC & Chem 7: 12/12/16 04:40 12/12/16 04:40 Labs: Abnormal Lab Results - Last 24 Hours (Table) 12/11/16 12/11/16 12/11/16 Range/Units 12:19 18:30 23:52 RBC (4.30-5.90) m/uL Hgb (13.0-17.5) gm/dL Hct (39.0-53.0) % MCV (80.0-100.0) fL MCHC (31.0-37.0) g/dL Plt Count (150-450) k/uL Lymphocytes # (1.0-4.8) k/uL Chloride (98-107) mmol/L BUN (9-20) mg/dL Creatinine (0.66-1.25) mg/dL POC Glucose (mg/dL) 154 H 144 H 135 H (75-99) mg/dL Calcium (8.4-10.2) mg/dL 12/12/16 12/12/16 12/12/16 Range/Units 04:40 04:40 06:14 RBC 2.43 L (4.30-5.90) m/uL Hgb 7.4 L (13.0-17.5) gm/dL Hct 24.5 L (39.0-53.0) % MCV 100.7 H (80.0-100.0) fL MCHC 30.1 L (31.0-37.0) g/dL Plt Count 117 L (150-450) k/uL Lymphocytes # 0.4 L (1.0-4.8) k/uL Chloride 109 H (98-107) mmol/L BUN 43 H (9-20) mg/dL Creatinine 2.17 H (0.66-1.25) mg/dL POC Glucose (mg/dL) 112 H (75-99) mg/dL Calcium 7.0 L (8.4-10.2) mg/dL Microbiology - Last 24 Hours (Table) 12/09/16 13:15 Gram Stain - Preliminary Pleural Fluid Body Fluid Culture - Preliminary 12/08/16 20:11 Gram Stain - Final Sputum Sputum Culture - Final Assessment and Plan Plan: Impression. 1. Acute kidney injury secondary to volume depletion from decreased intake and the dysphagia from esophageal cancer, creatinine continues to worsen but urine output seems to have picked up therefore an element of acute tubular necrosis, although the creatinine continues to slowly worsen. Therefore no signs of recovery at. At this time because of edema suggest reducing IV fluids and avoid using Lasix, less for congestive heart failure.. 2. carcinoma of the esophagus with the stent and the feeding gastrostomy 3. Anemia of chronic illness with hemoglobin of 7.7 >7.4, trending down 4. Iron deficiency s/p IV iron 4. Mild hypocalcemia with, likely secondary to hypoalbuminemia. 5. Minimal edema secondary to low albumin and 6. Bilateral effusions, minimal on the left and moderate and more on the right. No CHF Recommendation. 1. Suggest reduce IV fluids to keep vein open as he is getting more and more edema and because of ATN he may will take some time to recover. He is also on tube feeding therefore is intravascularly volume repleted. 2. Watch labs including BUN/creatinine electrolytes calcium albumin. 3. High-protein diet. 4. Obtain urinalysis to rule out acute interstitial nephritis. 5 If creatinine continues to go up we will consider doing an ultrasound
[2016-12-12] MEDS: SODIUM FERRIC GLUCONAT-SUCROSE 125 MG in SODIUM CHLORIDE 0.9% 100 ML IVPB SCH ×2 (09:52→09:54)
[2016-12-12] MEDS: PANTOPRAZOLE 40 MG/10 ML VIAL IVP SCH (09:54)
[2016-12-12] MEDS: ASPIRIN 325 MG TAB PO SCH (09:54)
[2016-12-12] MEDS: ENOXAPARIN 40 MG/0.4 ML SYRINGE SQ SCH (09:54)
--- NOTE | 2016-12-12 11:07 | P.PN ---
Subjective Principal diagnosis: Acute hypoxic respiratory failure, multifactorial. Requiring intubation and mechanical ventilation. This is an 86-year-old white male who was admitted back on 11/20/2016, patient presented initially with mostly symptoms of generalized weakness and weight loss. Since admission, the patient has been seen by many consultants, evaluation of progressive dysphagia to solids and liquids for the last 4 months plus approximately 40 pounds weight loss led to EGD with biopsy. This was done on 11/2016, and the patient was diagnosed as having squamous cell carcinoma of the esophagus. Esophageal stent was placed by Dr. 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 The esophageal stent was placed on 12/01/2016, since admission, patient continues to have poor oral intake, and was not meeting his caloric requirements. Hence it was felt that the patient will need a jejunostomy tube. On 12/08/2016 patient was taken to the or, and a gastro-jejunostomy tube was placed. Patient was extubated in the recovery room postoperatively, but he did not tolerate the extubation, became agitated, restless, and hypoxic. Patient was reintubated and transferred to the ICU. Hence I was asked to see him on consultation. I reviewed the chest x-ray and there is evidence of bilateral pleural effusions left more so than right. Before arrival to the ICU, patient was noted to be hypotensive, and I recommended fluid boluses I also recommended norepinephrine drip which was started yesterday. He is presently on 8 mics of norepinephrine, on mechanical ventilation, vent settings were all reviewed, patient is on assist control rate of 16 tidal volume of 500, FiO2 of 50% and PEEP of 5. ABG on those settings showed a pO2 of 83 pCO2 of 32 pH of 7.49. His urine output was marginal overnight, and apparently developed worsening renal profile with creatinine of 1.47 today, since the patient was given fluid boluses and seems to be developing bilateral pleural effusions, Lasix was given earlier today again. Ultrasound of the chest showed large bilateral pleural effusions, and I plan to perform a left-sided thoracentesis hoping that will expedite weaning and extubation from mechanical ventilation. During my evaluation, patient was on propofol, I recommended stopping propofol, and we'll address mental status and potentially give the patient at least a weaning trial. Patient was reevaluated today on 12/10/2016, seems to be a bit more arousable, generally weak, chest x-ray was reviewed were and there is complete resolution of the left pleural effusion but continues to have a small to moderate right- sided pleural effusion. Patient was on propofol earlier this morning, I placed a VAC on hold, and I kept monitoring the patient while I was rounding in the ICU , patient became a bit more awake, and he was given a one hour trial of pressure support of 8 and CPAP. This was tolerated, ABG was acceptable, hence I proceeded to extubating the patient, and I would likely plan to do a right- sided thoracentesis on the patient today. Urine output seems to be marginal, patient will be given fluid boluses, continue diuretics, and we'll continue to monitor his renal status closely. His creatinine is up to 1.80, hence I believe the patient sustained acute kidney injury from ATN/hypotension. Patient was reevaluated today on 12/11/2016, continues to do relatively well, extubated yesterday, right-sided thoracentesis was done, however no fluid was obtained, and no further trials were done. Patient is more awake today, on nasal cannula, in no form of respiratory distress, seems to be appropriate, but seems to be generally weak. He has a weak cough, and he is doing poorly with incentive spirometry. Urine output seems to be a bit more improved, and renal profile is slightly worse with creatinine up to 2.07 today. Patient was reevaluated today on 12/12/2016, had an episode of coughing last night were in he desaturated, and he was placed on a nonrebreather mask overnight. However I was able to discontinue his nonrebreather and placed on nasal cannula at 6 L, O2 saturations remained in the high 90s. Chest x-ray is basically about the same, however I believe the patient is developing slight increase in his bilateral pleural effusions compared to the chest x-ray yesterday. He was given Lasix last night at 80 mg IV push, minimal response to diuresis. His IV fluid was cut down to a KVO and nephrology is following his renal issues. Creatinine is up to 2.17 today. Rest of the labs were noted to be unremarkable, hemoglobin is 7.4. Clinically and overall the patient is about the same as yesterday. No major changes, does not seem to be in any distress. Objective - Vital Signs Vital signs: Vital Signs Temp 97.9 F 12/12/16 08:00 Pulse 90 12/12/16 10:00 Resp 32 H 12/12/16 10:00 BP 111/49 12/12/16 10:00 Pulse Ox 95 12/12/16 10:00 Intake & Output 12/11/16 12/12/16 12/12/16 18:59 06:59 18:59 Intake Total 1665.5 2301.5 571 Output Total 307 525 155 Balance 1358.5 1776.5 416 Weight 81.1 kg Intake: IV 837.5 1587.5 205 Piperacillin-Tazobactam 3 62.5 87.5 .375 gm In Dextrose/Water 1 50ml.bag @ 12.5 mls/hr IVPB Q8HR [facility] Rx#: [id number] Sodium Chloride 0.9% 1, 775 1500 205 000 ml @ 20 mls/hr IV . Q24H [facility] Rx#:[id number] Tube Feeding 768 624 336 Other 60 90 30 Output: Urine 307 525 155 Other: Voiding Method Indwelling Catheter Indwelling Catheter # Bowel Movements 1 ABP, PAP, CO, CI - Last Documented Arterial Blood Pressure 125/44 - Exam GENERAL: This is a 86-year-old male on nasal cannula, in no distress. HEENT: Head is atraumatic, normocephalic. Pupils are equal, round. Sclerae anicteric. Conjunctivae are clear. Mucous membranes of the mouth are moist. Neck is supple. There is no jugular venous distention. No carotid bruit is heard. LUNGS: Diminished breath some bilaterally, no crackles or rhonchi or wheezes. HEART: Regular rate and rhythm without murmurs, rubs or gallops. S1 and S2 heard. ABDOMEN: Soft, nontender. Bowel sounds are diminished No organomegaly noted. Gastro Jejunostomy tube was noted. EXTREMITIES: 1+ peripheral pulses with no evidence of peripheral edema and no calf tenderness noted. NEUROLOGIC: Arousable, follows simple instructions, generally weak, but no focal neurologic deficit. - Labs CBC & Chem 7: 12/12/16 04:40 12/12/16 04:40 Labs: Abnormal Lab Results - Last 24 Hours (Table) 12/11/16 12/11/16 12/11/16 Range/Units 12:19 18:30 23:52 RBC (4.30-5.90) m/uL Hgb (13.0-17.5) gm/dL Hct (39.0-53.0) % MCV (80.0-100.0) fL MCHC (31.0-37.0) g/dL Plt Count (150-450) k/uL Lymphocytes # (1.0-4.8) k/uL Chloride (98-107) mmol/L BUN (9-20) mg/dL Creatinine (0.66-1.25) mg/dL POC Glucose (mg/dL) 154 H 144 H 135 H (75-99) mg/dL Calcium (8.4-10.2) mg/dL 12/12/16 12/12/16 12/12/16 Range/Units 04:40 04:40 06:14 RBC 2.43 L (4.30-5.90) m/uL Hgb 7.4 L (13.0-17.5) gm/dL Hct 24.5 L (39.0-53.0) % MCV 100.7 H (80.0-100.0) fL MCHC 30.1 L (31.0-37.0) g/dL Plt Count 117 L (150-450) k/uL Lymphocytes # 0.4 L (1.0-4.8) k/uL Chloride 109 H (98-107) mmol/L BUN 43 H (9-20) mg/dL Creatinine 2.17 H (0.66-1.25) mg/dL POC Glucose (mg/dL) 112 H (75-99) mg/dL Calcium 7.0 L (8.4-10.2) mg/dL Microbiology - Last 24 Hours (Table) 12/09/16 13:15 Gram Stain - Preliminary Pleural Fluid Body Fluid Culture - Preliminary 12/08/16 20:11 Gram Stain - Final Sputum Sputum Culture - Final Assessment and Plan Plan: Impression: 1 acute hypoxic respiratory failure, unexpected, post jejunostomy tube placement , multifactorial, mostly secondary to fluid overload and bilateral pleural effusions, suspect underlying COPD, and secondary to underlying medical debility , possible diastolic congestive heart failure. 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 3 possible non-ST elevation myocardial infarction with positive troponin since admission. 4 chronic medical debility and weight loss secondary to underlying esophageal cancer and poor oral intake. 5 history of severe COPD 6 chronic iron deficiency anemia 7 acute kidney injury secondary to acute tubular necrosis, secondary to hypotension. Renal profile is slightly worse, but urine output seems marginal 8 status post placement of a gastrojejunostomy tube on 12/08/2016. 9 status post left-sided thoracentesis, 1100 mL of transudative fluid was obtained, status post right-sided thoracentesis, no fluid was obtained. Repeat ultrasound may have to be done sometime next week, and decide whether another thoracentesis would be necessary. Recommendation: Continue present supportive care measures, patient was extubated on 12/10/2016, however the patient has a long way to go, continue incentive spirometry, updrafts, consider rehab facility early next week, continue tube feeding via J-tube. We'll continue to follow. CODE STATUS may have to be addressed with her legal guardian. Time with Patient: Less than 30
[2016-12-12 13:28] LABS: Glucose,Whole Blood 135 mg/dL (75-99)
--- NOTE | 2016-12-12 16:40 | P.PN ---
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 12/09/2016 Gastrojejunostomy tube placed yesterday, reintubated postop related to hypoxic respiratory failure and transferred to ICU. Continues on mechanical ventilation, FiO2 50%/+5 PEEP. ABGs noted. Maintained on Levophed and diprovan. Mildly worsened renal function. Ultrasound reports Large Bilateral pleural effusions. Under going left-sided thoracentesis at bedside currently with pulmonary. 12/10/2016 remains vent dependent with FiO2 at 50%/+5 of PEEP. Recently on CPAP. Chest x-ray reporting moderate right pleural effusion, trace left pleural effusion. Scheduled for right thoracentesis today. Levophed has remained off since yesterday afternoon. Renal function worsening. 12/11/2016 extubated yesterday, maintaining O2 sats of 96-98% on 6 L nasal cannula. Underwent right-sided thoracentesis yesterday with no fluid drained. Tolerating tube feeds via gastrojejunostomy tube. Extremely weak. Renal function worsening. Hemoglobin decreased to 7.7. 12/12/16 worsened, on 100% Fio2 at this time Review of systems: HEENT: Denies headache or focal deficits. Denies any dizziness or lightheadedness. Complains of generalized weakness. Respiratory: Denies any increased shortness of breath. Weak cough. Cardiac: Denies any chest pain, palpitations. GI: Denies any nausea, vomiting, or diarrhea. Denies any abdominal tenderness. : Denies any dysuria. Psychiatry: Denies any anxiety or depression. - Exam PHYSICAL EXAM: VITAL SIGNS: As above GENERAL: [Sitting up at in bed, tired appearing HEENT: [Pupils equal conjunctiva normal. Oral mucosa moist NECK: [Supple, no JVD,] RESPIRATORY EFFORT:[ Mildly increased] LUNGS: [Bilateral bases diminished, no rhonchi, no crackles, no wheezing] CARDIOVASCULAR[ regular S1 and S2, no murmurs rubs or gallops, no edema] GI: [Abdomen soft, nontender, hypoactive bowel sounds. J-tube present] PSYCH: Alert, answering simple questions,, follows simple commands, mood and affect normal.] NEURO: No focal deficits. Plan: 1. 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 Acute hypoxic respiratory failure, postop, status post mechanical ventilator -dependent. 3.Acute on chronic renal failure secondary to dehydration, prerenal factors and acute tubular necrosis. 4. [ Hypoglycemia secondary to decreased oral intake]. 5. Syncope, possibly vasovagal 6. Troponin 1.020 undetermined etiology 7. Status post gastrojejunostomy tube placement 8. Bilateral pleural effusions, status post left thoracentesis, cultures pending. Status post right thoracentesis, no fluid drained. 9. Metabolic encephalopathy Patient's prognosis extremely poor. We'll discuss end-of-life care Does not have any quality of life is currently on 100% oxygen has not made significant clinical improvement Objective - Vital Signs Vital signs: Vital Signs Temp 98.1 F 12/12/16 16:00 Pulse 90 12/12/16 16:07 Resp 25 H 12/12/16 16:00 BP 119/55 12/12/16 16:00 Pulse Ox 99 12/12/16 16:07 Intake & Output 12/11/16 12/12/16 12/12/16 18:59 06:59 18:59 Intake Total 1665.5 2301.5 1115 Output Total 307 525 295 Balance 1358.5 1776.5 820 Weight 81.1 kg Intake: IV 837.5 1587.5 305 Piperacillin-Tazobactam 3 62.5 87.5 .375 gm In Dextrose/Water 1 50ml.bag @ 12.5 mls/hr IVPB Q8HR [facility] Rx#: [id number] Sodium Chloride 0.9% 1, 775 1500 305 000 ml @ 20 mls/hr IV . Q24H [facility] Rx#:[id number] Tube Feeding 768 624 720 Other 60 90 90 Output: Urine 307 525 295 Other: Voiding Method Indwelling Catheter Indwelling Catheter Indwelling Catheter # Bowel Movements 1 ABP, PAP, CO, CI - Last Documented Arterial Blood Pressure 125/44 - Labs CBC & Chem 7: 12/12/16 04:40 12/12/16 04:40 Labs: Abnormal Lab Results - Last 24 Hours (Table) 12/11/16 12/11/16 12/12/16 Range/Units 18:30 23:52 04:40 RBC 2.43 L (4.30-5.90) m/uL Hgb 7.4 L (13.0-17.5) gm/dL Hct 24.5 L (39.0-53.0) % MCV 100.7 H (80.0-100.0) fL MCHC 30.1 L (31.0-37.0) g/dL Plt Count 117 L (150-450) k/uL Lymphocytes # 0.4 L (1.0-4.8) k/uL Chloride (98-107) mmol/L BUN (9-20) mg/dL Creatinine (0.66-1.25) mg/dL POC Glucose (mg/dL) 144 H 135 H (75-99) mg/dL Calcium (8.4-10.2) mg/dL 12/12/16 12/12/16 12/12/16 Range/Units 04:40 06:14 13:26 RBC (4.30-5.90) m/uL Hgb (13.0-17.5) gm/dL Hct (39.0-53.0) % MCV (80.0-100.0) fL MCHC (31.0-37.0) g/dL Plt Count (150-450) k/uL Lymphocytes # (1.0-4.8) k/uL Chloride 109 H (98-107) mmol/L BUN 43 H (9-20) mg/dL Creatinine 2.17 H (0.66-1.25) mg/dL POC Glucose (mg/dL) 112 H 135 H (75-99) mg/dL Calcium 7.0 L (8.4-10.2) mg/dL Microbiology - Last 24 Hours (Table) 12/09/16 13:15 Gram Stain - Preliminary Pleural Fluid Body Fluid Culture - Preliminary
[2016-12-12 18:00] LABS: Glucose,Whole Blood 135 mg/dL (75-99)
[2016-12-12] MEDS: TAMSULOSIN 0.4 MG CAP.ER.24H PO SCH ×2 (20:50→21:04)
[2016-12-13 00:07] LABS: Glucose,Whole Blood 130 mg/dL (75-99)
[2016-12-13] MEDS: INSULIN LISPRO (humaLOG) 300 UNIT/3 ML VIAL SQ SCH ×4 (00:07→19:20)
[2016-12-13] MEDS: METOPROLOL TARTRATE 5 MG/5 ML VIAL IVP SCH ×4 (00:47→17:41)
[2016-12-13 04:44] LABS: Basophils % (A) 0 %; CH 30.6; Eosinophils # (A) 0.1 k/uL (0-0.7); Eosinophils % (A) 1 %; HCT 23.6 % (39.0-53.0); Hypochromasia Marked; Luc # (Auto) 0.15; Luc % (Auto) 2; Lymphocytes # (A) 0.3 k/uL (1.0-4.8); Lymphocytes % (A) 3 %; MCH 30.5 pg (25.0-35.0); MCHC 29.7 g/dL (31.0-37.0); MCV 102.5 fL (80.0-100.0); Macrocytosis Slight; Mean Platelet Volume 10.1; Monocytes # (A) 0.5 k/uL (0-1.0); Monocytes % (A) 5 %; Neutrophils # (A) 8.4 k/uL (1.3-7.7); Neutrophils % (A) 89 %; RDW 15.5 % (11.5-15.5); WBC 9.4 k/uL (3.8-10.6); WBC (Perox) 9.85
[2016-12-13 04:55] LABS: Calcium 7.6 mg/dL (8.4-10.2); Magnesium 2.1 mg/dL (1.6-2.3); Phosphorous 2.8 mg/dL (2.5-4.5); Potassium 4.2 mmol/L (3.5-5.1)
[2016-12-13 06:05] LABS: Glucose,Whole Blood 148 mg/dL (75-99)
[2016-12-13] MEDS: NITROGLYCERIN OINT 1 INCH/GM PACKET TOPICAL SCH ×3 (06:17→19:21)
[2016-12-13] MEDS: ALBUTEROL NEBULIZED 2.5 MG/3 ML INHALATION SCH ×4 (07:30→19:12)
[2016-12-13] MEDS: PIPERACILLIN-TAZOBACTAM 3.375 GM in DEXTROSE/WATER 1 50ML.BAG IVPB SCH ×2 (08:00→16:45)
--- NOTE | 2016-12-13 08:20 | XR ---
EXAMINATION TYPE: XR chest 1V DATE OF EXAM: 12/13/2016 COMPARISON: 12/12/2016 INDICATION: Productive cough TECHNIQUE: Single frontal view of the chest is obtained. FINDINGS: The heart size is normal. The pulmonary vasculature is normal. There is a infiltrate at the right base. A small right pleural effusion is likely present. Minimal le ft pleural effusion is present. Milder infiltrate is at the left base. A catheter enters on the right with the tip in the superior vena cava right atrial junction region. No pneumothorax is evident. The re is a fat line along the right chest. Lung markings extend beyond this line. IMPRESSION: 1. Bibasilar infiltrates pleural effusions, larger on the right and left. 2. Findings are stable from comparison.
--- NOTE | 2016-12-13 09:14 | P.PN ---
Subjective Progress note dated 12/13/2016 This is a patient who was admitted way back on November 22. He came with acute renal fire and dehydration. The patient had was intubated on December 08 and extubated on December 10. I believe that was when he had a J-tube inserted. The patient is apparently apparently is an EGD and it revealed evidence of esophageal carcinoma. He also had a J-tube placed for nutrition and also had a left thoracentesis performed. 1100 mL was removed. This was done by my partner. The patient currently is on BiPAP at 12 and 5 and 70%. Was previously on 100%. Probably community weaned down to nasal prongs. The patient apparently had it 1 unit of blood ordered for him Tosha 7. He seems pretty alert and oriented. I told I will send her to take him off the BiPAP keep him off. He seemed happy with that. The patient was seen by my partner yesterday. The patient seemed relatively stable then. I'm not sure how he ended up on BiPAP may be from the respiratory therapist standpoint. Anyway the patient seemed much more stable today. Objective - Vital Signs Vital signs: Vital Signs Temp 97.2 F L 12/13/16 08:34 Pulse 88 12/13/16 09:00 Resp 36 H 12/13/16 09:00 BP 124/54 12/13/16 09:00 Pulse Ox 92 L 12/13/16 09:00 Intake & Output 12/12/16 12/13/16 12/13/16 18:59 06:59 18:59 Intake Total 1367 364 186 Output Total 370 180 35 Balance 997 184 151 Weight 83.6 kg Intake: IV 365 220 60 Sodium Chloride 0.9% 1, 365 220 60 000 ml @ 20 mls/hr IV . Q24H [facility] Rx#:[id number] Tube Feeding 912 144 96 Blood Product 0 Rc As-3 Unit 0 [id number] Other 90 30 Output: Urine 370 180 35 Other: Voiding Method Indwelling Catheter Indwelling Catheter Indwelling Catheter ABP, PAP, CO, CI - Last Documented Arterial Blood Pressure 125/44 - Exam No acute distress, oriented 3. Currently on BiPAP. In room 616 bed one in the ICU. The BiPAP settings are 12 and 5 and 70%. HEENT examination is grossly unremarkable. Difficult to examine because of the BiPAP mask. Neck supple. Full range of motion. No adenopathy. Cardiovascular examination reveals regular rhythm rate. Heart rate about 80. S1-S2 normal. No murmur. No S3-S4. Lungs reveal mostly clear breath sounds. A few scattered rhonchi. No wheezes or crackles. Abdomen soft bowel sounds are heard. Extremities are intact. No cyanosis clubbing or edema. Skin without rash. Neurologic examination is difficult to perform but apparently nonfocal. - Labs CBC & Chem 7: 12/13/16 04:30 12/13/16 04:30 Labs: Abnormal Lab Results - Last 24 Hours (Table) 12/12/16 12/12/16 12/13/16 Range/Units 13:26 17:57 00:05 RBC (4.30-5.90) m/uL Hgb (13.0-17.5) gm/dL Hct (39.0-53.0) % MCV (80.0-100.0) fL MCHC (31.0-37.0) g/dL Plt Count (150-450) k/uL Neutrophils # (1.3-7.7) k/uL Lymphocytes # (1.0-4.8) k/uL Chloride (98-107) mmol/L BUN (9-20) mg/dL Creatinine (0.66-1.25) mg/dL Glucose (74-99) mg/dL POC Glucose (mg/dL) 135 H 135 H 130 H (75-99) mg/dL Calcium (8.4-10.2) mg/dL Crossmatch 12/13/16 12/13/16 12/13/16 Range/Units 04:30 04:30 05:40 RBC 2.30 L (4.30-5.90) m/uL Hgb 7.0 L* (13.0-17.5) gm/dL Hct 23.6 L (39.0-53.0) % MCV 102.5 H (80.0-100.0) fL MCHC 29.7 L (31.0-37.0) g/dL Plt Count 147 L (150-450) k/uL Neutrophils # 8.4 H (1.3-7.7) k/uL Lymphocytes # 0.3 L (1.0-4.8) k/uL Chloride 108 H (98-107) mmol/L BUN 59 H (9-20) mg/dL Creatinine 2.30 H (0.66-1.25) mg/dL Glucose 147 H (74-99) mg/dL POC Glucose (mg/dL) (75-99) mg/dL Calcium 7.6 L (8.4-10.2) mg/dL Crossmatch See Detail 12/13/16 Range/Units 06:04 RBC (4.30-5.90) m/uL Hgb (13.0-17.5) gm/dL Hct (39.0-53.0) % MCV (80.0-100.0) fL MCHC (31.0-37.0) g/dL Plt Count (150-450) k/uL Neutrophils # (1.3-7.7) k/uL Lymphocytes # (1.0-4.8) k/uL Chloride (98-107) mmol/L BUN (9-20) mg/dL Creatinine (0.66-1.25) mg/dL Glucose (74-99) mg/dL POC Glucose (mg/dL) 148 H (75-99) mg/dL Calcium (8.4-10.2) mg/dL Crossmatch Microbiology - Last 24 Hours (Table) 12/09/16 13:15 Gram Stain - Preliminary Pleural Fluid Body Fluid Culture - Preliminary Assessment and Plan (1) COPD (chronic obstructive pulmonary disease) Status: Acute (2) Iron deficiency anemia Status: Acute (3) Pleural effusion Status: Acute (4) History of thoracentesis Status: Acute (5) S/P thoracentesis Status: Acute (6) Acute renal failure Status: Acute (7) Dysphagia Status: Acute (8) Esophageal mass Status: Acute (9) Hypoglycemia Status: Acute (10) Protein-calorie malnutrition, moderate Status: Acute (11) Squamous cell carcinoma of esophagus Status: Acute Plan: Plan The patient's BiPAP will be removed in favor of nasal O2. We'll see whether or not he should get this unit of blood. His hemoglobin of 7. Typically we don't transfuse unless he Wilms below 7. If the blood but he can take back the blood we'll give her back to them. If not, we'll go ahead and just transfuse. Additional recommendations suggestions are forthcoming. Medications labs and x- rays are all reviewed. Prognosis is very guarded. We'll continue to follow closely. Time with Patient: Greater than 30
[2016-12-13] MEDS: ASPIRIN 325 MG TAB PO SCH (09:23)
[2016-12-13] MEDS: ENOXAPARIN 40 MG/0.4 ML SYRINGE SQ SCH (09:24)
[2016-12-13] MEDS: PANTOPRAZOLE 40 MG/10 ML VIAL IVP SCH (09:24)
[2016-12-13] MEDS: SODIUM FERRIC GLUCONAT-SUCROSE 125 MG in SODIUM CHLORIDE 0.9% 100 ML IVPB SCH (09:32)
--- NOTE | 2016-12-13 09:32 | P.PN ---
Subjective Patient is seen in follow-up for acute kidney injury. Renal function is worse with creatinine at 1.8 today. Patient was noted to have an esophageal mass and had an esophageal wall stent placed on December 01. 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 Patient's been having intermittent vomiting and is not much tolerating oral intake. He went for a G-tube placement on December 09 but became combative and there was a question of syncopal episode as well. He was reintubated and transferred to the intensive care unit. He is now extubated. He was noted to be hypotensive and was requiring 8 mics of levofed, which has been discontinued. His urine output has also diminished. Hemoglobin this morning was 7.0 and is currently receiving a blood transfusion. He is maintained on tube feeds. He also underwent bilateral thoracentesis with 1.1 L drained from the right side. Vital signs are stable. General: The patient appeared well nourished and normally developed. HEENT: Head exam is unremarkable. Neck is without jugular venous distension. LUNGS: Scattered rhonchi. Breath sounds decreased. HEART: Rate and Rhythm are regular. First and second heart sounds normal. No murmurs, rubs or gallops. ABDOMEN: Abdominal exam reveals normal bowel sounds. Non-tender and non- distended. No evidence of peritonitis. EXTREMITITES: 1+ edema. Objective - Vital Signs Vital signs: Vital Signs Temp 97.6 F 12/13/16 08:44 Pulse 88 12/13/16 09:00 Resp 36 H 12/13/16 09:00 BP 124/54 12/13/16 09:00 Pulse Ox 92 L 12/13/16 09:00 Intake & Output 12/12/16 12/13/16 12/13/16 18:59 06:59 18:59 Intake Total 1367 364 186 Output Total 370 180 35 Balance 997 184 151 Weight 83.6 kg Intake: IV 365 220 60 Sodium Chloride 0.9% 1, 365 220 60 000 ml @ 20 mls/hr IV . Q24H [facility] Rx#:[id number] Tube Feeding 912 144 96 Blood Product 0 Rc As-3 Unit 0 [id number] Other 90 30 Output: Urine 370 180 35 Other: Voiding Method Indwelling Catheter Indwelling Catheter Indwelling Catheter ABP, PAP, CO, CI - Last Documented Arterial Blood Pressure 125/44 - Labs CBC & Chem 7: 12/13/16 04:30 12/13/16 04:30 Labs: Abnormal Lab Results - Last 24 Hours (Table) 12/12/16 12/12/16 12/13/16 Range/Units 13:26 17:57 00:05 RBC (4.30-5.90) m/uL Hgb (13.0-17.5) gm/dL Hct (39.0-53.0) % MCV (80.0-100.0) fL MCHC (31.0-37.0) g/dL Plt Count (150-450) k/uL Neutrophils # (1.3-7.7) k/uL Lymphocytes # (1.0-4.8) k/uL Chloride (98-107) mmol/L BUN (9-20) mg/dL Creatinine (0.66-1.25) mg/dL Glucose (74-99) mg/dL POC Glucose (mg/dL) 135 H 135 H 130 H (75-99) mg/dL Calcium (8.4-10.2) mg/dL Crossmatch 12/13/16 12/13/16 12/13/16 Range/Units 04:30 04:30 05:40 RBC 2.30 L (4.30-5.90) m/uL Hgb 7.0 L* (13.0-17.5) gm/dL Hct 23.6 L (39.0-53.0) % MCV 102.5 H (80.0-100.0) fL MCHC 29.7 L (31.0-37.0) g/dL Plt Count 147 L (150-450) k/uL Neutrophils # 8.4 H (1.3-7.7) k/uL Lymphocytes # 0.3 L (1.0-4.8) k/uL Chloride 108 H (98-107) mmol/L BUN 59 H (9-20) mg/dL Creatinine 2.30 H (0.66-1.25) mg/dL Glucose 147 H (74-99) mg/dL POC Glucose (mg/dL) (75-99) mg/dL Calcium 7.6 L (8.4-10.2) mg/dL Crossmatch See Detail 12/13/16 Range/Units 06:04 RBC (4.30-5.90) m/uL Hgb (13.0-17.5) gm/dL Hct (39.0-53.0) % MCV (80.0-100.0) fL MCHC (31.0-37.0) g/dL Plt Count (150-450) k/uL Neutrophils # (1.3-7.7) k/uL Lymphocytes # (1.0-4.8) k/uL Chloride (98-107) mmol/L BUN (9-20) mg/dL Creatinine (0.66-1.25) mg/dL Glucose (74-99) mg/dL POC Glucose (mg/dL) 148 H (75-99) mg/dL Calcium (8.4-10.2) mg/dL Crossmatch Microbiology - Last 24 Hours (Table) 12/09/16 13:15 Gram Stain - Preliminary Pleural Fluid Body Fluid Culture - Preliminary Assessment and Plan Plan: Assessment: #1. Acute kidney injury secondary to ischemic ATN secondary to hypotension. Creatinine elevated at 2.3 with diminished urine output. Unclear as to what his baseline renal function is. Urinalysis is noted to be benign. #2. Hyperkalemia. It appears that the specimen is slightly hemolyzed. Patient is not acidotic and blood sugars are not high. He's not on any meds that will predispose to hyperkalemia. Resolved. #3. 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 #4. Urinary retention status post [place] catheter placement. #5. Hyponatremia, now hypervolemic with pleural effusion noted. 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 Status post left-sided thoracentesis on December 09 to 1.1 L drained. Resolved. #6. Anemia. Iron deficiency noted. Plan: Maintain tube feeds. Patient currently receiving 1 unit of blood transmission. Lasix 60 mg IV once postreinfusion. Continue to monitor renal function and urine output. Avoid nephrotoxic agents and hypotensive episodes. Prognosis guarded. Patient will not be a candidate for renal replacement therapy in the long run.
[2016-12-13] MEDS ORDERED: FUROSEMIDE 10 MG/ML 10 ML VIAL IV ONE (11:00)
[2016-12-13 12:37] LABS: Glucose,Whole Blood 166 mg/dL (75-99)
--- NOTE | 2016-12-13 15:32 | P.PN ---
Subjective Progress note being dictated for Dr. Garcia. 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 12/09/2016 Gastrojejunostomy tube placed yesterday, reintubated postop related to hypoxic respiratory failure and transferred to ICU. Continues on mechanical ventilation, FiO2 50%/+5 PEEP. ABGs noted. Maintained on Levophed and diprovan. Mildly worsened renal function. Ultrasound reports Large Bilateral pleural effusions. Under going left-sided thoracentesis at bedside currently with pulmonary. 12/10/2016 remains vent dependent with FiO2 at 50%/+5 of PEEP. Recently on CPAP. Chest x-ray reporting moderate right pleural effusion, trace left pleural effusion. Scheduled for right thoracentesis today. Levophed has remained off since yesterday afternoon. Renal function worsening. 12/11/2016 extubated yesterday, maintaining O2 sats of 96-98% on 6 L nasal cannula. Underwent right-sided thoracentesis yesterday with no fluid drained. Tolerating tube feeds via gastrojejunostomy tube. Extremely weak. Renal function worsening. Hemoglobin decreased to 7.7. 12/13/2016 Hemoglobin 7.0, receive 1 unit of packed RBCs followed by Lasix . Currently of BiPAP currently on 12 L high flow. chest x-ray stable, reporting by bibasilar infiltrates, pleural effusions larger on the right. Telemetry sinus rhythm Objective - Vital Signs Vital signs: Vital Signs Temp 97.6 F 12/13/16 12:00 Pulse 101 H 12/13/16 12:00 Resp 27 H 12/13/16 12:00 BP 144/65 12/13/16 12:00 Pulse Ox 96 12/13/16 12:00 Intake & Output 12/12/16 12/13/16 12/13/16 18:59 06:59 18:59 Intake Total 1367 364 788 Output Total 370 180 55 Balance 997 184 733 Weight 83.6 kg 83.6 kg Intake: IV 365 220 170 Piperacillin-Tazobactam 3 50 .375 gm In Dextrose/Water 1 50ml.bag @ 12.5 mls/hr IVPB Q8HR [facility] Rx#: [id number] Sodium Chloride 0.9% 1, 365 220 120 000 ml @ 20 mls/hr IV . Q24H [facility] Rx#:[id number] Tube Feeding 912 144 288 Blood Product 310 Rc As-3 Unit 310 [id number] Other 90 20 Output: Urine 370 180 55 Other: Voiding Method Indwelling Catheter Indwelling Catheter Indwelling Catheter ABP, PAP, CO, CI - Last Documented Arterial Blood Pressure 125/44 - Exam PHYSICAL EXAM: VITAL SIGNS: As above GENERAL: [Sitting up at in bed, mildly anxious, states worried about his cancer HEENT: [Pupils equal conjunctiva normal. Oral mucosa moist. NECK: [Supple, no JVD,] RESPIRATORY EFFORT:[ Mildly increased] LUNGS: [Bilateral bases diminished, occasional rhonchi, no crackles, no wheezing] CARDIOVASCULAR[ regular S1 and S2, no murmurs rubs or gallops, no edema] GI: [Abdomen soft, nontender, hypoactive bowel sounds. J-tube present] SKIN: No rash PSYCH: Alert, answering simple questions,, follows simple commands, mood and affect normal.] NEURO: No focal deficits. - Labs CBC & Chem 7: 12/13/16 04:30 12/13/16 04:30 Labs: Abnormal Lab Results - Last 24 Hours (Table) 12/12/16 12/13/16 12/13/16 Range/Units 17:57 00:05 04:30 RBC 2.30 L (4.30-5.90) m/uL Hgb 7.0 L* (13.0-17.5) gm/dL Hct 23.6 L (39.0-53.0) % MCV 102.5 H (80.0-100.0) fL MCHC 29.7 L (31.0-37.0) g/dL Plt Count 147 L (150-450) k/uL Neutrophils # 8.4 H (1.3-7.7) k/uL Lymphocytes # 0.3 L (1.0-4.8) k/uL Chloride (98-107) mmol/L BUN (9-20) mg/dL Creatinine (0.66-1.25) mg/dL Glucose (74-99) mg/dL POC Glucose (mg/dL) 135 H 130 H (75-99) mg/dL Calcium (8.4-10.2) mg/dL Crossmatch 12/13/16 12/13/16 12/13/16 Range/Units 04:30 05:40 06:04 RBC (4.30-5.90) m/uL Hgb (13.0-17.5) gm/dL Hct (39.0-53.0) % MCV (80.0-100.0) fL MCHC (31.0-37.0) g/dL Plt Count (150-450) k/uL Neutrophils # (1.3-7.7) k/uL Lymphocytes # (1.0-4.8) k/uL Chloride 108 H (98-107) mmol/L BUN 59 H (9-20) mg/dL Creatinine 2.30 H (0.66-1.25) mg/dL Glucose 147 H (74-99) mg/dL POC Glucose (mg/dL) 148 H (75-99) mg/dL Calcium 7.6 L (8.4-10.2) mg/dL Crossmatch See Detail 12/13/16 Range/Units 12:35 RBC (4.30-5.90) m/uL Hgb (13.0-17.5) gm/dL Hct (39.0-53.0) % MCV (80.0-100.0) fL MCHC (31.0-37.0) g/dL Plt Count (150-450) k/uL Neutrophils # (1.3-7.7) k/uL Lymphocytes # (1.0-4.8) k/uL Chloride (98-107) mmol/L BUN (9-20) mg/dL Creatinine (0.66-1.25) mg/dL Glucose (74-99) mg/dL POC Glucose (mg/dL) 166 H (75-99) mg/dL Calcium (8.4-10.2) mg/dL Crossmatch Microbiology - Last 24 Hours (Table) 12/09/16 13:15 Gram Stain - Final Pleural Fluid Body Fluid Culture - Final Assessment and Plan Plan: 1. 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 Acute hypoxic respiratory failure, postop, status post mechanical ventilator -dependent. 3.Acute on chronic renal failure secondary to dehydration, prerenal factors and acute tubular necrosis. 4. [ Hypoglycemia secondary to decreased oral intake]. 5. Syncope, possibly vasovagal 6. Troponin 1.020 undetermined etiology 7. Status post gastrojejunostomy tube placement 8. Bilateral pleural effusions, status post left thoracentesis, cultures pending. Status post right thoracentesis, no fluid drained. 9. Hypotension, hypovolemic shock, possibly malignancy related. Plan: Continue on current medication regime ,iron, monitoring and symptomatic treatment. Diminished urine output, not a candidate for dialysis as per nephrology. Aggressive pulmonary toileting.extremely weak, will need subacute rehab at discharge .PT/OT. Pleural fluid cultures pending. Further recommendations to follow. Prognosis poor The impression and plan of care has been dictated as directed. : I performed a H&P examination of this patient and discussed the same with the dictator. I agree with the dictator's note. Any additional findings/opinions/ etc. will be noted.
--- NOTE | 2016-12-13 18:30 | P.PN ---
Progress Note - Text Patient remains in the ICU for pulmonary reasons. He is tolerating his tube feeds at goal. Denies abdominal pain. Will sign off at this point. Please contact Dr. Sanchez or our service if issues arise.
[2016-12-13 18:50] LABS: Glucose,Whole Blood 148 mg/dL (75-99)
[2016-12-13] MEDS: SCOPOLAMINE 1.5MG/72HR PATCH TRANSDERM SCH (22:32)
[2016-12-13] MEDS: TAMSULOSIN 0.4 MG CAP.ER.24H PO SCH (22:33)
[2016-12-14] MEDS: PIPERACILLIN-TAZOBACTAM 3.375 GM in DEXTROSE/WATER 1 50ML.BAG IVPB SCH ×3 (00:21→16:18)
[2016-12-14] MEDS: INSULIN LISPRO (humaLOG) 300 UNIT/3 ML VIAL SQ SCH ×4 (00:22→18:20)
[2016-12-14 00:24] LABS: Glucose,Whole Blood 146 mg/dL (75-99)
[2016-12-14] MEDS: METOPROLOL TARTRATE 5 MG/5 ML VIAL IVP SCH ×4 (00:25→18:21)
[2016-12-14] MEDS: NITROGLYCERIN OINT 1 INCH/GM PACKET TOPICAL SCH ×4 (00:25→18:22)
[2016-12-14 04:14] LABS: Anisocytosis Slight; Basophils # (A) 0.1 k/uL (0-0.2); Basophils % (A) 1 %; CH 31.1; CHCM 31.7; Eosinophils # (A) 0.1 k/uL (0-0.7); Eosinophils % (A) 1 %; HCT 25.4 % (39.0-53.0); HDW 3.66; HGB 7.9 gm/dL (13.0-17.5); Hypochromasia Slight; Luc # (Auto) 0.25; Luc % (Auto) 2; Lymphocytes # (A) 0.5 k/uL (1.0-4.8); Lymphocytes % (A) 4 %; MCH 30.9 pg (25.0-35.0); MCHC 31.2 g/dL (31.0-37.0); MCV 99.1 fL (80.0-100.0); Macrocytosis Slight; Mean Platelet Volume 9.8; Monocytes # (A) 0.6 k/uL (0-1.0); Monocytes % (A) 6 %; Neutrophils # (A) 10.2 k/uL (1.3-7.7); Neutrophils % (A) 87 %; Poikilocytosis Slight; RBC 2.56 m/uL (4.30-5.90); RDW 17.2 % (11.5-15.5); WBC 11.7 k/uL (3.8-10.6); WBC (Perox) 12.09
[2016-12-14 04:34] LABS: Potassium 4.1 mmol/L (3.5-5.1)
[2016-12-14] MEDS: SODIUM CHLORIDE 0.9% 1,000 ML IV SCH ×2 (05:38→16:18)
--- NOTE | 2016-12-14 07:16 | XR ---
EXAMINATION TYPE: XR chest 1V DATE OF EXAM: 12/14/2016 COMPARISON: December 13, 2016 HISTORY: SOB, Follow Up FINDINGS: Indwelling central venous catheter is unchanged. No change in bibasilar opacities right greater than left. Stable appearance of the cardio-mediastinal structures at this time. Pleural effusion unchanged. IMPRESSION: 1. Stable portable chest. Clinical correlation and follow up until resolution is recommended.
[2016-12-14] MEDS: ALBUTEROL NEBULIZED 2.5 MG/3 ML INHALATION SCH ×4 (07:24→20:00)
[2016-12-14] MEDS: PANTOPRAZOLE 40 MG/10 ML VIAL IVP SCH (08:03)
[2016-12-14] MEDS: ENOXAPARIN 40 MG/0.4 ML SYRINGE SQ SCH (08:03)
[2016-12-14] MEDS: ASPIRIN 325 MG TAB PO SCH (08:03)
--- NOTE | 2016-12-14 09:05 | P.PN ---
Subjective Patient is seen in follow-up for acute kidney injury. Renal function is worse with creatinine at 2.5 today. Patient was noted to have an esophageal mass and had an esophageal wall stent placed on December 01. 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 Patient's been having intermittent vomiting and is not much tolerating oral intake. He went for a G-tube placement on December 09 but became combative and there was a question of syncopal episode as well. He was reintubated and transferred to the intensive care unit. He is now extubated. He was noted to be hypotensive and was requiring 8 mics of levofed, which has been discontinued. His urine output has also diminished. He did receive a blood transfusion on December 13. Hemoglobin this morning is 7.9. He is maintained on tube feeds. He also underwent bilateral thoracentesis with 1.1 L drained from the right side. Vital signs are stable. General: The patient appeared well nourished and normally developed. HEENT: Head exam is unremarkable. Neck is without jugular venous distension. LUNGS: Scattered rhonchi. Breath sounds decreased. HEART: Rate and Rhythm are regular. First and second heart sounds normal. No murmurs, rubs or gallops. ABDOMEN: Abdominal exam reveals normal bowel sounds. Non-tender and non- distended. No evidence of peritonitis. EXTREMITITES: 1+ edema. Objective - Vital Signs Vital signs: Vital Signs Temp 97.6 F 12/14/16 04:00 Pulse 94 12/14/16 08:00 Resp 24 12/14/16 08:00 BP 120/58 12/14/16 08:00 Pulse Ox 91 L 12/14/16 08:00 Intake & Output 12/13/16 12/14/16 12/14/16 18:59 06:59 18:59 Intake Total 1292 1022.0 310 Output Total 410 209 125 Balance 882 813.0 185 Weight 83.6 kg 85.2 kg Intake: IV 290 290.0 60 Piperacillin-Tazobactam 3 50 50.0 .375 gm In Dextrose/Water 1 50ml.bag @ 12.5 mls/hr IVPB Q8HR [facility] Rx#: [id number] Sodium Chloride 0.9% 1, 240 240 60 000 ml @ 20 mls/hr IV . Q24H [facility] Rx#:[id number] Tube Feeding 672 702 240 Blood Product 310 Rc As-3 Unit 310 [id number] Other 20 30 10 Output: Urine 410 209 125 Other: Voiding Method Indwelling Catheter Indwelling Catheter Indwelling Catheter ABP, PAP, CO, CI - Last Documented Arterial Blood Pressure 125/44 - Labs CBC & Chem 7: 12/14/16 04:05 12/14/16 04:05 Labs: Abnormal Lab Results - Last 24 Hours (Table) 12/13/16 12/13/16 12/13/16 Range/Units 05:40 12:35 18:48 WBC (3.8-10.6) k/uL RBC (4.30-5.90) m/uL Hgb (13.0-17.5) gm/dL Hct (39.0-53.0) % RDW (11.5-15.5) % Neutrophils # (1.3-7.7) k/uL Lymphocytes # (1.0-4.8) k/uL Chloride (98-107) mmol/L Carbon Dioxide (22-30) mmol/L BUN (9-20) mg/dL Creatinine (0.66-1.25) mg/dL Glucose (74-99) mg/dL POC Glucose (mg/dL) 166 H 148 H (75-99) mg/dL Calcium (8.4-10.2) mg/dL Crossmatch See Detail 12/14/16 12/14/16 12/14/16 Range/Units 00:22 04:05 04:05 WBC 11.7 H (3.8-10.6) k/uL RBC 2.56 L (4.30-5.90) m/uL Hgb 7.9 L (13.0-17.5) gm/dL Hct 25.4 L (39.0-53.0) % RDW 17.2 H (11.5-15.5) % Neutrophils # 10.2 H (1.3-7.7) k/uL Lymphocytes # 0.5 L (1.0-4.8) k/uL Chloride 110 H (98-107) mmol/L Carbon Dioxide 21 L (22-30) mmol/L BUN 76 H (9-20) mg/dL Creatinine 2.50 H (0.66-1.25) mg/dL Glucose 117 H (74-99) mg/dL POC Glucose (mg/dL) 146 H (75-99) mg/dL Calcium 8.0 L (8.4-10.2) mg/dL Crossmatch Microbiology - Last 24 Hours (Table) 12/09/16 13:15 Gram Stain - Final Pleural Fluid Body Fluid Culture - Final Assessment and Plan Plan: Assessment: #1. Acute kidney injury secondary to ischemic ATN secondary to hypotension. Creatinine elevated at 2.5 with diminished urine output. Unclear as to what his baseline renal function is. Urinalysis is noted to be benign. #2. Hyperkalemia. It appears that the specimen is slightly hemolyzed. Patient is not acidotic and blood sugars are not high. He's not on any meds that will predispose to hyperkalemia. Resolved. #3. 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 #4. Urinary retention status post [place] catheter placement. #5. Hyponatremia, hypervolemic with pleural effusion noted. 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 Status post left-sided thoracentesis on December 09 to 1.1 L drained. Resolved. #6. Anemia. Iron deficiency noted. Plan: Maintain tube feeds. Hold diuretics. Continue to monitor renal function and urine output. Avoid nephrotoxic agents and hypotensive episodes. Prognosis guarded.
--- NOTE | 2016-12-14 10:12 | P.PN ---
Subjective This is a patient who was admitted way back on November 22. He came with acute renal fire and dehydration. The patient had was intubated on December 08 and extubated on December 10. I believe that was when he had a J-tube inserted. The patient is apparently apparently is an EGD and it revealed evidence of esophageal carcinoma. He also had a J-tube placed for nutrition and also had a left thoracentesis performed. 1100 mL was removed. This was done by my partner. The patient currently is on BiPAP at 12 and 5 and 70%. Was previously on 100%. Probably community weaned down to nasal prongs. The patient apparently had it 1 unit of blood ordered for him Tosha 7. He seems pretty alert and oriented. I told I will send her to take him off the BiPAP keep him off. He seemed happy with that. The patient was seen by my partner yesterday. The patient seemed relatively stable then. I'm not sure how he ended up on BiPAP may be from the respiratory therapist standpoint. Anyway the patient seemed much more stable today. The patient was seen and evaluated on 12/14/2016 in follow-up in the intensive care unit. He is awake and alert in no acute distress. He is maintaining O2 saturations in the low 90s on 15 L high flow nasal cannula. He was refusing to wear the BiPAP last evening. He has a 0.9 normal saline at KVO. He is being nourished with Martín HPI 48 mL's per hour which is his goal. He denies any worsening shortness of breath at this time. His chest x-ray is stable. No change in the pleural effusion. Fluid for cytology was negative for malignancy. His hemoglobin is stable at 7.9. Creatinine remains elevated at 2.50. He has been hemodynamically stable. He is afebrile. Objective - Vital Signs Vital signs: Vital Signs Temp 97.6 F 12/14/16 04:00 Pulse 94 12/14/16 08:00 Resp 24 12/14/16 08:00 BP 120/58 12/14/16 08:00 Pulse Ox 91 L 12/14/16 08:00 Intake & Output 12/13/16 12/14/16 12/14/16 18:59 06:59 18:59 Intake Total 1292 1022.0 310 Output Total 410 209 125 Balance 882 813.0 185 Weight 83.6 kg 85.2 kg Intake: IV 290 290.0 60 Piperacillin-Tazobactam 3 50 50.0 .375 gm In Dextrose/Water 1 50ml.bag @ 12.5 mls/hr IVPB Q8HR [facility] Rx#: [id number] Sodium Chloride 0.9% 1, 240 240 60 000 ml @ 20 mls/hr IV . Q24H [facility] Rx#:[id number] Tube Feeding 672 702 240 Blood Product 310 Rc As-3 Unit 310 [id number] Other 20 30 10 Output: Urine 410 209 125 Other: Voiding Method Indwelling Catheter Indwelling Catheter Indwelling Catheter ABP, PAP, CO, CI - Last Documented Arterial Blood Pressure 125/44 - Exam This is a patient who was admitted way back on November 22. He came with acute renal fire and dehydration. The patient had was intubated on December 08 and extubated on December 10. I believe that was when he had a J-tube inserted. The patient is apparently apparently is an EGD and it revealed evidence of esophageal carcinoma. He also had a J-tube placed for nutrition and also had a left thoracentesis performed. 1100 mL was removed. This was done by my partner. The patient currently is on BiPAP at 12 and 5 and 70%. Was previously on 100%. Probably community weaned down to nasal prongs. The patient apparently had it 1 unit of blood ordered for him Tosha 7. He seems pretty alert and oriented. I told I will send her to take him off the BiPAP keep him off. He seemed happy with that. The patient was seen by my partner yesterday. The patient seemed relatively stable then. I'm not sure how he ended up on BiPAP may be from the respiratory therapist standpoint. Anyway the patient seemed much more stable today. - Labs CBC & Chem 7: 12/14/16 04:05 12/14/16 04:05 Labs: Abnormal Lab Results - Last 24 Hours (Table) 12/13/16 12/13/16 12/13/16 Range/Units 05:40 12:35 18:48 WBC (3.8-10.6) k/uL RBC (4.30-5.90) m/uL Hgb (13.0-17.5) gm/dL Hct (39.0-53.0) % RDW (11.5-15.5) % Neutrophils # (1.3-7.7) k/uL Lymphocytes # (1.0-4.8) k/uL Chloride (98-107) mmol/L Carbon Dioxide (22-30) mmol/L BUN (9-20) mg/dL Creatinine (0.66-1.25) mg/dL Glucose (74-99) mg/dL POC Glucose (mg/dL) 166 H 148 H (75-99) mg/dL Calcium (8.4-10.2) mg/dL Crossmatch See Detail 12/14/16 12/14/16 12/14/16 Range/Units 00:22 04:05 04:05 WBC 11.7 H (3.8-10.6) k/uL RBC 2.56 L (4.30-5.90) m/uL Hgb 7.9 L (13.0-17.5) gm/dL Hct 25.4 L (39.0-53.0) % RDW 17.2 H (11.5-15.5) % Neutrophils # 10.2 H (1.3-7.7) k/uL Lymphocytes # 0.5 L (1.0-4.8) k/uL Chloride 110 H (98-107) mmol/L Carbon Dioxide 21 L (22-30) mmol/L BUN 76 H (9-20) mg/dL Creatinine 2.50 H (0.66-1.25) mg/dL Glucose 117 H (74-99) mg/dL POC Glucose (mg/dL) 146 H (75-99) mg/dL Calcium 8.0 L (8.4-10.2) mg/dL Crossmatch Microbiology - Last 24 Hours (Table) 12/09/16 13:15 Gram Stain - Final Pleural Fluid Body Fluid Culture - Final Assessment and Plan Plan: Impression: 1 acute hypoxic respiratory failure, unexpected, post jejunostomy tube placement , multifactorial, mostly secondary to fluid overload and bilateral pleural effusions, suspect underlying COPD, and secondary to underlying medical debility , possible diastolic congestive heart failure. 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 3 possible non-ST elevation myocardial infarction with positive troponin since admission. 4 chronic medical debility and weight loss secondary to underlying esophageal cancer and poor oral intake. 5 history of severe COPD 6 chronic iron deficiency anemia 7 acute kidney injury secondary to acute tubular necrosis, secondary to hypotension. Renal profile is slightly worse, but urine output seems marginal 8 status post placement of a gastrojejunostomy tube on 12/08/2016. 9 status post left-sided thoracentesis, 1100 mL of transudative fluid was obtained, status post right-sided thoracentesis, no fluid was obtained. Cielo: The patient was seen and evaluated by Dr. Mcneill. His chest x-ray and labs were reviewed. We'll continue with his current medications for now. He is cleared for transfer out of the intensive care unit once the general medical floor bed becomes available. We will continue to follow.
[2016-12-14 18:22] LABS: Glucose,Whole Blood 114 mg/dL (75-99)
[2016-12-14] MEDS: METOPROLOL TARTRATE 25 MG TAB PO SCH (21:45)
[2016-12-14] MEDS: TAMSULOSIN 0.4 MG CAP.ER.24H PO SCH (23:17)
[2016-12-15] MEDS: NITROGLYCERIN OINT 1 INCH/GM PACKET TOPICAL SCH ×4 (00:24→17:25)
[2016-12-15] MEDS: PIPERACILLIN-TAZOBACTAM 3.375 GM in DEXTROSE/WATER 1 50ML.BAG IVPB SCH ×3 (00:24→23:11)
[2016-12-15] MEDS: INSULIN LISPRO (humaLOG) 300 UNIT/3 ML VIAL SQ SCH ×4 (00:30→17:24)
[2016-12-15 00:35] LABS: Glucose,Whole Blood 124 mg/dL (75-99)
[2016-12-15 06:01] LABS: Glucose,Whole Blood 148 mg/dL (75-99)
[2016-12-15 06:58] LABS: Anisocytosis Slight; CH 31.4; CHCM 31.5; HCT 24.6 % (39.0-53.0); HDW 3.38; HGB 7.4 gm/dL (13.0-17.5); Hypochromasia Slight; MCH 30.5 pg (25.0-35.0); MCHC 30.3 g/dL (31.0-37.0); MCV 100.7 fL (80.0-100.0); Macrocytosis Slight; Mean Platelet Volume 9.6; RBC 2.44 m/uL (4.30-5.90); RDW 18.4 % (11.5-15.5); WBC (Perox) 13.21
[2016-12-15 07:39] LABS: Calcium 8.2 mg/dL (8.4-10.2); Magnesium 2.1 mg/dL (1.6-2.3); Potassium 4.3 mmol/L (3.5-5.1)
[2016-12-15] MEDS: METOPROLOL TARTRATE 25 MG TAB PO SCH ×2 (08:24→23:11)
[2016-12-15] MEDS: ASPIRIN 325 MG TAB PO SCH (08:24)
[2016-12-15] MEDS: ENOXAPARIN 30 MG/0.3 ML SYRINGE SQ SCH (08:24)
[2016-12-15] MEDS: PANTOPRAZOLE 40 MG/10 ML VIAL IVP SCH (08:24)
[2016-12-15] MEDS: ALBUTEROL NEBULIZED 2.5 MG/3 ML INHALATION SCH ×4 (08:31→20:40)
[2016-12-15 09:11] LABS: Add Differential Manual Differential
[2016-12-15 09:14] LABS: Band Neutrophils % 1 %; Manual Review Performed; Metamyelocytes % 1 %; Myelocytes % 1 %; Nucleated Red Blood Cells 3 /100 WBC (0-0); Total Cells Counted 200; WBC 12.3 k/uL (3.8-10.6)
[2016-12-15 09:15] LABS: Polychromasia Present
--- NOTE | 2016-12-15 09:22 | P.PN ---
Subjective Progress note being dictated for Dr. 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 12/09/2016 Gastrojejunostomy tube placed yesterday, reintubated postop related to hypoxic respiratory failure and transferred to ICU. Continues on mechanical ventilation, FiO2 50%/+5 PEEP. ABGs noted. Maintained on Levophed and diprovan. Mildly worsened renal function. Ultrasound reports Large Bilateral pleural effusions. Under going left-sided thoracentesis at bedside currently with pulmonary. 12/10/2016 remains vent dependent with FiO2 at 50%/+5 of PEEP. Recently on CPAP. Chest x-ray reporting moderate right pleural effusion, trace left pleural effusion. Scheduled for right thoracentesis today. Levophed has remained off since yesterday afternoon. Renal function worsening. 12/11/2016 extubated yesterday, maintaining O2 sats of 96-98% on 6 L nasal cannula. Underwent right-sided thoracentesis yesterday with no fluid drained. Tolerating tube feeds via gastrojejunostomy tube. Extremely weak. Renal function worsening. Hemoglobin decreased to 7.7. 12/13/2016 Hemoglobin 7.0, receive 1 unit of packed RBCs followed by Cornel . Currently of BiPAP currently on 12 L high flow. chest x-ray stable, reporting by bibasilar infiltrates, pleural effusions larger on the right. Telemetry sinus rhythm. 12/14/2016 declined BiPAP last night , maintained on 15 L high flow nasal cannula, chest x-ray noted. telemetry sinus rhythm. Tolerating tube feeds at goal. Pleural cytology negative for malignancy. Hemoglobin 7.9. Diuretics remain on hold, Creatinine 2.5. Denies chest pain, palpitations. Afebrile. Awaiting transfer out of ICU to [facility] unit as per safety and health manager. Objective - Vital Signs Vital signs: Vital Signs Temp 97.6 F 12/14/16 04:00 Pulse 95 12/14/16 15:37 Resp 25 H 12/14/16 10:00 BP 125/59 12/14/16 10:00 Pulse Ox 93 L 12/14/16 10:00 Intake & Output 12/13/16 12/14/16 12/14/16 18:59 06:59 18:59 Intake Total 1292 1022.0 330 Output Total 410 209 150 Balance 882 813.0 180 Weight 83.6 kg 85.2 kg Intake: IV 290 290.0 80 Piperacillin-Tazobactam 3 50 50.0 .375 gm In Dextrose/Water 1 50ml.bag @ 12.5 mls/hr IVPB Q8HR [facility] Rx#: [id number] Sodium Chloride 0.9% 1, 240 240 80 000 ml @ 20 mls/hr IV . Q24H [facility] Rx#:[id number] Tube Feeding 672 702 240 Blood Product 310 Rc As-3 Unit 310 [id number] Other 20 30 10 Output: Urine 410 209 150 Other: Voiding Method Indwelling Catheter Indwelling Catheter Indwelling Catheter ABP, PAP, CO, CI - Last Documented Arterial Blood Pressure 125/44 - Exam PHYSICAL EXAM: VITAL SIGNS: As above GENERAL: [Sitting up at in bed, no acute distress HEENT: [Pupils equal conjunctiva normal. Oral mucosa moist. NECK: [Supple, no JVD,] RESPIRATORY EFFORT:[ Mildly increased] LUNGS: [Bilateral bases diminished, occasional rhonchi, no crackles, no wheezing] CARDIOVASCULAR[ regular S1 and S2, no murmurs rubs or gallops, no edema] GI: [Abdomen soft, nontender, hypoactive bowel sounds. J-tube present] SKIN: No rash PSYCH: Alert and oriented 2, answering simple questions,, follows simple commands, mood and affect normal.] NEURO: No focal deficits. - Labs CBC & Chem 7: 12/15/16 06:10 12/15/16 06:10 Labs: Abnormal Lab Results - Last 24 Hours (Table) 12/13/16 12/14/16 12/14/16 Range/Units 18:48 00:22 04:05 WBC 11.7 H (3.8-10.6) k/uL RBC 2.56 L (4.30-5.90) m/uL Hgb 7.9 L (13.0-17.5) gm/dL Hct 25.4 L (39.0-53.0) % RDW 17.2 H (11.5-15.5) % Neutrophils # 10.2 H (1.3-7.7) k/uL Lymphocytes # 0.5 L (1.0-4.8) k/uL Chloride (98-107) mmol/L Carbon Dioxide (22-30) mmol/L BUN (9-20) mg/dL Creatinine (0.66-1.25) mg/dL Glucose (74-99) mg/dL POC Glucose (mg/dL) 148 H 146 H (75-99) mg/dL Calcium (8.4-10.2) mg/dL 12/14/16 Range/Units 04:05 WBC (3.8-10.6) k/uL RBC (4.30-5.90) m/uL Hgb (13.0-17.5) gm/dL Hct (39.0-53.0) % RDW (11.5-15.5) % Neutrophils # (1.3-7.7) k/uL Lymphocytes # (1.0-4.8) k/uL Chloride 110 H (98-107) mmol/L Carbon Dioxide 21 L (22-30) mmol/L BUN 76 H (9-20) mg/dL Creatinine 2.50 H (0.66-1.25) mg/dL Glucose 117 H (74-99) mg/dL POC Glucose (mg/dL) (75-99) mg/dL Calcium 8.0 L (8.4-10.2) mg/dL Assessment and Plan Plan: 1. 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 Acute hypoxic respiratory failure, postop, status post mechanical ventilator -dependent. 3.Acute on chronic renal failure secondary to dehydration, prerenal factors and acute tubular necrosis. 4. [ Hypoglycemia secondary to decreased oral intake]. 5. Syncope, possibly vasovagal 6. Troponin 1.020 undetermined etiology 7. Status post gastrojejunostomy tube placement 8. Bilateral pleural effusions, status post left thoracentesis, cultures pending. Status post right thoracentesis, no fluid drained. 9. Hypotension, hypovolemic shock, possibly malignancy related. Plan: Continue on current medication regime ,iron, monitoring and symptomatic treatment. Aggressive pulmonary toileting.PT/OT. Cleared for transfer out of ICU by safety and health manager. Currently awaiting transfer to [facility] unit Further recommendations to follow. Prognosis poor. The impression and plan of care has been dictated as directed. : I performed a H&P examination of this patient and discussed the same with the dictator. I agree with the dictator's note. Any additional findings/opinions/ etc. will be noted.
--- NOTE | 2016-12-15 10:38 | XR ---
EXAMINATION TYPE: XR chest 1V portable DATE OF EXAM: 12/15/2016 COMPARISON: 12/14/2016 HISTORY: Shortness of breath TECHNIQUE: Single frontal view of the chest is obtained. FINDINGS: Right internal jugular central venous catheter is unchanged with its distal tip terminatin g in the superior vena cava/right atrial junction. Layering pleural effusions are seen with a gradien t intact, right greater than left with associated bibasilar airspace disease. Cardiomediastinal silho uette is partially obscured there remains mildly enlarged. IMPRESSION: Moderate right and small left pleural effusions with bibasilar airspace disease, likely compressive atelectasis.
--- NOTE | 2016-12-15 10:39 | P.PN ---
Subjective Patient is seen in follow-up for acute kidney injury. Renal function is worse with creatinine at 2.8 today. Patient was noted to have an esophageal mass and had an esophageal wall stent placed on December 01. 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 Patient's been having intermittent vomiting and is not much tolerating oral intake. He went for a G-tube placement on December 09 but became combative and there was a question of syncopal episode as well. He was reintubated and transferred to the intensive care unit. He is now extubated. He was noted to be hypotensive and was requiring 8 mics of levofed, which has been discontinued. His urine output has also diminished. He did receive a blood transfusion on December 13. Hemoglobin this morning is 7.4. He is maintained on tube feeds. He also underwent bilateral thoracentesis with 1.1 L drained from the left side. Patient was again to This morning and is not requiring high flow oxygen. Vital signs are stable. General: The patient appeared well nourished and normally developed. HEENT: Head exam is unremarkable. Neck is without jugular venous distension. LUNGS: Scattered rhonchi. Breath sounds decreased. HEART: Rate and Rhythm are regular. First and second heart sounds normal. No murmurs, rubs or gallops. ABDOMEN: Abdominal exam reveals normal bowel sounds. Non-tender and non- distended. No evidence of peritonitis. EXTREMITITES: 1+ edema. Objective - Vital Signs Vital signs: Vital Signs Temp 97.5 F L 12/15/16 07:43 Pulse 92 12/15/16 08:54 Resp 20 12/15/16 07:43 BP 134/63 12/15/16 07:43 Pulse Ox 95 12/15/16 07:43 Intake & Output 12/14/16 12/15/16 12/15/16 18:59 06:59 18:59 Intake Total 554 384 Output Total 250 Balance 304 384 Weight 93 kg Intake: IV 160 240 Piperacillin-Tazobactam 3 50 .375 gm In Dextrose/Water 1 50ml.bag @ 12.5 mls/hr IVPB Q8HR [facility] Rx#: [id number] Sodium Chloride 0.9% 1, 160 190 000 ml @ 20 mls/hr IV . Q24H [facility] Rx#:[id number] Tube Feeding 384 144 Other 10 Output: Urine 250 Other: Voiding Method Indwelling Catheter Diaper # Voids 1 ABP, PAP, CO, CI - Last Documented Arterial Blood Pressure 125/44 - Labs CBC & Chem 7: 12/15/16 06:10 12/15/16 06:10 Labs: Abnormal Lab Results - Last 24 Hours (Table) 12/14/16 12/15/16 12/15/16 Range/Units 18:20 00:15 05:59 WBC (3.8-10.6) k/uL RBC (4.30-5.90) m/uL Hgb (13.0-17.5) gm/dL Hct (39.0-53.0) % MCV (80.0-100.0) fL MCHC (31.0-37.0) g/dL RDW (11.5-15.5) % Neutrophils # (Manual) (1.3-7.7) k/uL Lymphocytes # (Manual) (1.0-4.8) k/uL Metamyelocytes # (Man) (0) k/uL Myelocytes # (Manual) (0) k/uL Nucleated RBCs (0-0) /100 WBC Chloride (98-107) mmol/L Carbon Dioxide (22-30) mmol/L BUN (9-20) mg/dL Creatinine (0.66-1.25) mg/dL Glucose (74-99) mg/dL POC Glucose (mg/dL) 114 H 124 H 148 H (75-99) mg/dL Calcium (8.4-10.2) mg/dL 12/15/16 12/15/16 Range/Units 06:10 06:10 WBC 12.3 H (3.8-10.6) k/uL RBC 2.44 L (4.30-5.90) m/uL Hgb 7.4 L (13.0-17.5) gm/dL Hct 24.6 L (39.0-53.0) % MCV 100.7 H (80.0-100.0) fL MCHC 30.3 L (31.0-37.0) g/dL RDW 18.4 H (11.5-15.5) % Neutrophils # (Manual) 10.50 H (1.3-7.7) k/uL Lymphocytes # (Manual) 0.62 L (1.0-4.8) k/uL Metamyelocytes # (Man) 0.12 H (0) k/uL Myelocytes # (Manual) 0.12 H (0) k/uL Nucleated RBCs 3 H (0-0) /100 WBC Chloride 110 H (98-107) mmol/L Carbon Dioxide 20 L (22-30) mmol/L BUN 96 H* (9-20) mg/dL Creatinine 2.80 H (0.66-1.25) mg/dL Glucose 142 H (74-99) mg/dL POC Glucose (mg/dL) (75-99) mg/dL Calcium 8.2 L (8.4-10.2) mg/dL Assessment and Plan Plan: Assessment: #1. Acute kidney injury secondary to ischemic ATN secondary to hypotension. Creatinine elevated at 2.8 with diminished urine output. Unclear as to what his baseline renal function is. Urinalysis is noted to be benign. #2. Hyperkalemia. It appears that the specimen is slightly hemolyzed. Patient is not acidotic and blood sugars are not high. He's not on any meds that will predispose to hyperkalemia. Resolved. #3. 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 #4. Urinary retention status post [place] catheter placement. #5. Hyponatremia, hypervolemic with pleural effusion noted. 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 Status post left-sided thoracentesis on December 09 to 1.1 L drained. Resolved. #6. Anemia. Iron deficiency noted. #7. Dyspnea. There is concern for recurring pleural effusions. Patient requiring high flow oxygen. Plan: Maintain tube feeds. Lasix 60 mg IV once his respiratory status worsens. Check chest x-ray today due to concern of recurring effusions. Continue to monitor renal function and urine output. Avoid nephrotoxic agents and hypotensive episodes. Prognosis guarded. Patient would not be a candidate for renal replacement therapy in the long run due to invasive malignancy. Case was discussed with the primary team.
[2016-12-15 12:14] LABS: Glucose,Whole Blood 149 mg/dL (75-99)
[2016-12-15] MEDS: SODIUM CHLORIDE 0.9% 1,000 ML IV SCH (12:42)
[2016-12-15] MEDS ORDERED: FUROSEMIDE 10 MG/ML 10 ML VIAL IV STA ×2 (13:29→21:23)
--- NOTE | 2016-12-15 14:07 | P.PN ---
Subjective This is a patient who was admitted way back on November 22. He came with acute renal fire and dehydration. The patient had was intubated on December 08 and extubated on December 10. I believe that was when he had a J-tube inserted. The patient is apparently apparently is an EGD and it revealed evidence of esophageal carcinoma. He also had a J-tube placed for nutrition and also had a left thoracentesis performed. 1100 mL was removed. This was done by my partner. The patient currently is on BiPAP at 12 and 5 and 70%. Was previously on 100%. Probably community weaned down to nasal prongs. The patient apparently had it 1 unit of blood ordered for him Tosha 7. He seems pretty alert and oriented. I told I will send her to take him off the BiPAP keep him off. He seemed happy with that. The patient was seen by my partner yesterday. The patient seemed relatively stable then. I'm not sure how he ended up on BiPAP may be from the respiratory therapist standpoint. Anyway the patient seemed much more stable today. The patient was seen and evaluated on 12/14/2016 in follow-up in the intensive care unit. He is awake and alert in no acute distress. He is maintaining O2 saturations in the low 90s on 15 L high flow nasal cannula. He was refusing to wear the BiPAP last evening. He has a 0.9 normal saline at KVO. He is being nourished with Martín HPI 48 mL's per hour which is his goal. He denies any worsening shortness of breath at this time. His chest x-ray is stable. No change in the pleural effusion. Fluid for cytology was negative for malignancy. His hemoglobin is stable at 7.9. Creatinine remains elevated at 2.50. He has been hemodynamically stable. He is afebrile. The patient is seen again today 12/15/2016 in follow-up on the regular medical floor. He is awake and alert in no acute distress. He does remain on 15 L high flow nasal cannula to maintain O2 saturations in the 90s. His chest x-ray does reveal continued moderate right pleural effusion with small left pleural effusion. His pathology on the left pleural effusion from a previous thoracentesis revealed no evidence of malignancy. He remains anemic currently a hemoglobin of 7.4. His renal function is worsening with creatinine of 2.80 today. Objective - Vital Signs Vital signs: Vital Signs Temp 97.5 F L 12/15/16 07:43 Pulse 92 12/15/16 12:25 Resp 20 12/15/16 08:00 BP 134/63 12/15/16 07:43 Pulse Ox 95 12/15/16 07:43 Intake & Output 12/14/16 12/15/16 12/15/16 18:59 06:59 18:59 Intake Total 554 384 144 Output Total 250 Balance 304 384 144 Weight 93 kg Intake: IV 160 240 Piperacillin-Tazobactam 3 50 .375 gm In Dextrose/Water 1 50ml.bag @ 12.5 mls/hr IVPB Q8HR [facility] Rx#: [id number] Sodium Chloride 0.9% 1, 160 190 000 ml @ 20 mls/hr IV . Q24H [facility] Rx#:[id number] Tube Feeding 384 144 144 Other 10 Output: Urine 250 Other: Voiding Method Indwelling Catheter Diaper Diaper # Voids 1 ABP, PAP, CO, CI - Last Documented Arterial Blood Pressure 125/44 - Exam No acute distress, oriented 3. HEENT examination is grossly unremarkable. Neck supple. Full range of motion. No adenopathy. Cardiovascular examination reveals regular rhythm rate. Heart rate about 80. S1-S2 normal. No murmur. No S3-S4. Lungs reveal mostly clear breath sounds. A few scattered rhonchi. No wheezes or crackles. Abdomen soft bowel sounds are heard. Extremities are intact. No cyanosis clubbing or edema. Skin without rash. Neurologic examination is difficult to perform but apparently nonfocal. - Labs CBC & Chem 7: 12/15/16 06:10 12/15/16 06:10 Labs: Abnormal Lab Results - Last 24 Hours (Table) 12/14/16 12/15/16 12/15/16 Range/Units 18:20 00:15 05:59 WBC (3.8-10.6) k/uL RBC (4.30-5.90) m/uL Hgb (13.0-17.5) gm/dL Hct (39.0-53.0) % MCV (80.0-100.0) fL MCHC (31.0-37.0) g/dL RDW (11.5-15.5) % Neutrophils # (Manual) (1.3-7.7) k/uL Lymphocytes # (Manual) (1.0-4.8) k/uL Metamyelocytes # (Man) (0) k/uL Myelocytes # (Manual) (0) k/uL Nucleated RBCs (0-0) /100 WBC Chloride (98-107) mmol/L Carbon Dioxide (22-30) mmol/L BUN (9-20) mg/dL Creatinine (0.66-1.25) mg/dL Glucose (74-99) mg/dL POC Glucose (mg/dL) 114 H 124 H 148 H (75-99) mg/dL Calcium (8.4-10.2) mg/dL 12/15/16 12/15/16 12/15/16 Range/Units 06:10 06:10 12:11 WBC 12.3 H (3.8-10.6) k/uL RBC 2.44 L (4.30-5.90) m/uL Hgb 7.4 L (13.0-17.5) gm/dL Hct 24.6 L (39.0-53.0) % MCV 100.7 H (80.0-100.0) fL MCHC 30.3 L (31.0-37.0) g/dL RDW 18.4 H (11.5-15.5) % Neutrophils # (Manual) 10.50 H (1.3-7.7) k/uL Lymphocytes # (Manual) 0.62 L (1.0-4.8) k/uL Metamyelocytes # (Man) 0.12 H (0) k/uL Myelocytes # (Manual) 0.12 H (0) k/uL Nucleated RBCs 3 H (0-0) /100 WBC Chloride 110 H (98-107) mmol/L Carbon Dioxide 20 L (22-30) mmol/L BUN 96 H* (9-20) mg/dL Creatinine 2.80 H (0.66-1.25) mg/dL Glucose 142 H (74-99) mg/dL POC Glucose (mg/dL) 149 H (75-99) mg/dL Calcium 8.2 L (8.4-10.2) mg/dL Assessment and Plan Plan: Impression: 1 acute hypoxic respiratory failure, unexpected, post jejunostomy tube placement , multifactorial, mostly secondary to fluid overload and bilateral pleural effusions, suspect underlying COPD, and secondary to underlying medical debility , possible diastolic congestive heart failure. 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 3 possible non-ST elevation myocardial infarction with positive troponin since admission. 4 chronic medical debility and weight loss secondary to underlying esophageal cancer and poor oral intake. 5 history of severe COPD 6 chronic iron deficiency anemia 7 acute kidney injury secondary to acute tubular necrosis, secondary to hypotension. Renal profile is slightly worse, but urine output seems marginal 8 status post placement of a gastrojejunostomy tube on 12/08/2016. 9 status post left-sided thoracentesis, 1100 mL of transudative fluid was obtained and was negative for malignancy. Plan: The patient was seen and evaluated by Dr. Mcneill. His chest x-ray and labs were reviewed. We will obtain a ultrasound of the right chest and if there is significant free-flowing fluid will perform a right-sided thoracentesis in the a.m. The plan is for probable discharge to an extended care facility. We will continue to follow.
--- NOTE | 2016-12-15 16:23 | P.PN ---
Subjective Progress note being dictated for Dr. 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 12/09/2016 Gastrojejunostomy tube placed yesterday, reintubated postop related to hypoxic respiratory failure and transferred to ICU. Continues on mechanical ventilation, FiO2 50%/+5 PEEP. ABGs noted. Maintained on Levophed and diprovan. Mildly worsened renal function. Ultrasound reports Large Bilateral pleural effusions. Under going left-sided thoracentesis at bedside currently with pulmonary. 12/10/2016 remains vent dependent with FiO2 at 50%/+5 of PEEP. Recently on CPAP. Chest x-ray reporting moderate right pleural effusion, trace left pleural effusion. Scheduled for right thoracentesis today. Levophed has remained off since yesterday afternoon. Renal function worsening. 12/11/2016 extubated yesterday, maintaining O2 sats of 96-98% on 6 L nasal cannula. Underwent right-sided thoracentesis yesterday with no fluid drained. Tolerating tube feeds via gastrojejunostomy tube. Extremely weak. Renal function worsening. Hemoglobin decreased to 7.7. 12/13/2016 Hemoglobin 7.0, receive 1 unit of packed RBCs followed by Cornel . Currently of BiPAP currently on 12 L high flow. chest x-ray stable, reporting by bibasilar infiltrates, pleural effusions larger on the right. Telemetry sinus rhythm. 12/14/2016 declined BiPAP last night , maintained on 15 L high flow nasal cannula, chest x-ray noted. telemetry sinus rhythm. Tolerating tube feeds at goal. Pleural cytology negative for malignancy. Hemoglobin 7.9. Diuretics remain on hold, Creatinine 2.5. Denies chest pain, palpitations. Afebrile. Awaiting transfer out of ICU to MedSurg unit as per guard dance hall. 12/15/2016. Recently on MedSurg unit. Chest x-ray reporting moderate right, small left pleural effusion with right basilar airspace disease, compressive atelectasis. Continues on 15 L high flow nasal cannula, maintaining O2 sats of 90-97%. Right chest ultrasound pending. Renal function continues to worsen, increased to 2.8(patient not a candidate for hemodialysis given his invasive malignancy). Hemoglobin 7.4. Objective - Vital Signs Vital signs: Vital Signs Temp 96.8 F L 12/15/16 14:51 Pulse 100 12/15/16 16:08 Resp 20 12/15/16 14:51 BP 142/64 12/15/16 14:51 Pulse Ox 90 L 12/15/16 14:51 Intake & Output 12/14/16 12/15/16 12/15/16 18:59 06:59 18:59 Intake Total 554 384 192 Output Total 250 Balance 304 384 192 Weight 93 kg Intake: IV 160 240 Piperacillin-Tazobactam 3 50 .375 gm In Dextrose/Water 1 50ml.bag @ 12.5 mls/hr IVPB Q8HR [facility] Rx#: [id number] Sodium Chloride 0.9% 1, 160 190 000 ml @ 20 mls/hr IV . Q24H [facility] Rx#:[id number] Tube Feeding 384 144 192 Other 10 Output: Urine 250 Other: Voiding Method Indwelling Catheter Diaper Diaper # Voids 1 ABP, PAP, CO, CI - Last Documented Arterial Blood Pressure 125/44 - Exam PHYSICAL EXAM: VITAL SIGNS: As above GENERAL: [Sitting up at in bed, no acute distress, tired appearing HEENT: [Pupils equal conjunctiva normal. Oral mucosa moist. NECK: [Supple, no JVD,] RESPIRATORY EFFORT:[ Mildly increased] LUNGS: [Bilateral bases diminished, occasional rhonchi, no crackles, no wheezing] CARDIOVASCULAR[ regular S1 and S2, no murmurs rubs or gallops, no edema] GI: [Abdomen soft, nontender, positive bowel sounds. J-tube present] SKIN: No rash PSYCH: Alert and oriented 2, answering simple questions,, follows simple commands, mood and affect normal.] NEURO: No apparent focal deficits. - Labs CBC & Chem 7: 12/15/16 06:10 12/15/16 06:10 Labs: Abnormal Lab Results - Last 24 Hours (Table) 12/14/16 12/15/16 12/15/16 Range/Units 18:20 00:15 05:59 WBC (3.8-10.6) k/uL RBC (4.30-5.90) m/uL Hgb (13.0-17.5) gm/dL Hct (39.0-53.0) % MCV (80.0-100.0) fL MCHC (31.0-37.0) g/dL RDW (11.5-15.5) % Neutrophils # (Manual) (1.3-7.7) k/uL Lymphocytes # (Manual) (1.0-4.8) k/uL Metamyelocytes # (Man) (0) k/uL Myelocytes # (Manual) (0) k/uL Nucleated RBCs (0-0) /100 WBC Chloride (98-107) mmol/L Carbon Dioxide (22-30) mmol/L BUN (9-20) mg/dL Creatinine (0.66-1.25) mg/dL Glucose (74-99) mg/dL POC Glucose (mg/dL) 114 H 124 H 148 H (75-99) mg/dL Calcium (8.4-10.2) mg/dL 12/15/16 12/15/16 12/15/16 Range/Units 06:10 06:10 12:11 WBC 12.3 H (3.8-10.6) k/uL RBC 2.44 L (4.30-5.90) m/uL Hgb 7.4 L (13.0-17.5) gm/dL Hct 24.6 L (39.0-53.0) % MCV 100.7 H (80.0-100.0) fL MCHC 30.3 L (31.0-37.0) g/dL RDW 18.4 H (11.5-15.5) % Neutrophils # (Manual) 10.50 H (1.3-7.7) k/uL Lymphocytes # (Manual) 0.62 L (1.0-4.8) k/uL Metamyelocytes # (Man) 0.12 H (0) k/uL Myelocytes # (Manual) 0.12 H (0) k/uL Nucleated RBCs 3 H (0-0) /100 WBC Chloride 110 H (98-107) mmol/L Carbon Dioxide 20 L (22-30) mmol/L BUN 96 H* (9-20) mg/dL Creatinine 2.80 H (0.66-1.25) mg/dL Glucose 142 H (74-99) mg/dL POC Glucose (mg/dL) 149 H (75-99) mg/dL Calcium 8.2 L (8.4-10.2) mg/dL Assessment and Plan Plan: 1. 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 Acute hypoxic respiratory failure, postop, status post mechanical ventilator -dependent. 3.Acute on chronic renal failure secondary to dehydration, prerenal factors and acute tubular necrosis. 4. [ Hypoglycemia secondary to decreased oral intake]. 5. Syncope, possibly vasovagal 6. Troponin 1.020 undetermined etiology 7. Status post gastrojejunostomy tube placement 8. Bilateral pleural effusions, status post left thoracentesis, cultures pending. Status post right thoracentesis, no fluid drained. 9. Hypotension, hypovolemic shock, possibly malignancy related. Plan: Continue on current medication regime ,iron, monitoring and symptomatic treatment. Potential thoracentesis pending right chest ultrasound .Aggressive pulmonary toileting.PT/OT. Close monitoring of electrolytes, renal function. Patient not a candidate for hemodialysis given his invasive malignancy. If renal function continues to worsen, comfort care would be appropriate. Prognosis poor. Maintain supportive care. Further recommendations to follow. The impression and plan of care has been dictated as directed. : I performed a H&P examination of this patient and discussed the same with the dictator. I agree with the dictator's note. Any additional findings/opinions/ etc. will be noted.
[2016-12-15 18:15] LABS: Glucose,Whole Blood 171 mg/dL (75-99)
[2016-12-15 19:52] LABS: Glucose,Whole Blood 162 mg/dL (75-99)
[2016-12-15 21:02] VITALS: BP 120/58; TEMP 98.8
[2016-12-15] MEDS ORDERED: BUMETANIDE 0.25 MG/ML 10 ML VIAL IV STA (21:24)
[2016-12-15] MEDS ORDERED: ATROPINE OPHTH SOLN 1% 5ML BTL SUBLINGUAL PRN (21:52)
[2016-12-15] MEDS ORDERED: DRY MOUTH SPRAY 44.3 SPRAY/44.3 ML SPRAY MUCOUS MEM PRN (21:52)
[2016-12-15] MEDS ORDERED: LORazepam 2 MG/ML SYRINGE IV PRN (21:52)
[2016-12-15] MEDS ORDERED: MORPHINE SULFATE 4 MG/ML SYRINGE IV PRN (21:52)
[2016-12-15] MEDS ORDERED: MORPHINE SULFATE (100 MG/2 ML) 100 MG in SODIUM CHLORIDE 0.9% 100 ML IV SCH (22:00)
[2016-12-15] MEDS: TAMSULOSIN 0.4 MG CAP.ER.24H PO SCH (23:11)
[2016-12-16] MEDS: INSULIN LISPRO (humaLOG) 300 UNIT/3 ML VIAL SQ SCH ×2 (00:33→07:19)
[2016-12-16] MEDS: NITROGLYCERIN OINT 1 INCH/GM PACKET TOPICAL SCH ×2 (00:33→07:19)
[2016-12-16 00:46] LABS: Glucose,Whole Blood 122 mg/dL (75-99)
[2016-12-16] MEDS: ALBUTEROL NEBULIZED 2.5 MG/3 ML INHALATION SCH ×2 (07:11→11:09)
[2016-12-16] MEDS: PIPERACILLIN-TAZOBACTAM 3.375 GM in DEXTROSE/WATER 1 50ML.BAG IVPB SCH (09:15)
[2016-12-16 09:27] VITALS: BMI 30.2
[2016-12-16] MEDS: PANTOPRAZOLE 40 MG/10 ML VIAL IVP SCH (09:35)
[2016-12-16] MEDS: ENOXAPARIN 30 MG/0.3 ML SYRINGE SQ SCH (09:35)
[2016-12-16] MEDS: ASPIRIN 325 MG TAB PO SCH (09:35)
[2016-12-16] MEDS: METOPROLOL TARTRATE 25 MG TAB PO SCH (09:35)
[2016-12-16] MEDS: SODIUM CHLORIDE 0.9% 1,000 ML IV SCH (09:36)
[2016-12-16 11:25] VITALS: PULSE 92; RESP 20
--- NOTE | 2016-12-16 12:06 | P.PN ---
Subjective This is a patient who was admitted way back on November 22. He came with acute renal fire and dehydration. The patient had was intubated on December 08 and extubated on December 10. I believe that was when he had a J-tube inserted. The patient is apparently apparently is an EGD and it revealed evidence of esophageal carcinoma. He also had a J-tube placed for nutrition and also had a left thoracentesis performed. 1100 mL was removed. This was done by my partner. The patient currently is on BiPAP at 12 and 5 and 70%. Was previously on 100%. Probably community weaned down to nasal prongs. The patient apparently had it 1 unit of blood ordered for him Tosha 7. He seems pretty alert and oriented. I told I will send her to take him off the BiPAP keep him off. He seemed happy with that. The patient was seen by my partner yesterday. The patient seemed relatively stable then. I'm not sure how he ended up on BiPAP may be from the respiratory therapist standpoint. Anyway the patient seemed much more stable today. The patient was seen and evaluated on 12/14/2016 in follow-up in the intensive care unit. He is awake and alert in no acute distress. He is maintaining O2 saturations in the low 90s on 15 L high flow nasal cannula. He was refusing to wear the BiPAP last evening. He has a 0.9 normal saline at KVO. He is being nourished with Martín HPI 48 mL's per hour which is his goal. He denies any worsening shortness of breath at this time. His chest x-ray is stable. No change in the pleural effusion. Fluid for cytology was negative for malignancy. His hemoglobin is stable at 7.9. Creatinine remains elevated at 2.50. He has been hemodynamically stable. He is afebrile. The patient is seen again today 12/15/2016 in follow-up on the regular medical floor. He is awake and alert in no acute distress. He does remain on 15 L high flow nasal cannula to maintain O2 saturations in the 90s. His chest x-ray does reveal continued moderate right pleural effusion with small left pleural effusion. His pathology on the left pleural effusion from a previous thoracentesis revealed no evidence of malignancy. He remains anemic currently a hemoglobin of 7.4. His renal function is worsening with creatinine of 2.80 today. The patient is seen again today 12/16/2016 in follow-up on the regular medical floor. He had developed an episode of severe respiratory distress last evening. He was placed on BiPAP 10/ at 100% FiO2 to maintain O2 saturations in the 90s. His overall prognosis is quite poor. He is currently difficult to arouse. The plan is for comfort care. Objective - Vital Signs Vital signs: Vital Signs Temp 98.8 F 12/15/16 21:00 Pulse 92 12/16/16 08:00 Resp 20 12/16/16 08:00 BP 120/58 12/15/16 21:00 Pulse Ox 100 12/15/16 21:00 Intake & Output 12/15/16 12/16/16 12/16/16 18:59 06:59 18:59 Intake Total 240 249.173 Output Total 100 100 Balance 240 149.173 -100 Weight 93 kg 93 kg Intake: Intake, IV Titration 1.173 Amount Morphine Sulfate (100 mg/ 1.173 2 ml) 100 mg In Sodium Chloride 0.9% 100 ml @ 1 MG/HR 1.02 mls/hr IV . Q24H [facility] Rx#:[id number] Oral 200 Tube Feeding 240 48 Output: Urine 100 100 Other: Voiding Method Diaper Diaper Diaper # Voids 1 1 1 # Bowel Movements 1 ABP, PAP, CO, CI - Last Documented Arterial Blood Pressure 125/44 - Exam Difficult to arouse. Currently on BiPAP.. HEENT examination is grossly unremarkable. Neck supple. Full range of motion. No adenopathy. Cardiovascular examination reveals regular rhythm rate. Heart rate about 80. S1-S2 normal. No murmur. No S3-S4. Lungs reveal mostly clear breath sounds. A few scattered rhonchi. Diminished in the bases more so on the right. Abdomen soft bowel sounds are heard. Extremities are intact. No cyanosis clubbing or edema. Skin without rash. Neurologic examination is difficult to perform but apparently nonfocal. - Labs CBC & Chem 7: 12/15/16 06:10 12/15/16 06:10 Labs: Abnormal Lab Results - Last 24 Hours (Table) 12/15/16 12/15/16 12/15/16 Range/Units 12:11 18:13 19:49 POC Glucose (mg/dL) 149 H 171 H 162 H (75-99) mg/dL 12/16/16 Range/Units 00:43 POC Glucose (mg/dL) 122 H (75-99) mg/dL Assessment and Plan Plan: Impression: 1 acute hypoxic respiratory failure, unexpected, post jejunostomy tube placement , multifactorial, mostly secondary to fluid overload and bilateral pleural effusions, suspect underlying COPD, and secondary to underlying medical debility , possible diastolic congestive heart failure. 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 3 possible non-ST elevation myocardial infarction with positive troponin since admission. 4 chronic medical debility and weight loss secondary to underlying esophageal cancer and poor oral intake. 5 history of severe COPD 6 chronic iron deficiency anemia 7 acute kidney injury secondary to acute tubular necrosis, secondary to hypotension. Renal profile is slightly worse, but urine output seems marginal 8 status post placement of a gastrojejunostomy tube on 12/08/2016. 9 status post left-sided thoracentesis, 1100 mL of transudative fluid was obtained and was negative for malignancy. Plan: The patient was seen and evaluated by Dr. Mcneill who then decided the patient would be better served in comfort care. The long term care social worker spoke with the patient's DURABLE POWER OF FIELD EDUCATION COORDINATOR who agreed to the comfort care status. His overall condition has continued to deteriorate. A morphine drip has been initiated. Scopolamine patch applied. All other non comfort interventions will be discontinued.
--- NOTE | 2016-12-16 16:39 | P.PN ---
<Lola Barber - Last Filed: 12/16/16 16:34> Subjective Progress note being dictated for Dr. 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 12/09/2016 Gastrojejunostomy tube placed yesterday, reintubated postop related to hypoxic respiratory failure and transferred to ICU. Continues on mechanical ventilation, FiO2 50%/+5 PEEP. ABGs noted. Maintained on Levophed and diprovan. Mildly worsened renal function. Ultrasound reports Large Bilateral pleural effusions. Under going left-sided thoracentesis at bedside currently with pulmonary. 12/10/2016 remains vent dependent with FiO2 at 50%/+5 of PEEP. Recently on CPAP. Chest x-ray reporting moderate right pleural effusion, trace left pleural effusion. Scheduled for right thoracentesis today. Levophed has remained off since yesterday afternoon. Renal function worsening. 12/11/2016 extubated yesterday, maintaining O2 sats of 96-98% on 6 L nasal cannula. Underwent right-sided thoracentesis yesterday with no fluid drained. Tolerating tube feeds via gastrojejunostomy tube. Extremely weak. Renal function worsening. Hemoglobin decreased to 7.7. 12/13/2016 Hemoglobin 7.0, receive 1 unit of packed RBCs followed by Cornel . Currently of BiPAP currently on 12 L high flow. chest x-ray stable, reporting by bibasilar infiltrates, pleural effusions larger on the right. Telemetry sinus rhythm. 12/14/2016 declined BiPAP last night , maintained on 15 L high flow nasal cannula, chest x-ray noted. telemetry sinus rhythm. Tolerating tube feeds at goal. Pleural cytology negative for malignancy. Hemoglobin 7.9. Diuretics remain on hold, Creatinine 2.5. Denies chest pain, palpitations. Afebrile. Awaiting transfer out of ICU to MedSurg unit as per school psychology specialist. 12/15/2016. Recently on MedSurg unit. Chest x-ray reporting moderate right, small left pleural effusion with right basilar airspace disease, compressive atelectasis. Continues on 15 L high flow nasal cannula, maintaining O2 sats of 90-97%. Right chest ultrasound pending. Renal function continues to worsen, increased to 2.8(patient not a candidate for hemodialysis given his invasive malignancy). Hemoglobin 7.4. 12/16/2016 patient's continued to decline and last night patient's family made patient comfort care. Maintained on morphine drip per comfort care protocol. It appears to be comfortable, unresponsive. Objective - Vital Signs Vital signs: Vital Signs Temp 98.8 F 12/15/16 21:00 Pulse 92 12/16/16 08:00 Resp 20 12/16/16 08:00 BP 120/58 12/15/16 21:00 Pulse Ox 100 12/15/16 21:00 Intake & Output 12/15/16 12/16/16 12/16/16 18:59 06:59 18:59 Intake Total 240 249.173 Output Total 100 100 Balance 240 149.173 -100 Weight 93 kg 93 kg Intake: Intake, IV Titration 1.173 Amount Morphine Sulfate (100 mg/ 1.173 2 ml) 100 mg In Sodium Chloride 0.9% 100 ml @ 1 MG/HR 1.02 mls/hr IV . Q24H [facility] Rx#:[id number] Oral 200 Tube Feeding 240 48 Output: Urine 100 100 Other: Voiding Method Diaper Diaper Diaper # Voids 1 1 1 # Bowel Movements 1 ABP, PAP, CO, CI - Last Documented Arterial Blood Pressure 125/44 - Exam PHYSICAL EXAM: VITAL SIGNS: As above GENERAL: [Unresponsive, on morphine drip HEENT: [Pupils equal conjunctiva normal. NECK: [Supple, no JVD,] RESPIRATORY EFFORT:[ Mildly increased] LUNGS: [Bilateral bases diminished, occasional rhonchi, no crackles, no wheezing] CARDIOVASCULAR[ regular S1 and S2, no murmurs rubs or gallops, no edema] GI: [Abdomen soft, positive bowel sounds. J-tube present] - Labs CBC & Chem 7: 12/15/16 06:10 12/15/16 06:10 Labs: Abnormal Lab Results - Last 24 Hours (Table) 12/15/16 12/15/16 12/16/16 Range/Units 18:13 19:49 00:43 POC Glucose (mg/dL) 171 H 162 H 122 H (75-99) mg/dL Assessment and Plan Plan: 1. 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 Acute hypoxic respiratory failure, postop, status post mechanical ventilator -dependent. 3.Acute on chronic renal failure secondary to dehydration, prerenal factors and acute tubular necrosis. 4. [ Hypoglycemia secondary to decreased oral intake]. 5. Syncope, possibly vasovagal 6. Troponin 1.020 undetermined etiology 7. Status post gastrojejunostomy tube placement 8. Bilateral pleural effusions, status post left thoracentesis, cultures pending. Status post right thoracentesis, no fluid drained. 9. Hypotension, hypovolemic shock, possibly malignancy related. 10. No code, no CPR, no intubation 11. Comfort care. Plan: Continue on current medication regime , monitoring and symptomatic treatment. Maintain comfort care protocol. Hospice consulted. The impression and plan of care has been dictated as directed. DrIsreal: I performed a H&P examination of this patient and discussed the same with the dictator. I agree with the dictator's note. Any additional findings/opinions/ etc. will be noted. <Alex Mujica K - Last Filed: 12/17/16 08:53> Subjective pt was made comfort measures only Pt cause of is metastatic cancer severe deconditioning Objective - Vital Signs Vital signs: Vital Signs Temp 98.8 F 12/15/16 21:00 Pulse 92 12/16/16 16:00 Resp 20 12/16/16 16:00 BP 120/58 12/15/16 21:00 Pulse Ox 100 12/15/16 21:00 Intake & Output 12/16/16 12/17/16 12/17/16 18:59 06:59 18:59 Intake Total 50 Output Total 200 Balance -150 Weight 93 kg Intake: IV 50 Piperacillin-Tazobactam 3 50 .375 gm In Dextrose/Water 1 50ml.bag @ 12.5 mls/hr IVPB Q8HR [facility] Rx#: [id number] Sodium Chloride 0.9% 1, 0 000 ml @ 20 mls/hr IV . Q24H [facility] Rx#:[id number] Oral 0 Output: Urine 200 Other: Voiding Method Diaper # Voids 1 ABP, PAP, CO, CI - Last Documented Arterial Blood Pressure 125/44 - Labs CBC & Chem 7: 12/15/16 06:10 12/15/16 06:10
--- NOTE | 2016-12-19 13:38 | PN ---
ADDENDUM: Please add: Hypotension, possibly secondary to diminished po intake. MTDD
== END 2016-12-16 19:28 | disposition expired | DRG 326 ==
LOC: EC 10:32 → 4MS4W 14:20 → OBSVTOIN 11-22 20:33 → 5MS5E 12-06 10:50 → 6ICU 12-08 18:19 → 5MS5E 12-14 18:43
PROVIDERS: ADMIT Hospitalist; ATTEND Hospitalist
PROC: 0DB38ZX Excision of Lower Esophagus, Via Natural or Artificial Opening Endoscopic, Diagnostic (ICD-10-PCS; 2016-11-26)
PROC: 0D738DZ Dilation of Lower Esophagus with Intraluminal Device, Via Natural or Artificial Opening Endoscopic (ICD-10-PCS; 2016-12-01)
PROC: 0D160ZA Bypass Stomach to Jejunum, Open Approach (ICD-10-PCS; principal; 2016-12-08 17:20)
PROC: 5A1945Z Respiratory Ventilation, 24-96 Consecutive Hours (ICD-10-PCS; 2016-12-09)
PROC: 0BH17EZ Insertion of Endotracheal Airway into Trachea, Via Natural or Artificial Opening (ICD-10-PCS; 2016-12-09)
PROC: 0W9B3ZX Drainage of Left Pleural Cavity, Percutaneous Approach, Diagnostic (ICD-10-PCS; 2016-12-09)
PROC: 0W993ZZ Drainage of Right Pleural Cavity, Percutaneous Approach (ICD-10-PCS; 2016-12-10)
PROC: 30243N1 Transfusion of Nonautologous Red Blood Cells into Central Vein, Percutaneous Approach (ICD-10-PCS; 2016-12-13)
DX: C15.5 Malignant neoplasm of lower third of esophagus (principal); N17.0 Acute kidney failure with tubular necrosis; I21.4 Non-ST elevation (NSTEMI) myocardial infarction; J96.01 Acute respiratory failure with hypoxia; R57.1 Hypovolemic shock; G93.41 Metabolic encephalopathy; J90 Pleural effusion, not elsewhere classified; C79.9 Secondary malignant neoplasm of unspecified site; E44.0 Moderate protein-calorie malnutrition; E87.2 Acidosis; E87.1 Hypo-osmolality and hyponatremia; J98.11 Atelectasis; Z66 Do not resuscitate; Z51.5 Encounter for palliative care; J44.9 Chronic obstructive pulmonary disease, unspecified; I95.9 Hypotension, unspecified; I27.2 Other secondary pulmonary hypertension; E87.5 Hyperkalemia; E83.51 Hypocalcemia; N28.1 Cyst of kidney, acquired; I07.1 Rheumatic tricuspid insufficiency; K29.60 Other gastritis without bleeding; D50.9 Iron deficiency anemia, unspecified; R55 Syncope and collapse; D63.8 Anemia in other chronic diseases classified elsewhere; E16.2 Hypoglycemia, unspecified; K22.2 Esophageal obstruction; N18.9 Chronic kidney disease, unspecified; R33.9 Retention of urine, unspecified; R26.9 Unspecified abnormalities of gait and mobility; Z87.891 Personal history of nicotine dependence; Y83.8 Other surgical procedures as the cause of abnormal reaction of the patient, or of later complication, without mention of misadventure at the time of the procedure; Y92.238 Other place in hospital as the place of occurrence of the external cause
CPT/HCPCS: 36415; 36600; 43239; 43248; 70450; 71010; 71020; 71250; 74176; 76604; 76770; 80048; 80053; 80306; 81003; 82378; 82550; 82553; 82728; 82805; 82945; 82947; 83036; 83525; 83540; 83550; 83615; 83735; 83880; 83935; 84100; 84132; 84134; 84155; 84157; 84300; 84439; 84443; 84481; 84484; 84681; 85025; 85652; 86140; 86850; 86900; 86901; 86920; 87070; 87205; 87324; 88108; 88305; 88341; 88342; 89050; 93005; 93306; 94002; 94003; 94640; 94660; 94760; 96361; 96365; 96374; 96375; 96376; 99285